=== PATIENT | female | born 1970 | race Caucasian/White ===

== ENCOUNTER 2019-09-26 12:41 | Outpatient (CLI) | payer BC, SELFPAY ==
--- NOTE | ~2019-09-26 | XR_ITS ---
EXAMINATION: XR ankle RT min 3V, XR foot RT min 3V DATE: 09/26/2019 13:06 INDICATION: Right foot and ankle pain TECHNIQUE: 1. Standing anteroposterior, mortise, additional oblique and lateral view of the right ankle were ob tained. 2. Standing dorsoplantar, two oblique and lateral views of the right foot were obtained. COMPARISON: None. FINDINGS: Alignment of the right foot and ankle is normal. No fracture or osteochondral lesion. Minimal to mild osteoarthritis at the tarsal metatarsal and first metatarsophalangeal joints. Tiny Achilles and plan tar calcaneal spurs. No ankle joint effusion. The soft tissues are unremarkable. IMPRESSION: 1. Minimal to mild degenerative skeletal changes. No acute osseous abnormality. Reviewed, dictated and finalized at location A. IMPRESSION: 1. Minimal to mild degenerative skeletal changes. No acute osseous abnormality.
--- NOTE | ~2019-09-26 | XR_ITS ---
EXAMINATION: XR ankle LT min 3V, XR foot LT min 3V DATE: 09/26/2019 13:06 INDICATION: Left foot and ankle pain TECHNIQUE: 1. Standing anteroposterior, mortise, additional oblique and lateral view of the left ankle were obt ained. 2. Standing dorsoplantar, two oblique and lateral views of the left foot were obtained. COMPARISON: None. FINDINGS: Alignment of the foot and ankle is normal. No fracture or osteochondral lesion. Minimal to mild osteo arthritis involving the talonavicular, tarsometatarsal and first metatarsophalangeal joints. Tiny Ach illes and plantar calcaneal spurs. No ankle joint effusion. The soft tissues are unremarkable. IMPRESSION: 1. Minimal to mild degenerative changes in the left foot. No acute osseous abnormality. Reviewed, dictated and finalized at location A. IMPRESSION: 1. Minimal to mild degenerative changes in the left foot. No acute osseous abno rmality.
== END 2019-09-26 12:42 | disposition home or self-care (01) ==
LOC: ANHIMG 12:44
PROVIDERS: PCP Family Medicine; Visit Provider Podiatrist Foot & Ankle Surgery
DX: M79.672 Pain in left foot (principal); M79.671 Pain in right foot; M19.072 Primary osteoarthritis, left ankle and foot; M19.071 Primary osteoarthritis, right ankle and foot
CPT/HCPCS: 73610; 73630

== ENCOUNTER 2020-01-31 10:31 | Outpatient (CLI) | payer BC, SELFPAY ==
--- NOTE | ~2020-01-31 | XR_ITS ---
EXAMINATION: XR knee LT 3V EXAM DATE: 01/31/2020 11:08 INDICATION: Initial encounter following injury, with pain of the left knee. TECHNIQUE: Three projections of the left knee. There are no prior studies for comparison. FINDINGS: No evidence osteochondral defect or joint body in the left knee joint. No sizable joint effusion. There are no acute fractures or dislocations identified. There is no subcutaneous gas. Th e soft tissue is unremarkable. There are no radiopaque foreign bodies. IMPRESSION: 1. Unremarkable XR knee LT 3V exam. Reviewed, dictated and finalized at location B.
--- NOTE | ~2020-01-31 | XR_ITS ---
EXAMINATION: XR lumbar spine 2-3V EXAM DATE: 01/31/2020 11:08 INDICATION: Initial encounter following injury, with pain of the low back. TECHNIQUE: Lumber spine frontal, lateral, lateral L5-S1 projections for interpretation. There is no prior study for comparison. FINDINGS: The vertebral bodies are aligned in the AP dimension. There is mild loss of the L5-S1 disc height. The vertebral body and disc heights are otherwise well maintained. There are no acute fractu res identified. Mild lumbar facet arthropathy. Sacrum, sacroiliac joints, sacral arcuate lines are in tact. Paraspinal soft tissue is unremarkable. IMPRESSION: 1. Mild lumbar spondylosis. Reviewed, dictated and finalized at location B. IMPRESSION: 1. Mild lumbar spondylosis.
--- NOTE | ~2020-01-31 | XR_ITS ---
EXAMINATION: XR hip LT min 2V EXAM DATE: 01/31/2020 11:08 INDICATION: Initial encounter following injury, with pain of the left hip. TECHNIQUE: Left hip frontal, 'frog leg' projections for interpretation. There is no prior study for comparison. FINDINGS: Smooth left hip femoral head contour, no radiographic evidence of avascular necrosis. Ther e is mild primary osteoarthritis. There are no acute fractures or dislocations identified. There is no subcutaneous gas. The soft tissue is unremarkable. There are no radiopaque foreign bodies. IMPRESSION: 1. XR hip LT min 2V exam without acute osseous findings. Reviewed, dictated and finalized at location B.
== END 2020-01-31 10:32 | disposition home or self-care (01) ==
PROVIDERS: PCP Family Medicine; Visit Provider Physician Assistant
DX: M25.559 Pain in unspecified hip (principal); M47.896 Other spondylosis, lumbar region; M25.552 Pain in left hip; M25.562 Pain in left knee
CPT/HCPCS: 72100; 73502; 73562

== ENCOUNTER 2020-06-04 12:18 | Outpatient (CLI) | payer BC, MEDICAID, SELFPAY ==
--- NOTE | ~2020-06-04 | XR_ITS ---
EXAMINATION: XR chest 2V DATE: 06/04/2020 12:41 INDICATION: Personal history of other specified conditions. TECHNIQUE: Frontal and lateral views of the chest were obtained. COMPARISON: Chest 2 views 08/14/16, CT abdomen and pelvis 05/16/2009 FINDINGS: The chest demonstrates clear lungs without pneumonia, pleural effusion, or pneumothorax. Th e heart size is normal. IMPRESSION: 1. No acute cardiopulmonary disease. Reviewed, dictated and finalized at location A. 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
== END 2020-06-04 12:19 | disposition home or self-care (01) ==
PROVIDERS: PCP Family Medicine; Visit Provider Physician Assistant
DX: Z87.898 Personal history of other specified conditions (principal)
CPT/HCPCS: 71046

== ENCOUNTER → 2020-07-16 06:56 | Outpatient (CLI) | payer MEDICAID, SELFPAY ==
[2020-07-16 22:47] LABS: SARS-CoV-2 RNA PCR Negative
== END ==
PROVIDERS: PCP Family Medicine; Visit Provider Physician Assistant
DX: R05 Cough (principal); Z20.822 Contact with and (suspected) exposure to COVID-19
CPT/HCPCS: C9803; U0003; U0005

== ENCOUNTER 2020-09-08 13:33 | Emergency (ER) | payer BC, SELFPAY ==
--- NOTE | ~2020-09-08 | US_ITS ---
EXAMINATION: US venous doppler UE RT DATE: 09/08/2020 15:13 INDICATION: Erythema and swelling at the right upper limb TECHNIQUE: Grayscale images without and with compression and Doppler images of the right upper extrem ity veins were obtained. COMPARISON: None. FINDINGS: The right internal jugular vein, subclavian vein, axillary vein, brachial vein, basilic vein, cephali c vein, radial vein, and ulnar vein are patent. IMPRESSION: 1. Patent right upper extremity veins. No evidence of venous thrombosis. Reviewed, dictated and finalized at location A.
[2020-09-08 13:50] VITALS: BP 219/94; PULSE 78; RESP 18; TEMP 36.2; O2SAT 98
--- NOTE | 2020-09-08 14:02 | PC.NURSE ---
Arrives ambulatory steady gait from triage, c/o R forearm pain/tenderness/erythema, denies falls or trauma, states yesterday Diatomaceous Earth spilled on her living room floor and made contact with her skin, denies allergies. Denies hx blod clots. Pt tearful and anxious
--- NOTE | 2020-09-08 14:51 | ED.GENADULT ---
HPI - General Adult General Chief complaint: Extremity Injury, Upper Stated complaint: swollen right arm Time Seen by Provider: 09/08/20 14:05 Source: patient Mode of arrival: ambulatory Limitations: no limitations History of Present Illness HPI narrative: Patient presents for evaluation of right forearm pain, redness and swelling. She states she had a panic attack two night ago. Thereafter she developed a rash in right forearm. She states she has had a rash in the past with previous panic attacks. Since that time, the area has become more erythematous and painful. She states she spilled a cleaning product on the floor around the time of symptom onset believes the affected area of her arm may have come in contact with the cleaning product. She denies fever, chills, nausea, vomiting. She is diabetic. She states her blood sugars have been running in the 150s. On arrival in the emergency department her blood pressure was elevated. She states she ran out of her losartan few days ago. She plan to pick it up but she cannot do so as of yet. She denies any chest pain or shortness of breath. In terms of pain in the right forearm she states that it is so bad (she) wants to cry . She is right hand dominant. No personal hx of VTE. She does not smoke. No additional complaints or concerns. Related Data Allergies Allergy/AdvReac Type Severity Reaction Status Date / Time codeine Allergy Intermediate HIVES Verified 09/08/20 14:04 clarithromycin AdvReac Intermediate DIARRHEA Verified 09/08/20 14:04 ciprofloxacin AdvReac Unknown JOINT PAIN Verified 09/08/20 14:04 Review of Systems Review of Systems: Narrative: CONSTITUTIONAL: Denies fever, chills, or sweats. EYES: Denies visual changes, redness, or discharge. ENT: Denies rhinorrhea, congestion, sore throat, or otalgia. CARDIOVASCULAR: Denies chest pain, palpitations, or edema. RESPIRATORY: Denies cough or dyspnea. GASTROINTESTINAL: Denies abdominal pain, nausea, vomiting, or diarrhea. GENITOURINARY: Denies dysuria or hematuria. SKIN: Reports redness to right forearm. Denies itching. MUSCULOSKELETAL: Reports pain in right forearm. Denies back pain and joint pain. NEUROLOGIC: Denies headache, numbness, dizziness, or weakness. PSYCHIATRIC: Denies anxiety or depression. [facility] Past Medical History Medical History Anxiety Bilateral knee pain Deviated septum Diabetes Effusion of right knee joint HLD (hyperlipidemia) Hypertension Hypothyroidism Left knee DJD Left knee pain Medial meniscus tear Normal colonoscopy (~2014) Right knee DJD Surgical History Surgical History H/O elbow surgery (~2016) H/O shoulder surgery (~2009) History of appendectomy (~2001) History of thyroidectomy (~2003) Family History Family History Grandparent Diabetes mellitus Family history of mental disorder Depression Family history of malignant neoplasm of ovary Mother Family history of hypercholesterolemia Family history of mental disorder Depression Hypertension Cerebrovascular accident Family history of emphysema Other Arthritis Asthma Lung disease Social History Social History Smoking status: Never smoker Tobacco type: smokeless tobacco Second hand tobacco smoke exposure: No Alcohol intake: never Gender identity (if verbalized by the patient): Female Exam Narrative: Exam Narrative: GENERAL: Well-appearing, well-nourished, and in no acute distress. HEAD: Normocephalic, atraumatic. EYES: PERRLA and EOMI. ENT: Nares clear, no rhinorrhea or epistaxis. Mucous membranes moist. Oropharynx without tonsillar hypertrophy exudate or other lesions. Bilateral TMs pearly franco nonbulging NECK: Supple. No adenopathy or masses. No carotid bruits
[2020-09-08 15:30] VITALS: BP 180/102; PULSE 59; RESP 20; O2SAT 98
[2020-09-08] MEDS: cloNIDine HCL 0.1 MG TABLET PO (15:31)
[2020-09-08] MEDS: HYDROcodone/acetaminophen (*CRX) 5-325 MG TABLET 2 TAB PO (15:34)
[2020-09-08 15:48] LABS: Basophils Percent Auto 0.3 % (0.2-1.2); Eosinophils Absolute Auto 0.3 K/mm3 (0-0.3); Eosinophils Percent Auto 3.7 % (0-4.4); Hematocrit 45.9 % (37.0-47.0); Hemoglobin 15.1 g/dL (12.0-15.0); Immature Granulocyte Absolute 0.02 K/mm3 (0.00-0.031); Immature Granulocyte Percent A 0.3 % (0-0.5); Lymphocytes Absolute Auto 1.16 K/mm3 (0.9-3.2); Lymphocytes Percent Auto 15.3 % (18.3-44.2); Mean Corpuscular HGB Conc 32.9 g/dl (32-36); Mean Corpuscular Hemoglobin 29.3 pg (26-34); Mean Corpuscular Volume 89.1 fl (80-100); Monocytes Absolute Auto 0.4 K/mm3 (0.1-0.6); Monocytes Percent Auto 5.3 % (2.6-8.5); Neutrophils Absolute Auto 5.7 K/mm3 (1.3-6.7); Neutrophils Percent Auto 75.1 % (45.5-73.1); Platelet Count Result 369 k/mm3 (150-375); Red Blood Count 5.15 M/mm3 (4.2-5.4); White Blood Count 7.6 K/mm3 (4.5-10.0)
[2020-09-08 16:01] LABS: Alanine Aminotransferase 24 U/L (4-35); Alkaline Phosphatase 110 U/L (38-126); Anion Gap 4 mmol/L (8-16); Aspartate Amino Transferase 34 U/L (14-36); Bilirubin,Total 0.2 mg/dL (0.2-1.3); Blood Urea Nitrogen 14 mg/dL (7-17); Calcium 8.9 mg/dL (8.4-10.2); Carbon Dioxide 31 mmol/L (22-30); Chloride 103 mmol/L (98-107); Estimated CRCL calculation 81 ml/min; Estimated Glomerular Filt Rate > 60; Glucose 149 mg/dL (65-105); Potassium 3.6 mmol/L (3.4-5.0); Sodium 138 mmol/L (137-145)
[2020-09-08 16:47] LABS: INR 0.9
[2020-09-08 16:48] LABS: Partial Thromboplastin Time 27.5 SECONDS (22.3-36.8)
[2020-09-08 16:56] VITALS: BP 115/65; PULSE 52; RESP 17; O2SAT 94
[2020-09-08 17:25] LABS: Creatine Kinase 41 U/L (30-135)
[2020-09-08 18:23] VITALS: BP 111/59; PULSE 50; RESP 17; O2SAT 98
== END 2020-09-08 18:39 | disposition home or self-care (01) ==
PROVIDERS: Emergency Provider Nurse Practitioner; PCP Family Medicine
DX: L03.113 Cellulitis of right upper limb (principal); E11.9 Type 2 diabetes mellitus without complications; E78.5 Hyperlipidemia, unspecified; I10 Essential (primary) hypertension; E89.0 Postprocedural hypothyroidism; M17.0 Bilateral primary osteoarthritis of knee; F17.220 Nicotine dependence, chewing tobacco, uncomplicated
CPT/HCPCS: 36415; 80053; 82550; 85025; 85610; 85730; 93971; 96365; 99284; A9270; J0690

== ENCOUNTER 2020-09-16 10:22 | Outpatient (CLI) | payer BC, SELFPAY ==
--- NOTE | ~2020-09-16 | MR_ITS ---
EXAMINATION: MR knee LT wo con DATE: 09/16/2020 11:39 INDICATION: Left knee pain TECHNIQUE: Magnetic resonance imaging (MRI) of the left knee was performed without intravenous contra st. Sequences included coronal PD-weighted FSE, coronal PD-weighted FS FSE, sagittal T2-weighted FSE , sagittal PD-weighted FS FSE and axial PD weighted fat saturated FSE. COMPARISON: None. FINDINGS: Medial compartment: Medial meniscus is normal. Articular cartilage is normal. Lateral compartment: Lateral meniscus is normal. Mild chondral surface regularity at the central aspect. Lateral tibial pl [place]. Patellofemoral compartment: Articular cartilage is normal. Ligaments and tendons: Anterior and posterior cruciate ligaments are normal. The medial collateral ligament and fibular freddy ateral ligament complex are normal. The extensor mechanism is normal. The visualized medial and later al hamstring tendons as well as the iliotibial band are normal. Fluid: Physiologic amount of fluid in the joint space. No loose osteochondral bodies identified. Small Ambrose 's cyst with small amount of fluid tracking cephalad along the deep margin of the distal semimembrano afshin muscle belly. Osseous/other: Normal marrow signal. No fracture or abnormal marrow replacing process. IMPRESSION: 1. Shallow chondral surface irregularity at the central aspect of the lateral tibial plateau. 2. Small likely ruptured Ambrose's cyst with small amount of fluid tracking cephalad along the distal s emimembranosus muscle belly. Reviewed, dictated and finalized at location A. IMPRESSION: 1. Shallow chondral surface irregularity at the central aspect of the lateral t ibial plateau. 2. Small likely ruptured Ambrose's cyst with small amount of fluid tracking cepha lad along the distal semimembranosus muscle belly.
== END 2020-09-16 10:23 | disposition home or self-care (01) ==
PROVIDERS: PCP Family Medicine; Visit Provider Orthopaedic Surgery
DX: M25.562 Pain in left knee (principal)
CPT/HCPCS: 73721

== ENCOUNTER 2020-12-23 21:23 | Emergency (ER) | payer OTHER, BC, SELFPAY ==
[2020-12-23 21:31] VITALS: BP 180/86; PULSE 74; RESP 18; TEMP 36.9; O2SAT 100
--- NOTE | 2020-12-23 23:59 | PC.NURSE ---
splint to ankle removed by erp. replaced with new orthoglass splint by ert
--- NOTE | 2020-12-24 | ED.LOWEXIN ---
HPI - Extremity Injury (Lower) General Chief Complaint: Extremity Injury, Lower Stated Complaint: pain from previous ankle fx Time Seen by Provider: 12/23/20 23:14 History of Present Illness HPI Narrative: Patient is a 50-year-old female who presents ER with pain in her left ankle. Had suffered a fall while at work just before December 14. She was seen at an urgent care and diagnosed with a chip fracture to her patella and a medial malleolus fracture on the left side. She was placed in a short leg posterior splint and a knee immobilizer. She has been using a walker at home. She was given no pain medication. No improvement with ibuprofen. No additional trauma. No new numbness or tingling. Related Data Allergies Allergy/AdvReac Type Severity Reaction Status Date / Time codeine Allergy Intermediate HIVES Verified 12/23/20 21:46 clarithromycin AdvReac Intermediate DIARRHEA Verified 12/23/20 21:46 ciprofloxacin AdvReac Unknown JOINT PAIN Verified 12/23/20 21:46 Review of Systems Constitutional: Constitutional: Denies chills and Denies fever(s) Musculoskeletal: Musculoskeletal: Denies back pain, Reports arthralgias, Denies joint swelling and Denies muscle cramps Neurologic: Denies focal weakness and Denies numbness PMFSH Past Medical History Medical History Anxiety Bilateral knee pain Deviated septum Diabetes Effusion of right knee joint HLD (hyperlipidemia) Hypertension Hypothyroidism Left knee DJD Left knee pain Medial meniscus tear Normal colonoscopy (~2014) Right knee DJD Surgical History Surgical History H/O elbow surgery (~2016) H/O shoulder surgery (~2009) History of appendectomy (~2001) History of thyroidectomy (~2003) Family History Family History Grandparent Diabetes mellitus Family history of mental disorder Depression Family history of malignant neoplasm of ovary Mother Family history of hypercholesterolemia Family history of mental disorder Depression Hypertension Cerebrovascular accident Family history of emphysema Other Arthritis Asthma Lung disease Social History Social History Tobacco type: smokeless tobacco Second hand tobacco smoke exposure: No Alcohol intake: never Gender identity (if verbalized by the patient): Female Exam Narrative: GENERAL: Well-appearing, well-nourished, and in no acute distress. HEAD: Normocephalic, atraumatic. HEART: Regular rate and rhythm. Normal peripheral pulses. EXTREMITIES: Normal range of motion of the right lower extremity. Left lower extremity immobilized. Short leg posterior splint removed and no breakdown of the skin. Mild tenderness over the medial malleolus. No bruising or swelling. NEURO: Alert and oriented x3. PSYCH: Normal mood and affect. Course Course Emergency Course: Patient resplinted. Discharge home. Small amount of [place] for home. Vital Signs Vital signs: Vital Signs Temperature 98.4 F 12/23/20 21:31 Pulse Rate 74 12/23/20 21:31 Respiratory Rate 18 12/23/20 21:31 Blood Pressure 180/86 H 12/23/20 21:31 Pulse Oximetry 100 12/23/20 21:31 Temperature 98.4 F 12/23/20 21:31 Pulse Rate 74 12/23/20 21:31 Respiratory Rate 18 12/23/20 21:31 Blood Pressure 180/86 H 12/23/20 21:31 Pulse Oximetry 100 12/23/20 21:31 Procedures Orthopedic Splinting/Casting Injury #1: Splinting/Casting Date: 12/24/20 Splinting/Casting Time: 00:04 Side: left Lower Extremity Injury Location: ankle Lower Extremity Immobilizer: posterior splint Splint: customized in ED Pre-Procedure Neuro Vascular Exam: normal Post-Procedure Neuro Vascular Exam: normal Discharge Plan Discharge Clinical Impression: Ankle fractur
== END 2020-12-24 00:26 | disposition home or self-care (01) ==
PROVIDERS: Emergency Provider Emergency Medicine; PCP Family Medicine
DX: S82.892A Other fracture of left lower leg, initial encounter for closed fracture (principal); E11.9 Type 2 diabetes mellitus without complications; E78.5 Hyperlipidemia, unspecified; I10 Essential (primary) hypertension; M17.0 Bilateral primary osteoarthritis of knee; E89.0 Postprocedural hypothyroidism; F17.220 Nicotine dependence, chewing tobacco, uncomplicated; F41.9 Anxiety disorder, unspecified
CPT/HCPCS: 29515; 99282

== ENCOUNTER 2021-01-10 09:19 | Outpatient (CLI) | payer OTHER, SELFPAY ==
--- NOTE | ~2021-01-10 | MR_ITS ---
EXAMINATION: MR knee LT wo con DATE: 01/10/2021 11:20 INDICATION: Persistent left knee pain, swelling and instability post fall one month prior TECHNIQUE: Magnetic resonance imaging (MRI) of the left knee was performed without intravenous contra st. Sequences included coronal PD-weighted FSE, coronal PD-weighted FS FSE, sagittal T2-weighted FSE , sagittal PD-weighted FS FSE and axial PD weighted fat saturated FSE. COMPARISON: None. FINDINGS: Medial compartment: Medial meniscus is normal. Articular cartilage is normal. Lateral compartment: Lateral meniscus is normal. Partial-thickness chondral fissure extending across the central to medial aspect of the lateral tibial plateau with tiny focus of subarticular edema along the shoulder the in tercondylar eminence. Normal cartilage along the weightbearing lateral femoral condyle. Patellofemoral compartment: Articular cartilage is normal. Ligaments and tendons: Anterior and posterior cruciate ligaments are normal. The medial collateral ligament and fibular freddy ateral ligament complex are normal. The extensor mechanism is normal. The visualized medial and later al hamstring tendons as well as the iliotibial band are normal. Fluid: Physiologic amount of fluid in the joint space. No loose osteochondral bodies identified. Osseous/other: Normal marrow signal. No fracture or abnormal marrow replacing process. IMPRESSION: 1. Small region of moderate to high-grade chondromalacia at the lateral tibial plateau. Reviewed, dictated and finalized at location A.
== END 2021-01-10 09:20 | disposition home or self-care (01) ==
PROVIDERS: PCP Family Medicine; Visit Provider Orthopaedic Surgery
DX: M25.562 Pain in left knee (principal); M94.262 Chondromalacia, left knee
CPT/HCPCS: 73721

== ENCOUNTER → 2021-03-07 02:39 | Outpatient (CLI) | payer BC, SELFPAY ==
[2021-03-07 17:01] LABS: SARS-CoV-2 RNA PCR Negative
== END ==
PROVIDERS: PCP Family Medicine; Visit Provider Physician Assistant
DX: R05.9 Cough, unspecified (principal); Z20.822 Contact with and (suspected) exposure to COVID-19
CPT/HCPCS: C9803; U0003; U0005

== ENCOUNTER 2021-03-13 16:33 | Emergency (ER) | payer BC, SELFPAY ==
[2021-03-13] VITALS (10 sets, daily range): BP systolic 181–209; BP diastolic 81–102; PULSE 50–75; RESP 12–29; TEMP 36.1; O2SAT 94–100
--- NOTE | ~2021-03-13 | CT_ITS ---
EXAMINATION: CT brain wo con DATE: 03/13/2021 17:54 INDICATION: Headache, dizziness TECHNIQUE: Computed tomography (CT) of the head was performed without intravenous contrast. The mA wa s adjusted according to patient size. Iterative reconstruction technique was employed. Exam dose: 60 5.33 mGy-cm total exam DLP. COMPARISON: 09/24/2016 CT brain FINDINGS: No intracranial mass lesion or hemorrhage or cerebrovascular accident. No midline shift or mass effect. Normal ventricular size. No subdural or epidural hematoma. No fracture or bone destruction of the cranial vault. The mastoid air cells and included paranasal sinuses are unremarkable. IMPRESSION: No significant abnormality Reviewed, dictated and finalized at Location A. Reviewed, dictated and finalized at location A. IMPRESSION: No significant abnormality
--- NOTE | 2021-03-13 16:39 | ECG_ITS ---
Measurements Intervals Ona Rate: 71 P: 3 NV: 118 QRS: 8 QRSD: 89 T: -26 QT: 397 QTc: 431 Interpretive Statements SINUS RHYTHM WITH SHORT NV INTERVAL VENTRICULAR PREMATURE COMPLEXES DELAYED PRECORDIAL R/S TRANSITION BORDERLINE T WAVE ABNORMALITY- DIFFUSE LEADS BASELINE ARTIFACT- III BORDERLINE ECG Electronically Signed On 03-13-2021 20:22:56 CDT by Nick Smith D.O.
[2021-03-13 17:11] LABS: Basophils Absolute Auto 0.1 K/mm3 (0.0-0.1); Basophils Percent Auto 0.9 % (0.2-1.2); Eosinophils Percent Auto 0.7 % (0-4.4); Hematocrit 46.9 % (37.0-47.0); Hemoglobin 15.1 g/dL (12.0-15.0); Immature Granulocyte Absolute 0.02 K/mm3 (0.00-0.031); Immature Granulocyte Percent A 0.3 % (0-0.5); Lymphocytes Absolute Auto 1.53 K/mm3 (0.9-3.2); Lymphocytes Percent Auto 26.2 % (18.3-44.2); Mean Corpuscular HGB Conc 32.2 g/dl (32-36); Mean Corpuscular Hemoglobin 29.5 pg (26-34); Mean Corpuscular Volume 91.6 fl (80-100); Mean Platelet Volume 9.4 fl (7.4-10.4); Monocytes Absolute Auto 0.4 K/mm3 (0.1-0.6); Monocytes Percent Auto 7.5 % (2.6-8.5); Neutrophils Absolute Auto 3.8 K/mm3 (1.3-6.7); Neutrophils Percent Auto 64.4 % (45.5-73.1); Platelet Count Result 338 k/mm3 (150-375); Red Blood Count 5.12 M/mm3 (4.2-5.4); Red Cell Distribution Width 13.3 % (11.5-14.5); White Blood Count 5.9 K/mm3 (4.5-10.0)
[2021-03-13] MEDS: SODIUM CHLORIDE 0.9% IV 1,000 ML 999 ML IV CONT ×2 (17:44→19:18)
[2021-03-13] MEDS: ONDANSETRON INJ 4 MG/2 ML VIAL IV PUSH (17:44)
[2021-03-13 17:45] LABS: Anion Gap 7 mmol/L (8-16); Blood Urea Nitrogen 9 mg/dL (7-17); Calcium 9.5 mg/dL (8.4-10.2); Carbon Dioxide 31 mmol/L (22-30); Chloride 103 mmol/L (98-107); Estimated CRCL calculation 85 ml/min; Estimated Glomerular Filt Rate > 60; Glucose 217 mg/dL (65-110); Potassium 3.7 mmol/L (3.4-5.0); Sodium 141 mmol/L (137-145)
--- NOTE | 2021-03-13 17:47 | ED.DIZZY ---
HPI - Dizziness General Chief Complaint: Dizziness Stated Complaint: headache Time Seen by Provider: 03/13/21 17:15 Source: patient History of Present Illness HPI Narrative: Patient presents with dizziness. Patient reports intermittent dizziness over the past 3 days associated primarily when standing up and moving quickly. She describes sensation of spinning as well as sensation of she feels like she is going to pass out. She also reports she has had left-sided jaw and ear pain over this time. She was seen by her primary care doctor and was told she has an ear infection and started headaches. She reports she blew her nose yesterday and this morning woke up with blood around her eyes and she was concerned Dr. Primary care doctor is referred to the ER for evaluation. She denies any active dizziness right now while laying down. She denies any focal numbness or weakness. She reports her symptoms have also been associate with a headache that is achy, constant, no radiation, worsened by everything . Patient is also reporting a lot of pressure in her sinuses over the past 3 days she denies fevers does report congestion denies cough. She also reports mild upset stomach but denies any vomiting or diarrhea Related Data Allergies Allergy/AdvReac Type Severity Reaction Status Date / Time codeine Allergy Intermediate HIVES Verified 02/27/21 13:22 clarithromycin AdvReac Intermediate DIARRHEA Verified 02/27/21 13:22 ciprofloxacin AdvReac Unknown JOINT PAIN Verified 02/27/21 13:22 Review of Systems Review of Systems: CONSTITUTIONAL: Denies fever, chills, or sweats. EYES: Denies visual changes, redness, or discharge. ENT: Denies sore throat, or otalgia. CARDIOVASCULAR: Denies chest pain, palpitations, or edema. RESPIRATORY: Denies cough or dyspnea. GASTROINTESTINAL: Denies abdominal pain, vomiting, or diarrhea. GENITOURINARY: Denies dysuria or hematuria. SKIN: Denies rash or itching. MUSCULOSKELETAL: Denies back pain, joint pain, or myalgia. NEUROLOGIC: Denies numbness, dizziness, or weakness. PSYCHIATRIC: Denies anxiety or depression. All systems reviewed & are unremarkable except as noted in HPI and below PMFSH Past Medical History Medical History Anxiety Bilateral knee pain Deviated septum Diabetes Effusion of right knee joint HLD (hyperlipidemia) Hypertension Hypothyroidism Left knee DJD Left knee pain Medial meniscus tear Normal colonoscopy (~2014) Right knee DJD Surgical History Surgical History H/O elbow surgery (~2017) H/O shoulder surgery (~2009) History of appendectomy (~2001) History of thyroidectomy (~2003) Family History Family History Grandparent Diabetes mellitus Family history of mental disorder Depression Family history of malignant neoplasm of ovary Mother Family history of hypercholesterolemia Family history of mental disorder Depression Hypertension Cerebrovascular accident Family history of emphysema Other Arthritis Asthma Lung disease Social History Social History Second hand tobacco smoke exposure: No Alcohol intake: never Substance use: never Gender identity (if verbalized by the patient): Female Exam Narrative: GENERAL: Well-appearing, well-nourished, and in no acute distress. HEAD: Normocephalic, atraumatic. EYES: PERRLA and EOMI. diffuse conjunctival injection, left eye with subconjunctival hemorrhage ENT: Nares clear, no rhinorrhea or epistaxis. Mucous membranes moist. Diffusely poor dentition with tenderness and swelling in the left lower molar NECK: Supple. No masses. No JVD CHEST: Clear to auscultation. No respiratory distress. No wheezes rales or rhonchi HEART: Regular rate and rhythm. No murmur heard. Normal peripheral pulses. ABDOMEN: Soft,
--- NOTE | 2021-03-13 17:55 | PC.NURSE ---
Pt to ct
--- NOTE | 2021-03-13 19:01 | PC.NURSE ---
PT WITH C/O CHEST TIGHTNESS. NO ACUTE DISTRESS NOTED. PT TEXTING ON PHONE AT THIS TIME. DR YEN MADE AWARE AND NO NEW ORDERS.
== END 2021-03-13 20:46 | disposition home or self-care (01) ==
PROVIDERS: Emergency Medicine; Emergency Provider Emergency Medicine; PCP Family Medicine
DX: R42 Dizziness and giddiness (principal); K04.7 Periapical abscess without sinus; R51.9 Headache, unspecified; J32.9 Chronic sinusitis, unspecified; E11.9 Type 2 diabetes mellitus without complications; E78.5 Hyperlipidemia, unspecified; I10 Essential (primary) hypertension; M17.0 Bilateral primary osteoarthritis of knee; E89.0 Postprocedural hypothyroidism; I49.3 Ventricular premature depolarization; R94.31 Abnormal electrocardiogram [ECG] [EKG]
CPT/HCPCS: 36415; 70450; 80048; 81025; 85025; 93005; 96361; 96365; 96375; 99284; J0131; J2405; J7030

== ENCOUNTER → 2021-04-04 00:48 | Outpatient (CLI) | payer BC, SELFPAY ==
[2021-04-04 17:10] LABS: SARS-CoV-2 RNA PCR Negative
== END ==
PROVIDERS: PCP Family Medicine; Visit Provider Family Medicine
DX: R68.89 Other general symptoms and signs (principal); Z20.822 Contact with and (suspected) exposure to COVID-19
CPT/HCPCS: C9803; U0003; U0005

== ENCOUNTER 2021-05-20 10:32 | Outpatient (CLI) | payer BC, SELFPAY ==
[2021-05-20 10:27] LABS: Hematocrit 43.7 % (37.0-47.0); Hemoglobin 14.2 g/dL (12.0-15.0); Mean Corpuscular HGB Conc 32.5 g/dl (32-36); Mean Corpuscular Hemoglobin 30.1 pg (26-34); Mean Corpuscular Volume 92.6 fl (80-100); Mean Platelet Volume 9.4 fl (7.4-10.4); Platelet Count Result 287 k/mm3 (150-375); Red Blood Count 4.72 M/mm3 (4.2-5.4); Red Cell Distribution Width 13.3 % (11.5-14.5); White Blood Count 4.2 K/mm3 (4.5-10.0)
[2021-05-20 10:36] LABS: Alanine Aminotransferase 54 U/L (4-35); Alkaline Phosphatase 97 U/L (38-126); Anion Gap 9 mmol/L (8-16); Aspartate Amino Transferase 38 U/L (14-36); Bilirubin,Total 0.7 mg/dL (0.2-1.3); Blood Urea Nitrogen 16 mg/dL (7-17); Calcium 8.8 mg/dL (8.4-10.2); Carbon Dioxide 30 mmol/L (22-30); Chloride 101 mmol/L (98-107); Estimated Glomerular Filt Rate > 60; Glucose 167 mg/dL (65-110); Potassium 3.8 mmol/L (3.4-5.0); Sodium 140 mmol/L (137-145)
[2021-05-20 10:38] LABS: Hemoglobin A1C 9.1 % (<5.7)
[2021-05-20 11:32] LABS: Free T4 Free Thyroxine 1.42 ng/mL (0.78-2.19)
== END 2021-05-20 10:33 | disposition home or self-care (01) ==
PROVIDERS: PCP Family Medicine; Visit Provider Physician Assistant
DX: D64.9 Anemia, unspecified (principal); I10 Essential (primary) hypertension; E11.9 Type 2 diabetes mellitus without complications; E03.9 Hypothyroidism, unspecified
CPT/HCPCS: 36415; 80053; 83036; 84439; 84443; 85027

== ENCOUNTER 2021-09-12 12:40 | Outpatient (CLI) | payer BC, SELFPAY ==
[2021-09-12 13:12] LABS: Hemoglobin A1C 6.8 % (<5.7)
[2021-09-12 13:13] LABS: Alanine Aminotransferase 28 U/L (4-35); Albumin Level 3.8 g/dL (3.5-5.1); Alkaline Phosphatase 89 U/L (38-126); Anion Gap 3 mmol/L (8-16); Aspartate Amino Transferase 26 U/L (14-36); Bilirubin,Total 0.3 mg/dL (0.2-1.3); Blood Urea Nitrogen 15 mg/dL (7-17); Calcium 8.3 mg/dL (8.4-10.2); Carbon Dioxide 32 mmol/L (22-30); Chloride 101 mmol/L (98-107); Estimated Glomerular Filt Rate > 60; Glucose 126 mg/dL (65-110); Potassium 3.9 mmol/L (3.4-5.0); Sodium 136 mmol/L (137-145)
[2021-09-12 14:03] LABS: Free T4 Free Thyroxine 0.84 ng/mL (0.78-2.19)
== END 2021-09-12 12:41 | disposition home or self-care (01) ==
LOC: ANHLAB 12:42
PROVIDERS: PCP Family Medicine; Visit Provider Physician Assistant
DX: E03.9 Hypothyroidism, unspecified (principal); E11.9 Type 2 diabetes mellitus without complications; I10 Essential (primary) hypertension; R53.83 Other fatigue; Z13.1 Encounter for screening for diabetes mellitus
CPT/HCPCS: 36415; 80053; 83036; 84439; 84443

== ENCOUNTER 2022-04-20 19:12 | Emergency (ER) | payer OTHER, BC, SELFPAY ==
--- NOTE | ~2022-04-20 | XR_ITS ---
EXAM: XR shoulder LT min 2V DATE: 04/20/2022 22:03 HISTORY: FALL, LT SHOULDER PAIN . COMPARISON: None available. FINDINGS: Normal mineralization. No fracture or dislocation. No lytic or blastic lesion. Moderate AC joint hypertrophy. No erosion or periosteal change. Soft tissues within normal limits. IMPRESSION: No acute osseous finding in the left shoulder. Reviewed, dictated and finalized at location K. 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
--- NOTE | ~2022-04-20 | XR_ITS ---
EXAMINATION: XR chest 1V portable DATE: 04/21/2022 04:17 INDICATION: Left lateral chest pain. Fall. TECHNIQUE: A single frontal view of the chest was obtained. COMPARISON: Chest 2 views 06/04/2020 FINDINGS: There is no pneumonia, pleural effusion, or pneumothorax. The heart size is normal. IMPRESSION: 1. No acute cardiopulmonary disease. Reviewed, dictated and finalized at location A. 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
[2022-04-20 20:03] VITALS: BP 180/81; PULSE 66; RESP 18; TEMP 36.2; O2SAT 100
[2022-04-21 01:26] VITALS: BP 205/98; PULSE 58; RESP 20; TEMP 36.3; O2SAT 98
--- NOTE | 2022-04-21 01:26 | PC.NURSE ---
pt noted to be having snack from the vending machine while in waiting room
[2022-04-21] MEDS: ACETAMINOPHEN 500 MG TABLET 1000 MG PO (02:37)
[2022-04-21] MEDS: IBUPROFEN 400 MG TABLET 800 MG PO (02:38)
--- NOTE | 2022-04-21 02:43 | PC.NURSE ---
pt ambulating independently to and from bathroom without increased pain
--- NOTE | 2022-04-21 04:22 | ED.GENADULT ---
HPI - General Adult General Chief complaint: Back Pain/Injury Stated complaint: Fall at Work Time Seen by Provider: 04/21/22 02:01 History of Present Illness HPI narrative: this is a 51-year-old female presenting with left shoulder pain and left rib pain after fall at work. 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 She is now complaining of left shoulder and left rib pain. She denies chest pain, difficulty breathing. She denies numbness tingling weakness to any extremity. She did strike her head but she denies loss of consciousness, use of blood thinners, persistent vomiting. He has not taken anything for pain control. Related Data Home Medications Medication Instructions Recorded Confirmed glipizide 5 mg tablet 5 mg PO QAM 09/12/21 09/12/21 Allergies Allergy/AdvReac Type Severity Reaction Status Date / Time codeine Allergy Intermediate HIVES Verified 09/12/21 12:07 clarithromycin AdvReac Intermediate DIARRHEA Verified 09/12/21 12:07 ciprofloxacin AdvReac Unknown JOINT PAIN Verified 09/12/21 12:07 Review of Systems Review of Systems: CONSTITUTIONAL: Denies night sweats. EYES: No eye pain ENT: Denies rhinorrhea CARDIOVASCULAR: Denies palpitations RESPIRATORY: Denies hemoptysis GASTROINTESTINAL: Denies hematemesis GENITOURINARY: Denies hematuria. SKIN: Denies rash MUSCULOSKELETAL: Denies myalgia. NEUROLOGIC: Denies weakness. PSYCHIATRIC: Denies delusions PMFSH Past Medical History Medical History Anxiety Bilateral knee pain Deviated septum Diabetes Effusion of right knee joint HLD (hyperlipidemia) Hypertension Hypothyroidism Left knee DJD Left knee pain Medial meniscus tear Normal colonoscopy (~2014) Right knee DJD Surgical History Surgical History H/O elbow surgery (~2016) H/O shoulder surgery (~2009) History of appendectomy (~2001) History of thyroidectomy (~2003) Family History Family History Grandparent Diabetes mellitus Family history of mental disorder Depression Family history of malignant neoplasm of ovary Mother Family history of hypercholesterolemia Family history of mental disorder Depression Hypertension Cerebrovascular accident Family history of emphysema Other Arthritis Asthma Lung disease Social History Social History Second hand tobacco smoke exposure: No Alcohol intake: never Substance use: never Gender identity (if verbalized by the patient): Female Exam Narrative: APPEARANCE: No apparent distress. Head: atraumatic. EYES: EOMI, NOSE: Atraumatic NECK: Trachea midline RESPIRATORY: No increased rate of breathing , lung sounds are clear bilaterally and the patient is not hypoxic. CARDIOVASCULAR: RRR, ABDOMINAL: Non-distended MUSCULOSKELETAl: No obvious deformities, focal exam of the left shoulder and rib cage revealed No overlying skin changes or bruising. Patient has pain with active/passive range of motion above 90? of abduction, Cap refills less than 2 seconds. Sensation light touch is intact. [employer] strength is intact. Tenderness over the ribcage in the left posterior ribcage around T8 through T10. No crepitus NEURO: Alert. Moving 4/4 extremities SKIN:: Warm, dry. Normal color PSYCHIATRIC: Normal affect Course Vital Signs Vital signs: Vital Signs Temperature 97.1 F L 04/20/22 20:03 Pulse Rate 66 04/20/22 20:03 Respiratory Rate 18 04/20/22 20:03 Blood Pressure 180/81 H 04/20/22 20:03 Pulse Oximetry 100 04/20/22 20:03 Oxygen Delivery Room Air 04/20/22 20:03 Temperature 97.3 F L 04/21/22 01:26 Pulse Rate 58 L 04/21/22 01:26 Respiratory Rate 20 04/21/22 01:26 Blood Pressure 205/98 H 04/21/22 01:26 Pulse Oximetry 98 04/21/22 0
== END 2022-04-21 04:41 | disposition home or self-care (01) ==
PROVIDERS: Emergency Provider Emergency Medicine; PCP Family Medicine
DX: S49.92XA Unspecified injury of left shoulder and upper arm, initial encounter (principal); R07.81 Pleurodynia; F41.9 Anxiety disorder, unspecified; I10 Essential (primary) hypertension; E11.9 Type 2 diabetes mellitus without complications; E78.5 Hyperlipidemia, unspecified; E89.0 Postprocedural hypothyroidism; M17.0 Bilateral primary osteoarthritis of knee; Z79.84 Long term (current) use of oral hypoglycemic drugs; W18.09XA Striking against other object with subsequent fall, initial encounter
CPT/HCPCS: 71045; 73030; 99284; A9270

== ENCOUNTER 2023-09-29 15:01 | Outpatient (CLI) | payer MEDICAID, SELFPAY ==
--- NOTE | ~2023-09-29 | US_ITS ---
EXAMINATION: US pelvic complete w TV DATE: 09/29/2023 15:53 INDICATION: Right-sided pelvic pain TECHNIQUE: Multiple transabdominal and endovaginal sonographic images of the pelvis were obtained. COMPARISON: 07/05/2017 FINDINGS: The uterus measures 6.4 x 2.4 x 2.9 cm. The endometrial complex measures <2 mm in thickness. Heterog eneous echogenicity to the myometrium at the anterior fundus likely related to a degenerated uterine fibroid which is better appreciated this location on the prior ultrasound There are a few 3-4 mm anec hoic nabothian cysts at the cervix. The right ovary measures 2.0 x 2.2 x 1.2 cm. The left ovary measu res 1.2 x 0.8 x 0.9 cm. Mass or flow identified at both ovaries on color Doppler. There is no free fl uid in the pelvis. IMPRESSION: 1. Small region of heterogeneous echogenicity at the anterior uterine fundus likely representing dege neration of a previously more well-defined uterine fibroid seen at this location on study from 018. Reviewed, dictated and finalized at location A. IMPRESSION: 1. Small region of heterogeneous echogenicity at the anterior uterine fundus li maryellen representing degeneration of a previously more well-defined uterine fibroi d seen at this location on study from 07/05/2017.
== END 2023-09-29 15:02 | disposition home or self-care (01) ==
LOC: ANHIMG 15:02
PROVIDERS: PCP Family Medicine; Visit Provider Obstetrics & Gynecology
DX: N85.8 Other specified noninflammatory disorders of uterus (principal)
CPT/HCPCS: 76830; 76856

== ENCOUNTER 2024-01-31 15:19 | Outpatient (CLI) | payer MEDICAID, SELFPAY ==
[2024-01-31 15:49] LABS: Alanine Aminotransferase 34 U/L (6-35); Alkaline Phosphatase 109 U/L (38-126); Anion Gap 6 mmol/L (4-12); Aspartate Amino Transferase 28 U/L (14-36); Bilirubin,Total 0.3 mg/dL (0.2-1.3); Blood Urea Nitrogen 20 mg/dL (7-17); Calcium 9.1 mg/dL (8.4-10.2); Carbon Dioxide 32 mmol/L (22-30); Chloride 97 mmol/L (98-107); Cholesterol 231 mg/dL (0-200); Estimated Glomerular Filt Rate > 60; Glucose 131 mg/dL (65-110); HDL Direct 66 mg/dL; Potassium 3.9 mmol/L (3.4-5.0); Sodium 135 mmol/L (137-145); Triglycerides 382 mg/dL (<150)
[2024-01-31 15:51] LABS: Hemoglobin A1C 7.4 % (<5.7)
[2024-01-31 16:01] LABS: LDL Cholesterol Direct 105 mg/dL
[2024-01-31 16:21] LABS: Creatinine Urine 88.3 mg/dL
[2024-01-31 16:22] LABS: MALB Creatinine Ratio < 6.8 mg/g (0-30); Microalbumin Urine Random < 6.0 mg/L (0-16.7)
[2024-01-31 16:30] LABS: Free T4 Free Thyroxine 1.12 ng/mL (0.78-2.19)
== END 2024-01-31 15:20 | disposition home or self-care (01) ==
LOC: ANHLAB 15:20
PROVIDERS: PCP Family Medicine; Visit Provider Student in an Organized Health Care Education/Training Program
DX: E03.9 Hypothyroidism, unspecified (principal); E11.9 Type 2 diabetes mellitus without complications; E78.5 Hyperlipidemia, unspecified; I10 Essential (primary) hypertension
CPT/HCPCS: 36415; 80053; 80061; 82043; 83036; 84439; 84443

== ENCOUNTER 2024-02-07 08:40 | Observation (INO) | payer MEDICAID, SELFPAY ==
[2024-02-07] VITALS (11 sets, daily range): BP systolic 136–159; BP diastolic 71–74; PULSE 60–84; RESP 16–18; TEMP 36.1–37; O2SAT 97–100
--- NOTE | ~2024-02-07 | CT_ITS ---
EXAMINATION: CT abdomen pelvis w con DATE: 02/07/2024 10:07 INDICATION: Abdominal pain. Vomiting. TECHNIQUE: Computed tomography (CT) of the abdomen and pelvis was performed with 100 mL Omnipaque 350 intravenous contrast. Automated exposure control and iterative reconstruction technique were employe d. The dose-length product was 1265.09 mGy-cm. COMPARISON: CT abdomen and pelvis 05/16/2009 FINDINGS: The visualized portions of the lung bases are clear without pneumonia or pleural effusion. The heart size is normal. No pericardial effusion. The liver, gallbladder, spleen, pancreas, adrenal glands, and kidneys are normal. The appendix is not visualized. There is wall thickening of the colon from the hepatic flexure to the sigmoid colon, consistent with colitis. There are no dilated loops o f bowel. There are no pathologically enlarged lymph nodes. There is no free intraperitoneal fluid. Th ere is severe lower lumbar spondylosis. IMPRESSION: 1. Colitis. Reviewed, dictated and finalized at location A. IMPRESSION: 1. Colitis.
[2024-02-07 09:25] LABS: Basophils Percent Auto 0.2 % (0.2-1.2); Hematocrit 43.1 % (37.0-47.0); Hemoglobin 14.5 g/dL (12.0-15.0); Immature Granulocyte Absolute 0.01 K/mm3 (0.00-0.031); Immature Granulocyte Percent A 0.2 % (0-0.5); Lymphocytes Absolute Auto 0.58 K/mm3 (0.9-3.2); Lymphocytes Percent Auto 11.5 % (18.3-44.2); Mean Corpuscular HGB Conc 33.6 g/dl (32-36); Mean Corpuscular Hemoglobin 29.9 pg (26-34); Mean Corpuscular Volume 88.9 fl (80-100); Mean Platelet Volume 9.2 fl (7.4-10.4); Monocytes Absolute Auto 0.2 K/mm3 (0.1-0.6); Neutrophils Absolute Auto 4.3 K/mm3 (1.3-6.7); Neutrophils Percent Auto 84.1 % (45.5-73.1); Platelet Count Result 237 k/mm3 (150-375); Red Blood Count 4.85 M/mm3 (4.2-5.4); Red Cell Distribution Width 13.4 % (11.5-14.5); White Blood Count 5.1 K/mm3 (4.5-10.0)
[2024-02-07 09:32] LABS: Add Urine Microscopic? YES; Appearance Urine Clear (Clear); Bacteria Urine None Seen /hpf; Bilirubin Urine Negative (Negative); Blood Urine Negative (Negative); Color Urine Yellow (Yellow); Glucose Urine UA 3+ mg/dL (Negative); Ketones Urine 2+ mg/dL (Negative); Leukocyte Esterase Ur Negative LEU/UL (Negative); Nitrate Urine Negative (Negative); Non Pathogenic Casts 0-2; Protein Urine Trace mg/dL (Negative); RBC Urine 0-2 /hpf (0-2); Specific Grav Ur 1.028 (1.001-1.035); Squamous Epithelial Cell Urine None Seen /hpf (Few); Urobilinogen Urine 0.2 mg/dL (<2.0); WBC Urine 0-5 /hpf (0-3)
[2024-02-07 09:38] LABS: Alanine Aminotransferase 38 U/L (6-35); Albumin Level 4.4 g/dL (3.5-5.1); Alkaline Phosphatase 85 U/L (38-126); Anion Gap 10 mmol/L (4-12); Aspartate Amino Transferase 40 U/L (14-36); Bilirubin,Total 0.5 mg/dL (0.2-1.3); Blood Urea Nitrogen 11 mg/dL (7-17); Calcium 9.3 mg/dL (8.4-10.2); Carbon Dioxide 30 mmol/L (22-30); Chloride 94 mmol/L (98-107); Estimated CRCL calculation 78 ml/min; Estimated Glomerular Filt Rate > 60; Glucose 153 mg/dL (65-110); Lipase 74 U/L (23-300); Potassium 2.8 mmol/L (3.4-5.0); Sodium 134 mmol/L (137-145)
--- NOTE | 2024-02-07 09:40 | ED.NAVMDI ---
HPI - Nausea/Vomiting/Diarrhea General Chief complaint: Nausea/Vomiting/Diarrhea Stated complaint: dry heaves, diarrhea, headache Time Seen by Provider: 02/07/24 09:05 Source: patient Mode of arrival: ambulatory Limitations: no limitations History of Present Illness HPI Narrative: This is a 53 year old female that presents to the ER for nausea, vomiting and diarrhea. Ongoing since yesterday morning. Reports right sided abdominal pain. She has not been able to keep much down and feels very dehydrated. Denies dysuria or hematuria. Related Data Home Medications Medication Instructions Recorded Confirmed canagliflozin 100 mg tablet 100 mg PO DAILY 02/07/24 02/07/24 (Invokana) losartan 50 mg tablet 50 mg PO DAILY 02/07/24 02/07/24 Allergies Allergy/AdvReac Type Severity Reaction Status Date / Time codeine Allergy Intermediate HIVES Verified 02/07/24 14:25 clarithromycin AdvReac Intermediate DIARRHEA Verified 02/07/24 14:25 ciprofloxacin AdvReac Unknown JOINT PAIN Verified 02/07/24 14:25 Review of Systems Review of Systems: CONSTITUTIONAL: Denies fever GASTROINTESTINAL: Reports abdominal pain, nausea, vomiting, and diarrhea. GENITOURINARY: Denies dysuria or hematuria. All systems reviewed & are unremarkable except as noted in HPI and below PMFSH Past Medical History Medical History (Updated 02/07/24 @ 14:49 by Karla Ozuna PA-C) Anxiety Degenerative joint disease Hyperlipidemia Hypertension Hypothyroidism Kidney stones Normal colonoscopy (2014) Type 2 diabetes mellitus Surgical History Surgical History (Updated 02/07/24 @ 14:49 by Karla Ozuna PA-C) H/O elbow surgery (~2017) H/O shoulder surgery (~2009) History of appendectomy (2001) History of thyroidectomy (2003) Family History Family History Grandparent Diabetes mellitus Family history of mental disorder Depression Family history of malignant neoplasm of ovary Mother Family history of hypercholesterolemia Family history of mental disorder Depression Hypertension Cerebrovascular accident Family history of emphysema Other Arthritis Asthma Lung disease Social History Social History (Updated 02/07/24 @ 14:50 by Karla Ozuna PA-C) Social History: Surrogate medical decision maker: Angelica Cleveland, spouse. Code status: Full code. Smoking status: Never smoker Second hand tobacco smoke exposure: No Alcohol intake: never Substance use: never Substance use type: does not use Do You Feel Safe in your Home?: Yes Lack of Transportation: No Lack of Food: Never True Current Housing: I Have Housing Concerned About Future Housing: No Difficulty Paying Gas/Electric Bills: No Difficulty Paying for Meds: No Currently Unemployed: No Education: Don't Know Difficulty w/ Childcare or Family Care: No Additional living arrangements comments: Lives with spouse in [place]. Additional occupation/education comments: [employer]. Spiritual care concerns: No Exam Narrative: GENERAL: Well-appearing, well-nourished, and in no acute distress. HEAD: Normocephalic, atraumatic. EYES: EOMI. ENT: Nares clear, no rhinorrhea or epistaxis. Mucous membranes dry. Oropharynx without tonsillar hypertrophy exudate or other lesions CHEST: Clear to auscultation. No respiratory distress. No wheezes rales or rhonchi HEART: Regular rate and rhythm. No murmur heard. Normal peripheral pulses. ABDOMEN: Soft, nondistended, normal active bowel sounds. Tender to palpation throughout the right side of the abdomen, without guarding EXTREMITIES: Normal range of motion. No edema. SKIN: Warm, dry, no rash. NEURO: No focal deficits. Alert and oriented x3. PSYCH: Normal mood and affect Course Course Emergency Course: Patient updated on workup and recommendation for admission Consultations Consultation #1: Spoke with hospitalist about patient a
[2024-02-07] MEDS: ONDANSETRON INJ 4 MG/2 ML VIAL IV PUSH ×3 (10:26→15:21)
[2024-02-07] MEDS: SODIUM CHLORIDE 0.9% IV 1,000 ML 999 ML IV CONT (10:27)
[2024-02-07] MEDS: POTASSIUM CHLORIDE INJ 40 MEQ in SODIUM CHLORIDE 0.9% IV 500 ML 130 MEQ IVPB ×2 (10:27→20:18)
[2024-02-07] MEDS: PANTOPRAZOLE SODIUM IV 40 MG VIAL IV PUSH (10:27)
[2024-02-07 10:58] LABS: Magnesium 2.1 mg/dL (1.6-2.3)
--- NOTE | 2024-02-07 13:20 | ECG_ITS ---
Test Date: 2024-02-07 14:03:34 Measurements Intervals [place] Rate: 72 P: 9 NC: 133 QRS: 17 QRSD: 97 T: 37 QT: 400 QTc: 439 Interpretive Statements SINUS RHYTHM NONSPECIFIC ST & T-WAVE ABNORMALITY- INF/LAT LEADS BORDERLINE ECG No previous ECG available for comparison Electronically Signed On 02-07-2024 14:53:11 CDT by Nick Smith D.O.
--- NOTE | 2024-02-07 13:40 | PM.IMHP ---
H&P: HPI History of Present Illness Date/Time: 02/07/24 13:40 Chief Complaint: Abdominal pain, nausea, vomiting, diarrhea. Narrative: This is a 53-year-old female with hypertension, hyperlipidemia, type 2 diabetes mellitus, gastroesophageal reflux disease, and hypothyroidism who presented to the emergency department via private vehicle for evaluation of abdominal pain, nausea, vomiting, and diarrhea. Her symptoms started about 03:00 on Wednesday morning and she thought perhaps she had food poisoning however they have persisted. She also reports right-sided abdominal cramping which has been pretty consistent but is manageable. She has not noticed any blood or mucus in the stool. She has no known sick contacts and denies recent travel and antibiotic use. No fever, chills, sweats, nausea, or vomiting. She has no history of inflammatory bowel disease. In the ED: She was afebrile on arrival with stable vital signs. Labs were significant for sodium of 134, chloride 94, potassium 2.8, AST 40, ALT 38. Urine was positive for 3+ glucose and 2+ ketones. CT scan of the abdomen pelvis showed evidence of colitis. She was given 40 mEq potassium chloride, 1 L normal saline, metronidazole 500 mg, and ceftriaxone 1 g. She is being admitted in this setting for further treatment. Review of Systems Review of Systems: 12 systems were reviewed and are negative except for as per HPI. [facility] Past Medical History Medical History Anxiety Degenerative joint disease Hyperlipidemia Hypertension Hypothyroidism Kidney stones Normal colonoscopy (2014) Type 2 diabetes mellitus Surgical History Surgical History H/O elbow surgery (~2017) H/O shoulder surgery (~2009) History of appendectomy (2001) History of thyroidectomy (2003) Family History Family History Grandparent Diabetes mellitus Family history of mental disorder Depression Family history of malignant neoplasm of ovary Mother Family history of hypercholesterolemia Family history of mental disorder Depression Hypertension Cerebrovascular accident Family history of emphysema Other Arthritis Asthma Lung disease Social History Social History Social History: Surrogate medical decision maker: Angelica Cleveland, spouse. Code status: Full code. Smoking status: Never smoker Second hand tobacco smoke exposure: No Alcohol intake: never Substance use: never Substance use type: does not use Do You Feel Safe in your Home?: Yes Lack of Transportation: No Lack of Food: Never True Current Housing: I Have Housing Concerned About Future Housing: No Difficulty Paying Gas/Electric Bills: No Difficulty Paying for Meds: No Currently Unemployed: No Education: Don't Know Difficulty w/ Childcare or Family Care: No Additional living arrangements comments: Lives with spouse in [place]. Additional occupation/education comments: [employer]. Spiritual care concerns: No Meds Home Medications and Allergies Home Medications Medication Instructions Recorded Confirmed Type fluticasone propionate 50 1 spray intranasal Q12H #16 grams 05/19/21 02/07/24 Rx mcg/actuation nasal spray,suspension cetirizine 10 mg tablet 10 mg PO DAILY #90 tabs 01/04/23 02/07/24 Rx cholecalciferol (vitamin D3) 1,250 1,250 mcg PO WEEKLY 30 days #5 caps 01/24/24 02/07/24 Rx mcg (50,000 unit) capsule levothyroxine 100 mcg tablet 100 mcg PO DAILY #30 tabs 01/24/24 02/07/24 Rx pantoprazole 40 mg tablet,delayed 40 mg PO QAM #30 tabs 01/24/24 02/07/24 Rx release semaglutide 14 mg tablet (Rybelsus) 14 mg PO DAILY #30 tabs 01/24/24 02/07/24 Rx sertraline 50 mg tablet 50 mg PO DAILY #30 tabs 01/24/24 02/07/24 Rx rosuvastatin 20 mg tablet 20 mg PO DA
[2024-02-07] MEDS: metroNIDAZOLE 500 MG/ISO 100ML 500 MG/100 ML BAG 100 MG IVPB ×2 (13:59→21:09)
--- NOTE | 2024-02-07 14:24 | ADMGEN ---
This patient, Kelly Cleveland, was admitted to [facility] Surg Room 311-01. Patient/family oriented to hospital policies and general routines including ID bracelet, bed and alarms, visiting hours, pain management, procedures, bathroom and other care routines, personal items, smoking policy, room service/diet, and visiting hours. Information on how to activate the Rapid Response Team has been discussed. Patient/Family are encouraged to report perceived risks to care and to ask questions if they do not understand what they are told or what they should do.
[2024-02-07 14:30] LABS: BEDSIDEPREGUCG Negative (Negative)
[2024-02-07] MEDS: ACETAMINOPHEN 325 MG TABLET 650 MG PO ×2 (15:21→21:09)
[2024-02-07 16:32] LABS: Glucose Point of Care 284 mg/dl (65-105)
[2024-02-07] MEDS: SODIUM CHLORIDE 0.9% IV 1,000 ML 100 ML IV CONT (17:04)
[2024-02-07] MEDS: INSULIN ASPART (*BKC) 100 UNITS/ML SUB-Q (17:05)
[2024-02-07 17:41] LABS: Toxigenic C. Diff NEGATIVE (NEGATIVE)
[2024-02-07 18:19] LABS: Potassium 2.8 mmol/L (3.4-5.0)
[2024-02-07] MEDS: FLUTICASONE PROPIONATE 0.05% NA SPR 16 GM BTL (*BKC) 1 SPRAY NASAL (18:49)
[2024-02-07 19:28] LABS: Glucose Point of Care 217 mg/dl (65-105)
[2024-02-07] MEDS: POTASSIUM CHLORIDE 20 MEQ ER TABLET 40 MEQ PO (20:20)
[2024-02-07 23:58] LABS: Glucose Point of Care 135 mg/dl (65-105)
[2024-02-08] VITALS (9 sets, daily range): BP systolic 107–152; BP diastolic 58–94; PULSE 62–79; RESP 18–26; TEMP 35.8–36.9; O2SAT 96–100
[2024-02-08] MEDS: SODIUM CHLORIDE 0.9% IV 1,000 ML 100 ML IV CONT ×3 (02:01→17:00)
[2024-02-08 02:04] LABS: Potassium 4.1 mmol/L (3.4-5.0)
[2024-02-08] MEDS: ACETAMINOPHEN 325 MG TABLET 650 MG PO ×2 (03:40→20:48)
[2024-02-08] MEDS: ONDANSETRON INJ 4 MG/2 ML VIAL IV PUSH (03:43)
[2024-02-08] MEDS: LEVOTHYROXINE SODIUM 100 MCG TABLET PO (05:01)
[2024-02-08] MEDS: metroNIDAZOLE 500 MG/ISO 100ML 500 MG/100 ML BAG 100 MG IVPB (05:01)
[2024-02-08] MEDS: FLUTICASONE PROPIONATE 0.05% NA SPR 16 GM BTL (*BKC) 1 SPRAY NASAL (05:05)
[2024-02-08 06:29] LABS: Glucose Point of Care 149 mg/dl (65-105)
[2024-02-08 07:24] LABS: Hematocrit 38.5 % (37.0-47.0); Hemoglobin 12.6 g/dL (12.0-15.0); Mean Corpuscular HGB Conc 32.7 g/dl (32-36); Mean Corpuscular Hemoglobin 29.1 pg (26-34); Mean Corpuscular Volume 88.9 fl (80-100); Mean Platelet Volume 9.5 fl (7.4-10.4); Platelet Count Result 212 k/mm3 (150-375); Red Blood Count 4.33 M/mm3 (4.2-5.4); Red Cell Distribution Width 13.9 % (11.5-14.5); White Blood Count 2.8 K/mm3 (4.5-10.0)
[2024-02-08 07:35] LABS: Alanine Aminotransferase 40 U/L (6-35); Albumin Level 3.4 g/dL (3.5-5.1); Alkaline Phosphatase 70 U/L (38-126); Anion Gap 7 mmol/L (4-12); Aspartate Amino Transferase 42 U/L (14-36); Bilirubin,Total 0.3 mg/dL (0.2-1.3); Blood Urea Nitrogen 4 mg/dL (7-17); Carbon Dioxide 23 mmol/L (22-30); Chloride 106 mmol/L (98-107); Estimated CRCL calculation 131 ml/min; Estimated Glomerular Filt Rate > 60; Glucose 139 mg/dL (65-110); Magnesium 1.8 mg/dL (1.6-2.3); Potassium 3.1 mmol/L (3.4-5.0); Sodium 136 mmol/L (137-145)
[2024-02-08] MEDS: ENOXAPARIN 40 MG/0.4 ML SYRINGE SUB-Q (08:57)
[2024-02-08] MEDS: ROSUVASTATIN 20 MG TABLET PO (08:58)
[2024-02-08] MEDS: LOSARTAN POTASSIUM 50 MG TABLET PO (08:58)
[2024-02-08] MEDS: SERTRALINE HCL 50 MG TABLET PO (08:58)
[2024-02-08] MEDS: PANTOPRAZOLE 40 MG TABLET PO (08:58)
[2024-02-08] MEDS: LORATADINE 10 MG TABLET PO (08:58)
[2024-02-08] MEDS: EMPAGLIFLOZIN 10 MG TABLET PO (09:51)
--- NOTE | 2024-02-08 10:01 | PM.IMPN ---
Progress Note: A&P Assessment and Plan (1) Colitis: Code(s): K52.9 - Noninfective gastroenteritis and colitis, unspecified Status: Acute Assessment and Plan: 02/08/24: Abdomen CT scan showing colitis Patient started on Flagyl and Rocephin will switch to Flagyl and Azithromycin C diff negative Stool culture pending (2) Dehydration: Code(s): E86.0 - Dehydration Status: Acute Assessment and Plan: 02/08/24: Secondary to colitis Continue hydration (3) Hypokalemia: Code(s): E87.6 - Hypokalemia Status: Acute Assessment and Plan: 02/08/24: Secondary to colitis with associated nausea, vomiting, diarrhea Potassium 3.1 Will give 40 mEq of potassium today Continue to trend (4) Type 2 diabetes mellitus: Code(s): E11.9 - Type 2 diabetes mellitus without complications Status: Chronic Assessment and Plan: 02/08/24: Blood sugars ranging 135-149 Hgb A1C 7.4 01/31/2024 Accu checks AC/HS Moderate dose SSI ordered Continue Jardiance Hold Semaglutide hypoglycemic protocol in place Currently on full liquid diet will advance to Diabetic diet (5) Hypertension: Qualifiers: Hypertension type: essential hypertension Qualified Code(s): I10 - Essential (primary) hypertension Code(s): I10 - Essential (primary) hypertension Status: Chronic Assessment and Plan: 02/08/24: Blood pressures ranging 138/74 to 142/77 Continue losartan (6) Hyperlipidemia: Code(s): E78.5 - Hyperlipidemia, unspecified Status: Chronic Assessment and Plan: 02/08/24: Continue rosuvastatin (7) Hypothyroidism: Qualifiers: Hypothyroidism type: unspecified Qualified Code(s): E03.9 - Hypothyroidism, unspecified Code(s): E03.9 - Hypothyroidism, unspecified Status: Chronic Assessment and Plan: 02/08/24: Continue Synthroid Time Spent With Patient Time with patient: Greater than 35 minutes Subjective Date/time seen: 02/08/24 10:01 Interval history: Interval history: This is a 53-year-old female who presented to the hospital on 02/07/2024 with complaints of abdominal pain, nausea, vomiting, diarrhea. Workup in the hospital included an abdomen pelvis CT which showed colitis. Initial labs showed a normal white blood cell count of 5.1, sodium 134, chloride 94, potassium 2.8, AST 40, ALT 38, lipase was normal at 74. UA was obtained which showed 3+ urine glucose, 2+ urine ketones, otherwise negative. C diff was collected and was negative. Stool culture is pending. EKG showed sinus rhythm with a rate of 72, QTC 439. Patient was started on Rocephin and Flagyl, was given 1 L of normal saline, given nausea medication, and replaced potassium while in the ER. Subjective: Patient denies any fever, chills, nausea, vomiting, chest pain, shortness a breath. Patient endorses headache and left sided abdominal pain. Patient states that she thinks that she ate some bad food a few days ago that started her symptoms. Labs and imaging reviewed. Review of Systems Review of Systems: All systems reviewed & are unremarkable except as noted in HPI and below Constitutional: Constitutional: Reports as per HPI and Reports no additional constitutional complaints Eyes: Eyes: Reports as per HPI and Reports no additional eye complaints ENT: Reports system reviewed and no additional complaints, except as documented and Reports as per HPI Cardiovascular: Cardiovascular: Reports as per HPI and Reports no additional cardiovascular complaints Respiratory: Respiratory: Reports as per HPI and Reports no additional respiratory complaints Gastrointestinal: Gastrointestinal: Reports as per HPI and Reports no additional gastrointestinal complaints Genitourinary: Genitourinary: Reports no additional female genitourinary complaints and Reports as per HPI Musculoskeletal: Musculoskeletal: Reports no additional musculoskeletal comp
[2024-02-08] MEDS: POTASSIUM CHLORIDE 20 MEQ ER TABLET 40 MEQ PO (10:37)
[2024-02-08 11:53] LABS: Glucose Point of Care 152 mg/dl (65-105)
[2024-02-08] MEDS: KETOROLAC 30 MG/ML VIAL (*BKC) IV PUSH (13:39)
[2024-02-08] MEDS: AZITHROMYCIN 250 MG TABLET 500 MG PO (13:40)
[2024-02-08] MEDS: metroNIDAZOLE 500 MG TABLET PO ×2 (13:40→20:48)
[2024-02-08 16:56] LABS: Glucose Point of Care 252 mg/dl (65-105)
[2024-02-08] MEDS: ERGOCALCIFEROL 50,000 UNITS CAPSULE 50000 UNITS PO (17:02)
[2024-02-08] MEDS: KETOROLAC 10 MG TABLET PO (17:02)
[2024-02-08] MEDS: INSULIN ASPART (*BKC) 100 UNITS/ML SUB-Q (17:05)
[2024-02-08 20:44] LABS: Glucose Point of Care 107 mg/dl (65-105)
[2024-02-09] VITALS (8 sets, daily range): BP systolic 139–168; BP diastolic 64–89; PULSE 65–747; RESP 12–20; TEMP 36.1–36.8; O2SAT 98–100; BMI 38.2
[2024-02-09] MEDS: KETOROLAC 10 MG TABLET PO ×2 (03:02→19:41)
[2024-02-09] MEDS: SODIUM CHLORIDE 0.9% IV 1,000 ML 100 ML IV CONT (03:02)
[2024-02-09] MEDS: metroNIDAZOLE 500 MG TABLET PO ×3 (06:07→21:25)
[2024-02-09] MEDS: LEVOTHYROXINE SODIUM 100 MCG TABLET PO (06:07)
[2024-02-09] MEDS: HYDROcodone/acetaminophen (*CRX) 5-325 MG TABLET 1 TAB PO (06:40)
[2024-02-09 08:09] LABS: Glucose Point of Care 157 mg/dl (65-105)
[2024-02-09] MEDS: SERTRALINE HCL 50 MG TABLET PO (09:01)
[2024-02-09] MEDS: EMPAGLIFLOZIN 10 MG TABLET PO (09:01)
[2024-02-09] MEDS: AZITHROMYCIN 250 MG TABLET 500 MG PO (09:01)
[2024-02-09] MEDS: ROSUVASTATIN 20 MG TABLET PO (09:02)
[2024-02-09] MEDS: LOSARTAN POTASSIUM 50 MG TABLET PO (09:02)
[2024-02-09] MEDS: PANTOPRAZOLE 40 MG TABLET PO (09:02)
[2024-02-09] MEDS: ENOXAPARIN 40 MG/0.4 ML SYRINGE SUB-Q (09:02)
[2024-02-09] MEDS: LORATADINE 10 MG TABLET PO (09:02)
[2024-02-09 11:40] LABS: Glucose Point of Care 145 mg/dl (65-105)
[2024-02-09] MEDS: ONDANSETRON INJ 4 MG/2 ML VIAL IV PUSH (14:16)
[2024-02-09] MEDS: FLUTICASONE PROPIONATE 0.05% NA SPR 16 GM BTL (*BKC) 1 SPRAY NASAL (16:45)
[2024-02-09] MEDS: ACETAMINOPHEN 325 MG TABLET 650 MG PO (16:45)
[2024-02-09 17:06] LABS: Glucose Point of Care 157 mg/dl (65-105)
[2024-02-09 17:10] LABS: Basophils Percent Auto 0.3 % (0.2-1.2); Hematocrit 36.8 % (37.0-47.0); Hemoglobin 12.4 g/dL (12.0-15.0); Immature Granulocyte Absolute 0.04 K/mm3 (0.00-0.031); Immature Granulocyte Percent A 1.3 % (0-0.5); Lymphocytes Absolute Auto 0.77 K/mm3 (0.9-3.2); Lymphocytes Percent Auto 25.1 % (18.3-44.2); Mean Corpuscular HGB Conc 33.7 g/dl (32-36); Mean Corpuscular Hemoglobin 29.7 pg (26-34); Mean Platelet Volume 9.5 fl (7.4-10.4); Monocytes Absolute Auto 0.2 K/mm3 (0.1-0.6); Monocytes Percent Auto 5.2 % (2.6-8.5); Neutrophils Absolute Auto 2.1 K/mm3 (1.3-6.7); Neutrophils Percent Auto 68.1 % (45.5-73.1); Platelet Count Result 220 k/mm3 (150-375); Red Blood Count 4.18 M/mm3 (4.2-5.4); White Blood Count 3.1 K/mm3 (4.5-10.0)
[2024-02-09 17:21] LABS: Alanine Aminotransferase 44 U/L (6-35); Albumin Level 3.4 g/dL (3.5-5.1); Alkaline Phosphatase 80 U/L (38-126); Anion Gap 7 mmol/L (4-12); Aspartate Amino Transferase 44 U/L (14-36); Bilirubin,Total 0.3 mg/dL (0.2-1.3); Blood Urea Nitrogen 6 mg/dL (7-17); Calcium 8.6 mg/dL (8.4-10.2); Carbon Dioxide 27 mmol/L (22-30); Chloride 100 mmol/L (98-107); Estimated CRCL calculation 108 ml/min; Estimated Glomerular Filt Rate > 60; Glucose 146 mg/dL (65-110); Sodium 134 mmol/L (137-145)
[2024-02-09] MEDS: POTASSIUM CHLORIDE 20 MEQ ER TABLET 40 MEQ PO ×2 (17:51→21:25)
[2024-02-09 21:01] LABS: Glucose Point of Care 199 mg/dl (65-105)
[2024-02-10] VITALS (10 sets, daily range): BP systolic 123–177; BP diastolic 62–100; PULSE 56–74; RESP 12–18; TEMP 35.7–36.9; O2SAT 97–100
[2024-02-10] MEDS: LABETALOL HCL INJ 100 MG/20 ML VIAL 20 MG IV PUSH (01:10)
[2024-02-10] MEDS: hydrALAZINE HCL 20 MG/ML VIAL 10 MG IV PUSH (05:48)
[2024-02-10] MEDS: LEVOTHYROXINE SODIUM 100 MCG TABLET PO (05:49)
[2024-02-10] MEDS: metroNIDAZOLE 500 MG TABLET PO ×3 (05:49→19:59)
[2024-02-10 07:12] LABS: Basophils Percent Auto 0.6 % (0.2-1.2); Eosinophils Percent Auto 0.3 % (0-4.4); Hematocrit 38.6 % (37.0-47.0); Hemoglobin 13.1 g/dL (12.0-15.0); Immature Granulocyte Absolute 0.04 K/mm3 (0.00-0.031); Immature Granulocyte Percent A 1.3 % (0-0.5); Lymphocytes Absolute Auto 1.09 K/mm3 (0.9-3.2); Lymphocytes Percent Auto 34.7 % (18.3-44.2); Mean Corpuscular HGB Conc 33.9 g/dl (32-36); Mean Corpuscular Hemoglobin 30.1 pg (26-34); Mean Corpuscular Volume 88.7 fl (80-100); Mean Platelet Volume 9.5 fl (7.4-10.4); Monocytes Absolute Auto 0.3 K/mm3 (0.1-0.6); Monocytes Percent Auto 8.3 % (2.6-8.5); Neutrophils Absolute Auto 1.7 K/mm3 (1.3-6.7); Neutrophils Percent Auto 54.8 % (45.5-73.1); Platelet Count Result 228 k/mm3 (150-375); Red Blood Count 4.35 M/mm3 (4.2-5.4); Red Cell Distribution Width 14.2 % (11.5-14.5); White Blood Count 3.1 K/mm3 (4.5-10.0)
[2024-02-10 07:23] LABS: Alanine Aminotransferase 47 U/L (6-35); Albumin Level 3.5 g/dL (3.5-5.1); Alkaline Phosphatase 73 U/L (38-126); Anion Gap 6 mmol/L (4-12); Aspartate Amino Transferase 42 U/L (14-36); Bilirubin,Total 0.3 mg/dL (0.2-1.3); Blood Urea Nitrogen 9 mg/dL (7-17); Calcium 8.8 mg/dL (8.4-10.2); Carbon Dioxide 27 mmol/L (22-30); Chloride 104 mmol/L (98-107); Estimated CRCL calculation 111 ml/min; Estimated Glomerular Filt Rate > 60; Glucose 131 mg/dL (65-110); Magnesium 1.7 mg/dL (1.6-2.3); Phosphorus 3.3 mg/dL (2.5-4.5); Potassium 3.5 mmol/L (3.4-5.0); Sodium 137 mmol/L (137-145)
[2024-02-10 08:17] LABS: Atypical Lymphocytes Present; Platelet Estimate Adequate (Adequate); Schistocytes None Seen
[2024-02-10 08:24] LABS: Glucose Point of Care 130 mg/dl (65-105)
[2024-02-10] MEDS: LOSARTAN POTASSIUM 50 MG TABLET PO (08:40)
[2024-02-10] MEDS: ROSUVASTATIN 20 MG TABLET PO (08:40)
[2024-02-10] MEDS: PANTOPRAZOLE 40 MG TABLET PO (08:40)
[2024-02-10] MEDS: ACETAMINOPHEN 325 MG TABLET 650 MG PO ×2 (08:40→21:12)
[2024-02-10] MEDS: AZITHROMYCIN 250 MG TABLET 500 MG PO (08:41)
[2024-02-10] MEDS: EMPAGLIFLOZIN 10 MG TABLET PO (08:41)
[2024-02-10] MEDS: LORATADINE 10 MG TABLET PO (08:41)
[2024-02-10] MEDS: ENOXAPARIN 40 MG/0.4 ML SYRINGE SUB-Q (08:44)
[2024-02-10 11:42] LABS: Glucose Point of Care 226 mg/dl (65-105)
[2024-02-10] MEDS: INSULIN ASPART (*BKC) 100 UNITS/ML SUB-Q (13:02)
--- NOTE | 2024-02-10 14:34 | PM.DS ---
DS: Admitting Diagnosis Discharge Date 02/10/24 DS: Summary Time Spent with Patient Time attestation: Total time spent providing and/or coordinating discharge services: DS: Data Data Completed and Pending Labs on day of discharge: Labs from last 24 hours 02/10/24 02/10/24 02/10/24 11:26 07:34 06:34 WBC 3.1 L RBC 4.35 Hgb 13.1 Hct 38.6 MCV 88.7 MCH 30.1 MCHC 33.9 RDW 14.2 Plt Count 228 MPV 9.5 Immature Gran % (Auto) 1.3 H Neut % (Auto) 54.8 Lymph % (Auto) 34.7 Steele % (Auto) 8.3 Eos % (Auto) 0.3 Baso % (Auto) 0.6 Lymph # (Auto) 1.09 Steele # (Auto) 0.3 Eos # (Auto) 0.0 Baso # (Auto) 0.0 Abs Immat Gran (auto) 0.04 H Absolute Neuts (auto) 1.7 Absolute Nucleated RBC 0.000 Nucleated RBC % 0.0 Atypical Lymphocytes Present Platelet Estimate Adequate Schistocytes None seen Sodium 137 Potassium 3.5 Chloride 104 Carbon Dioxide 27 Anion Gap 6 BUN 9 Creatinine 0.50 L Estim Creat Clear Calc 111 Estimated GFR > 60 Glucose 131 H POC Capillary Glucose 226 H 130 H Calcium 8.8 Phosphorus 3.3 Magnesium 1.7 Total Bilirubin 0.3 AST 42 H ALT 47 H Alkaline Phosphatase 73 Total Protein 7.0 Albumin 3.5 02/09/24 02/09/24 02/09/24 20:31 16:58 16:52 WBC 3.1 L RBC 4.18 L Hgb 12.4 Hct 36.8 L MCV 88.0 MCH 29.7 MCHC 33.7 RDW 14.0 Plt Count 220 MPV 9.5 Immature Gran % (Auto) 1.3 H Neut % (Auto) 68.1 Lymph % (Auto) 25.1 Steele % (Auto) 5.2 Eos % (Auto) 0.0 Baso % (Auto) 0.3 Lymph # (Auto) 0.77 L Steele # (Auto) 0.2 Eos # (Auto) 0.0 Baso # (Auto) 0.0 Abs Immat Gran (auto) 0.04 H Absolute Neuts (auto) 2.1 Absolute Nucleated RBC 0.000 Nucleated RBC % 0.0 Atypical Lymphocytes Platelet Estimate Schistocytes Sodium 134 L Potassium 3.0 L Chloride 100 Carbon Dioxide 27 Anion Gap 7 BUN 6 L Creatinine 0.50 L Estim Creat Clear Calc 108 Estimated GFR > 60 Glucose 146 H POC Capillary Glucose 199 H 157 H Calcium 8.6 Phosphorus Magnesium Total Bilirubin 0.3 AST 44 H ALT 44 H Alkaline Phosphatase 80 Total Protein 7.0 Albumin 3.4 L Discharge Plan Discharge Attending physician on discharge: Raya Avalos Consulting providers: Alesha Mcintosh Discharging Clinician: Alesha Mcintosh Anticipated Discharge Date/Time: 02/09/24 16:25 Patient Disposition: Home, Self-Care Activity: as tolerated Diet: as tolerated Discharge Instructions: Initial your antibiotics as directed even if your feeling better Follow-up with your primary care physician in 1 week Your stool cultures have come back negative Patient Instructions: Antibiotic Form, Metronidazole (By mouth), Azithromycin (By mouth), Colitis (ED) Patient Language: Taiwanese Stand Alone Forms: General Discharge Information Follow-up/Referrals: Chelsie Rush MD [Primary Care Provider] - 1 Week Discharge Medications: New azithromycin [Zithromax] 250 mg Tablet 500 mg PO DAILY Qty: 4 0RF metronidazole 500 mg Tablet 500 mg PO Q8HR Qty: 10 0RF Continued levothyroxine 100 mcg tablet 100 mcg PO DAILY Qty: 30 3RF Rybelsus 14 mg tablet 14 mg PO DAILY Qty: 30 0RF sertraline 50 mg tablet 50 mg PO DAILY Qty: 30 0RF pantoprazole 40 mg tablet,delayed release (DR/EC) 40 mg PO QAM Qty: 30 0RF cholecalciferol (vitamin D3) 1,250 mcg (50,000 unit) capsule 1,250 mcg PO WEEKLY 30 Days Qty: 5 0RF losartan 50 mg tablet 50 mg PO DAILY Rx Instructions: TAKE 1 TABLET BY MOUTH DAILY Invokana 100 mg tablet 100 mg PO DAILY Rx Instructions: TAKE 1 TABLET BY MOUTH DAILY fluticasone propionate 50 mcg/actuation spray,suspension 1 spray intranasal Q12H Qty: 16 0RF Rx Instructions: administer into each nostr
[2024-02-10 16:39] LABS: HIV 1/2 Ab P24 Ag Result Negative (Negative)
--- NOTE | 2024-02-10 16:56 | P.PNIM_ITS ---
Progress Note: A&P Assessment and Plan (1) Colitis: Code(s): K52.9 - Noninfective gastroenteritis and colitis, unspecified Status: Acute Assessment and Plan: 02/08/24: * Abdomen CT scan showing colitis * Patient started on Flagyl and Rocephin will switch to Flagyl and Azithromycin * C diff negative * Stool culture pending 02/09/24: * Continue Flagyl on azithromycin * Stool culture still pending 02/10/24: * No change to current treatment plan * Stool culture is still pending for salmonella (2) Dehydration: Code(s): E86.0 - Dehydration Status: Acute Assessment and Plan: 02/08/24: * Secondary to colitis * Continue hydration 02/09/24: * No change to current treatment plan (3) Hypokalemia: Code(s): E87.6 - Hypokalemia Status: Acute Assessment and Plan: 02/08/24: * Secondary to colitis with associated nausea, vomiting, diarrhea * Potassium 3.1 * Will give 40 mEq of potassium today * Continue to trend 02/09/24: * Potassium 3.0 * Will give 40 mEq of potassium now and then 40 mEq of potassium around 9:00 p.m. * Continue to trend 02/10/24: * Potassium 3.5 today * No need for replacement * Continue to trend (4) Type 2 diabetes mellitus: Code(s): E11.9 - Type 2 diabetes mellitus without complications Status: Chronic Assessment and Plan: 02/08/24: * Blood sugars ranging 135-149 * Hgb A1C 7.4 01/31/2024 * Accu checks AC/HS * Moderate dose SSI ordered * Continue Jardiance * Hold Semaglutide * hypoglycemic protocol in place * Currently on full liquid diet will advance to Diabetic diet 02/09/24: * No change to current treatment (5) Hypertension: Qualifiers: Hypertension type: essential hypertension Qualified Code(s): I10 - Essential (primary) hypertension Code(s): I10 - Essential (primary) hypertension Status: Chronic Assessment and Plan: 02/08/24: * Blood pressures ranging 138/74 to 142/77 * Continue losartan 02/09/24: * No change to current treatment plan 02/10/24: * Patient had episode of high blood pressure reading x2 overnight requiring IV hydralazine and labetalol to bring her blood pressure back down. Both times she reports that she wakes up drenched in sweat and blood pressure was elevated both times. * Will increase losartan to 75 mg daily * Will also check [facility] tonight to assess for sleep apnea (6) Hyperlipidemia: Code(s): E78.5 - Hyperlipidemia, unspecified Status: Chronic Assessment and Plan: 02/08/24: * Continue rosuvastatin 02/09/24: * No change to current treatment plan (7) Hypothyroidism: Qualifiers: Hypothyroidism type: unspecified Qualified Code(s): E03.9 - Hypothyroidism, unspecified Code(s): E03.9 - Hypothyroidism, unspecified Status: Chronic Assessment and Plan: 02/08/24: * Continue Synthroid 02/09/24: * No change to current treatment plan (8) Thrush, oral: Code(s): B37.0 - Candidal stomatitis Status: Acute Assessment and Plan: 02/10/24: * Start nystatin (9) Otitis media: Code(s): H66.90 - Otitis media, unspecified, unspecified ear Status: Acute Assessment and Plan: 02/10/24: * Left otitis media on exam * Start cefdinir 300 mg b.i.d. x7 days * Patient started on probiotic Time Spent With Patient Time with patient: 25 - 35 minutes Subjective
--- NOTE | 2024-02-10 16:56 | PM.IMPN ---
Progress Note: A&P Assessment and Plan (1) Colitis: Code(s): K52.9 - Noninfective gastroenteritis and colitis, unspecified Status: Acute Assessment and Plan: 02/08/24: Abdomen CT scan showing colitis Patient started on Flagyl and Rocephin will switch to Flagyl and Azithromycin C diff negative Stool culture pending 02/09/24: Continue Flagyl on azithromycin Stool culture still pending 02/10/24: No change to current treatment plan Stool culture is still pending for salmonella (2) Dehydration: Code(s): E86.0 - Dehydration Status: Acute Assessment and Plan: 02/08/24: Secondary to colitis Continue hydration 02/09/24: No change to current treatment plan (3) Hypokalemia: Code(s): E87.6 - Hypokalemia Status: Acute Assessment and Plan: 02/08/24: Secondary to colitis with associated nausea, vomiting, diarrhea Potassium 3.1 Will give 40 mEq of potassium today Continue to trend 02/09/24: Potassium 3.0 Will give 40 mEq of potassium now and then 40 mEq of potassium around 9:00 p.m. Continue to trend 02/10/24: Potassium 3.5 today No need for replacement Continue to trend (4) Type 2 diabetes mellitus: Code(s): E11.9 - Type 2 diabetes mellitus without complications Status: Chronic Assessment and Plan: 02/08/24: Blood sugars ranging 135-149 Hgb A1C 7.4 01/31/2024 Accu checks AC/HS Moderate dose SSI ordered Continue Jardiance Hold Semaglutide hypoglycemic protocol in place Currently on full liquid diet will advance to Diabetic diet 02/09/24: No change to current treatment (5) Hypertension: Qualifiers: Hypertension type: essential hypertension Qualified Code(s): I10 - Essential (primary) hypertension Code(s): I10 - Essential (primary) hypertension Status: Chronic Assessment and Plan: 02/08/24: Blood pressures ranging 138/74 to 142/77 Continue losartan 02/09/24: No change to current treatment plan 02/10/24: Patient had episode of high blood pressure reading x2 overnight requiring IV hydralazine and labetalol to bring her blood pressure back down. Both times she reports that she wakes up drenched in sweat and blood pressure was elevated both times. Will increase losartan to 75 mg daily Will also check [facility] tonight to assess for sleep apnea (6) Hyperlipidemia: Code(s): E78.5 - Hyperlipidemia, unspecified Status: Chronic Assessment and Plan: 02/08/24: Continue rosuvastatin 02/09/24: No change to current treatment plan (7) Hypothyroidism: Qualifiers: Hypothyroidism type: unspecified Qualified Code(s): E03.9 - Hypothyroidism, unspecified Code(s): E03.9 - Hypothyroidism, unspecified Status: Chronic Assessment and Plan: 02/08/24: Continue Synthroid 02/09/24: No change to current treatment plan (8) Thrush, oral: Code(s): B37.0 - Candidal stomatitis Status: Acute Assessment and Plan: 02/10/24: Start nystatin (9) Otitis media: Code(s): H66.90 - Otitis media, unspecified, unspecified ear Status: Acute Assessment and Plan: 02/10/24: Left otitis media on exam Start cefdinir 300 mg b.i.d. x7 days Patient started on probiotic Time Spent With Patient Time with patient: 25 - 35 minutes Subjective Date/time seen: 02/10/24 16:56 Interval history: Interval history: This is a 53-year-old female who presented to the hospital on 02/07/2024 with complaints of abdominal pain, nausea, vomiting, diarrhea. Workup in the hospital included an abdomen pelvis CT which showed colitis. Initial labs showed a normal white blood cell count of 5.1, sodium 134, chloride 94, potassium 2.8, AST 40, ALT 38, lipase was normal at 74. UA was obtained which showed 3+ urine glucose, 2+ urine ketones, otherwise negative. C diff was collected and was negative. Stool culture is pending. EKG showed
[2024-02-10 17:09] LABS: Glucose Point of Care 132 mg/dl (65-105)
[2024-02-10] MEDS: FLUTICASONE PROPIONATE 0.05% NA SPR 16 GM BTL (*BKC) 1 SPRAY NASAL (17:10)
[2024-02-10] MEDS: SACCHAROMYCES BOULARDII 250 MG CAPSULE PO (17:10)
--- NOTE | 2024-02-10 17:10 | P.PNIM_ITS ---
Progress Note: A&P Assessment and Plan (1) Colitis: Code(s): K52.9 - Noninfective gastroenteritis and colitis, unspecified Status: Acute Assessment and Plan: 02/08/24: * Abdomen CT scan showing colitis * Patient started on Flagyl and Rocephin will switch to Flagyl and Azithromycin * C diff negative * Stool culture pending 02/09/24: * Continue Flagyl on azithromycin * Stool culture still pending (2) Dehydration: Code(s): E86.0 - Dehydration Status: Acute Assessment and Plan: 02/08/24: * Secondary to colitis * Continue hydration 02/09/24: * No change to current treatment plan (3) Hypokalemia: Code(s): E87.6 - Hypokalemia Status: Acute Assessment and Plan: 02/08/24: * Secondary to colitis with associated nausea, vomiting, diarrhea * Potassium 3.1 * Will give 40 mEq of potassium today * Continue to trend 02/09/24: * Potassium 3.0 * Will give 40 mEq of potassium now and then 40 mEq of potassium around 9:00 p.m. * Continue to trend (4) Type 2 diabetes mellitus: Code(s): E11.9 - Type 2 diabetes mellitus without complications Status: Chronic Assessment and Plan: 02/08/24: * Blood sugars ranging 135-149 * Hgb A1C 7.4 01/31/2024 * Accu checks AC/HS * Moderate dose SSI ordered * Continue Jardiance * Hold Semaglutide * hypoglycemic protocol in place * Currently on full liquid diet will advance to Diabetic diet 02/09/24: * No change to current treatment (5) Hypertension: Qualifiers: Hypertension type: essential hypertension Qualified Code(s): I10 - Essential (primary) hypertension Code(s): I10 - Essential (primary) hypertension Status: Chronic Assessment and Plan: 02/08/24: * Blood pressures ranging 138/74 to 142/77 * Continue losartan 02/09/24: * No change to current treatment plan (6) Hyperlipidemia: Code(s): E78.5 - Hyperlipidemia, unspecified Status: Chronic Assessment and Plan: 02/08/24: * Continue rosuvastatin 02/09/24: * No change to current treatment plan (7) Hypothyroidism: Qualifiers: Hypothyroidism type: unspecified Qualified Code(s): E03.9 - Hypothyroidism, unspecified Code(s): E03.9 - Hypothyroidism, unspecified Status: Chronic Assessment and Plan: 02/08/24: * Continue Synthroid 02/09/24: * No change to current treatment plan Time Spent With Patient Time with patient: 25 - 35 minutes Subjective Date/time seen: 02/09/24 17:10 Interval history: Interval history: This is a 53-year-old female who presented to the hospital on 02/07/2024 with complaints of abdominal pain, nausea, vomiting, diarrhea. Workup in the hospital included an abdomen pelvis CT which showed colitis. Initial labs showed a normal white blood cell count of 5.1, sodium 134, chloride 94, potassium 2.8, AST 40, ALT 38, lipase was normal at 74. UA was obtained which showed 3+ urine glucose, 2+ urine ketones, otherwise negative. C diff was collected and was negative. Stool culture is pending. EKG showed sinus rhythm with a rate of 72, QTC 439. Patient was started on Rocephin and Flagyl, was given 1 L of normal saline, given nausea medication, and replaced potassium while in the ER. Subjective: Patient still reporting multiple bouts loose stool. No other new complaints today. Labs reviewed Review of Systems Review of Systems: 12 syst
--- NOTE | 2024-02-10 17:10 | PM.IMPN ---
Progress Note: A&P Assessment and Plan (1) Colitis: Code(s): K52.9 - Noninfective gastroenteritis and colitis, unspecified Status: Acute Assessment and Plan: 02/08/24: Abdomen CT scan showing colitis Patient started on Flagyl and Rocephin will switch to Flagyl and Azithromycin C diff negative Stool culture pending 02/09/24: Continue Flagyl on azithromycin Stool culture still pending (2) Dehydration: Code(s): E86.0 - Dehydration Status: Acute Assessment and Plan: 02/08/24: Secondary to colitis Continue hydration 02/09/24: No change to current treatment plan (3) Hypokalemia: Code(s): E87.6 - Hypokalemia Status: Acute Assessment and Plan: 02/08/24: Secondary to colitis with associated nausea, vomiting, diarrhea Potassium 3.1 Will give 40 mEq of potassium today Continue to trend 02/09/24: Potassium 3.0 Will give 40 mEq of potassium now and then 40 mEq of potassium around 9:00 p.m. Continue to trend (4) Type 2 diabetes mellitus: Code(s): E11.9 - Type 2 diabetes mellitus without complications Status: Chronic Assessment and Plan: 02/08/24: Blood sugars ranging 135-149 Hgb A1C 7.4 01/31/2024 Accu checks AC/HS Moderate dose SSI ordered Continue Jardiance Hold Semaglutide hypoglycemic protocol in place Currently on full liquid diet will advance to Diabetic diet 02/09/24: No change to current treatment (5) Hypertension: Qualifiers: Hypertension type: essential hypertension Qualified Code(s): I10 - Essential (primary) hypertension Code(s): I10 - Essential (primary) hypertension Status: Chronic Assessment and Plan: 02/08/24: Blood pressures ranging 138/74 to 142/77 Continue losartan 02/09/24: No change to current treatment plan (6) Hyperlipidemia: Code(s): E78.5 - Hyperlipidemia, unspecified Status: Chronic Assessment and Plan: 02/08/24: Continue rosuvastatin 02/09/24: No change to current treatment plan (7) Hypothyroidism: Qualifiers: Hypothyroidism type: unspecified Qualified Code(s): E03.9 - Hypothyroidism, unspecified Code(s): E03.9 - Hypothyroidism, unspecified Status: Chronic Assessment and Plan: 02/08/24: Continue Synthroid 02/09/24: No change to current treatment plan Time Spent With Patient Time with patient: 25 - 35 minutes Subjective Date/time seen: 02/09/24 17:10 Interval history: Interval history: This is a 53-year-old female who presented to the hospital on 02/07/2024 with complaints of abdominal pain, nausea, vomiting, diarrhea. Workup in the hospital included an abdomen pelvis CT which showed colitis. Initial labs showed a normal white blood cell count of 5.1, sodium 134, chloride 94, potassium 2.8, AST 40, ALT 38, lipase was normal at 74. UA was obtained which showed 3+ urine glucose, 2+ urine ketones, otherwise negative. C diff was collected and was negative. Stool culture is pending. EKG showed sinus rhythm with a rate of 72, QTC 439. Patient was started on Rocephin and Flagyl, was given 1 L of normal saline, given nausea medication, and replaced potassium while in the ER. Subjective: Patient still reporting multiple bouts loose stool. No other new complaints today. Labs reviewed Review of Systems Review of Systems: 12 systems were reviewed and are negative except for as per HPI. All systems reviewed & are unremarkable except as noted in HPI and below Constitutional: Constitutional: Reports as per HPI and Reports no additional constitutional complaints Eyes: Eyes: Reports as per HPI and Reports no additional eye complaints ENT: Reports system reviewed and no additional complaints, except as documented and Reports as per HPI Cardiovascular: Cardiovascular: Reports as per HPI and Reports no additional cardiovascular complaints Respiratory: Respiratory: Reports as per HPI and Re
--- NOTE | 2024-02-10 18:16 | PC.NURSE ---
pt refused evening cozaar stating her blood pressure was not too elevated and she didn't want to bottom out her pressure. RN educated on why pt was prescribed by the hospitalist. pt still refusing. provider notified.
[2024-02-10] MEDS: NYSTATIN 100,000 UNITS/ML SUSP 5 ML ORAL.SUSP PO (19:59)
[2024-02-10] MEDS: CEFDINIR 300 MG CAPSULE PO (19:59)
[2024-02-10] MEDS: HYDROcodone/acetaminophen (*CRX) 5-325 MG TABLET 1 TAB PO (19:59)
[2024-02-10] MEDS: LOSARTAN POTASSIUM 25 MG TABLET PO (20:14)
[2024-02-10 20:35] LABS: Glucose Point of Care 148 mg/dl (65-105)
[2024-02-11 04:00] VITALS: BP 159/78; PULSE 64; RESP 14; TEMP 36.1; O2SAT 95
[2024-02-11] MEDS: metroNIDAZOLE 500 MG TABLET PO ×2 (05:26→13:19)
[2024-02-11] MEDS: ACETAMINOPHEN 325 MG TABLET 650 MG PO ×2 (05:26→15:14)
[2024-02-11] MEDS: LEVOTHYROXINE SODIUM 100 MCG TABLET PO (05:26)
[2024-02-11] MEDS: FLUTICASONE PROPIONATE 0.05% NA SPR 16 GM BTL (*BKC) 1 SPRAY NASAL (05:26)
[2024-02-11 06:38] LABS: Eosinophils Absolute Auto 0.1 K/mm3 (0-0.3); Eosinophils Percent Auto 2.5 % (0-4.4); Hematocrit 39.2 % (37.0-47.0); Immature Granulocyte Absolute 0.03 K/mm3 (0.00-0.031); Immature Granulocyte Percent A 0.8 % (0-0.5); Lymphocytes Absolute Auto 1.56 K/mm3 (0.9-3.2); Lymphocytes Percent Auto 39.5 % (18.3-44.2); Mean Corpuscular HGB Conc 33.2 g/dl (32-36); Mean Corpuscular Hemoglobin 29.6 pg (26-34); Mean Corpuscular Volume 89.3 fl (80-100); Mean Platelet Volume 9.6 fl (7.4-10.4); Monocytes Absolute Auto 0.4 K/mm3 (0.1-0.6); Monocytes Percent Auto 9.1 % (2.6-8.5); Neutrophils Absolute Auto 1.9 K/mm3 (1.3-6.7); Neutrophils Percent Auto 47.1 % (45.5-73.1); Platelet Count Result 287 k/mm3 (150-375); Red Blood Count 4.39 M/mm3 (4.2-5.4); Red Cell Distribution Width 14.2 % (11.5-14.5)
[2024-02-11 06:56] LABS: Alanine Aminotransferase 56 U/L (6-35); Albumin Level 3.6 g/dL (3.5-5.1); Alkaline Phosphatase 72 U/L (38-126); Anion Gap 7 mmol/L (4-12); Aspartate Amino Transferase 57 U/L (14-36); Bilirubin,Total 0.3 mg/dL (0.2-1.3); Blood Urea Nitrogen 14 mg/dL (7-17); Calcium 8.9 mg/dL (8.4-10.2); Carbon Dioxide 30 mmol/L (22-30); Chloride 101 mmol/L (98-107); Estimated CRCL calculation 93 ml/min; Estimated Glomerular Filt Rate > 60; Glucose 125 mg/dL (65-110); Potassium 3.3 mmol/L (3.4-5.0); Sodium 138 mmol/L (137-145)
[2024-02-11 07:34] LABS: Platelet Estimate Adequate (Adequate); Schistocytes None Seen
[2024-02-11 08:00] VITALS: BP 144/67; PULSE 57; RESP 16; TEMP 36.3; O2SAT 97
[2024-02-11 08:08] LABS: Glucose Point of Care 128 mg/dl (65-105)
[2024-02-11] MEDS: ROSUVASTATIN 20 MG TABLET PO (08:10)
[2024-02-11] MEDS: EMPAGLIFLOZIN 10 MG TABLET PO (08:10)
[2024-02-11] MEDS: SACCHAROMYCES BOULARDII 250 MG CAPSULE PO ×3 (08:10→16:10)
[2024-02-11] MEDS: LOSARTAN POTASSIUM 25 MG TABLET 75 MG PO (08:10)
[2024-02-11] MEDS: LORATADINE 10 MG TABLET PO (08:10)
[2024-02-11] MEDS: ENOXAPARIN 40 MG/0.4 ML SYRINGE SUB-Q (08:10)
[2024-02-11] MEDS: CEFDINIR 300 MG CAPSULE PO (08:10)
[2024-02-11] MEDS: PANTOPRAZOLE 40 MG TABLET PO (08:10)
[2024-02-11] MEDS: SERTRALINE HCL 50 MG TABLET PO (08:10)
[2024-02-11] MEDS: NYSTATIN 100,000 UNITS/ML SUSP 5 ML ORAL.SUSP PO ×3 (08:16→16:10)
[2024-02-11] MEDS: AZITHROMYCIN 250 MG TABLET 500 MG PO (08:16)
[2024-02-11 11:37] LABS: Glucose Point of Care 232 mg/dl (65-105)
[2024-02-11 12:00] VITALS: BP 120/53; PULSE 61; RESP 16; TEMP 36.2; O2SAT 98
[2024-02-11] MEDS: INSULIN ASPART (*BKC) 100 UNITS/ML SUB-Q (12:08)
--- NOTE | 2024-02-11 13:02 | PM.DS ---
DS: Admitting Diagnosis Discharge Date 02/11/24 Admitting Diagnosis Colitis Dehydration Hypokalemia Type 2 diabetes mellitus Hypertension Hyperlipidemia Hypothyroidism DS: Discharge Diagnosis Discharge Diagnosis (1) Colitis: Code(s): K52.9 - Noninfective gastroenteritis and colitis, unspecified Status: Acute (2) Dehydration: Code(s): E86.0 - Dehydration Status: Acute (3) Hypokalemia: Code(s): E87.6 - Hypokalemia Status: Acute (4) Type 2 diabetes mellitus: Code(s): E11.9 - Type 2 diabetes mellitus without complications Status: Chronic (5) Hypertension: Qualifiers: Hypertension type: essential hypertension Qualified Code(s): I10 - Essential (primary) hypertension Code(s): I10 - Essential (primary) hypertension Status: Chronic (6) Hyperlipidemia: Code(s): E78.5 - Hyperlipidemia, unspecified Status: Chronic (7) Hypothyroidism: Qualifiers: Hypothyroidism type: unspecified Qualified Code(s): E03.9 - Hypothyroidism, unspecified Code(s): E03.9 - Hypothyroidism, unspecified Status: Chronic (8) Thrush, oral: Code(s): B37.0 - Candidal stomatitis Status: Acute (9) Otitis media: Code(s): H66.90 - Otitis media, unspecified, unspecified ear Status: Acute DS: Summary Hospital Course Reason for hospitalization: Colitis Dehydration Hypokalemia Type 2 diabetes mellitus Hypertension Hyperlipidemia Hypothyroidism Hospital Course: This is a 53-year-old female who presented to the hospital on 02/07/2024 with complaints of abdominal pain, nausea, vomiting, diarrhea. Workup in the hospital included an abdomen pelvis CT which showed colitis. Initial labs showed a normal white blood cell count of 5.1, sodium 134, chloride 94, potassium 2.8, AST 40, ALT 38, lipase was normal at 74. UA was obtained which showed 3+ urine glucose, 2+ urine ketones, otherwise negative. C diff was collected and was negative. Stool culture is pending. EKG showed sinus rhythm with a rate of 72, QTC 439. Patient was started on Rocephin and Flagyl, was given 1 L of normal saline, given nausea medication, and replaced potassium while in the ER. Patient finished a course of azithromycin and will finish Flagyl for the colitis. She was also put on cefdinir and a probiotic for otitis media. She also was found to have thrush and was started on nystatin swish and spit. Patient's diarrhea has subsided. Her potassium has been stable. She is stable for discharge at this time. She will need to finish the rest of her antibiotics and then follow up with her primary care physician in 1 week. Final diagnosis: Colitis, thrush, otitis media, electrolyte imbalance Status at Discharge Cognitive/behavioral status at discharge: Alert oriented x4 Functional status at discharge: independent ambulation Overall status at discharge: patient is progressing back to baseline Time Spent with Patient Time attestation: Total time spent providing and/or coordinating discharge services: Time spent: Greater than 30 minutes Exam Narrative: General: In no acute distress Cardiac: Normal S1 and S2. RRR, No murmur, gallops or friction rubs, peripheral pulses intact. Respiratory: Lungs clear to auscultation, no adventitious lung sounds, currently on room air Gastrointestinal: soft, non-distended, tenderness noted and right upper quadrant,hyperactive bowel sounds. Diarrhea subsided Neuro: Alert and oriented x4 DS: Data Data Completed and Pending Completed studies during hospitalization: Abdomen pelvis CT Pending studies at discharge: None Labs on day of discharge: Labs from last 24 hours 02/11/24 02/11/24 02/11/24 11:20 07:30 06:01 WBC 4.0 L RBC 4.39 Hgb 13.0 Hct 39.2 MCV 89.3 MCH 29.6 MCHC 33.2 RDW 14.2 Plt Count 287 MPV 9.6 Immature Gran % (Auto) 0.8 H Neut % (Auto) 47.1 Lymph % (A
[2024-02-11 14:00] VITALS: BP 104/53; PULSE 59; RESP 16; TEMP 35.8; O2SAT 97
[2024-02-11 16:00] VITALS: BP 154/82; PULSE 66; RESP 16; TEMP 36.1; O2SAT 99
[2024-02-11] MEDS: INFLUENZA TRIVALENT VACCINE 45 MCG/0.5 ML SYRINGE IM (18:31)
[2024-02-12 07:44] LABS: Glucose Point of Care 183 mg/dl (65-105)
== END 2024-02-11 18:41 | disposition home or self-care (01) ==
LOC: ANHED 09:25 → ANH3MEDSUR 14:27
PROVIDERS: Nurse Practitioner Acute Care; Physician Assistant; Admitting Provider General Practice; Emergency Provider Physician Assistant; PCP Family Medicine; Visit Provider Family Medicine
DX: K52.9 Noninfective gastroenteritis and colitis, unspecified (principal); E86.0 Dehydration; E87.6 Hypokalemia; B37.0 Candidal stomatitis; H66.92 Otitis media, unspecified, left ear; E87.8 Other disorders of electrolyte and fluid balance, not elsewhere classified; I10 Essential (primary) hypertension; E78.5 Hyperlipidemia, unspecified; E11.9 Type 2 diabetes mellitus without complications; E03.9 Hypothyroidism, unspecified; F41.9 Anxiety disorder, unspecified; K21.9 Gastro-esophageal reflux disease without esophagitis; Z79.84 Long term (current) use of oral hypoglycemic drugs; Z23 Encounter for immunization; Z11.4 Encounter for screening for human immunodeficiency virus [HIV]
CPT/HCPCS: 36415; 74177; 80053; 81001; 81025; 82948; 83690; 83735; 84100; 84132; 85025; 85027; 86703; 87045; 87077; 87186; 87427; 87449; 87493; 90471; 90656; 93005; 94762; 96361; 96365; 96366; 96367; 96372; 96374; 96375; 96376; 99285; A9270; G0008; G0378; G0379; G0432; J0360; J0696; J1650; J1815; J1836; J1885; J2405; J2470; J3480; J7030; J7040; Q9967

== ENCOUNTER 2024-02-23 19:32 | Emergency (ER) | payer MEDICAID, SELFPAY ==
[2024-02-23] VITALS (10 sets, daily range): BP systolic 128–150; BP diastolic 69–84; PULSE 61–64; RESP 14–18; TEMP 36–36.9; O2SAT 95–98
--- NOTE | ~2024-02-23 | CT_ITS ---
EXAMINATION: CT brain wo con DATE: 02/23/2024 20:28 INDICATION: Headache. TECHNIQUE: Computed tomography (CT) of the head was performed without intravenous contrast. The mA wa s adjusted according to patient size. Iterative reconstruction technique was employed. The dose-lengt h product was 529.67 mGy-cm. COMPARISON: Head CT 03/13/2021 FINDINGS: There are scattered areas of low attenuation in the cerebral white matter. There is no intr acranial hemorrhage, acute infarction, or abnormal intracranial mass lesion. The ventricles are bruno l in size. The orbits are normal. The paranasal sinuses are clear. The mastoid air cells are normal. IMPRESSION: 1. Worsened mild nonspecific cerebral white matter disease, which likely represents chronic small ves ebony ischemic disease. Reviewed, dictated and finalized at location A. IMPRESSION: 1. Worsened mild nonspecific cerebral white matter disease, which likely repres ents chronic small vessel ischemic disease.
--- NOTE | ~2024-02-23 | XR_ITS ---
EXAMINATION: XR knee LT min 4V DATE: 02/23/2024 20:14 INDICATION: Left knee injury. TECHNIQUE: 4 views of left knee were obtained. COMPARISON: None. FINDINGS: Alignment is normal. No fracture. Joint spaces are normal. There is an enthesophyte at the proximal attachment of medial collateral ligament. No knee joint effusion. IMPRESSION: 1. No fracture. Reviewed, dictated and finalized at location A. IMPRESSION: 1. No fracture.
--- NOTE | ~2024-02-23 | XR_ITS ---
EXAMINATION: XR tibia fibula LT 2V DATE: 02/23/2024 20:14 INDICATION: Left lower leg injury and pain. TECHNIQUE: 2 views of left tibia and fibula were obtained. COMPARISON: None. FINDINGS: Alignment is normal. No fracture. Joint spaces are normal. IMPRESSION: 1. No fracture. Reviewed, dictated and finalized at location A. IMPRESSION: 1. No fracture.
--- NOTE | ~2024-02-23 | CT_ITS ---
EXAMINATION: CT cervical spine wo con DATE: 02/23/2024 20:28 INDICATION: Neck injury. TECHNIQUE: Computed tomography (CT) of the cervical spine was performed without intravenous contrast. Automated exposure control and iterative reconstruction technique were employed. The dose-length pro duct was 370.96 mGy-cm. COMPARISON: None FINDINGS: There is 7 degrees dextrocurvature of cervical spine. There is kyphosis of cervical spine. Vertebral body heights are normal. There is mildly decreased disc height at C2-3 and C3-C4, moderatel y decreased disc height at C4-C5, and mildly decreased disc height at C5-C6. The following disc level s are specifically discussed: C2-C3: There is no uncovertebral joint osteoarthritis. There is no facet joint osteoarthritis. There is no neural foraminal stenosis. There is no central canal stenosis. C3-C4: There is no uncovertebral joint osteoarthritis. There is no facet joint osteoarthritis. There is no neural foraminal stenosis. There is no central canal stenosis. C4-C5: There is mild right and severe left uncovertebral joint osteoarthritis. There is mild bilatera l facet joint osteoarthritis. There is no neural foraminal stenosis. There is mild central canal sten osis. C5-C6: There is mild bilateral uncovertebral joint osteoarthritis. There is no facet joint osteoarthr itis. There is no neural foraminal stenosis. There is no central canal stenosis. C6-C7: There is no uncovertebral joint osteoarthritis. There is mild bilateral facet joint osteoarthr itis. There is no neural foraminal stenosis. There is no central canal stenosis. C7-T1: There is no uncovertebral joint osteoarthritis. There is mild bilateral facet joint osteoarthr itis. There is no neural foraminal stenosis. There is no central canal stenosis. IMPRESSION: 1. No fracture. 2. Moderate cervical spondylosis. Reviewed, dictated and finalized at location A.
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
[2024-02-23] MEDS: LORazepam (*CRX) 0.5 MG TABLET PO (20:32)
[2024-02-23] MEDS: KETOROLAC 30 MG/ML VIAL (*BKC) 15 MG IM (21:42)
== END 2024-02-23 21:58 | disposition home or self-care (01) ==
PROVIDERS: Emergency Provider Emergency Medicine; PCP Student in an Organized Health Care Education/Training Program
DX: S19.9XXA Unspecified injury of neck, initial encounter (principal); S80.12XA Contusion of left lower leg, initial encounter; E11.9 Type 2 diabetes mellitus without complications; E78.5 Hyperlipidemia, unspecified; E89.0 Postprocedural hypothyroidism; M19.90 Unspecified osteoarthritis, unspecified site; Z87.442 Personal history of urinary calculi; Z79.84 Long term (current) use of oral hypoglycemic drugs; Z79.899 Other long term (current) drug therapy; Y04.8XXA Assault by other bodily force, initial encounter
CPT/HCPCS: 70450; 72125; 73564; 73590; 96372; 99284; A9270; J1885

== ENCOUNTER 2024-04-04 15:53 | Outpatient (CLI) | payer MEDICAID, SELFPAY ==
[2024-04-04 16:29] LABS: Basophils Percent Auto 0.5 % (0.2-1.2); Eosinophils Absolute Auto 0.2 K/mm3 (0-0.3); Eosinophils Percent Auto 2.7 % (0-4.4); Hemoglobin 14.9 g/dL (12.0-15.0); Immature Granulocyte Absolute 0.02 K/mm3 (0.00-0.031); Immature Granulocyte Percent A 0.3 % (0-0.5); Lymphocytes Absolute Auto 1.38 K/mm3 (0.9-3.2); Lymphocytes Percent Auto 21.9 % (18.3-44.2); Mean Corpuscular HGB Conc 32.4 g/dl (32-36); Mean Corpuscular Hemoglobin 29.5 pg (26-34); Mean Corpuscular Volume 91.1 fl (80-100); Mean Platelet Volume 8.7 fl (7.4-10.4); Monocytes Absolute Auto 0.4 K/mm3 (0.1-0.6); Monocytes Percent Auto 6.7 % (2.6-8.5); Neutrophils Absolute Auto 4.3 K/mm3 (1.3-6.7); Neutrophils Percent Auto 67.9 % (45.5-73.1); Platelet Count Result 312 k/mm3 (150-375); Red Blood Count 5.05 M/mm3 (4.2-5.4); Red Cell Distribution Width 13.8 % (11.5-14.5); White Blood Count 6.3 K/mm3 (4.5-10.0)
[2024-04-04 16:54] LABS: Erythrocyte Sedimentation Rate 21 mm/hr (0-20)
[2024-04-04 17:13] LABS: Alanine Aminotransferase 50 U/L (6-35); Albumin Level 4.4 g/dL (3.5-5.1); Alkaline Phosphatase 114 U/L (38-126); Anion Gap 4 mmol/L (4-12); Aspartate Amino Transferase 35 U/L (14-36); Bilirubin,Total 0.6 mg/dL (0.2-1.3); Blood Urea Nitrogen 16 mg/dL (7-17); Calcium 10.2 mg/dL (8.4-10.2); Carbon Dioxide 33 mmol/L (22-30); Chloride 100 mmol/L (98-107); Estimated Glomerular Filt Rate > 60; Glucose 115 mg/dL (65-110); Potassium 4.1 mmol/L (3.4-5.0); Sodium 137 mmol/L (137-145)
== END 2024-04-04 15:54 | disposition home or self-care (01) ==
PROVIDERS: PCP Family Medicine; Visit Provider Student in an Organized Health Care Education/Training Program
DX: E86.0 Dehydration (principal); K52.9 Noninfective gastroenteritis and colitis, unspecified; R21 Rash and other nonspecific skin eruption
CPT/HCPCS: 36415; 80053; 85025; 85652

== ENCOUNTER 2024-04-17 15:03 | Outpatient (CLI) | payer MEDICAID, SELFPAY ==
[2024-04-17 16:11] LABS: Anion Gap 3 mmol/L (4-12); Blood Urea Nitrogen 25 mg/dL (7-17); Calcium 8.7 mg/dL (8.4-10.2); Carbon Dioxide 32 mmol/L (22-30); Chloride 102 mmol/L (98-107); Estimated Glomerular Filt Rate > 60; Glucose 98 mg/dL (65-110); Potassium 3.7 mmol/L (3.4-5.0); Sodium 137 mmol/L (137-145)
[2024-04-17 17:38] LABS: Hepatitis B Surface Antigen Negative (Negative)
[2024-04-17 17:43] LABS: HAV RESULT Negative (Negative); Hepatitis B Core IgM Result Negative (Negative)
[2024-04-17 17:55] LABS: Hepatitis C Virus Antibody Negative (Negative)
== END 2024-04-17 15:04 | disposition home or self-care (01) ==
LOC: ANHLAB 15:04
PROVIDERS: PCP Family Medicine; Visit Provider Student in an Organized Health Care Education/Training Program
DX: R74.8 Abnormal levels of other serum enzymes (principal); N28.9 Disorder of kidney and ureter, unspecified; R53.83 Other fatigue; R21 Rash and other nonspecific skin eruption
CPT/HCPCS: 36415; 80048; 80074; 86038; 86039

== ENCOUNTER 2024-05-03 16:49 | Emergency (ER) | payer MEDICAID, SELFPAY ==
--- NOTE | ~2024-05-03 | CT_ITS ---
EXAMINATION: CT brain wo con DATE: 05/03/2024 20:42 INDICATION: Fall. TECHNIQUE: Computed tomography (CT) of the head was performed without intravenous contrast. The mA wa s adjusted according to patient size. Iterative reconstruction technique was employed. The dose-lengt h product was 529.67 mGy-cm. COMPARISON: Head CT 02/23/2024 FINDINGS: There are scattered areas of low attenuation in the cerebral white matter. There is no intr acranial hemorrhage, acute infarction, or abnormal intracranial mass lesion. The ventricles are bruno l in size. The paranasal sinuses are clear. The orbits are normal. The mastoid air cells are normal. IMPRESSION: 1. Stable mild nonspecific cerebral white matter disease, which likely represents chronic small vesse l ischemic disease. Reviewed, dictated and finalized at location A. UATE RN IMPRESSION: 1. Stable mild nonspecific cerebral white matter disease, which likely represen ts chronic small vessel ischemic disease.
--- NOTE | ~2024-05-03 | CT_ITS ---
EXAMINATION: CT cervical spine wo con DATE: 05/03/2024 20:42 INDICATION: Neck injury. Fall. TECHNIQUE: Computed tomography (CT) of the cervical spine was performed without intravenous contrast. Automated exposure control and iterative reconstruction technique were employed. The dose-length pro duct was 362.57 mGy-cm. COMPARISON: CT cervical spine 02/23/2024 FINDINGS: There is 7 degrees dextrocurvature of cervical spine. There is kyphosis of cervical spine. Vertebral body heights are normal. There is mildly decreased disc height at C2-3 and C3-C4, moderately decreased disc height at C4-C5, and mildly decreased disc height at C5-C6. The following disc levels are specifically discussed: C2-C3: There is no uncovertebral joint osteoarthritis. There is no facet joint osteoarthritis. There is no neural foraminal stenosis. There is no central canal stenosis. C3-C4: There is no uncovertebral joint osteoarthritis. There is no facet joint osteoarthritis. There is no neural foraminal stenosis. There is no central canal stenosis. C4-C5: There is mild right and severe left uncovertebral joint osteoarthritis. There is mild bilatera l facet joint osteoarthritis. There is no neural foraminal stenosis. There is mild central canal sten osis. C5-C6: There is mild bilateral uncovertebral joint osteoarthritis. There is no facet joint osteoarthritis. There is no neural foraminal stenosis. There is no central canal stenosis. C6-C7: There is no uncovertebral joint osteoarthritis. There is mild bilateral facet joint osteoarthr itis. There is no neural foraminal stenosis. There is no central canal stenosis. C7-T1: There is no uncovertebral joint osteoarthritis. There is mild bilateral facet joint osteoarthritis. There is no neural foraminal stenosis. There is no central canal stenosis. 1. No fracture. 2. Moderate cervical spondylosis. Reviewed, dictated and finalized at location A. E EXAMINER
--- NOTE | ~2024-05-03 | CT_ITS ---
EXAMINATION: CT lumbar spine wo con DATE: 05/03/2024 20:42 INDICATION: Low back injury. Fall. TECHNIQUE: Computed tomography (CT) of the lumbar spine was performed without intravenous contrast. A utomated exposure control and iterative reconstruction technique were employed. The dose-length produ ct was 1130.36 mGy-cm. COMPARISON: None FINDINGS: There is 4 degrees levocurvature of lumbar spine. Vertebral body heights are normal. There is severely decreased disc height at L5-S1. The following disc levels are specifically discussed: L1-L2: The disc does not extend beyond the endplate margin. There is mild bilateral facet joint osteo arthritis. There is no neural foraminal stenosis. There is no central canal stenosis. L2-L3: The disc does not extend beyond the endplate margin. There is mild bilateral facet joint osteo arthritis. There is no neural foraminal stenosis. There is no central canal stenosis. L3-L4: The disc does not extend beyond the endplate margin. There is mild bilateral facet joint osteo arthritis. There is no neural foraminal stenosis. There is no central canal stenosis. L4-L5: The disc is bulging. There is mild bilateral facet joint osteoarthritis. There is mild bilater al neural foraminal stenosis. There is mild central canal stenosis. L5-S1: The disc is bulging. There is mild bilateral facet joint osteoarthritis. There is moderate rig ht and mild left neural foraminal stenosis. There is mild central canal stenosis. IMPRESSION: 1. No fracture. 2. Severe lower lumbar spondylosis. Reviewed, dictated and finalized at location A. Y LEVEL RECEPTIONIST
--- NOTE | ~2024-05-03 | XR_ITS ---
EXAMINATION: XR hip LT 2V w AP pelvis DATE: 05/03/2024 20:46 INDICATION: Left hip pain. Fall. TECHNIQUE: An anteroposterior view of the pelvis and 2 views of left hip were obtained. COMPARISON: Left hip radiographs 01/31/2020 FINDINGS: Alignment is normal. No fracture. There is mild osteoarthritis of the hips. There is severe lower lumbar spondylosis. IMPRESSION: 1. No fracture. 2. Mild osteoarthritis of the hips. Reviewed, dictated and finalized at location A. MOTIVE SPECIALTY TECHNICIAN
[2024-05-03 16:59] VITALS: BP 145/55; PULSE 58; RESP 16; TEMP 36.6; O2SAT 100
--- NOTE | 2024-05-03 20:08 | ED_ITS ---
HPI - Fall General Chief Complaint: Fall Stated Complaint: fall down 7 stairs, hip and head pain Time Seen by Provider: 05/03/24 19:43 Source: patient History of Present Illness HPI Narrative: 53 YEARS OLD WHITE FEMALE SLIPPED AND FELL LANDED FLAT ON HER BACK, STRUCK THE BACK OF HEAD ON THE GROUND, NO LOSS OF CONSCIOUSNESS, COMPLAINING OF NECK PAIN, LOWER BACK PAIN, LEFT HIP PAIN. PATIENT CAME TO THE ED BY PRIVATE CAR. C- COLLAR PLACED ON ARRIVAL TO THE ED. Related Data Home Medications ?Medication ?Instructions ?Recorded ?Confirmed ?Last Taken ?Type losartan 50 mg tablet 50 mg PO DAILY 02/07/24 04/04/24 Unknown History Allergies Allergy/AdvReac Type Severity Reaction Status Date / Time codeine Allergy Intermediate HIVES Verified 04/04/24 14:35 clarithromycin AdvReac Intermediate DIARRHEA Verified 04/04/24 14:35 ciprofloxacin AdvReac Unknown JOINT PAIN Verified 04/04/24 14:35 Review of Systems Review of Systems: All systems reviewed & are unremarkable except as noted in HPI and below PMFSH Past Medical History Medical History Kidney stones Degenerative joint disease Hyperlipidemia Type 2 diabetes mellitus Anxiety Hypertension Hypothyroidism Normal colonoscopy (2014) Surgical History Surgical History H/O elbow surgery (~2017) H/O shoulder surgery (~2009) History of thyroidectomy (2003) History of appendectomy (2001) Family History Family History Grandparent Diabetes mellitus Family history of mental disorder Depression Family history of malignant neoplasm of ovary Mother Family history of hypercholesterolemia Family history of mental disorder Depression Hypertension Cerebrovascular accident Family history of emphysema Other Arthritis Asthma Lung disease Social History Social History Social History: Surrogate medical decision maker: Angelica Cleveland, spouse. Code status: Full code. Smoking status: Never smoker Second hand tobacco smoke exposure: No Alcohol intake: never Substance use: never Substance use type: does not use Do You Feel Safe in your Home?: Yes Lack of Transportation: No Lack of Food: Never True Current Housing: I Have Housing Concerned About Future Housing: No Difficulty Paying Gas/Electric Bills: No Difficulty Paying for Meds: No Currently Unemployed: No Education: Don't Know Difficulty w/ Childcare or Family Care: No Additional living arrangements comments: Lives with spouse in [place]. Additional occupation/education comments: [employer]. Spiritual care concerns: No Exam Narrative: GENERAL APPEARANCE: WELL-DEVELOPED, WELL-NOURISHED SKIN: NORMAL COLOR HEAD: NORMOCEPHALIC, NONTRAUMATIC EYES: CLEAR CONJUNCTIVA ENT: OROPHARYNX NORMAL, EARS NORMAL, NOSE NORMAL NECK: DIFFUSE TENDERNESS POSTERIORLY, C-COLLAR ON CHEST AND RESPIRATORY: AIRWAY PATENT, NO RESPIRATORY DISTRESS, NO ACCESSORY M USCLE USE HEART: REGULAR RATE/RHYTHM ABDOMEN: SOFT, NONTENDER, NO ORGANOMEGALY, QUIET BOWEL SOUNDS VASCULAR: NORMAL PERIPHERAL PULSES, NORMAL CAPILLARY REFILL. MUSCULOSKELETAL: SLIGHT DIFFUSE TENDERNESS LEFT HIP, SLIGHT LIMITED RANGE OF MOTION OTHERWISE NO BRUISES, NO SWELLING OR DEFORMITY NEUROLOGIC: ALERT AND ORIENTED ?3, BULLET CHARGING MACHINE OPERATOR IS NORMAL TESTED, NO GROSS MOTOR DEFICIT Course Vital Signs Vital signs: Vital Signs Temperature 36.6 C 05/03/24 16:59 Pulse Rate 58 L 05/03/24 16:59 Respiratory Rate 16 05/03/24 16:59 Blood Pressure 145/55 H 05/03/24 16:59 Pulse Oximetry 100 05/03/24 16:59 Oxygen Delivery Room Air 05/03/24 16:59 Temperature 36.6 C 05/03/24 16:59 Pulse Rate 58 L 05/03/24 16:59 Respiratory Rate 16 05/03/24 16:59 Blood Pressure 145/55 H 05/03/24 16:59 Pulse Oximetry 100 05/03/24 16:59 Oxygen Delivery Room Air 05/03/24 16:59 MDM - Fall Imaging Data My impression: Impressions Head CT 05/03/24 20:48 IMPRESSION: 1. Stable mild nonspecific cerebral white matter disease, which likely represents chronic small vessel ischemic disease. Hip/Pelvis X-Ray 05/03/24 20:51 IMPRESSION: 1. No fracture. 2. Mild osteoarthritis of the hips. Lumbar Spine CT 05/03/24 20:52 IMPRESSION: 1. No fracture. 2. Severe lower lumbar spondylosis. Radiologist's impression: Impressions Head CT 05/03/24 20:48 IMPRESSION: 1. Stable mild nonspecific cerebral white matter disease, which likely represen ts chronic small vessel ischemic disease. Hip/Pelvis X-Ray 05/03/24 20:51 IMPRESSION: 1. No fracture. 2. Mild osteoarthritis of the hips. Lumbar Spine CT 05/03/24 20:52 IMPRESSION: 1. No fracture. 2. Severe lower lumbar spondylosis. CT CERVICAL SPINE SHOWED NO FRACTURE Critical Care Time Critical Care Time Critical Care Time: No Discharge Plan Discharge Clinical Impression: Fall, Contusion Patient Disposition: Home, Self-Care Condition: Stable Instructions: Fall Prevention for Older Adults (ED), Head Injury (ED), Contusion in Adults (ED) Additional Instructions: RETURN IF SYMPTOMS ARE WORSENING , CALL YOUR FAMILY PHYSICIAN FOR APPOINTMENT, TAKE TYLENOL, IBUPROFEN NEEDED FOR ACHES AND PAIN, CONTINUE HOME MEDICATIONS. Patient Language: Nigerien Prescriptions: No Action levothyroxine 100 mcg tablet 100 mcg PO DAILY Qty: 30 3RF sertraline 50 mg tablet 50 mg PO DAILY Qty: 30 0RF pantoprazole 40 mg tablet,delayed release (DR/EC) 40 mg PO QAM Qty: 30 0RF hydroxyzine HCl 25 mg tablet 25 mg PO TID PRN (Reason: itching) Qty: 60 0RF eszopiclone 2 mg tablet 2 mg PO ONCE Qty: 1 0RF Rx Instructions: Take tablet with you to sleep center for sleep study, if needed amoxicillin-pot clavulanate 875-125 mg tablet 1 tablet PO BID Qty: 20 0RF nystatin 100,000 unit/gram cream 1 applic topical DAILY Qty: 30 0RF losartan 50 mg tablet 50 mg PO DAILY Rx Instructions: TAKE 1 TABLET BY MOUTH DAILY atorvastatin 40 mg tablet 40 mg PO DAILY Qty: 90 1RF Invokana 100 mg tablet 100 mg PO DAILY Qty: 30 6RF Rx Instructions: TAKE 1 TABLET BY MOUTH DAILY Rybelsus 14 mg tablet 14 mg PO DAILY Qty: 30 0RF Follow-up/Referrals: Chelsie Rush MD [Primary Care Provider] -
[2024-05-03] MEDS: ONDANSETRON HCL ODT 4 MG TABLET PO (20:23)
[2024-05-03] MEDS: KETOROLAC (*BKC) 60 MG/2 ML VIAL IM (20:27)
--- OUTSIDE RECORDS SUMMARY | 2024-05-10 20:37 | XMS_ITS | Referral Summary ---
Author Organization [facility] Physician Office Building [address] [place] [id number] Care Team Providers Care Electrical Research Engineer Name Role Phone Quintin Luna MD Primary Care Provider [phone] Allergies Active Allergy Reactions Criticality Noted Date Comments Cephalexin Stomach upset Reaction: GI UPSET, Clarithromycin Diarrhea Low 07/02/2010 Codeine Hives Reaction: HIVES, Erythromycin Lactobionate Diarrhea Low 04/04/2008 Montelukast Hives Medium 08/15/2018 Medications levothyroxine (SYNTHROID, LEVOTHROID) 125 mcg tablet levothyroxine 125 mcg tablet TAKE ONE TABLET BY MOUTH ONCE DAILY Active cetirizine (ZyrTEC) 10 mg tablet Take 1 tablet (10 mg total) by mouth daily as needed Active atorvastatin (LIPITOR) 20 mg tablet Take 1 tablet (20 mg total) by mouth daily Active canagliflozin (INVOKANA) 100 mg tabletIndicati ons:type 2 diabetes mellitus Take 1 tablet (100 mg total) by mouth daily Active busPIRone (BUSPAR) 10 mg tabletIndicati ons:Generalize d Anxiety Disorder Take 1 tablet (10 mg total) by mouth daily Active escitalopram (LEXAPRO) 10 mg tablet Take 1 tablet (10 mg total) by mouth daily Active losartan (COZAAR) 50 mg tablet Take 1 tablet (50 mg total) by mouth daily Active Active Problems Problem Noted Date Diagnosed Date Dysfunction of both eustachian tubes 08/15/2018 Assessment & Plan (08/15/2018 12:19 PM CDT): Patient demonstrates signs and symptoms consistent with eustachian tube dysfunction, left greater than right. Examination revealed mild retraction in the left ear. There is bilateral tympanosclerosis on exam. Patient has significant secondhand smoke exposure. Patient is instructed to continue with Zyrtec 10 mg daily. I will add fluticasone nasal spray two sprays in each nostril daily. Patient was also instructed on performing nasal Valsalva maneuver several times a day to help equalize pressure is within the middle ear space. Laryngopharyngeal reflux (LPR) 08/15/2018 Assessment & Plan (08/15/2018 12:19 PM CDT): Patient also demonstrates signs and symptoms consistent with extra esophageal reflux. Patient will be placed on ranitidine 150 mg b.i.d.. Patient was provided with educational material regarding reflux precautions. Patient was instructed to refrain from eating a meal approximately 3 hours prior to bedtime. Patient was instructed to elevate the head of the bed by approximately 8 inches. Patient was to refrain from consuming spicy greasy fatty foods, dairy products, and excessive caffeine use. Patient was also advised to increase water consumption. Patient was also instructed on weight reduction and exercise regimen. Patient was also instructed on the importance of compliance with medications. Arthralgia of shoulder 08/04/2011 Social History Tobacco Use Types Packs/Day Years Used Date Smoking Tobacco: Never Smokeless Tobacco: Current Alcohol Use Standard Drinks/Week Comments Never 0 (1 standard drink = 0.6 oz pur e alcohol) AUDIT-C Answer Date Recorded Q1: How often do you have a drink containing alc ohol? Never 11/02/2022 Average Number of Drinks Not on file 023 Frequency of Binge Drinking Not on file 10/09 Personal Safety Answer Date Recorded Have you ever been in or are you currently in a harmful physical or emotional relationship or is someone making you feel afraid or unsafe? 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 Gender Identity Not on file Sexual Orientation Not on file Last Filed Vital Signs Vital Sign Reading Time Taken Comments Blood Pressure 123/65 11/02/2022 3:00 PM CDT Pulse 58 11/02/2022 3:00 PM CDT Temperature 36.3 ??C (97.3 ??F) 11/02/2022 2:30 PM CD T Respiratory Rate 16 11/02/2022 3:00 PM CDT Oxygen Saturation 100% 11/02/2022 3:00 PM CDT Inhaled Oxygen Concentration - - Weight 93.4 kg (205 lb 12.8 oz) 11/02/2022 9:12 AM CDT Height 154.9 cm (5' 1 ) 11/02/2022 9:12 AM CDT Body Mass Index 38.89 11/02/2022 9:12 AM CDT Plan of Treatment Not on file Procedures Procedure Name Priority Date/Time Associated Diagnosis Comments SCREENING MAMMOGRAM Routine 03/07/2013 1 0:28 AM CDT from Last 3 Months or Most Recently Relevant to Health Maintenance Results * Screening Mammogram (03/07/2013 10:28 AM CDT) Anatomical Region Laterality Modality Breast N/A Mammography 03/07/2013 10:2 8 AM CDT Narrative 03/08/2013 3:22 PM CDT MARGARET RIVAS M.D. FINAL REPORT ACC# ??Date Time ??Exam [id number] Mar 07, 2013 10:28:00 BMV [id number] Van Screening Mamm ?? Technologist(s): Madelaine Aleman; ; EXAMINATION: ??Mammogram Technique: Bilateral Full-Field Digital Screening Mammogram was performed. ??Views obtained: ??bilateral craniocaudal and bilateral mediolateral oblique. Computer Aided Detection was performed with Jostle.3 version 9.3. Mammogram Findings: This is a baseline study. The breasts are almost entirely fat. There is no suspicious abnormality in either breast. IMPRESSION: ??Annual screening mammography is recommended. OVERALL FINAL ASSESSMENT: BI-RADS CATEGORY 1: ??Negative. Requested By: MARIANN BURNETT ??Harsha Dictated By: ?? MARGARET RIVAS M.D. ??on Mar 08 2013 ??3:22P This document has been electronically signed by: MARGARET RIVAS M.D. on Mar 08 2013 ??3:22P Procedure Note Provider, MD Marie - 08/30/2016 MARGARET RIVAS M.D. FINAL REPORT ACC# Date Time Exam [id number] Mar 07, 2013 10:28:00 BMV [id number] Van Screening Mamm Technologist(s): Madelaine Aleman; ; EXAMINATION: Mammogram Technique: Bilateral Full-Field Digital Screening Mammogram was performed. Views obtained: bilateral craniocaudal and bilateral mediolateral oblique. Computer Aided Detection was performed with Jostle.3 version 9.3. Mammogram Findings: This is a baseline study. The breasts are almost entirely fat. There is no suspicious abnormality in either breast. IMPRESSION: Annual screening mammography is recommended. OVERALL FINAL ASSESSMENT: BI-RADS CATEGORY 1: Negative. Requested By: MARIANN BURNETT M.D. Dictated By: MARGARET RIVAS M.D. on Mar 08 2013 3:22P This document has been electronically signed by: MARGARET RIVAS M.D. on Mar 08 2013 3:22P Historical Provider MD GARCIA MAMMO PROCEDURES Suzi l Result from Last 3 Months or Most Recently Relevant to Health Maintenance Insurance [facility] PLAN [place] [id number] [facility] Care Teams Electrical Research Engineer Relationship Specialty Start Date End Date Quintin Luna MD PCP - General Family Medicine 10/26/22
--- OUTSIDE RECORDS SUMMARY | 2024-05-10 20:37 | XMS_ITS | CONTINUITY OF CARE DOCUMENT ---
Author Name darvin boston Address Unknown Organization [facility] Address [address] [place] [address] [address] [place] [address] Phone [phone] Care Team Providers Care Stoneworking Belt Sander Name Role Phone ELIAZAR WHITE MD Unavailable [phone] INSURANCE PROVIDERS Payer name Policy type / Coverage type Audra red alliance party ID [employer] MEDICAID Medicaid [id number]
--- OUTSIDE RECORDS SUMMARY | 2024-05-10 20:37 | XMS_ITS | Data Portability ---
Author Organization [facility] Eliazar [facility] Address [address] [place] [address] Assessment No assessment recorded. Plan of Treatment Reminders Order Date Submit Date Provider Last Modified By Organization Details Last Modified Time Details Appointments None recorde d. Lab hepatit is C Ab, serum 2013 014 sieh [facility], [address], [address], [place], [address], 5 15:51:30 hepatit is B core Ab, total, serum 2013 014 [email or web address] [facility], [address], [address], [place], [address], 5 11:53:24 hepatit is B surface Ab, qualita tive, serum 2013 014 [email or web address] [facility], [address], [address], [place], [address], 5 11:53:24 TSH + free T4, serum 2013 014 [email or web address] [facility], [address], [address], [place], [address], 5 14:28:06 H pylori urea breath test, co2 infrare d 2014 015 HAYDER [facility], [address], [address], [place], [address], 5 17:14:37 lipid panel, serum 2014 015 [email or web address] [facility], [address], [address], [place], [address], 5 14:28:06 TSH + free T4, serum 2014 015 HAYDER [facility], [address], [address], [place], [address], 5 17:14:37 lipid panel, serum 2014 015 [email or web address] [facility], [address] [place] [address], [address], [place], [address], 5 10:45:33 glucose toleran ce test, 2-hour 2014 015 si [facility], [address] [facility], [address], [place], [address], 5 10:36:31 HbA1c (hemogl obin A1c), blood 2014 015 [email or web address] [facility], [address], [address], [place], [address], 5 10:45:33 TSH + free T4, serum 2014 015 [email or web address] [facility], [address] [facility], [address], [place], [address], 5 16:05:49 Referral gastroe nterolo gist referra l 2013 015 derick Saul MD, [address] [facility], [address], [place], [address], 5 22:19:08 gastroe nterolo gist referra l 2014 015 [email or web address] Not available 5 13:43:46 nutriti onist/d ietitia n referra l 2014 015 [email or web address] Not available 5 17:39:44 nutriti onist/d ietitia n referra l 2014 015 [email or web address] Not available 5 17:39:44 physica l therapy back referra l 2014 015 [email or web address] Not available 5 17:39:45 physica l therapy hip referra l 2014 015 [email or web address] Not available 5 17:39:44 physica l therapy knee referra l 2014 015 [email or web address] Not available 5 17:39:45 physica l therapy neck referra l 2014 015 [email or web address] Not available 5 17:39:45 nutriti onist/d ietitia n referra l 2014 015 [email or web address] Not available 5 09:09:[address]i st referra l 2014 015 [facility], [address] [place], [address], 5 19:05:20 Procedures None recorde d. Surgeries None recorde d. Imaging ultraso und, liver 2013 014 [facility] ([facility]), [address] [place], [address], 5 13:59:32 x-ray, knee 2014 015 [facility] ([facility]), [address] [place], [address], 5 14:22:16 x-ray, pelvis & hips 2014 015 [facility] ([facility]), [address] [place], [address], 5 14:27:47 x-ray, cervica l spine 2014 015 [facility] ([facility]), [address] [place], [address], 5 14:18:53 MAMMO, screeni ng, digital , bilater al 2014 015 [email or web address] Not available 5 16:03:03 Medication Orders metform in 500 mg tablet 2013 014 [facility] [address], [address], 5 11:38:11 Nexium 40 mg capsule ,delaye d release 2013 014 [facility] [address] In [facility], [address] [place] [address], [address], 5 11:38:11 levothy roxine 125 mcg tablet 2013 014 [facility] [address], [address], 4 16:53:31 omepraz ole 20 mg capsule ,delaye d release 2014 015 [facility] [address], [address], 5 11:49:43 Carafat e 1 gram tablet 2014 015 [facility] [address], [address], 5 11:49:43 lisinop ril 10 mg-hydr ochloro thiazid e 12.5 mg tablet 2014 015 [facility] [address] In [facility], [address] [place] [address], [address], 5 11:49:45 levothy roxine 125 mcg tablet 2014 015 [place] [id number] In [address], [address], 5 11:49:43 glycopy rrolate 1 mg tablet 2014 015 [place] [id number] In [address], [address], 5 16:23:55 omepraz ole 20 mg capsule ,delaye d release 2014 015 [facility] [address], [address], 5 16:23:55 tobramy liliana 0.3 % eye drops 2014 015 [facility] [address], [address], 5 11:38:11 levothy roxine 125 mcg tablet 2014 015 [facility] [address], [address], 5 16:23:54 Robaxin 500 mg tablet 2014 015 [facility] [address], [address], 5 11:06:40 gabapen tin 300 mg capsule 2014 015 [facility] [address] In [facility], [address] [place], [address], 5 11:06:40 Patient TargetsNo targets recorded. Patient Instructions Encounter Date Encounter Id Patient Instructions Last Modified By Organization Details Last Modified Time 04/03/2014 [id number] Take meds as prescribed ADA??diet/ exercise to loose wt nsuthan Not available 04/03/2014 16:46:19 09/27/2014 [id number] irritable bowel syndrome: care instructions jhsieh Not available 09/27/2014 11:49:43 gastroesophageal reflux disease (GERD): care instructions jhsieh Not available 09/27/2014 11:49:43 When You Want to Lose Weight: Care Instructions jhsieh Not available 09/27/2014 11:49:43 learning about h igh blood pressure strice Not available 10/04/2014 15:46:35 hypothyroidism: care instructions jhsieh Not available 09/27/2014 11:49:43 11/27/2014 [id number] irritable bowel syndrome: care instructions jhsieh Not available 11/27/2014 16:23:54 gastroesophageal reflux disease (GERD): care instructions jhsieh Not available 11/27/2014 16:23:54 learning about h igh blood sugar jhsieh Not available 11/27/2014 16:23:55 When You Want to Lose Weight: Care Instructions jhsieh Not available 11/27/2014 16:23:54 pinkeye: care instructions jhsieh Not available 11/27/2014 16:23:54 hypothyroidism: care instructions jhsieh Not available 11/27/2014 16:23:54 02/27/2015 [id number] When You Want to Lose Weight: Care Instructions dskaer Not available 02/27/2015 16:11:22 hypothyroidism: care instructions dskaer Not available 02/27/2015 16:11:22 Reason for Referral Referring Physician: Torie iqbal, Internal Medicine, Encounter Date: 04/17/2014 Referring Physician: Torie iqbal, Internal Medicine, Encounter Date: 09/27/2014 [employer] Tr[employer]/dietitian Refer ral for Hyperlipidemia Referring Physician: Torie Soliman, Internal Medicine, Encounter Date: 11/27/2014 [employer] Trimmer/dietitian Refer ral for Steatosis of liver Referring Physician: Torie Soliman Internal Medicine, Encounter Date: 11/27/2014 Physical Therapy Back Referr al for Multiple joint pain Referring Physician: Torie Soliman Internal Medicine, Encounter Date: 11/27/2014 Physical Therapy Hip Referra l for Multiple joint pain Referring Physician: Torie Soliman Internal Medicine, Encounter Date: 11/27/2014 Physical Therapy Knee Referr al for Multiple joint pain Referring Physician: Torie Soliman Internal Medicine, Encounter Date: 11/27/2014 Physical Therapy Neck Referr al for Multiple joint pain Referring Physician: Torie Soliman Internal Medicine, Encounter Date: 11/27/2014 Referring Physician: Torie iqbal Internal Medicine, Encounter Date: 02/27/2015 [employer] Trimmer/dietitian Refer ral for Obesity Referring Physician: Torie Soliman Internal Medicine, Encounter Date: 02/27/2015 Results Created Date Observation Date Name Description Value Unit Range Abnormal Flag Note LastModifiedBy Organization Detail LastModifiedTime 10/05/19 15 10/05/2014 TSH + free T4, serum TSH 4.300 uIU/m L 0.450- 4.500 Not Available [facility] ([facility]) [address] [place], [address], 10/05/2014 17:14:36 10/05/19 15 10/05/2014 TSH + free T4, serum T4,free(dire ct) 1.13 NG/dL 0.82-1 .77 Not Available [facility] ([facility]) [address] [place], [address], 10/05/2014 17:14:36 10/05/19 15 10/05/2014 lipid panel , serum cholesterol, total 216 mg/dL 100-19 9 high Not Available [facility] ([facility]) [address] [facility], [place], [address], 10/05/2014 17:14:37 10/05/19 15 10/05/2014 lipid panel , serum triglyceride s 209 mg/dL 0-149 high Not Available [facility] ([facility]) [address] [place], [address], 10/05/2014 17:14:37 10/05/19 15 10/05/2014 lipid panel , serum HDL cholesterol 45 mg/dL >39 ACCOR DING TO ATP-I II GUIDE LINES , HDL-C >59 MG/DL IS CONSI DERED A NEGAT DESHAUN RISK FACTO R FOR CHD. Not Available [facility] ([facility]) [address] [facility], [place], [address], 10/05/2014 17:14:37 10/05/19 15 10/05/2014 lipid panel , serum VLDL cholesterol ryan 42 mg/dL 5-40 high Not Available [facility] ([facility]) [address] [facility], [place], [address], 10/05/2014 17:14:37 10/05/19 15 10/05/2014 lipid panel , serum LDL cholesterol calc 129 mg/dL 0-99 high Not Available [facility] ([facility]) [address] [place], [address], 10/05/2014 17:14:37 10/05/19 15 10/05/2014 lipid panel , serum comment: BUTTON RIVETER Not Available [facility] ([facility]) [address] [facility], [place], [address], 10/05/2014 17:14:37 10/05/19 15 10/05/2014 lipid panel , serum LDL/HDL ratio 2.9 ratio _unit s 0.0-3. 2 LDL/H DL RATIO MEN WOMEN 1/2 AVG.R ISK 1.0 1.5 AVG.R ISK 3.6 3.2 2X AVG.R ISK 6.2 5.0 3X AVG.R ISK 8.0 6.1 Not Available [facility] ([facility]) [address] [facility], [place], [address], 10/05/2014 17:14:37 10/05/19 15 10/05/2014 H pylor i urea breat h test, co2 infra red H. pylori breath test NEGATI VE negati ve Not Available [facility] ([facility]) [address] [facility], [place], [address], 10/05/2014 17:14:37 02/19/2002/19/2015 lipid panel , serum cholesterol, total 223 mg/dL 100-19 9 above high normal EFF ECTIV E OCTOB ER 2014 THE REFER ENCE INTER DAMIR FOR RIANNA STERO L, TOTAL WILL BE CLARKE ING TO: 0 - 19 YEARS 100 - 169 >19 YEARS 100 - 199 Not Available [facility] ([facility]) [address] [facility], [place], [address], 02/19/2015 07:18:42 02/19/2002/19/2015 lipid panel , serum triglyceride s 192 mg/dL 0-149 above high normal EFF ECTIV E OCTOB ER 2014 THE REFER ENCE INTER DAMIR FOR TRIGL YCERI OANH WILL BE CLARKE ING TO: 0 - 9 YEARS 0 - 74 10 - 19 YEARS 0 - 89 >19 YEARS 0 - 149 Not Available [facility] ([facility]) [address] [facility], [place], [address], 02/19/2015 07:18:42 02/19/2002/19/2015 lipid panel , serum HDL cholesterol 56 mg/dL >39 ACCOR DING TO ATP-I II GUIDE LINES , HDL-C >59 MG/DL IS CONSI DERED A NEGAT DESHAUN RISK FACTO R FOR CHD. Not Available [facility] ([facility]) [address] [facility], [place], [address], 02/19/2015 07:18:42 02/19/2002/19/2015 lipid panel , serum VLDL cholesterol ryan 38 mg/dL 5-40 Not Available [facility] ([facility]) [address] [facility], [place], [address], 02/19/2015 07:18:42 02/19/20 15 02/19/2015 lipid panel , serum LDL cholesterol calc 129 mg/dL 0-99 above high normal EFF ECTIV E OCTOB ER 2014 THE REFER ENCE INTER DAMIR FOR LDL RIANNA STERO L CALC WILL BE CLARKE ING TO: 0 - 19 YEARS 0 - 109 >19 YEARS 0 - 99 Not Available [facility] ([facility]) [address] [facility], [place], [address], 02/19/2015 07:18:42 02/19/20 15 02/19/2015 lipid panel , serum comment: BUTTON RIVETER Not Available [facility] ([facility]) [address] [facility], [place], [address], 02/19/2015 07:18:42 02/19/20 15 02/19/2015 lipid panel , serum LDL/HDL ratio 2.3 ratio _unit s 0.0-3. 2 LDL/H DL RATIO MEN WOMEN 1/2 AVG.R ISK 1.0 1.5 AVG.R ISK 3.6 3.2 2X AVG.R ISK 6.2 5.0 3X AVG.R ISK 8.0 6.1 Not Available [facility] ([facility]) [address] [facility], [place], [address], 02/19/2015 07:18:42 04/08/20 14 04/08/2014 imagi ng/di agnos tic resul t No observ ation record ed. [facility] [address] [place], [address], 04/09/2014 15:56:26 06/22/19 15 06/22/2014 ultra sound , liver No observ ation record ed. jhsieh Not Available 2014 15:47:27 12/07/19 15 12/06/2014 x-ray , pelvi s & hips No observ ation record ed. [facility] (Im[facility]) [address] [place], [address], 02/27/2015 10:55:03 12/07/19 15 12/06/2014 x-ray , knee No observ ation record ed. [facility] ([facility]) [address] [place], [address], 02/27/2015 10:55:03 12/07/19 15 12/06/2014 x-ray , cervi ryan spine No observ ation record ed. [facility] ([facility]) [address] [place], [address], 02/27/2015 10:55:03 04/11/20 15 04/10/2015 imagi ng/di agnos tic resul t No observ ation record ed. [facility] (Imaging) [address] [place], [address], 04/12/2015 15:20:51 06/14/19 18 06/14/2017 XR, hand, 3 or more view No observ ation record ed. [facility] ([facility]) [address] [place], [address], 06/15/2017 13:07:16 Result Notes None recorded. Problems Name Problem SNOMED Code Status Onset Date Resolution Date Notes Provider Name and Address Organization Details Recorded Time Diabetes mellitus 42362420 Active Torie Soliman MD Attn: Shamar valencia,[address] [facility] [address], [place], [address], [facility] 5 10:57:30 Essential hypertensio n 94932292 Active Torie Soliman MD Attn: Shamar valencia,[address] [facility], [place], [address], [facility] 5 11:49:42 Hypothyroid ism 80534009 Active Torie Soliman MD Attn: Shamar valencia,[address] [facility], [place], [address], [place] [facility] 5 11:06:40 Hyperlipide abimbola 29713582 Active Torie Soliman MD Attn: Shamar valencia,[address] [facility], [place], [address], [place] [facility] 5 16:23:54 Gastroesoph ageal reflux disease 224096889 Active Torie Soliman MD Attn: Kaytenisha valencia,[address] [facility], [place], [address], [place] [facility] 5 16:23:54 Steatosis of liver 942555296 Active Torie Soliman MD Attn: Kaytenisha valencia,[address] [facility], [place], [address], [place] [facility] 5 11:06:40 Acute conjunctivi tis 71071079 Active Torie Soliman MD Attn: Kaytenisha valencia,[address] [facility], [place], [place], [address] [place] [address], [place] [facility] 5 16:23:54 Hyperglycem ia 59179171 Active Torie Soliman MD Attn: Kaytenisha valencia,[address] [facility], [place], [address], [place] [facility] 5 16:23:54 Multiple joint pain 70923969 Active Torie Soliman MD Attn: Kaytenisha valencia,[address] [facility], [place], [address], [place] [facility] 5 16:23:54 Irritable bowel syndrome 53656982 Active Torie Soliman MD Attn: Shamar annie,[address] [facility], [place], [address], [place] [facility] 5 16:23:54 Abnormal liver function 88279328 Active Torie Soliman MD Attn: Shamar annie,[address] [place], [address], [place] [facility] 4 16:11:51 Obesity 651079500 Active Torie Soliman MD Attn: Shamar valencia,[address], [place], [address], [facility] 5 11:06:40 Chronic neck pain 1134085809414 Active Torie Soliman MD Attn: Shamar valencia,[address], [place], [address], [facility] 5 11:06:40 Problem Notes None recorded. Procedures Surgical History Date Name Laterality Status Provider Name and Address Organization Details Recorded Time Appendectomy completed Natalee Pretty MA [facility] 04/03/2014 16:17:03 Eye Surgery completed Natalee Pretty MA [facility] 04/03/2014 16:17:03 Imaging Results Imaging Date Name Status LastModified by Organiz ation Details LastModified Time 04/08/2014 imaging/diagn ostic result completed [facility] [address] [place], [address], 04/09/2014 15:56:26 06/22/2014 ultrasound, liver completed [facility] Information not available 11/27/2014 15:47:27 12/06/2014 x-ray, pelvis & hips completed [facility] ([facility]) [address] [place], [address], 02/27/2015 10:55:03 12/06/2014 x-ray, knee completed [facility] ([facility]) [address] [place], [address], 02/27/2015 10:55:03 12/06/2014 x-ray, cervical spine completed [facility] ([facility]) [address] [place], [address], 02/27/2015 10:55:03 04/10/2015 imaging/diagn ostic result completed [facility] (Im[facility]) [address] [place], [address], 04/12/2015 15:20:51 06/14/2017 XR, hand, 3 or more view completed [facility] ([facility]) [address], [place], [address], 06/15/2017 13:07:16 Procedure Notes None recorded. Medical Equipment None Reported. Allergies Allergen ID Allergen Name Allergen Category Reaction Reaction Severity Criticality Documentation Date Start Date Code Code System Note Provider Name and Address Organization Details Recorded Time 1721 codeine medicatio n Not available Not available Not available 03/30/2014 2670 RxNorm Nancy Sena RN null, [facility] 4 10:32:38 1722 Singulair medicatio n Not available Not available Not available 03/30/2014 83742 9 RxWero Sena RN null, [facility] 4 10:32:38 Medications Name Sig Start Date Stop Date Status Note LastModified by Organization Details LastModified Time glycopyrrol ate 1 mg tablet Take 1 tablet 2 times daily by mouth active Not Available Not Available No t Available cyclobenzap rine 10 mg tablet active Not Available Not Available Not Available methocarbam ol 500 mg tablet Take 2 tablets 3 times a day by oral route as needed for 30 days. active Not Available Not Available No t Available metformin 500 mg tablet Take 1 tablet twice a day by oral route. active Not Available Not Available No t Available hydrocodone 5 mg-acetamin ophen 325 mg tablet active Not Available Not Available No t Available sucralfate 1 gram tablet Take 1 tablet twice a day by oral route for 30 days. active Not Available Not Available No t Available ondansetron HCl 4 mg tablet active Not Available Not Available Not Available prednisone 20 mg tablet active Not Available Not Available Not Available Nexium 40 mg capsule,del ayed release Take 1 capsule every day by oral route. 2013 active Not Available Not Available Not Avai lable tramadol 50 mg tablet active Not Available Not Available No t Available meloxicam 7.5 mg tablet active Not Available Not Available Not Available dicyclomine 20 mg tablet active Not Available Not Available Not Available cephalexin 500 mg capsule active Not Available Not Available Not Available simvastatin 20 mg tablet active Not Available Not Available Not Available diphenhydra mine 25 mg capsule active Not Available Not Available Not Available levothyroxi ne 125 mcg tablet TAKE ONE TABLET BY MOUTH ONCE DAILY 2015 active Not Available Not Available Not Avai lable tobramycin 0.3 % eye drops INSTILL 1 DROP INTO AFFECTED EYE(S) BY OPHTHALMI C ROUTE EVERY 4 HOURS active Not Available Not Available No t Available levothyroxi ne 150 mcg tablet active Not Available Not Available Not Available Mapap (acetaminop hen) 325 mg tablet active Not Available Not Available Not Available gabapentin 300 mg capsule Take 1 capsule 3 times a day by oral route for 30 days. active Not Available Not Available No t Available omeprazole 20 mg capsule,del ayed release Take 1 tablet twice a day by mouth with meals active Not Available Not Available No t Available lisinopril 10 mg-hydrochl orothiazide 12.5 mg tablet Take 1 tablet every day by oral route for 30 days. active Not Available Not Available No t Available ibuprofen 600 mg tablet active Not Available Not Available Not Available fluticasone propionate 50 mcg/actuati on nasal spray,suspe nsion USE TWO SPRAYS IN EACH NOSTRIL ONCE DAILY active Not Available Not Available No t Available glycopyrrol ate 2 mg tablet active Not Available Not Available Not Available naproxen 500 mg tablet active Not Available Not Available Not Available amoxicillin 875 mg-potassiu m clavulanate 125 mg tablet active Not Available Not Available Not Available Ventolin HFA 90 mcg/actuati on aerosol inhaler 2 puffs QID PRN active Not Available Not Available No t Available Bactrim DS 800 mg-160 mg tablet Take 1 tablet every 12 hours by oral route for 7 days. 04/18 completed Not Available Not Available Not Available Vitals Date Recorded Respiratory rate Oxygen saturation Oxygen saturation in Arterial blood by Pulse oximetry Body weight Heart rate Body mass index (BMI) Body height Body temperature Systolic blood pressure Diastolic blood pressure Provider Name and Address Organization Details Last Updated DateTime 4 98 /min 96 % 96 % 26173.4 3585 g 70 /min 40 kg/m2 152.4 cm 97.9 [degF] 146 mm[Hg] 90 mm[Hg] Renea Raman [place] [facility] 4 14:52:17 Date Recorded Oxygen saturation Oxygen saturation in Arterial blood by Pulse oximetry Body weight Heart rate Body mass index (BMI) Body height Body temperature Systolic blood pressure Diastolic blood pressure Provider Name and Address Organization Details Last Updated DateTime 5 100 % 100 % 55402.7 95716 g 74 /min 38 kg/m2 152.4 cm 97.7 [degF] 150 mm[Hg] 84 mm[Hg] Santosh Lake MA [facility] 5 10:44:26 Date Recorded Body weight Oxygen saturation Oxygen saturation in Arterial blood by Pulse oximetry Body height Body mass index (BMI) Body temperature Heart rate Systolic blood pressure Diastolic blood pressure Provider Name and Address Organization Details Last Updated DateTime 5 43802.9 52476 g 100 % 100 % 152.4 cm 38.4 kg/m2 97.7 [degF] 83 /min 160 mm[Hg] 80 mm[Hg] Santosh Lake MA [facility] 5 15:35:39 Date Recorded Systolic blood pressure Diastolic blood pressure Provider Name and Address Organization Details Last Updated DateTime 11/27/2014 120 mm[Hg] 80 mm[Hg] Torie Soliman MD Attn: Accounting,[address] [place], [address], [facility] 11/27/2014 15:54:03 Date Recorded Body weight Oxygen saturation Oxygen saturation in Arterial blood by Pulse oximetry Body height Body temperature Heart rate Body mass index (BMI) Systolic blood pressure Diastolic blood pressure Provider Name and Address Organization Details Last Updated DateTime 5 65242.7 12506 g 100 % 100 % 152.4 cm 97.6 [degF] 78 /min 38 kg/m2 162 mm[Hg] 90 mm[Hg] Santosh Lake MA [facility] 5 10:15:40 Date Recorded Systolic blood pressure Diastolic blood pressure Provider Name and Address Organization Details Last Updated DateTime 02/27/2015 130 mm[Hg] 80 mm[Hg] Torie Soliman MD Attn: Accounting,[address] [place], [address], [facility] 02/27/2015 11:07:17 Date Recorded Respiratory rate Oxygen saturation Oxygen saturation in Arterial blood by Pulse oximetry Body weight Heart rate Body mass index (BMI) Body height Body temperature Systolic blood pressure Diastolic blood pressure Provider Name and Address Organization Details Last Updated DateTime 4 12 /min 100 % 100 % 82565.3 69862 g 86 /min 40.2 kg/m2 152.4 cm 97.7 [degF] 148 mm[Hg] 100 mm[Hg] Natalee Pretty MA [facility] 4 16:17:03 Social History Question Answer Notes LastModified by Organizat ion Details LastModified Time Tobacco Smoking Status Never Smoker Natalee Pretty MA null, [facility] 04/03/2014 16:17:03 What Is Your Level Of Alcohol Consumption? None [email or web address] Information not available 04/03/2014 Marital Status Single cspiller Informatio n not available 04/17/2014 Sex: Unknown Functional Status None recorded. Mental Status None recorded. Family History Relationship Description Onset Age of this Age Resolved Age Notes LastModified by Organization Details LastModified Time Mother Cerebrovascu lar accident 48 cspiller Not available 01/2014 14:52:17 Mother Chronic obstructive pulmonary disease 62 cspiller Not available 2013 14:52:17 Mother Hypercholest erolemia cspiller Not available 2013 14:52:17 Mother Hypertensive disorder cspiller Not available 2013 14:52:17 Mother Malignant tumor of ovary cspiller Not available 2013 14:52:17 Medical History Condition Response Coronary Artery Disease N Other N Atrial Fibrillation N High Blood Pressure N Kidney or Bladder Problems N Thyroid Problems Y GI Problems N Depression N COPD N Blood Clots N Skin Problems N Anemia N Heart Attack ([place]) N Anxiety Disorder N Diabetes N Muscle, Joint, or Bone Problems N Seizures/Epilepsy N Acid Reflux (GERD) Y Cancer N Stroke N Asthma N Allergies N High Cholesterol N Hepatitis N Liver Disease N Headaches N Heart Failure N Osteoporosis N Gynecological HistoryNo gynecological history recorded. Obstetrics History GPAL:G 0 P 0 0 0 0 Past Encounters Encounter ID Performer Location Encounter Start Date Encounter Closed Date Diagnosis/Indication Diagnosis SNOMED-CT Code Diagnosis ICD10 Code [id number] [facility] (Adult Med) [address] [place] [address] 04/03/2014 16:00:33 04/03/2014 16:45:52 Diabetes mellitus 98093327 Essential hypertension 74449713 Hypothyroidism 69149632 Hyperlipidemia 56463552 Gastroesop hageal reflux disease [id number] [facility] [address] [place] [id number] 04/17/2014 14:26:56 04/17/2014 16:13:08 Irritable bowel syndrome 57810468 Abnormal l iver function 28329860 Obesity 840400887 Hypothyroidism 91018226 Diabetes mellitus 492678 09 [id number] [place] [facility] (Adult Med) [address] [place] [id number] 09/27/2014 10:22:11 09/27/2014 11:47:48 Steatosis of liver 529300652 Irritable bowel syndrome 25713742 Hypothyroidism 62356702 Obesity 396373221 Hyperlipidemia 93850418 Gastroesop hageal reflux disease 025004122 Essential hypertension 15418557 [id number] [facility] (Adult Med) [address] [place] [id number] 11/27/2014 15:18:29 11/27/2014 17:39:44 Acute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
--- OUTSIDE RECORDS SUMMARY | 2024-05-10 20:37 | XMS_ITS | Clinical Summary ---
Author Organization [facility] [address] [place] [address] Care Team Providers Care Mold Machine Operator Name Role Phone Quintin Luna MD Primary Care Provider [phone] Allergies Active Allergy Reactions Criticality Noted Date [...] compliance with medications. 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 Gender Identity Not on file Sexual Orientation Not on file Obstetrics History Last Filed Vital Signs Vital Sign Reading [...] 11/02/2022 9:12 AM CDT Plan of Treatment Health Maintenance Due Date Last Done Comments Cervical Cancer Screening 1970 Colon Cancer Screening-Colonoscopy 1970 Depression Screening 1970 Hepatitis C Screening 1970 DTaP/Tdap/Td Vaccine (1 - Tdap) 1981 Hepatitis B Screening 1988 Regular Well Visit/Exam 18-64 1988 Breast Cancer Screening-Mammogram 03/07/2014 03/07/2013 Covid-19 Vaccine ( season) 2024 02/11/2022, 03/26/2021, 07/19/2020, Additional history exists Influenza Vaccine (#1) 2024 , 03/03/2021, 04/24/2019 Zoster Vaccine Completed 04/17/2022, 02/11/2022 Pneumococcal vaccine <65 Aged Out No longer eligible based on patient's age to complete this topic Procedures Procedure Name Priority Date/Time Associated Diagnosis Comments SCREENING MAMMOGRAM Routine 03/07/2013 1 0:28 AM CDT from Last 3 Months or Most Recently Relevant to Health Maintenance Results * Screening Mammogram (03/07/2013 10:28 AM CDT) Anatomical Region Laterality Modality Breast N/A Mammography 03/07/2013 10:2 8 AM CDT Narrative 03/08/2013 3:22 PM CDT MARGARET RIVAS M.D. FINAL REPORT ACC# ??Date Time ??Exam [id number] Mar 07, 2013 10:28:00 BMV [id number] Van Screening Mamm ?? Technologist(s): Madelaine Aleman; ; EXAMINATION: ??Mammogram Technique: Bilateral Full-Field Digital Screening Mammogram was performed. ??Views obtained: ??bilateral craniocaudal and bilateral mediolateral oblique. Computer Aided Detection was performed with Built In 1.3 version 9.3. Mammogram Findings: This is a [...] M.D. FINAL REPORT ACC# Date Time Exam [id number] Mar 07, 2013 10:28:00 BMV [id number] Van Screening Mamm Technologist(s): Madelaine Aleman; ; EXAMINATION: Mammogram Technique: Bilateral Full-Field Digital Screening Mammogram was performed. Views obtained: bilateral craniocaudal and bilateral mediolateral oblique. Computer Aided Detection was performed with [place] InfoScout 1.3 version 9.3. Mammogram Findings: This is a [...] RIVAS M.D. on Mar 08 2013 3:22P us Historical Provider MD GARCIA MAMMO PROCEDURES Suzi l Result from Last 3 Months or Most Recently Relevant to Health Maintenance Insurance [id number] [place] [address] PLAN LUCHO VALENZUELA [id number] Care Teams Mold Machine Operator Relationship Specialty Start Date End Date Quintin Luna MD PCP - General Family Medicine 10/26/22
--- OUTSIDE RECORDS SUMMARY | 2024-05-10 20:37 | XMS_ITS | Encounter Summary ---
Author Organization [facility] Healthcare Address [address] [place] [address] Care Team Providers Care Body Joiner Name Role Phone Quintin Luna MD Primary Care Provider [phone] Reason for Visit * Auth/Cert (Routine) Specialty Diagnoses / Procedures Referred By Nicole t Referred To Contact Diagnoses POSTMENOPAUSAL BLEEDING Procedures AZ HYSTEROSCOPY BX ENDOMETRIUM&/POLYPC W/WO D&C DILATION AND CURETTAGE, HYSTEROSCOPY POSSIBLE MYOSURE, POSSIBLE POLYPECTOMY Referral ID Status Reason Start Date Expiration Date Visits Re quested Visits Authorized [id number] 1 1 Encounter Details Date Type Department Care Team (Late st Contact Info) Description 11/02/2022 1:05 PM CDT Anesthesia Event [facility] OR [address] [place] [address] Laith Polanco, [address] [place] [address] DE[place] [address] Jassi Rosa CRNA [facility] [place] [address] [place] [address] Anesthesia Record Procedure Summary Procedure Name Responsible Anesthesiologist Anesthesia Start Time Anesthesia Stop Time EXAM UNDER ANESTHESIA - repair of vaginal and cervical laceration (Vagina) Laith Polanco DO 11/02/22 1305 11/02/22 1339 Events Date Time Event Comment 11/02/2022 1305 In Room 1305 An Start 1305 An Start Data 1311 An Induction The patient was reevaluated immediately before moderate or deep sedation use and before anesthesia induction. 1311 Anesthesia Ready 1315 Proc Start 1330 Proc Fin 1331 an stop data 1334 Out of Room 1339 Handoff to RN I completed my handoff to the receiving nurse during which we: 1. Patient identified 2. Responsible provider identified 3. Pertinent medical history reviewed 4. Procedure type and surgical course discussed 5. Intraoperative anesthetic management and any significant issues discussed 6. Expectations and concerns for postop period discussed 7. Questions solicited from receiving nurse 8. Patient disposition at the time of handoff: No value filed. 1339 An Stop Meds Name Total midazolam 1 mg/mL 2 mg propofol 90 mg Lactated Ringer's (LR) infusion 300 mL * Agents Name N2O O2 N2O Air * Blood No blood administrations on file. Lines, Drains, and Airways Type Details Placement Removal Supraglottic Airway Placement Date: 11/02/22; Placement Time: 1036 (created via procedure documentation); Mask Ventilation: 0; Size: 4; Insertion Attempts: 1 11/02/22 1036 by Jassi Rosa CRNA Peripheral IV Placement Date: 11/02/22; Placement Time: 0945; Catheter Size: 20 G; Orientation: Left, Posterior; Location: Hand; Site Prep: Chlorhexidine; Technique: Anatomical landmarks; Patient Tolerance: Tolerated well; Removal Date: 11/02/22; Removal Time: 1530; Removal Reason: Discharge 11/02/22 0945 by Erna Pierre RN 11/02/22 1530 by Erna Pierre, YASMINE RETIRED Surgical Site 11/02/22; 0945; Perineum; 04/11/24 (Retired LDA, Removed/Completed by Microtask with LDA Utility); 1213 (Retired LDA, Removed/Completed by Microtask with LDA Utility) 11/02/22 0945 by Charito Gilman RN 04/11/24 1213 by Discharge Provider, Automatic documented in this encounter Social History Tobacco Use Types Packs/Day Years [...] on file 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 Gender Identity Not on file Sexual Orientation Not on file documented as of this encounter OR Notes * Anesthesia Postprocedure Evaluation - Laith Polanco DO - 11/02/2022 2:30 PM CDT Patient: Kelly Cleveland Procedure Summary Date: 11/02/22 Room / Location: [facility] OPERATING [facility]OM 03 / [facility] Anesthesia Start: 1305 Anesthesia Stop: 1339 Procedure: EXAM UNDER ANESTHESIA - repair of vaginal and cervical laceration (Vagina) Diagnosis: (Post operative bleeding) Surgeons: Gerardo Tan MD Responsible Provider: Laith Polanco DO Anesthesia Type: MAC ASA Status: 3 Anesthesia Type: MAC Last vitals BP 123/65 (BP Location: Right arm) Pulse 58 Temp 36.3 ??C (97.3 ??F) Resp 16 SpO2 100% Anesthesia Post Evaluation Patient participation: complete - patient participated Level of consciousness: fully awake Pain score: 3 Pain management: satisfactory to patient Airway patency: patent Evidence of recall: no Cardiovascular status: hemodynamically stable Respiratory status: room air and acceptable Hydration status: acceptable Pt is: normothermic Nausea/Vomiting status: none No notable events documented. * Anesthesia Preprocedure Evaluation - Laith Polanco DO - 11/02/2022 1:50 PM CDT Images from the original note were not included. Anesthesia Evaluation Kelly Cleveland is a 52 y.o. female Procedure(s): EXAM UNDER ANESTHESIA - repair of vaginal and cervical laceration * No Diagnosis Codes entered * Patient Active Problem List Diagnosis ??? Arthralgia of shoulder ??? Dysfunction of both eustachian tubes ??? Laryngopharyngeal reflux (LPR) Past Medical History: Diagnosis Date ??? Anxiety ??? Diabetes mellitus, type II (HCC) ??? High cholesterol ??? HTN (hypertension) Past Surgical History: Procedure Laterality Date ??? APPENDECTOMY ??? ELBOW ARTHROSCOPY ??? NASAL SEPTUM SURGERY ??? SHOULDER ARTHROSCOPY ??? THYROID SURGERY OB History No obstetric history on file. Allergies Allergen Reactions ??? Montelukast Hives ??? Cephalexin Stomach upset Reaction: GI UPSET, ??? Codeine Hives Reaction: HIVES, ??? Clarithromycin Diarrhea ??? Erythromycin Lactobionate Diarrhea Med List Status: Nurse Complete Set By: Erna Pierre RN at 11/02/2022 9:52 AM Taking? Last Dose Start Date End Date Provider albuterol HFA (VENTOLIN HFA) 90 mcg/actuation inhaler Not Taking -- -- Provider, MD Marie atorvastatin (LIPITOR) 20 mg tablet 11/01/2022 -- -- ProviderMarie MD busPIRone (BUSPAR) 10 mg tablet 11/01/2022 -- -- ProviderMarie MD canagliflozin (INVOKANA) 100 mg tablet 11/01/2022 -- -- ProviderMarie MD cetirizine (ZyrTEC) 10 mg tablet Unknown -- -- Provider, MD Marie dapagliflozin-metformin 10-1,000 mg tablet, IR & ER, biphasic 24hr Not Taking -- -- ProviderMarie MD escitalopram (LEXAPRO) 10 mg tablet 11/01/2022 -- -- ProviderMarie MD fluticasone (FLONASE) 50 mcg/actuation nasal spray Not Taking 08/15/18 -- Chirag Mondragon, DO Administer 1 spray into each nostril daily Patient not taking: Reported on 10/26/2022 levothyroxine (SYNTHROID, LEVOTHROID) 125 mcg tablet 11/02/2022 -- -- ProviderMarie MD losartan (COZAAR) 50 mg tablet 11/01/2022 -- -- ProviderMarie MD raNITIdine (ZANTAC) 150 mg tablet () Not Taking 08/15/18 08/15/19 Chirag Mondragon, DO Take 1 tablet (150 mg total) by mouth 2 (two) times a day Patient not taking: Reported on 10/26/2022 Current Facility-Administered Medications: ??? Lactated Ringer's (LR) infusion, 30 mL/hr, intravenous, Continuous, Last Rate: 30 mL/hr at 11/02/22 1305, Rate Verify at 11/02/22 1305 ??? lidocaine PF (XYLOCAINE) 10 mg/mL (1 %) preservative free injection 2-10 mg, 0.2-1 mL, other, Once PRN Social History Tobacco Use Smoking Status Never Smokeless Tobacco Current Alcohol Use: Not At Risk (11/02/2022) AUDIT-C ??? Frequency of Alcohol Consumption: Never ??? Average Number of Drinks: Not on file ??? Frequency of Binge Drinking: Not on file Substance and Sexual Activity Drug Use Never Family History Problem Relation Age of Onset ??? COPD Mother ??? Diabetes Father Vitals: 11/02/22 1255 11/02/22 1300 11/02/22 1335 BP: 142/72 140/82 164/76 Pulse: 65 73 70 Resp: 23 20 20 Temp: 36.2 ??C (97.2 ??F) SpO2: 96% 95% 97% PT: No results found for requested labs within last 30 days. INR: No results found for requested labs within last 30 days. APTT: No results found for requested labs within last 30 days. Hgb A1C: No results found for requested labs within last 30 days. CBC RBC: No results found for requested labs within last 30 days. RDW: No results found for requested labs within last 30 days. MCHC: No results found for requested labs within last 30 days. MCH: No results found for requested labs within last 30 days. MCV: No results found for requested labs within last 30 days. Hct: No results found for requested labs within last 30 days. Hgb: No results found for requested labs within last 30 days. WBC: No results found for requested labs within last 30 days. MPV: No results found for requested labs within last 30 days. Platelets: No results found for requested labs within last 30 days. RDW CV: No results found for requested labs within last 30 days. RDW Sd: No results found for requested labs within last 30 days. BMP Glucose: No results found for requested labs within last 30 days. Calcium: No results found for requested labs within last 30 days. Sodium: No results found for requested labs within last 30 days. Potassium: No results found for requested labs within last 30 days. CO2: No results found for requested labs within last 30 days. Chloride: No results found for requested labs within last 30 days. BUN: No results found for requested labs within last 30 days. Creatinine: 11/02/2022: 0.50 mg/dL (L) STOP-Bang Total Score: 6 DOS Physical Exam Medical history, medications, and allergies reviewed. Attestation: This PAT evaluation 11/02/2022. Airway Exam: Mallampati: III Cervical ROM: FROM TM distance: normal Cardiovascular Exam: Rate: regular Rhythm: regular Pulmonary Exam: LCTA, bilat EENT Exam: trachea midline Current state: Patient's current state is cooperative. Anesthesia Plan ASA 3 My patient is approved for the Anesthesia Controlled Medication protocol when under care of a RETAIL AND RESTAURANT ASSOCIATE Planned anesthesia: MAC Induction: Induction: intravenous. Postoperative Plan: Patient's planned disposition post procedure is Outpatient. Informed Consent: Discussed plan with RETAIL AND RESTAURANT ASSOCIATE. Anesthesia plan and risks discussed with patient. Consent and Attending signature: I and/or my designee have discussed the anesthesia plan, benefits, possible alternatives, parental presence at time of induction (if indicated), and clinically relevant risks that may include dental injury, unintentional awareness, and/or other complications. The patient and/or parent/legal guardian understand, and agree to proceed. All questions answered. documented in this encounter Plan of Treatment Not on file documented as of this encounter Visit Diagnoses Not on filedocumented in this encounter Administered Medications Inactive Administered Medications - up to 3 most recent administrations Medication Order MAR Action Action Date Dose Rate Site Lactated Ringer's (LR) infusion 30 mL/hr, intravenous, Continuous, Starting on Wed11/02/22 at 1000, Pre-Op, Rate/Dose Verify 11/02/2022 1:05 PM CDT 30 mL/hr Restarted 11/02/2022 10:26 AM CDT New Bag 11/02/2022 10:11 AM CDT 30 mL/hr 30 mL/hr midazolam (VERSED) 1 mg/mL injection intravenous, As needed, Starting on Wed11/02/22 at 1309, Anesthesia Intra-op Given 11/02/2022 1:09 PM CDT 2 mg propofoL (DIPRIVAN) 10 mg/mL IV intravenous, As needed, Starting on 11/02/22 at 1321, Anesthesia Intra-op Given 11/02/2022 1:22 PM CDT 20 mg Given 11/02/2022 1:14 PM CDT 30 mg Given 11/02/2022 1:08 PM CDT 40 mg documented in this encounter Care Teams Body Joiner Relationship Specialty Start Date End Date Quintin Luna MD PCP - General Family Medicine 10/26/22 documented as of this encounter
--- OUTSIDE RECORDS SUMMARY | 2024-05-10 20:38 | XMS_ITS | Encounter Summary ---
Author Organization [facility] Address [address] [place] [address] Care Team Providers Care Mule Rider Name Role Phone Unavailable Primary Care Provider Unavailabl e Encounter Details Date Type Department Care Team (Late st Contact Info) Description 07/19/2020 4:00 PM CLINICAL COUNSELOR Immunization [facility] COVID Vaccine [facility] - [address] [address] High priority for 2019 novel coronavirus vaccination (Primary Dx) Social History Tobacco Use Types Packs/Day Years Used Date Smoking Tobacco: Never Assessed Sex and Gender Information Value Date Recorded Sex Assigned at Not on file Gender Identity Not on file Sexual Orientation Not on file COVID-19 Exposure Response Date Recorded In the last month, have you been in contact with someone who was confirmed or suspected to have Coronavirus / COVID-19? No / Unsure 07/19/2020 4:10 PM CLINICAL COUNSELOR documented as of this encounter Plan of Treatment Not on file documented as of this encounter Visit Diagnoses Diagnosis High priority for 2019 novel coronavirus vaccination- Primary documented in this encounter
--- OUTSIDE RECORDS SUMMARY | 2024-05-10 20:38 | XMS_ITS | Encounter Summary ---
Author Organization [facility] Address [address] Workman: Epic Prelude ADT [place]RISTINE TIERNEY [address] Care Team Providers Care Mineral Wool Insulation Supervisor Name Role Phone Unavailable Primary Care Provider Unavailabl e Encounter Details Date Type Department Care Team (Latest Contact Info) Description 07/19/2020 Travel Social History Tobacco Use Types Packs/Day Years [...] COVID-19? 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
--- OUTSIDE RECORDS SUMMARY | 2024-05-10 20:38 | XMS_ITS | Encounter Summary ---
Author Organization [facility] Healthcare Address [address] [place] [address] Care Team Providers Care Marine Rigger Name Role Phone Quintin Luna MD Primary Care Provider [phone] Reason for Visit * Auth/Cert (Routine) Specialty Diagnoses / Procedures Referred By Nicole t Referred To Contact Diagnoses POSTMENOPAUSAL BLEEDING Procedures WI HYSTEROSCOPY BX ENDOMETRIUM&/POLYPC W/WO D&C DILATION AND CURETTAGE, HYSTEROSCOPY POSSIBLE MYOSURE, POSSIBLE POLYPECTOMY Referral ID Status Reason Start Date Expiration Date Visits Re quested Visits Authorized [id number] 1 1 Encounter Details Date Type Department Care Team (Late st Contact Info) Description 11/02/2022 10:50 AM CDT - 11/02/2022 12:05 PM CDT Surgery [facility] OR [address] [place] [id number] Gerardo Tan MD [address] [address] DILATION AND CURETTAGE, HYSTEROSCOPY, MYOSURE, POLYPECTOMY Surgery Details Date/Time Status Location OR Service Patient Class Case Class Case Type Trauma Case? 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 Gender Identity Not on file Sexual Orientation Not on file documented as of this encounter Last Filed Vital Signs Vital Sign Reading Time Taken Comments Blood Pressure 129/60 11/02/2022 12:05 PM CDT Pulse 70 11/02/2022 12:05 PM CDT Temperature 36.2 ??C (97.2 ??F) 11/02/2022 1 1:10 AM CDT Respiratory Rate 18 11/02/2022 12:0 5 PM CDT Oxygen Saturation 96% 11/02/2022 12: 05 PM CDT Inhaled Oxygen Concentration - - Weight 93.4 kg (205 lb 12.8 oz) 11/02/2022 9:12 AM CDT Height 154.9 cm (5' 1 ) 11/02/2022 9:12 AM CDT Body Mass Index 38.89 11/02/2022 9:12 AM CDT documented in this encounter Discharge Instructions * Discharge Instructions* Erna Pierre RN - 11/02/2022 3:03 PM CDT Remove packing 12 hours post op (1:35am). Expect small amount of bleeding and some cramping. If bleeding becomes excessive (saturating a pad within 1-2 hours for 2 continuous pads), call Dr. Jang's office at [phone] or go to the emergency room. Avoid anything in the vagina for 2 weeks including but not limited to tampons/intercourse. Utilize over the counter pain medications for pain. Heating pads can help with cramping. * Attachments The following attachments cannot be sent through Care Everywhere. * General Anesthesia (Discharge Care) (Fijian) * Dilation and Curettage (Discharge Care) (Fijian) documented in this encounter Medications at Time of Discharge atorvastatin (LIPITOR) 20 mg tablet Take 1 tablet (20 mg total) by mouth daily busPIRone (BUSPAR) 10 mg tabletIndication s:Generalized Anxiety Disorder Take 1 tablet (10 mg total) by mouth daily canagliflozin (INVOKANA) 100 mg tabletIndication s:type 2 diabetes mellitus Take 1 tablet (100 mg total) by mouth daily cetirizine (ZyrTEC) 10 mg tablet Take 1 tablet (10 mg total) by mouth daily as needed escitalopram (LEXAPRO) 10 mg tablet Take 1 tablet (10 mg total) by mouth daily levothyroxine (SYNTHROID, LEVOTHROID) 125 mcg tablet levothyroxine 125 mcg tablet TAKE ONE TABLET BY MOUTH ONCE DAILY losartan (COZAAR) 50 mg tablet Take 1 tablet (50 mg total) by mouth daily documented as of this encounter Discharge Disposition Disposition Code Departure Means Destination Comment s Discharge to home or self care Patient discharged to home, accompanied by sister. Transported by wheelchair by RN. All discharge instructions reviewed with patient. Patient verbalized understanding. All questions addressed. All belongings returned to patient. At time of discharge, patient is fully alert and oriented, has steady gait and is able to spontaneously void. documented in this encounter H&P Notes * Laith Polanco, - 11/02/2022 1:47 PM CDT I have reviewed the H&P, examined the patient, and endorse the findings as written. Plan of Care : Based on the above findings, I consider Omar Cleveland to be an acceptable risk for : Procedure(s): EXAM UNDER ANESTHESIA - repair of vaginal and cervical laceration Patient in PACU continuing to have bleeding. VS stable. PO intake of a few ice chips. We will proceed with MAC or advance to genas needed. Source Note - Laith Polanco DO - 11/02/2022 9:46 AM CDT Images from the original note were not included. Anesthesia Evaluation Omar Cleveland is a 52 y.o. female Procedure(s): DILATION AND CURETTAGE, HYSTEROSCOPY POSSIBLE MYOSURE, POSSIBLE POLYPECTOMY * No Diagnosis Codes entered * Patient [...] ??? Clarithromycin Diarrhea ??? Erythromycin Lactobionate Diarrhea Taking? Last Dose Start Date End Date Provider albuterol HFA (VENTOLIN HFA) 90 mcg/actuation inhaler Not Taking -- -- Provider, MD Marie atorvastatin (LIPITOR) 20 mg tablet -- -- -- Provider, MD Maire busPIRone (BUSPAR) 10 mg tablet -- -- -- Provider, MD Marie canagliflozin (INVOKANA) 100 mg tablet -- -- -- Provider, MD Marie cetirizine (ZyrTEC) 10 mg tablet -- -- -- ProviderMarie MD dapagliflozin-metformin 10-1,000 mg tablet, IR & ER, biphasic 24hr Not Taking -- -- ProviderMarie MD escitalopram (LEXAPRO) 10 mg tablet -- -- -- ProviderMarie MD fluticasone (FLONASE) 50 mcg/actuation nasal spray Not Taking 08/15/18 -- Chirag Mondragon DO Administer 1 spray into each nostril daily Patient not taking: Reported on 10/26/2022 levothyroxine (SYNTHROID, LEVOTHROID) 125 mcg tablet -- -- -- Provider, MD Marie losartan (COZAAR) 50 mg tablet -- -- -- Provider, Marie, raNITIdine (ZANTAC) 150 mg tablet () Not Taking 08/15/18 08/15/19 Chirag Mondragon, DO Take 1 tablet (150 mg total) by mouth 2 (two) times a day Patient not taking: Reported on 10/26/2022 Current Facility-Administered Medications: ??? acetaminophen (TYLENOL) tablet 975 mg, 975 mg, oral, Once ??? famotidine (PEPCID) tablet 20 mg, 20 mg, oral, Once ??? Lactated Ringer's (LR) infusion, 30 mL/hr, intravenous, Continuous ??? lidocaine PF (XYLOCAINE) 10 mg/mL (1 %) preservative free injection 2-10 mg, 0.2-1 mL, other, Once PRN Social History Tobacco Use Smoking Status Never Smokeless Tobacco Current Alcohol Use: Not At Risk (08/15/2018) AUDIT-C ??? Frequency of Alcohol Consumption: Never ??? Average Number of Drinks: Not on file ??? Frequency of Binge Drinking: Not on file Substance and Sexual Activity Drug Use Never Family History Problem Relation Age of Onset ??? COPD Mother ??? Diabetes Father Vitals: 11/02/22 0912 Pulse: 57 Resp: 16 Temp: 36.3 ??C (97.4 ??F) SpO2: 97% PT: No results found for requested [...] requested labs within last 30 days. Creatinine: No results found for requested labs within last 30 days. DOS Physical Exam Medical history, medications, and allergies reviewed. Attestation: This PAT evaluation 11/02/2022. Airway Exam: Mallampati: II Cardiovascular Exam: Rate: regular Rhythm: regular Pulmonary Exam: LCTA, bilat EENT Exam: trachea midline Dental Exam: Appears intact Skin Exam: Skin is warm and dry. Turgor is normal. Current state: Patient's current state is anxious. Anesthesia Plan ASA 3 Planned anesthesia: General Team communication plan: LMA Induction: Induction: intravenous. Postoperative Plan: Postoperative administration opioids intended. Patient's planned disposition post procedure is Outpatient. Informed Consent: Discussed plan with ORGANIC SECTION TECHNICAL LEAD. Anesthesia plan and risks discussed with patient. Consent and Attending signature: I and/or my designee have discussed the anesthesia plan, benefits, possible alternatives, parental presence at time of induction (if indicated), and clinically relevant risks that may include dental injury, unintentional awareness, and/or other complications. The patient and/or parent/legal guardian understand, and agree to proceed. All questions answered. * Gerardo Tan MD - 11/02/2022 12:32 PM CDT General H&P Subjective Patient is a 52 y.o. female with chief complaint of vaginal bleeding. HPI: 52 y/o s/p hysteroscopy with d and c having some bleeding. Called to bedside to assess. Patient comfortable. Nurse reports steady trickle of blood on pads when she changes them Past Medical History: Diagnosis Date Anxiety Diabetes mellitus, type II (HCC) High cholesterol HTN (hypertension) Past Surgical History: Procedure Laterality Date APPENDECTOMY ELBOW ARTHROSCOPY NASAL SEPTUM SURGERY SHOULDER ARTHROSCOPY THYROID SURGERY Medications Prior to Admission Medication Sig Dispense Refill Last Dose atorvastatin (LIPITOR) 20 mg tablet Take 1 tablet (20 mg total) by mouth daily 11/01/2022 busPIRone (BUSPAR) 10 mg tablet Take 1 tablet (10 mg total) by mouth daily 11/01/2022 canagliflozin (INVOKANA) 100 mg tablet Take 1 tablet (100 mg total) by mouth daily 11/01/2022 escitalopram (LEXAPRO) 10 mg tablet Take 1 tablet (10 mg total) by mouth daily 11/01/2022 levothyroxine (SYNTHROID, LEVOTHROID) 125 mcg tablet levothyroxine 125 mcg tablet TAKE ONE TABLET BY MOUTH ONCE DAILY 11/02/2022 losartan (COZAAR) 50 mg tablet Take 1 tablet (50 mg total) by mouth daily 11/01/2022 albuterol HFA (VENTOLIN HFA) 90 mcg/actuation inhaler Ventolin HFA 90 mcg/actuation aerosol inhaler(Patient not taking: Reported on 10/26/2022) Not Taking cetirizine (ZyrTEC) 10 mg tablet Take 1 tablet (10 mg total) by mouth daily as needed Unknown dapagliflozin-metformin 10-1,000 mg tablet, IR & ER, biphasic 24hr Take by mouth daily (Patientnot taking: Reported on 10/26/2022) Not Taking fluticasone (FLONASE) 50 mcg/actuation nasal spray Administer 1 spray into each nostril daily (Patient not taking: Reported on 10/26/2022) 1 Inhaler 2 Not Taking raNITIdine (ZANTAC) 150 mg tablet Take 1 tablet (150 mg total) by mouth 2 (two) times a day (Patient not taking: Reported on 10/26/2022) 60 tablet 2 Not Taking Allergies Allergen Reactions Montelukast Hives Cephalexin Stomach upset Reaction: GI UPSET, Codeine Hives Reaction: HIVES, Clarithromycin Diarrhea Erythromycin Lactobionate Diarrhea Social History Tobacco Use Smoking status: Never Smokeless tobacco: Current Substance and Sexual Activity Drug use: Never Sexual activity: Defer Alcohol Use: Not At Risk (11/02/2022) AUDIT-C Frequency of Alcohol Consumption: Never Average Number of Drinks: Not on file Frequency of Binge Drinking: Not on file Family History Problem Relation Age of Onset COPD Mother Diabetes Father Review of Systems Objective Vitals: Arrival Vitals [11/02/22 0912] Temp 36.3 ??C (97.4 ??F) Pulse 57 Resp 16 BP (!) 198/90 SpO2 97 % Temp src Temporal Heart Rate Source Patient Position BP Location FiO2 (%) 24hr Min/Max: Temp Min: 36.3 ??C (97.4 ??F) Max: 36.3 ??C (97.4 ??F) Pulse Min: 57 Max: 78 BP Min: 198/90 Max: 207/121 Resp Min: 16 Max: 16 SpO2 Min: 97 % Max: 97 % Most Recent : Vitals: 11/02/22 1143 BP: Pulse: 62 Resp: Temp: SpO2: No intake/output data recorded. I/O this shift: In: 700 [I.V.:700] Out: 3 [Blood:3] Physical Exam Genitourinary: Comments: Quarter size clots in vagina and moderate pool of blood on pad. Patient unable to tolerate packing. Lab/Radiology/Diagnostic Review: No recent results to review Assessment Active Problems: No Active Problems: There are no active problems currently on the Problem List. Please update the Problem List and refresh. Vaginal bleeding Plan Exam under sedation with possible suture to cervix or vagina. * Gerardo Tan MD - 11/02/2022 7:35 AM CDT General H&P Subjective Patient is a 52 y.o. female with chief complaint of postmenopausal bleeding. HPI: Patient reports just started having some bleeding all of sudden. She reports lasted for about 5-7 days like a real cycle. She reports that it has been over a year since her last cycle. Past Medical History: Diagnosis Date Anxiety Diabetes mellitus, type II (HCC) High cholesterol HTN (hypertension) Past Surgical History: Procedure Laterality Date APPENDECTOMY ELBOW ARTHROSCOPY NASAL SEPTUM SURGERY SHOULDER ARTHROSCOPY THYROID SURGERY No medications prior to admission. Allergies Allergen Reactions Montelukast Hives Cephalexin Stomach upset Reaction: GI UPSET, Codeine Hives Reaction: HIVES, Clarithromycin Diarrhea Erythromycin Lactobionate Diarrhea Social History Tobacco Use Smoking status: Never Smokeless tobacco: Current Substance and Sexual Activity Drug use: Never Sexual activity: Defer Alcohol Use: Not At Risk (08/15/2018) AUDIT-C Frequency of Alcohol Consumption: Never Average Number of Drinks: Not on file Frequency of Binge Drinking: Not on file Family History Problem Relation Age of Onset COPD Mother Diabetes Father Review of Systems All other systems reviewed and are negative. Objective Vitals: Arrival Vitals Temp Pulse Resp BP SpO2 Temp src Heart Rate Source Patient Position BP Location FiO2 (%) 24hr Min/Max: No data recorded Most Recent : There were no vitals filed for this visit. No intake/output data recorded. No intake/output data recorded. Physical Exam Constitutional: Appearance: She is obese. Cardiovascular: Rate and Rhythm: Normal rate and regular rhythm. Pulses: Normal pulses. Heart sounds: Normal heart sounds. Pulmonary: Effort: Pulmonary effort is normal. Abdominal: Palpations: Abdomen is soft. Genitourinary: Comments: Nullip cervix mobile uterus. Lab/Radiology/Diagnostic Review: No recent results to review Assessment Active Problems: No Active Problems: There are no active problems currently on the Problem List. Please update the Problem List and refresh. Postmenopausal bleeding Plan Hysterocopy with dilation and curettage. documented in this encounter Miscellaneous Notes * Op Note - Gerardo Tan MD - 11/02/2022 3:39 PM CDT Surgeon: Surgeon(s) and Role: Gerardo Tan MD - Primary Procedure and Anesthesia: Procedure(s) and Anesthesia Type: * EXAM UNDER ANESTHESIA - repair of vaginal and cervical laceration - General EBL 50 cc INDICATION: BLEEDING AFTER SURGERY PROCEDURE: The patient is taken to the operating room where MAC anesthesia is found to be adequate.She was then prepared and draped in the dorsal lithotomy position in [facility]. A speculum wasused to visualize the cervix and a laceration noted on the cervix approx. 1 cm. A figure of eight vicryl stitch placed without difficultly placed without difficulty for hemostasis. A second stitch was placed at the opening of vaginal approximately 1 cm laceration noted a single stitch placed without difficult. The instruments were removed. Patient tolerated procedure well. The sponge lap and needle counts were correct and the patient was taken back to recovery in stable condition. * Brief Op Note - Gerardo Tan MD - 11/02/2022 1:09 PM CDT Operative Progress Note Surgical Team: Surgeon(s) and Role: * Gerardo Tan MD - Primary Anesthesiologist: Laith Polanco DO ORGANIC SECTION TECHNICAL LEAD: Jassi Rosa CRNA [employer] Machine Assembler: Charito Gilman RN Scrub: Jasmin Dumont ST; Williams, Toni M., RN [employer] Machine Assembler Second: Sarahi Oseguera CRNFA DATE OF SURGERY : 11/02/2022 Preoperative Diagnosis: Vaginal bleeding Postoperative Diagnosis: same Procedure(s): Procedure(s): EXAM UNDER ANESTHESIA - repair of vaginal and cervical laceration Operative Findings: Cervical and vaginal laceration , atrophic vagina Estimated Blood Loss: 50 cc Intraoperative Fluids: 500 mls Specimens: No specimen collected in procedure Implants: Nothing was implanted during the procedure Blood/Blood Products Transfused: 500 mls Complications: None Condition on Discharge from the operating room was stable Gerardo Tan MD Date: 11/02/2022 Time: 1:34 PM No Resident involved on case * Op Note - Gerardo Tan MD - 11/02/2022 10:50 AM CDT Surgeon: Surgeon(s) and Role: Gerardo Tan MD - Primary Procedure and Anesthesia: Procedure(s) and Anesthesia Type: * DILATION AND CURETTAGE, HYSTEROSCOPY, MYOSURE, POLYPECTOMY - General EBL 5 cc INDICATION: Postmenopausal bleeding PROCEDURE: The patient is taken to the operating room where MAC anesthesia is found to be adequate.She was then prepared and draped in the dorsal lithotomy position in [facility]. A speculum wasused to visualize the cervix and a single toothed tenaculum was placed on the anterior lip. The cervix was dilated with Darryl dilators. The hysteroscope was then inserted with 0.9% saline for distension. The endometrium was visualized. Polyp and fibroid noted Myosure introduced and fibroid and polyp removed. A sharp currette was then used to collect specimen. The specimen was sent to pathology. The procedure was complete. The hysteroscope was removed and the tenaculum was removed. Tenaculum sites were hemostatic. The sponge lap and needle counts were correct and the patient was taken back to recovery in stable condition. * Brief Op Note - Gerardo Tan MD - 11/02/2022 10:50 AM CDT Operative Progress Note Surgical Team: Surgeon(s) and Role: * Gerardo Tan MD - Primary Anesthesiologist: Laith Polanco DO ORGANIC SECTION TECHNICAL LEAD: Jassi Rosa CRNA; Kymberly Wong CRNA Xerox Machine Assembler: Charito Gilman RN Scrub: Jasmin Dumont ST Xerox Machine Assembler Second: Sarahi Oseguera CRNFA DATE OF SURGERY : 11/02/2022 Preoperative Diagnosis: PMB Postoperative Diagnosis: same Procedure(s): Procedure(s) (LRB): DILATION AND CURETTAGE, HYSTEROSCOPY, MYOSURE, POLYPECTOMY (N/A) Operative Findings: fibroid Estimated Blood Loss: 3 mL Intraoperative Fluids: 500 mls Specimens: ID Type Source Tests Collected by Time A : endometrial curettings Tissue Endometrial curettings SURGICAL PATHOLOGY Gerardo Tan MD 11/02/2022 105 B : uterine polyp Tissue Polyp (s), Cervical / Endometrial SURGICAL PATHOLOGY Gerardo Tan MD 11/02/2022 105 Implants: Nothing was implanted during the procedure Blood/Blood Products Transfused: 0 mls Complications: None Condition on Discharge from the operating room was stable Gerardo Tan MD Date: 11/02/2022 Time: 11:05 AM No Resident involved on case * Pre-Procedure Instructions - Jamaica Guy RN - 10/26/2022 3:50 PM CDT Images from the original note were not included. [address] [address] Surgery Reminder Checklist: Please arrive to [facility] for scheduled surgery on 11/02/22 at 1100 AM. If the surgeon's office tells you to arrive at a different time after we have given you instructions, please follow their instructions. Please park in the first parking lot on the LEFT. Enter through the Main Entrance and check in at [facility] (to the left of the information desk). ONE - TWO WEEKS BEFORE YOUR PROCEDURE You may take TYLENOL (ACETAMINOPHEN) as needed for pain. PLEASE FOLLOW YOUR SURGEON'S GUIDELINES REGARDING IBUPROFEN, ALEVE, MULTIVITAMINS, HERBAL SUPPLEMENTS, FISH OIL AND VITAMIN E. YOU MAY BE REQUIRED TO HOLD THESE FOR ONE-TWO WEEKS BEFORE SURGERY. EVENING BEFORE YOUR PROCEDURE Shower with Antibacterial soap followed by Hibiclens soap the evening before your surgery. After showering, do not apply any lotions, colognes, oils, deodorant, powder, or make-up Antibacterial Soap Examples: Dial or Safeguard. Hibiclens soap may be purchased at any store or pharmacy that carries soap. Look in the pharmacy/wound care section. If you would like to come to [facility] we can give you a bottle forFREE. Hours: Wednesday - Wednesday 8 AM - 4:30PM. Go to the main entrance and ask the front end web designer for Hibiclens Soap. If you go to [facility], park underneath Entrance A drive thru and call [phone] and ask for the surgery soap. We will bring it out to your car. DO NOT eat anything after midnight (this includes gum, mints, hard candy, and chewable antacids). MORNING OF YOUR PROCEDURE May have clear liquids up until 1100 AM. (2 hours prior your surgery start time) This includes, Water, Apple Juice, Gatorade, Black Coffee or Sprite. (NO Dairy, Milk Products, Creamer, Red Gatorade or Starke Juice) Nothing by mouth the 2 hours prior to your procedure, NOT EVEN WATER. [place] your teeth morning of procedure. Use mouth wash if available. Do not swallow any liquids whencleansing your mouth. Shower with Antibacterial soap followed by Hibiclens soap. After showering, do not apply any lotions, colognes, oils, deodorant, powder, or make-up. Expect to remove wigs, dentures/partials, contact lenses, piercings, hearing aids, and prostheses before surgery. Do not wear jewelry to the hospital on the day of surgery. Bring glasses and hearing aids (with cases for both), inhalers, and CPAP/BiPAP machine day of surgery. If you will be admitted to the hospital after surgery, feel free to bring a toiletry bag. Medication Instructions: Pre-Surgery Instructions: Medication Instructions Busparone Take morning of surgery atorvastatin (LIPITOR) 20 mg tablet Take morning of surgery cetirizine (ZyrTEC) 10 mg tablet Take morning of surgery if needed Invokana HOLD morning of surgery losartan HOLD morning of surgery levothyroxine (SYNTHROID, LEVOTHROID) 125 mcg tablet Take morning of surgery Escitalopram Take morning of surgery VISITOR POLICY: Patients in outpatient/surgical settings may have 2 dedicated visitors; must be over the age of 14. The Coffee shop has limited choices. Please bring snacks and something to drink on day of surgery. GENERAL INSTRUCTIONS: Please call us with any new prescriptions so that we can give you instructions. DO NOT drink alcohol, smoke cigarettes/vapes/e-cigarettes during the 12 hours prior to your surgery. DO NOT use marijuana or take illicit/illegal drugs of any kind at least 24 hours prior to surgery. Arrange for a friend or family member to pick you up from the hospital, drive you home, and assist you if necessary. You will not be allowed to drive home. NO non-medical transport services (buses, taxis, etc.) allowed. A responsible adult must be with you for 24 hours after your procedure. Call your surgeon if you develop a rash, fever, cold, Urinary Tract Infection, or any other signs/symptoms of infection prior to surgery. Your surgery may need to be postponed. MORNING OF SURGERY PLEASE BRING: Photo ID and Insurance card. Any questions/concerns prior to the day of surgery, please call the Admission Testing Center at [phone]. Morning of surgery question/concerns, please call Outpatient Surgery at [phone]. Thank You for choosing [facility]'s Surgery department! documented in this encounter Plan of Treatment Not on file documented as of this encounter Procedures Procedure Name Priority Date/Time Associated Diagnosis Comments SURGICAL PATHOLOGY Routine 11/02/2022 10 :57 AM CDT Dysmenorrhea ABLATION UTERINE - MYOSURE 11/02/2022 10:24 AM CDT POSTMENOPAUSAL BLEEDING POCT CREATININE FOR CONTRAST EVALUATION Routine 11/02/2022 10:06 AM CDT POC BLOOD GAS AND CHEMISTRIES, VENOUS Routine 11/02/2022 9:56 AM CDT POCT HCG, URINE Routine 11/02/2022 9:41 AM CDT documented in this encounter Results * Surgical pathology (11/02/2022 10:57 AM CDT) Tissue (Endometrial curettings) 11/02/2022 10:57 AM CDT Tissue (Polyp (s), Cervical / Endometrial) 11/02/2022 10:57 AM CDT Narrative PATHOLOGY [facility] - 11/03/2022 3:33 PM CDT [facility] Department of Pathology [address] [place] [address] ?? Note to Patients: ??This report may contain a detailed description of human tissue sent by a health care provider to the laboratory for pathologic evaluation. ??The content of this report is essential for diagnosis and may provide important critical findings. ??This information may be unfamiliar to patients to review without a medical professional present. ?? It is advised that the patient review this report in the presence of a health care provider who can answer questions and explain the details. Final Report Patient Name: OMAR CLEVELAND : ??1970 (Age: 52) Gender: ??F Address: ??[address] [place] [address] ??[address] [facility] #: [id number] Service: Surgery Location: Patient Type: [facility] [facility] ? Taken: 11/02/2022 Received: 11/02/2022 Accessioned: 11/02/2022 Reported: 11/03/2022 Physician(s): Harsha Roberts M.D. Diagnosis: A. ??Uterus, endometrium, curettage ? - Fragments of inactive endometrium ? - Fragments of inflamed squamous epithelium with reactive epithelial changes ? - No evidence of endometrial hyperplasia or malignancy B. ??Uterus, labeled uterine polyp ? - Fragments of a benign endometrial polyp ? - No evidence of endometrial hyperplasia or malignancy Barron Hughes M.D., Ph.D. Report Electronically Reviewed and Signed Out By ??Barron Hughes M.D., Ph.D. 11/03/2022 15:33:15 Specimen(s) Received: A: endometrial curettings B: uterine polyp Microscopic Description: Microscopic examination substantiates the above cited diagnosis. Clinical History: The patient is a 52-year-old woman with postmenopausal bleeding. ??Operative procedure: Dilation and curettage with polypectomy. Gross Description Received in two formalin jars, each labeled with the patient's identifiers. A. ??Labeled endometrial curettings are multiple irregularly-shaped fragments of soft, purple-red tissue measuring 2.8 x 2.6 x 0.4 cm in aggregate. ??Filtered. ??Labeled A1. ??Jar 0. ?? B. ??Labeled uterine polyp are multiple irregular fragments of soft, pink tissue measuring 2.3 x 1.5 x 0.3 cm in aggregate. ??Filtered. ??Labeled B1. ??Jar 0. ? [id number]/11/02/2022 13:12 Kathy Zamora MS, PA (ASC Microscopic slide review and interpretation for this case was performed at [facility], Department of Surgical Pathology, [address] [facility] [address], [id number], ??[facility], [place] ??[address] ?? CLIA # [id number] Gerardo Tan MD LAB PATHOLOGY ORDERABLES Fi nal Result Performing Organization Address City/[facility]/ZIP Co de Phone Number PATHOLOGY [facility] * (ABNORMAL) POCT creatinine for contrast evaluation (11/02/2022 10:06 AM CDT) Pathologist [facility] Creatinine POC 0.50(L) 0.60 - 1.10 mg/dL BARBARA Comment:Testing performed by : [address] [address] Blood 11/02/2022 10:0 6 AM CDT 11/02/2022 10:06 AM CDT Gerardo Tan MD POINT OF CARE TEST ORDERABL ES Final Result Performing Organization Address [facility] de Phone Number [facility] [address] [facility] Department [place] [address] * POC Blood Gas and Chemistries, Venous - (11/02/2022 9:56 AM CDT) pH,teresa POC 7.36 7.32 - 7.43 BARBARA Comment:Testing performed by : [address] [address] pCO2, teresa POC 48 40 - 50 mmHg BARBARA Comment:Testing performed by : [address] [address] pO2,teresa POC 47 mmHg BARBARA Comment: Interpretive Data No reference range established. Current interpretive data was last revised 2019. Testing performed by: [address] [address] HCO3, teresa (Calc) POC 27 20 - 30 mmol/L BARBARA Comment:Testing performed by : [address] [address] Base excess, teresa POC 1 mmol/L BARBARA Comment: Interpretive Data No reference range established. Current interpretive data was last revised 2019. Testing performed by: [address] [address] Hemoglobin, teresa POC 15.0 11.9 - 15.5 g/dL BARBARA Comment:Testing performed by : [address] [address] Hematocrit, teresa POC 44.0 35.6 - 45.5 % BARBARA Comment:Testing performed by : [address] [address] Sodium, teresa POC 140 135 - 145 mmol/L BARBARA Comment:Testing performed by : [address] [address] Potassium, teresa POC 3.9 3.3 - 4.9 mmol/L BARBARA Comment: Interpretive Data This method is not able to assess for hemolysis, which may falsely increase potassium concentrations. If further testing is needed to evaluate this result, consider in-laboratory plasma potassium. Current Interpretive Data was last revised on 2022. Testing performed by: [address] [address] Glucose, teresa POC 153 70 - 199 mg/dL BARBARA Comment:Testing performed by : [address] [address] Ionized Calcium, teresa POC 4.90 4.45 - 5.25 mg/dL BARBARA Comment:Testing performed by : [address] [address] Blood 11/02/2022 9:56 AM CDT 11/02/2022 9:56 AM CDT us Gerardo Tan MD LAB POCT ORDERABLES - DEVIC E Final Result [place] [address] [facility] Department of Laboratories [place], [place] [id number] [phone] * POCT hCG, urine (11/02/2022 9:41 AM CDT) HCG, ur, POC Negative Lot Number [id number] QC Backgroud Clear Acceptable QC Control Line Acceptable Urine 11/02/2022 9:41 AM CDT Jaime Stone MD POINT OF CARE TEST ORDERABLES Final Result documented in this encounter Visit Diagnoses Not on filedocumented in this encounter Administered Medications Inactive Administered Medications - up to 3 most recent administrations Medication Order MAR Action Action Date Dose Rate Site acetaminophen (TYLENOL) tablet 975 mg 975 mg (rounded from 1,000 mg), oral, Once, On Wed11/02/22 at 1000, For 1 dose, Pre-Op, Indications: Pre-Emptive AnalgesiaIndications:Pre-Emptive Analgesia Given 11/02/2022 10:11 AM CDT 975 mg famotidine (PEPCID) tablet 20 mg 20 mg, oral, Once, On Wed11/02/22 at 1000, For 1 dose, Pre-Op, Indications: gastroesophageal reflux diseaseIndications:gastroesophagea l reflux disease Given 11/02/2022 10:11 AM CDT 20 mg fentaNYL (SUBLIMAZE) preservative free injection 50 mcg 50 mcg, intravenous, Once as needed, uncontrolled pain on PACU admission, Starting on Wed11/02/22 at 1124, For 1 dose, Phase I, Then proceed to PACU 1st line analgesic., Indications: PainIndications:Pain Given 11/02/2022 11:38 AM CDT 50 mcg hydrALAZINE (APRESOLINE) injection 5 mg 5 mg, intravenous, Administer over 2 Minutes, Every 15 min PRN, high blood pressure, Starting on Wed11/02/22 at 1124, Phase I, Max cumulative dose 20 mg. Dose if systolic BP greater than 180 AND heart rate less than 70. Given 11/02/2022 11:43 AM CDT 10 mg HYDROmorphone (DILAUDID) injection 0.4 mg 0.4 mg, intravenous, Administer over 2 Minutes, Every 10 min PRN, 2nd line for pain, Starting on Wed11/02/22 at 1124, Phase I, May administer 10 mintes after 2nd dose of 1st line analgesic agent for uncontrolled or increasing pain. Revert to 1st line dose if POSS of 3. Notify Anesthesiologist if total PACU dose reaches 2 mg and pain score 5/10 or more., Indications: PainIndications:Pain Given 11/02/2022 2:00 PM CDT 0.4 mg Given 11/02/2022 1:45 PM CDT 0.4 mg labetaloL (NORMODYNE,TRANDATE) injection 5 mg 5 mg, intravenous, at 30 mL/hr, Administer over 2 Minutes, Every 10 min PRN, high blood pressure, Starting on Wed11/02/22 at 1124, Phase I, Max cumulative dose 20 mg. Dose if systolic blood pressure greater than 180 AND HR greater than 70. Given 11/02/2022 11:27 AM CDT 5 mg 30 mL/hr Lactated Ringer's (LR) infusion 30 mL/hr, intravenous, Continuous, Starting on Wed11/02/22 at 1000, Pre-Op, Rate/Dose Verify 11/02/2022 1:05 PM CDT 30 mL/hr Restarted 11/02/2022 10:26 AM CDT New Bag 11/02/2022 10:11 AM CDT 30 mL/hr 30 mL/hr documented in this encounter Discontinued Medications Medication Sig Discontinue Reason Start Date End Da te albuterol HFA (VENTOLIN HFA) 90 mcg/actuation inhaler Ventolin HFA 90 mcg/actuation aerosol inhaler Stop Taking at Discharge 11/02/2022 dapagliflozin-metform in 10-1,000 mg tablet, IR & ER, biphasic 24hr Take by mouth daily Stop Taking at Discharge 11/02/2022 fluticasone (FLONASE) 50 mcg/actuation nasal spray Administer 1 spray into each nostril daily Stop Taking at Discharge 08/15/2018 11/02/2022 raNITIdine (ZANTAC) 150 mg tablet Take 1 tablet (150 mg total) by mouth 2 (two) times a day Stop Taking at Discharge 08/15/2018 11/02/2022 documented as of this encounter Historical Medications * This list may reflect changes made after this encounter. losartan (COZAAR) 50 mg tablet Take 1 tablet (50 mg total) by mouth daily escitalopram (LEXAPRO) 10 mg tablet Take 1 tablet (10 mg total) by mouth daily busPIRone (BUSPAR) 10 mg tabletIndications :Generalized Anxiety Disorder Take 1 tablet (10 mg total) by mouth daily canagliflozin (INVOKANA) 100 mg tabletIndications :type 2 diabetes mellitus Take 1 tablet (100 mg total) by mouth daily added in this encounter Active and Recently Administered Medications Times are shown in CDT. Scheduled Medication Order 10/31/2022 11/01/2022 11/02/2022 acetaminophen (TYLENOL) tablet 975 mg (COMPLETED) 975 mg (rounded from 1,000 mg), oral, Once, On Wed11/02/22 at 1000, For 1 dose, Pre-Op, Indications: Pre-Emptive Analgesia 1011 (Given - Provid er: Erna Pierre RN) famotidine (PEPCID) tablet 20 mg (COMPLETED) 20 mg, oral, Once, On Wed11/02/22 at 1000, For 1 dose, Pre-Op, Indications: gastroesophageal reflux disease 1011 (Given - Provid er: Erna Pierre RN) Continuous Medication Order 10/31/2022 11/01/2022 11/02/2022 Lactated Ringer's (LR) infusion 30 mL/hr, intravenous, Continuous, Starting on Wed11/02/22 at 1000, Pre-Op, 1011 (New Bag - Prov ider: Erna Pierre RN)1025 (Paused - Provider: Jassi Rosa CRNA - Comment: Switch to gravity)1026 (Restarted - Provider: Jassi Rosa CRNA)1102 (Anesthesia Volume Adjustment - Provider: Jassi Rosa CRNA)1228 (Due)1305 (Rate/Dose Verify - Provider: Jassi Rosa CRNA)1340 (Anesthesia Volume Adjustment - Provider: Jassi Rosa CRNA)1946 (Due: Stopped) PRN Medication Order 10/31/2022 11/01/2022 11/02/2022 estradioL (ESTRACE) 0.01 % (0.1 mg/gram) vaginal cream (CANCELED) As needed, Starting on Wed11/02/22 at 1328, Intra-Op 1328 (Given - Provid er: Gerardo Tan MD) fentaNYL (SUBLIMAZE) preservative free injection 50 mcg (COMPLETED) 50 mcg, intravenous, Once as needed, uncontrolled pain on PACU admission, Starting on Wed11/02/22 at 1124, For 1 dose, Phase I, Then proceed to PACU 1st line analgesic., Indications: Pain 1138 (Given - Provid er: Samantha Oliver RN) hydrALAZINE (APRESOLINE) injection 5 mg (CANCELED) 5 mg, intravenous, Administer over 2 Minutes, Every 15 min PRN, high blood pressure, Starting on Wed11/02/22 at 1124, Phase I, Max cumulative dose 20 mg. Dose if systolic BP greater than 180 AND heart rate less than 70. 1143 (Given - Provid er: Samantha Oliver RN - Comment: FLACO Polanco) HYDROmorphone (DILAUDID) injection 0.4 mg (CANCELED) 0.4 mg, intravenous, Administer over 2 Minutes, Every 10 min PRN, 2nd line for pain, Starting on Wed11/02/22 at 1124, Phase I, May administer 10 mintes after 2nd dose of 1st line analgesic agent for uncontrolled or increasing pain. Revert to 1st line dose if POSS of 3. Notify Anesthesiologist if total PACU dose reaches 2 mg and pain score 5/10 or more., Indications: Pain 1345 (Given - Provid er: Winsome Buck RN)1400 (Given - Provider: Winsome Buck RN) labetaloL (NORMODYNE,TRANDATE) injection 5 mg (CANCELED) 5 mg, intravenous, at 30 mL/hr, Administer over 2 Minutes, Every 10 min PRN, high blood pressure, Starting on Wed11/02/22 at 1124, Phase I, Max cumulative dose 20 mg. Dose if systolic blood pressure greater than 180 AND HR greater than 70. 1127 (Given - Provid er: Samantha Oliver RN) lidocaine PF (XYLOCAINE) 10 mg/mL (1 %) preservative free injection 2-10 mg 2-10 mg (0.2-1 mL), other, Once as needed, pain with IV placement, Starting on Wed11/02/22 at 0915, For 1 dose, Pre-Op, Administer volume needed to infiltrate IV site. silver nitrate applicator (CANCELED) As needed, Starting on Wed11/02/22 at 1329, Intra-Op 1329 (Given - Provid er: Gerardo Tan MD) documented in this encounter Orders Medications Ordered That Crow ht Not Have Been Administered Count Last Ordered Date First Ordered Date estradioL (ESTRACE) 0.01 % ( 0.1 mg/gram) vaginal cream 1 11/02/2022 HYDROmorphone (DILAUDID) injection 0.2 mg 1 11/02/2022 ketorolac (TORADOL) 30 mg/mL (1 mL) injection 30 mg 1 11/02/2022 lidocaine PF (XYLOCAINE) 10 mg/mL (1 %) preservative free injection 2-10 mg 1 11/02/2022 meperidine (DEMEROL) preserv ative free injection 12.5 mg 1 11/02/2022 metoclopramide (REGLAN) 5 mg /mL injection 10 mg 1 11/02/2022 naloxone (NARCAN) 0.4 mg/mL injection 0.04-0.4 mg 1 11/02/2022 ondansetron (ZOFRAN) injection 4 mg 1 11/02 silver nitrate applicator 1 11/02/2022 Discharge Count Last Ordered Date First Orde red Date DISCHARGE PATIENT 1 11/02/2022 documented in this encounter Care Teams [employer] Relationship Specialty Start Date End Date Quintin Luna MD PCP - General Family Medicine 10/26/22 documented as of this encounter
--- OUTSIDE RECORDS SUMMARY | 2024-05-10 20:38 | XMS_ITS | Encounter Summary ---
Author Organization [facility] Healthcare Address [address] [place] [address] Care Team Providers Care Paper Supervisor Name Role Phone Unavailable Primary Care Provider Unavailabl e Encounter Details Date Type Department Care Team (Latest Contact Info) Description 10/10/2015 10:47 AM CDT - 10/16/2015 1:45 PM CDT Hospital [place] [id number] [address] Right upper quadrant pain; Heart failure (CMS/HCC); Fatty (change of) liver, not elsewhere classified; Type 2 diabetes mellitus without complications (CMS/HCC); Essential (primary) hypertension; Acute sinusitis; Gastro-esophageal reflux disease with esophagitis; Obesity; Body mass index (BMI) of 39.0-39.9 in adult; Chewing tobacco nicotine dependence, uncomplicated; Allergy status to narcotic agent; Diverticulosis of intestine without perforation or abscess without bleeding; Ovarian cyst; Disease of stomach and duodenum; Postprocedural hypothyroidism; Other alf (current) drug therapy; Irritable bowel syndrome with diarrhea Social History Tobacco Use Types Packs/Day Years Used Date Smoking Tobacco: Never Comments Unknown Sex and Gender Information Value Date Recorded Sex Assigned at Not on file 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 COMPANION Gender Identity Not on file Sexual Orientation Not on file documented as of this encounter Last Filed Vital Signs Vital Sign Reading Time Taken Comments Blood Pressure 156/80 10/16/2015 11:49 AM CDT Pulse 70 10/16/2015 11:49 AM CDT Temperature - - Respiratory Rate - - Oxygen Saturation - - Inhaled Oxygen Concentration - - Weight 88.9 kg (195 lb 15.8 oz) 10/16/2015 5:13 AM CDT Height 152.4 cm (5') 10/10/2015 8:58 PM CDT Body Mass Index 38.28 10/10/2015 8:58 PM CDT documented in this encounter Discharge Summaries * Provider, MD Marie - 10/16/2015 12:00 AM CDT DISCHARGE SUMMARY Patient: OMAR CLEVELAND Account: [id number] Room No: 608-02 : 1970 Patient Type: IP Attend.: Elinor Pantoja M.D. Admit Date: 10/10/2015 Dict.: Christina Da Silva Disch. Date: 10/16/2015 The patient is a 45-year-old female presenting with right upper quadrant abdominal pain. She states the pain started about 2 years ago, but over the last 2 days prior to admission it became unbearable. She did have some nausea and also a large amount of belching present. She did have an ultrasound in the office where gallstones were found, but the patient did not want to follow up with a surgeon at the time. Surgery was consulted and patient was seen. She continued with the right upper quadrant pain with anorexia and nausea. The patient did have a gallbladder ultrasound which showed fatty infiltration of the liver and otherwise normal right upper quadrant ultrasound. She also had a chest x-ray that showed congestive heart failure. She had a HIDA scan that was normal. She also had a CT of the abdomen and pelvis which showed bilateral ovarian cysts, largest 2.6 cm on the left with endometrial thickening and fluid, no free pelvic fluid, small nonobstructing right upper pole renal calculus. Appendix was not identified. No right lower quadrant inflammatory change was seen. Mildly enlarged inguinal nodes, probably hyperplastic. Left __ 3 mm nodule. She is to follow up in 12 months for that. Patient did have a cardiac echo done. Ejection fraction was 58%. She had normal left ventricular size and normal Doppler with normal valvular structure and function. Patient also had an upper GI while in the hospital. That showed mildly severe esophagitis with no bleeding and biopsies were taken for H. pylori which came back negative. Patient's pain decreased over the course of the admission. Surgery was not performed. There was no reason for surgery. Patient was discharged home on a low carbohydrate diet. Rest that day and increase activity as tolerated. MEDICATION LIST: 1. Vitamin D 50,000 units one cap weekly on . 2. Xigduo 10/1,000 mg one p.o. daily. 3. Flonase 2 sprays nasally daily. 4. Levothyroxine 125 mcg one p.o. daily. 5. Lisinopril 5 mg one p.o. daily. 6. Loratadine 10 mg p.o. daily. 7. Protonix 20 mg one p.o. daily. 8. Zoloft 50 mg one tab p.o. daily. 9. Estroven 155 mg daily. 10. Tylenol 650 mg every 4 hours p.r.n. for pain. FINAL DIAGNOSES: 1. Abdominal pain. 2. Congestive heart failure. Electronically Authenticated and Edited by: JOSEPH Hammer On 10/22/2015 05:14 PM CDT Electronically Authenticated by: Elinor Valentine MD On 11/08/2015 08:17 AM CDT 1. 2. *-*-* 3. 4. 1. Elinor Pantoja M.D. Dictated by: Christina Da Silva /wa TD: 10/21/2015 12:09 documented in this encounter Consult Notes * Provider, MD Marie - 10/12/2015 12:00 AM CDT CONSULTATION REPORT Patient: OMAR CLEVELAND Account: [id number] Room No: 608-01 : 1970 Patient Type: IP Attend.: Elinor Pantoja M.D. Admit Date: 10/10/2015 Consult.: Juan Luis Rocha M.D. Disch. Date: Date of Consultation: 10/12/2015 Requesting Physician: Dr. Pantoja Reason for Consultation: Right upper quadrant abdominal pain. Omar is a 45-year-old woman who is currently admitted to the hospital because of right upper quadrant abdominal pain for possible gallbladder disease. She apparently had an ultrasound performed in an outside hospital that was suggestive of gallstones. However, after the patient was seen by the surgeon, Dr. Luke, a repeat ultrasound was performed and revealed no gallstones. I have now been asked to see the patient to evaluate for possible peptic ulcer disease. History of Present Illness: The patient states that she has had the pain for over 2 years. The pain is aggravated by gas. It is relieved by having a bowel movement. She denies nausea and vomiting. She actually had been started on Protonix 3 months ago by her primary care physician, but this has not really improved her symptoms. Past Medical History: Positive for obesity, diabetes, hypertension, and possible IBS. Past Surgical History: She has had appendectomy and thyroidectomy. Social History: She chews tobacco but does not smoke cigarettes. She denies use alcohol or illicit drug use. Family History: Positive for gallbladder cancer and ovarian cancer. Allergies: Codeine. Current Medications: 1. Dilaudid. 2. Oxycodone 5 mg/acetaminophen 325 mg q.4 hours p.r.n. 3. Dulcolax 10 mg daily. 4. Prochlorperazine 10 mg IV q.6 hours p.r.n. 5. Synthroid 125 mcg daily. 6. Flonase 2 puffs at bedtime. 7. Pantoprazole 40 mg IV q.12 hours. 8. Lisinopril 5 mg daily. 9. Zoloft 50 mg daily. Review of Systems: She denies loss of consciousness or seizures. She denies visual loss or hearing loss. She denies sore throat. She denies neck pain or stiffness. She denies cough or sputum production. She denies diarrhea or constipation. She denies polyuria or polydipsia. She denies joint aches, pains, or deformity. She denies being suicidal or homicidal. Physical Examination: General: She is obese. Her temperature is 97.6, blood pressure is 113/42. HEENT: Head is atraumatic. Eyes reveal no jaundice. Oral cavity reveals no tonsillar enlargement. Lungs: Clear. Cardiac: Revealed normal S1, S2. There is no S3, S4, gallop. Abdomen: Obese. There is no palpable organomegaly. Bowel sounds are present. Rectal: Deferred. Extremities: No calf tenderness or erythema. Neurological: No focal deficits. Laboratory Findings: Fingerstick is 96. Basic metabolic profile is normal. Creatinine 0.56. AST is 22, ALT 25, alkaline phosphatase 54. Albumin is 2.9. Lipase is 19. Amylase 50. Complete blood count is normal. Ultrasound of the gallbladder revealed fatty infiltration, but is otherwise normal. Impression: Right upper quadrant abdominal pain. The etiology is unclear. Ultrasound does not reveal significant gallstones. She could have peptic ulcer disease, although I find this less likely since she has been on PPI for several months with no improvement. She could have biliary dyskinesia. She could have chronic cholecystitis. Recommendations: 1. The patient will be scheduled for an EGD on Wednesday. 2. HIDA scan with gallbladder ejection fraction is recommended. 3. We will monitor liver function tests. These thoughts were discussed with the patient's spouse who was at the bedside. I also discussed the case with Dr. Jiang. Thank you for the opportunity to assist in the care of this patient. Electronically Authenticated by: Juan Luis Rocha MD On 10/14/2015 08:51 PM CDT Juan Luis Rocha M.D. OCO/ct TD: 10/12/2015 19:29 CC: Elinor Pantoja M.D. * Provider, MD Marie - 10/11/2015 12:00 AM CDT CONSULTATION REPORT Patient: OMAR CLEVELAND Account: [id number] Room No: 608-01 : 1970 Patient Type: SDS Attend.: Fernando Alcantara Admit Date: 10/10/2015 Consult.: Isaac Jiang M.D. Disch. Date: Date of Consultation: 10/11/2015 Requesting Physician: Dr. Pantoja Reason for Consultation: 1. Right upper quadrant abdominal pain with anorexia, nausea, vomiting. 2. History of altered bowel habit. 3. History of cholelithiasis with cholecystitis. Clinical Summary: Ms. Cleveland is a 45-year-old lady who has 2-1/2 year history of right upper quadrant abdominal pains, previously had ultrasound as well as HIDA scan, one time she was told that her ejection fraction was 60 percent and for that reason the surgeon opted not to do cholecystectomy. The patient has been having these episodes of right upper quadrant pain off and on, which are becoming more frequent and more severe and last longer. Now she is having more GI symptoms along with the pain. The pain gets worse when she eats any kind of food. Usually the pain affects her now 3 to 4 days a week. She has not noticed any significant weight loss. No history of fever or chills. The patient had another episode of severe pain yesterday for which she presented to emergency department and was admitted to the hospital. CT scan of the abdomen and pelvis did not reveal acute cholecystitis at present. Her laboratories were within normal limits. At the time of my evaluation today, patient feels a little bit better. She is a bit hungry. She vomited last night, but is not vomiting any more. She is having regular bowel movements now. She had a little bit loose bowel movement also this morning. Past Medical History: Significant for borderline obesity, diabetes, hypertension, thyroid disease, possible IBS and gallbladder problems. Past Surgical History: Significant for thyroidectomy for goiter. She also had history of appendectomy many years ago. Social History: Remarkable for chewing tobacco. She does not smoke cigarettes. No history of drug abuse or alcohol abuse. Family History: Significant for gallbladder cancer affecting her grandmother and ovarian cancer affecting her mother. No family history of colon cancer or inflammatory bowel disease. Allergies: The patient is allergic to codeine that causes her rashes. The patient possibly is allergic to cephalexin, but it causes only GI upset. Current Medications: 1. Lovenox. 2. Pepcid. 3. Lisinopril. 4. Levothyroxine. 5. Sertraline. 6. Dilaudid. 7. Zofran. Review of Systems: Only remarkable for GI symptoms. No history of fever or chills. No history of weight gain or weight loss. No history of heat or cold intolerance. No history of headache or dizziness or blurring of vision. No history of tinnitus or vertigo. No history of rhinorrhea, sinusitis, or sore throat. No history of neck pain or neck stiffness. No history of cough or sputum. No history of shortness of breath or chest pain or palpitations. No history of hemoptysis. No history of hematemesis, melena, or rectal bleeding. The patient does have a history of altered bowel habit. She had a colonoscopy done last year that was unremarkable other than some tiny polyps. No history of hematuria or dysuria. No history of polyuria, polydipsia, or polyphagia. No history of generalized weakness. No history of focal weakness or numbness. No history of muscle pain, joint pain, or joint swelling. No history of skin rash or skin lesions. No history of bleeding or easy bruisability. No history of immune problems. No history of mood disorders. No history of adenopathy. Physical Examination: General: The patient appears to be well nourished, well built, and does not appear to be in acute distress at present. She is awake, alert, oriented, cooperative, and comfortable. She is having low-grade temperature and her vital signs are stable. She is not tachycardic or tachypneic, septic or toxic. HEENT: Within normal limits. Eyes are anicteric. Eye movements are intact. Neck: Without any adenopathy or jugular venous distention. Lungs: Clear to auscultation. Heart: S1 and S2. Abdomen: Abdominal examination revealed that she has moderate tenderness in right upper quadrant. Tenderness to percussion is present in right upper quadrant. Reveles sign is positive. No guarding or rigidity is present. There are no signs of peritonitis. Bowel sounds are normoactive. No masses are palpable. No hernias are noted. CVA tenderness is positive on the right side and negative on the left side. Back and Extremities: Without any acute abnormalities. Neurovascular status is grossly intact. No evidence of clubbing, cyanosis, or edema. Laboratory and Diagnostic Studies: Laboratory analysis revealed that her white cell count is normal 6000, hemoglobin 13, hematocrit 41. Platelet count is normal. Chemistries are within normal limits with normal LFTs and BUN and creatinine. Calcium was a bit low at 8.1. Amylase and lipase within normal limits. Urinalysis is essentially within normal limits with 0 to 5 WBC and [address] scan of the abdomen and pelvis was done, which was reviewed. CT scan showed that the patient has bilateral ovarian cysts. The patient is noted to have small nonobstructing right upper pole renal calculus. Mildly enlarged inguinal nodes are also noted on CT scan. The radiologist did not comment, but on my review of the CT scan, I see a small density in the area of the gallbladder close to the neck of gallbladder concerning about possibility of calculus. No inflammatory changes are noted around the gallbladder. Assessment and Plan: Ms. Cleveland is a 45-year-old lady with significant history of right upper quadrant pain off and on for 2-1/2 years, with previous history of cholelithiasis and cholecystitis and biliary colic and possible gallbladder dysfunction, at this moment she has another episode and I am waiting for the ultrasound to be done. I would like to document that really that is the only problem. She has significant symptom between her biliary disease and irritable bowel syndrome symptoms. If the gallbladder ultrasound shows that she does have cholelithiasis with some thickening of the gallbladder wall, she may be a candidate for laparoscopic cholecystectomy. If the ultrasound is negative, then I would consider gastrointestinal evaluation on this patient for possible irritable bowel syndrome (IBS) and she may benefit from upper endoscopy to rule out possibility of peptic ulcer disease. Patient's rest of the medical problems, diabetes, hypertension, are being managed very well by the medical team, and I agree with their management. The patient is on appropriate deep venous thrombosis and gastrointestinal prophylaxis, and I agree with that. Thank you, Dr. Pantoja, for the opportunity to participate in the care of this very pleasant lady, and I will follow this patient closely with you. Electronically Authenticated by: Isaac Jiang MD On 10/14/2015 04:09 PM CDT Harsha Randolph/mariano TD: 10/11/2015 17:55 CC: Elinor Pantoja M.D. documented in this encounter Plan of Treatment Not on file documented as of this encounter Procedures Procedure Name Priority Date/Time Associated Diagnosis Comments BLOOD GLUCOSE, POC Routine 10/16/2015 12 :39 PM CDT BLOOD GLUCOSE, POC Routine 10/16/2015 8: 04 AM CDT DISCHARGE LABORATORY CUMULATIVE REPORT 10/16/2015 TRANSTHORACIC ECHO (TTE) COMPLETE W DOPPLER/CF WO CONTRAST 10/16/2015 12:00 AM CDT BLOOD B-TYPE NATRIURETIC PEPTIDE (BNP) Routine 10/15/2015 9:05 PM CDT BLOOD GLUCOSE, POC Routine 10/15/2015 7: 47 PM CDT BLOOD GLUCOSE, POC Routine 10/15/2015 5: 43 PM CDT NM HEPATOBILIARY IMAGING W PHARMACEUTICAL INTERVENTION Routine 10/15/2015 1:14 PM CDT BLOOD GLUCOSE, POC Routine 10/15/2015 12 :26 PM CDT BLOOD GLUCOSE, POC Routine 10/15/2015 8: 29 AM CDT BLOOD GLUCOSE, POC Routine 10/15/2015 6: 27 AM CDT BLOOD GLUCOSE, POC Routine 10/14/2015 9: 19 PM CDT BLOOD GLUCOSE, POC Routine 10/14/2015 5: 32 PM CDT BLOOD GLUCOSE, POC Routine 10/14/2015 2: 24 PM CDT BLOOD GLUCOSE, POC Routine 10/14/2015 5: 06 AM CDT UPPER GASTROINTESTINAL ENDOSCOPY REPORT 10/14/2015 NATA TEST MICROBIOLOGY Routine 10/14/2015 12:00 AM CDT BLOOD GLUCOSE, POC Routine 10/13/2015 8: 09 PM CDT BLOOD GLUCOSE, POC Routine 10/13/2015 5: 19 PM CDT BLOOD GLUCOSE, POC Routine 10/13/2015 12 :26 PM CDT BLOOD GLUCOSE, POC Routine 10/13/2015 8: 07 AM CDT CHEST RADIOGRAPHY, FRONTAL (AP), LATERAL Routine 10/13/2015 7:33 AM CDT BLOOD GLUCOSE, POC Routine 10/12/2015 9: 15 PM CDT BLOOD GLUCOSE, POC Routine 10/12/2015 5: 29 PM CDT BLOOD GLUCOSE, POC Routine 10/12/2015 12 :35 PM CDT GALLBLADDER SONOGRAPHY Routine 8:28 AM CDT BLOOD GLUCOSE, POC Routine 10/12/2015 5: 23 AM CDT BLOOD GLUCOSE, POC Routine 10/12/2015 12 :17 AM CDT BLOOD GLUCOSE, POC Routine 10/11/2015 5: 14 PM CDT BLOOD GLUCOSE, POC Routine 10/11/2015 12 :47 PM CDT BLOOD GLUCOSE, POC Routine 10/11/2015 6: 07 AM CDT PLASMA COMPREHENSIVE METABOLIC PANEL Routine 10/11/2015 5:11 AM CDT BLOOD CELL COUNT (CBC), MORPHOLOGIC EXAM Routine 10/11/2015 5:11 AM CDT BLOOD GLUCOSE, POC Routine 10/10/2015 9: 37 PM CDT BLOOD GLUCOSE, POC Routine 10/10/2015 8: 13 PM CDT PRE-PRELIMINARY CT SCAN REPORT Routine 10/10/2015 4:[address] ABDOMEN PELVIS W CONTRAST Routine 10/10/2015 4:05 PM CDT PLASMA LIPASE Routine 10/10/2015 12:10 PM CDT PLASMA COMPREHENSIVE METABOLIC PANEL Routine 10/10/2015 12:10 PM CDT PLASMA AMYLASE Routine 10/10/2015 12:10 PM CDT BLOOD CELL COUNT (CBC), MORPHOLOGIC EXAM Routine 10/10/2015 12:10 PM CDT URINALYSIS Routine 10/10/2015 6:10 AM CDT documented in this encounter Results * Blood glucose, POC (10/16/2015 12:39 PM CDT) Glucose, POC, bld 119 70 - 199 mg/dl HISTORICAL RESULTS Blood specimen (specimen) 10/16/2015 12:39 PM CDT Elinor Valentine MD LAB BLOOD ORDERABLES Final Result Performing Organization Address City/[facility] Co de Phone Number HISTORICAL RESULTS * Blood glucose, POC (10/16/2015 8:04 AM CDT) Glucose, POC, bld 107 70 - 199 mg/dl HISTORICAL RESULTS Blood specimen (specimen) 10/16/2015 8:04 AM CDT Elinor Valentine MD LAB BLOOD ORDERABLES Final Result HISTORICAL RESULTS * DISCHARGE LABORATORY CUMULATIVE REPORT (10/16/2015) Narrative 10/16/2015 Ordered by an unspecified provider. Historical Provider LAB BLOOD ORDERABLES Suzi l Result * Transthoracic Echo Complete W Doppler/CF WO Contrast (10/16/2015 12:00 AM CDT) Anatomical Region Laterality Modality Ultrasound Narrative 10/16/2015 12:00 AM CDT Ordered by an unspecified provider. Procedure Note Provider, Marie, - 07/03/2018 Ordered by an unspecified provider. Historical Provider CV ECHO PROCEDURES Final Result * Blood B-type natriuretic peptide (BNP) (10/15/2015 9:05 PM CDT) BNP 63 0 - 100 pg/ml HISTORICAL RESULTS Blood specimen (specimen) 10/15/2015 9:05 PM CDT Ebonie Valentine NP LAB BLOOD ORDERABLES Fin al Result Performing Organization Address [facility] de Phone Number HISTORICAL RESULTS * Blood glucose, POC (10/15/2015 7:47 PM CDT) Glucose, POC, bld 118 70 - 199 mg/dl HISTORICAL RESULTS Blood specimen (specimen) 10/15/2015 7:47 PM CDT Elinor Valentine MD LAB BLOOD ORDERABLES Final Result Performing Organization Address [facility] de Phone Number HISTORICAL RESULTS * Blood glucose, POC (10/15/2015 5:43 PM CDT) Glucose, POC, bld 139 70 - 199 mg/dl HISTORICAL RESULTS Blood specimen (specimen) 10/15/2015 5:43 PM CDT Elinor Valentine MD LAB BLOOD ORDERABLES Final Result Performing Organization Address [facility] de Phone Number HISTORICAL RESULTS * NM Hepatobiliary Scan W Rx (10/15/2015 1:14 PM CDT) Anatomical Region Laterality Modality Body N/A Nuclear Medicine 10/15/2015 1:14 PM CDT Narrative 10/15/2015 4:50 PM CDT DATE OF EXAM: ??[place] ??7 2015 ??1:14PM Acc#: ??[id number] ??ENM 0141 - NM Hepatobiliary w/ RX ?? DIAGNOSIS: ??GALLBLADDER PAIN CLINICAL HISTORY: ?? r/o biliary dyskinesia RESULT: \ EXAMINATION: ??HEPATOBILIARY SCINTIGRAPHY WITH SINCALIDE ADMINISTRATION HISTORY: Right-sided abdominal pain. RADIOPHARMACEUTICAL: ??7.2 millicuries technetium 99m Mebrofenin with 1.8 micrograms CCK. ?? COMPARISON: ??Correlation is made to abdominal sonogram dated 10/12/2015. FINDINGS: Sequential images of the abdomen were obtained for 60 minutes following administration of radiopharmaceutical. There is uniform radiotracer uptake in the liver and normal excretion to the gallbladder, bile ducts and duodenum. The gallbladder was first visualized 20 minutes through the examination. Following administration of CCK, sequential images of the abdomen were obtained for additional 60 minutes. There is prompt excretion of the radiopharmaceutical from the gallbladder. The calculated gallbladder ejection fraction is 94%. IMPRESSION: ?\ NORMAL CONTRACTILE RESPONSE OF GALLBLADDER TO SINCALIDE ADMINISTRATION. ?? MORTGAGE LOAN PROCESSING CLERK: ??DM2 TRANSCRIBE DATE/TIME: ??[place] ??7 2015 ??4:21P RADIOLOGIST: ??AYAKA GAINES M.D. ??READ ON: ??[place] ??7 2015 ??1:23P ORDERING DR: ELINOR PANTOJA M.D. THIS DOCUMENT HAS BEEN ELECTRONICALLY SIGNED BY: ??AYAKA GAINES M.D. ??ON: ??[place] ??7 2015 ??4:50P Attending: ??ARIES, ??ELINOR Requesting: ??ARIES, ??ELINOR Requesting Fax: ??[phone] Attending Fax: ??-- Attending ID: ??[id number] Requesting ID: ??[id number] Report To 1 ID: ??[id number] Report To 1 Name: ??ARIES, ??ELINOR Report To 1 FAX: ??[phone] Report To 2 ID: ?? Report To 2 Name: ??, ?? Report To 2 FAX: ??-- NextGen Order #: ?? Procedure Note Provider, MD Marie - 08/30/2016 DATE OF EXAM: Oct 15 2015 1:14PM Acc#: [id number] [facility] 0141 - NM Hepatobiliary w/ RX DIAGNOSIS: GALLBLADDER PAIN CLINICAL HISTORY: r/o biliary dyskinesia RESULT: \ EXAMINATION: HEPATOBILIARY SCINTIGRAPHY WITH SINCALIDE ADMINISTRATION HISTORY: Right-sided abdominal pain. RADIOPHARMACEUTICAL: 7.2 millicuries technetium 99m Mebrofenin with 1.8 micrograms CCK. COMPARISON: Correlation is made to abdominal sonogram dated 10/12/2015. FINDINGS: Sequential images of the abdomen were obtained for 60 minutes following administration of radiopharmaceutical. There is uniform radiotracer uptake in the liver and normal excretion to the gallbladder, bile ducts and duodenum. The gallbladder was first visualized 20 minutes through the examination. Following administration of CCK, sequential images of the abdomen were obtained for additional 60 minutes. There is prompt excretion of the radiopharmaceutical from the gallbladder. The calculated gallbladder ejection fraction is 94%. IMPRESSION: \ NORMAL CONTRACTILE RESPONSE OF GALLBLADDER TO SINCALIDE ADMINISTRATION. MORTGAGE LOAN PROCESSING CLERK: MONI TRANSCRIBE DATE/TIME: Oct 15 2015 4:21P RADIOLOGIST: AYAKA GAINES M.D. READ ON: Oct 15 2015 1:23P ORDERING DR: ELINOR PANTOJA M.D. THIS DOCUMENT HAS BEEN ELECTRONICALLY SIGNED BY: AYAKA GAINES M.D. ON: Oct 15 2015 4:50P Attending: ELINOR PANTOJA Requesting: ELINOR PANTOJA Requesting Attending Fax: -- Attending ID: [id number] Requesting ID: [id number] Report To 1 ID: [id number] Report To 1 Name: ELINOR PANTOJA Report To 1 FAX: [phone] Report To 2 ID: Report To 2 Name: , Report To 2 FAX: -- NextGen Order #: Historical Provider MD IMG NM PROCEDURES Final R esult * Blood glucose, POC (10/15/2015 12:26 PM CDT) Glucose, POC, bld 101 70 - 199 mg/dl HISTORICAL RESULTS Blood specimen (specimen) 10/15/2015 12:26 PM CDT Elinor Valentine MD LAB BLOOD ORDERABLES Final Result Performing Organization Address [facility] Phone Number HISTORICAL RESULTS * Blood glucose, POC (10/15/2015 8:29 AM CDT) Glucose, POC, bld 108 70 - 199 mg/dl HISTORICAL RESULTS Blood specimen (specimen) 10/15/2015 8:29 AM CDT Elinor Valentine MD LAB BLOOD ORDERABLES Final Result Performing Organization Address [facility] Phone Number HISTORICAL RESULTS * Blood glucose, POC (10/15/2015 6:27 AM CDT) Glucose, POC, bld 100 70 - 199 mg/dl HISTORICAL RESULTS Blood specimen (specimen) 10/15/2015 6:27 AM CDT Elinor Valentine MD LAB BLOOD ORDERABLES Final Result Performing Organization Address [facility] Phone Number HISTORICAL RESULTS * Blood glucose, POC (10/14/2015 9:19 PM CDT) Glucose, POC, bld 122 70 - 199 mg/dl HISTORICAL RESULTS Blood specimen (specimen) 10/14/2015 9:19 PM CDT us Elinor Valentine MD LAB BLOOD ORDERABLES Final Result Performing Organization Address [facility] Phone Number HISTORICAL RESULTS * Blood glucose, POC (10/14/2015 5:32 PM CDT) Glucose, POC, bld 168 70 - 199 mg/dl HISTORICAL RESULTS Blood specimen (specimen) 10/14/2015 5:32 PM CDT Elinor Valentine MD LAB BLOOD ORDERABLES Final Result Performing Organization Address [facility] de Phone Number HISTORICAL RESULTS * Blood glucose, POC (10/14/2015 2:24 PM CDT) Glucose, POC, bld 146 70 - 199 mg/dl HISTORICAL RESULTS Blood specimen (specimen) 10/14/2015 2:24 PM CDT Elinor Valentine MD LAB BLOOD ORDERABLES Final Result Performing Organization Address [facility] Phone Number HISTORICAL RESULTS * Blood glucose, POC (10/14/2015 5:06 AM CDT) Glucose, POC, bld 109 70 - 199 mg/dl HISTORICAL RESULTS Blood specimen (specimen) 10/14/2015 5:06 AM CDT Elinor Valentine MD LAB BLOOD ORDERABLES Final Result Performing Organization Address [facility] Phone Number HISTORICAL RESULTS * NATA Test Microbiology (10/14/2015 12:00 AM CDT) 10/14/2015 Narrative HISTORICAL RESULTS - 10/16/2015 4:09 PM CDT [facility] ?Patient Name: ?OMAR CLEVELAND ?Med. Rec#: ?? [id number] ?Pt. Acct.#: ??[id number] ?Birthdate: ?? 1970 ?Age / Sex: ?? 45Y / F ?Location: ?[facility] (608-02) ?Admit Date: ??10/10/2015 ?Discharge Date: ? 10/16/2015 ?Doctor: ?Elinor Pantoja M.D. ?Patient Type: ?[facility] Inpatient NATA Test ? Collected: 10/14/2015 16:15 Specimen: Tissue ?? Specimen Source: Stomach Status: Final ??Last Update: 10/15/2015 16:33 Clotest Result ?? Negative Result [facility] Historical Provider LAB MICROBIOLOGY - GENERA L ORDERABLES Final Result Performing Organization Address [facility] de Phone Number HISTORICAL RESULTS * UPPER GASTROINTESTINAL ENDOSCOPY REPORT (10/14/2015) Anatomical Region Laterality Modality Other Narrative 10/14/2015 Ordered by an unspecified provider. Historical Provider GI PROCEDURE ORDERABLES F inal Result * Blood glucose, POC (10/13/2015 8:09 PM CDT) Glucose, POC, bld 123 70 - 199 mg/dl HISTORICAL RESULTS Blood specimen (specimen) 10/13/2015 8:09 PM CDT Result [facility] Elinor Valentine MD LAB BLOOD ORDERABLES Final Result Performing Organization Address [facility] de Phone Number HISTORICAL RESULTS * Blood glucose, POC (10/13/2015 5:19 PM CDT) Glucose, POC, bld 106 70 - 199 mg/dl HISTORICAL RESULTS Blood specimen (specimen) 10/13/2015 5:19 PM CDT Result [facility] Elinor Valentine MD LAB BLOOD ORDERABLES Final Result Performing Organization Address [facility] de Phone Number HISTORICAL RESULTS * Blood glucose, POC (10/13/2015 12:26 PM CDT) Glucose, POC, bld 112 70 - 199 mg/dl HISTORICAL RESULTS Blood specimen (specimen) 10/13/2015 12:26 PM CDT Elinor Valentine MD LAB BLOOD ORDERABLES Final Result Performing Organization Address [facility] de Phone Number HISTORICAL RESULTS * Blood glucose, POC (10/13/2015 8:07 AM CDT) Glucose, POC, bld 133 70 - 199 mg/dl HISTORICAL RESULTS Blood specimen (specimen) 10/13/2015 8:07 AM CDT Elinor Valentine MD LAB BLOOD ORDERABLES Final Result Performing Organization Address [facility] de Phone Number HISTORICAL RESULTS * CHEST RADIOGRAPHY, FRONTAL (AP), LATERAL (10/13/2015 7:33 AM CDT) Anatomical Region Laterality Modality N/A Radiographic Jennifer ging 10/13/2015 7:33 AM CDT Narrative 10/13/2015 1:21 PM CDT DATE OF EXAM: ??[place] ??2015 ??7:33AM Acc#: ??[id number] ??EDX 0167 - XR Chest 2 Views ?? DIAGNOSIS: ??GALBLADDER PAIN CLINICAL HISTORY: ?? chest tightness RESULT: PORTABLE CHEST CLINICAL HISTORY: ??Chest pain and shortness of breath. TECHNIQUE: ??Frontal and lateral projection of the chest is submitted without prior. FINDINGS: Pulmonary bronchial vascular prominence with Lisa B lines are noted laterally. ?? The cardiac chambers are mildly enlarged. ?The bony thorax is intact. IMPRESSION: ?\ FINDINGS ARE COMPATIBLE WITH CONGESTIVE HEART FAILURE. ?? MORTGAGE LOAN PROCESSING CLERK: ??DH9 TRANSCRIBE DATE/TIME: ??[place] ??2015 ??1:19P RADIOLOGIST: ??KIRSTEN YAN M.D. ??READ ON: ??[place] ??2015 ??8:46A ORDERING DR: EBONIE RUIZ THIS DOCUMENT HAS BEEN ELECTRONICALLY SIGNED BY: ??FARRAH Mcleod, KIRSTEN ??ON: ??[place] ??2015 ??1:21P Attending: ??ARIES, ??ELINOR Requesting: ??ABENA, ??EBONIE Requesting Fax: ??[phone] Attending Fax: ??-- Attending ID: ??[id number] Requesting ID: ??[id number] Report To 1 ID: ??[id number] Report To 1 Name: ??ARIES, ??NASER Report To 1 FAX: ??[phone] Report To 2 ID: ?? Report To 2 Name: ??, ?? Report To 2 FAX: ??-- NextGen Order #: ?? Procedure Note Provider, MD Marie - 08/30/2016 DATE OF EXAM: Oct 13 2015 7:33AM Acc#: [id number] EDX 0167 - XR Chest 2 Views DIAGNOSIS: GALBLADDER PAIN CLINICAL HISTORY: chest tightness RESULT: PORTABLE CHEST CLINICAL HISTORY: Chest pain and shortness of breath. TECHNIQUE: Frontal and lateral projection of the chest is submitted without prior. FINDINGS: Pulmonary bronchial vascular prominence with Lisa B lines are noted laterally. The cardiac chambers are mildly enlarged. The bony thorax is intact. IMPRESSION: \ FINDINGS ARE COMPATIBLE WITH CONGESTIVE HEART FAILURE. MORTGAGE LOAN PROCESSING CLERK: MICHAEL TRANSCRIBE DATE/TIME: Oct 13 2015 1:19P RADIOLOGIST: KIRSTEN YAN M.D. READ ON: Oct 13 2015 8:46A ORDERING DR: EBONIE RUIZ THIS DOCUMENT HAS BEEN ELECTRONICALLY SIGNED BY: KIRSTEN YAN M.D. ON: Oct 13 2015 1:21P Attending: ELINOR PANTOJA Requesting: EBONIE VALENTINE Requesting Attending Fax: -- Attending ID: [id number] Requesting ID: [id number] Report To 1 ID: [id number] Report To 1 Name: ELINOR PANTOJA Report To 1 FAX: [phone] Report To 2 ID: Report To 2 Name: , Report To 2 FAX: -- NextGen Order #: Historical Provider MD IMG XR PROCEDURES Final R esult * Blood glucose, POC (10/12/2015 9:15 PM CDT) Glucose, POC, bld 111 70 - 199 mg/dl HISTORICAL RESULTS Blood specimen (specimen) 10/12/2015 9:15 PM CDT Elinor Valentine MD LAB BLOOD ORDERABLES Final Result Performing Organization Address [facility] de Phone Number HISTORICAL RESULTS * Blood glucose, POC (10/12/2015 5:29 PM CDT) Glucose, POC, bld 130 70 - 199 mg/dl HISTORICAL RESULTS Blood specimen (specimen) 10/12/2015 5:29 PM CDT Elinor Valentine MD LAB BLOOD ORDERABLES Final Result Performing Organization Address [facility] de Phone Number HISTORICAL RESULTS * Blood glucose, POC (10/12/2015 12:35 PM CDT) Glucose, POC, bld 90 70 - 199 mg/dl HISTORICAL RESULTS Blood specimen (specimen) 10/12/2015 12:35 PM CDT Elinor Valentine MD LAB BLOOD ORDERABLES Final Result Performing Organization Address [facility] de Phone Number HISTORICAL RESULTS * GALLBLADDER SONOGRAPHY (10/12/2015 8:28 AM CDT) Anatomical Region Laterality Modality N/A Ultrasound 10/12/2015 8:28 AM CDT Narrative 10/12/2015 12:02 PM CDT DATE OF EXAM: ??[place] ??2015 ??8:28AM Acc#: ??[id number] ??EUS 0036 - US Gallbladder ?? DIAGNOSIS: ??GALBLADDER PAIN CLINICAL HISTORY: ?? GALL STONES RESULT: GALLBLADDER ULTRASOUND CLINICAL HISTORY: ??Pain. PROCEDURE: ??Real time sonography of the right upper quadrant was performed. ??Static images submitted without prior for comparison. ?? FINDINGS: ??The liver is grossly normal with some beam attenuation suggesting fatty infiltration without mass. ??The intra and extrahepatic biliary ducts are normal appearing. ??The gallbladder is free from wall thickening, pericholecystic fluid, or cholelithiasis. ??The right kidney is normal measuring 11.7 cm in length. ??The common bile duct measures 4.6 mm. ?? IMPRESSION: ? FATTY INFILTRATION OF THE LIVER. ?? OTHERWISE NORMAL RIGHT UPPER QUADRANT ULTRASOUND. ?? MORTGAGE LOAN PROCESSING CLERK: ??DD2 TRANSCRIBE DATE/TIME: ??[place] ??2015 10:59A RADIOLOGIST: ??KIRSTEN YAN M.D. ??READ ON: ??[place] ??2015 ??9:23A ORDERING DR: FERNANDO ALCANTARA M.D. THIS DOCUMENT HAS BEEN ELECTRONICALLY SIGNED BY: ??KIRSTEN YAN M.D. ??ON: ??Oct ??2015 12:02P Attending: ??ARIES, ??ELINOR Requesting: ??MARICRUZ, ??FERNANDO Requesting Fax: ??-- Attending Fax: ??-- Attending ID: ??[id number] Requesting ID: ??[id number] Report To 1 ID: ??[id number] Report To 1 Name: ??ARIES, ??ELINOR Report To 1 FAX: ??[phone] Report To 2 ID: ?? Report To 2 Name: ??, ?? Report To 2 FAX: ??-- NextGen Order #: ?? Procedure Note Provider, MD Marie - 08/30/2016 DATE OF EXAM: Oct 12 2015 8:28AM Acc#: [id number] EUS 0036 - US Gallbladder DIAGNOSIS: GALBLADDER PAIN CLINICAL HISTORY: GALL STONES RESULT: GALLBLADDER ULTRASOUND CLINICAL HISTORY: Pain. PROCEDURE: Real time sonography of the right upper quadrant was performed. Static images submitted without prior for comparison. FINDINGS: The liver is grossly normal with some beam attenuation suggesting fatty infiltration without mass. The intra and extrahepatic biliary ducts are normal appearing. The gallbladder is free from wall thickening, pericholecystic fluid, or cholelithiasis. The right kidney is normal measuring 11.7 cm in length. The common bile duct measures 4.6 mm. IMPRESSION: FATTY INFILTRATION OF THE LIVER. OTHERWISE NORMAL RIGHT UPPER QUADRANT ULTRASOUND. MORTGAGE LOAN PROCESSING CLERK: ROSALBA TRANSCRIBE DATE/TIME: Oct 12 2015 10:59A RADIOLOGIST: KIRSTEN YAN M.D. READ ON: Oct 12 2015 9:23A ORDERING DR: FERNANDO ALCANTARA M.D. THIS DOCUMENT HAS BEEN ELECTRONICALLY SIGNED BY: KIRSTEN YAN M.D. ON: Oct 12 2015 12:02P Attending: ELINOR PANTOJA Requesting: FERNANDO ALCANTARA Requesting Fax: -- Attending Fax: -- Attending ID: [id number] Requesting ID: [id number] Report To 1 ID: [id number] Report To 1 Name: ELINOR PANTOJA Report To 1 FAX: [phone] Report To 2 ID: Report To 2 Name: , Report To 2 FAX: -- NextGen Order #: Historical Provider IMG US PROCEDURES Final R esult * Blood glucose, POC (10/12/2015 5:23 AM CDT) Glucose, POC, bld 96 70 - 199 mg/dl HISTORICAL RESULTS Blood specimen (specimen) 10/12/2015 5:23 AM CDT Fernando Alcantara MD LAB BLOOD ORDERABLES Final Resu lt Performing Organization Address [facility] Co de Phone Number HISTORICAL RESULTS * (ABNORMAL) Blood glucose, POC (10/12/2015 12:17 AM CDT) Glucose, POC, bld 202(H) 70 - 199 mg/dl HISTORICAL RESULTS Blood specimen (specimen) 10/12/2015 12:17 AM CDT Fernando Alcantara MD LAB BLOOD ORDERABLES Final Resu lt Performing Organization Address [facility] Co de Phone Number HISTORICAL RESULTS * Blood glucose, POC (10/11/2015 5:14 PM CDT) Glucose, POC, bld 112 70 - 199 mg/dl HISTORICAL RESULTS Blood specimen (specimen) 10/11/2015 5:14 PM CDT Fernando Alcantara MD LAB BLOOD ORDERABLES Final Resu lt Performing Organization Address [facility] Co de Phone Number HISTORICAL RESULTS * Blood glucose, POC (10/11/2015 12:47 PM CDT) Glucose, POC, bld 168 70 - 199 mg/dl HISTORICAL RESULTS Blood specimen (specimen) 10/11/2015 12:47 PM CDT Fernando Alcantara MD LAB BLOOD ORDERABLES Final Resu lt Performing Organization Address [facility] de Phone Number HISTORICAL RESULTS * Blood glucose, POC (10/11/2015 6:07 AM CDT) Glucose, POC, bld 99 70 - 199 mg/dl HISTORICAL RESULTS Blood specimen (specimen) 10/11/2015 6:07 AM CDT Elinor Valentine MD LAB BLOOD ORDERABLES Final Result Performing Organization Address [facility] de Phone Number HISTORICAL RESULTS * Blood cell count (CBC), morphologic exam (10/11/2015 5:11 AM CDT) WBC 7.3 3.8 - 9.8 K/cumm HISTORICAL RESULTS RBC 4.31 4.20 - 5.20 M/cumm HISTORICAL RESULTS Hgb 12.5 12.0 - 15.0 g/dl HISTORICAL RESULTS Hct 38.6 37.0 - 47.0 % HISTORICAL RESULTS MCV 89.6 82.0 - 96.0 fl HISTORICAL RESULTS MCH 29.0 27.0 - 32.0 pg HISTORICAL RESULTS MCHC 32.4 29.0 - 35.0 g/dl HISTORICAL RESULTS Platelets 273 150 - 450 K/cumm HISTORICAL RESULTS RDW 43.3 36.4 - 46.3 fl HISTORICAL RESULTS Rdw 13.3 11.5 - 14.5 % HISTORICAL RESULTS MPV 9.3 8.6 - 12.6 fl HISTORICAL RESULTS Neutrophils 74.6 42.0 - 85.0 % HISTORICAL RESULTS Neutrophils, abs 5.4 2.1 - 8.5 K/cumm HISTORICAL RESULTS Lymphocytes 19.0 16.0 - 52.0 % HISTORICAL RESULTS Lymphocytes, abs 1.4 0.8 - 5.2 K/cumm HISTORICAL RESULTS Monos 4.5 1.0 - 13.0 % HISTORICAL RESULTS Monocytes, absolute 0.3 0.0 - 1.3 K/cumm HISTORICAL RESULTS Eosinophils 1.5 0.0 - 7.0 % HISTORICAL RESULTS Eosinophils, abs 0.1 0.0 - 0.7 K/cumm HISTORICAL RESULTS Basophils 0.3 0.0 - 4.0 % HISTORICAL RESULTS Basophils, abs 0.0 0.0 - 0.4 K/cumm HISTORICAL RESULTS Young granulocytes, % 0.1 0.0 - 1.0 % HISTORICAL RESULTS Young granulocyte 0.01 0.00 - 0.10 K/cumm HISTORICAL RESULTS NRBC 0.0 0.0 - 0.2 #/100 WBC HISTORICAL RESULTS NRBC, abs 0.00 0.00 - 0.01 K/cumm HISTORICAL RESULTS Blood specimen (specimen) 10/11/2015 5:11 AM CDT Fernando Alcantara MD LAB BLOOD ORDERABLES Final Resu lt HISTORICAL RESULTS * (ABNORMAL) Plasma comprehensive metabolic panel (10/11/2015 5:11 AM CDT) Pathologist [facility] Globulin 2.7 2.0 - 4.3 g/dl HISTORICAL RESULTS BUN 8 8 - 24 mg/dl HISTORICAL RESULTS A. gap 9 8 - 16 mmol/L HISTORICAL RESULTS Glucose 128 70 - 199 mg/dl HISTORICAL RESULTS Sodium 136 135 - 145 mmol/L HISTORICAL RESULTS K, pl 3.9 3.5 - 5.1 mmol/L HISTORICAL RESULTS Chloride 106 100 - 114 mmol/L HISTORICAL RESULTS CO2 25 22 - 32 mmol/L HISTORICAL RESULTS Creatinine 0.56(L) 0.60 - 1.30 mg/dl HISTORICAL RESULTS AST 22 7 - 40 Units/L HISTORICAL RESULTS ALT 25 1 - 45 Units/L HISTORICAL RESULTS Alk phos 54 30 - 110 Units/L HISTORICAL RESULTS Calcium 7.7(L) 8.4 - 10.5 mg/dl HISTORICAL RESULTS Bilirubin 0.40 0.10 - 1.30 mg/dl HISTORICAL RESULTS Protein, pl 5.6(L) 6.0 - 8.3 g/dl HISTORICAL RESULTS Alb 2.9(L) 3.2 - 4.8 g/dl HISTORICAL RESULTS Plasma 10/11/2015 5:11 AM CDT Fernando Alcantara MD LAB BLOOD ORDERABLES Final Resu lt Performing Organization Address [facility] de Phone Number HISTORICAL RESULTS * Blood glucose, POC (10/10/2015 9:37 PM CDT) Glucose, POC, bld 125 70 - 199 mg/dl HISTORICAL RESULTS Blood specimen (specimen) 10/10/2015 9:37 PM CDT Fernando Alcantara MD LAB BLOOD ORDERABLES Final Resu lt Performing Organization Address [facility] de Phone Number HISTORICAL RESULTS * Blood glucose, POC (10/10/2015 8:13 PM CDT) Glucose, POC, bld 91 70 - 199 mg/dl HISTORICAL RESULTS Blood specimen (specimen) 10/10/2015 8:13 PM CDT Fernando Alcantara MD LAB BLOOD ORDERABLES Final Resu lt Performing Organization Address [facility] de Phone Number HISTORICAL RESULTS * PRE-PRELIMINARY CT SCAN REPORT (10/10/2015 4:05 PM CDT) Anatomical Region Laterality Modality N/A Computed Tomogra phy 10/10/2015 4:05 PM CDT Narrative 10/10/2015 4:24 PM CDT ED STAT IMAGING PRELIMINARY RESULT [facility] PATIENT: ?? HEPPNER ??CRISTOFER MR#: ?? [id number] : 1970 AGE / SEX: ?? 45Y / F Procedure: ECT 0074 - CT Abd/Pel W Exam Date: ?? [place] ??2 2016 ??4:05PM ?Loc: [id number] Acc#: ?? [id number] Pt_Class at Time of Procedure: E Current Pt Class and Location: ?? E ?ERD Requesting Location: ED Priority: ??STAT Reason: ?? Pain Order Comments: Ord Dr: ?? DESH ??MARICRUZ ??M.DRommel Preliminary Reading Doctor: ??MONSERRAT PEREZ M.D., RADIOLOGIST Completed on: ??[place] ??2 2015 ??4:24PM Call Results Info: Patient Waiting: Call Report to: Phone: Fax: Comments: ----- Please be advised this is only a preliminary report. If at time of image reporting a significant discrepancy or new finding is noted it will be communicated to the Emergency Department via the ED discrepancy pathway. READ ANY COMMENTS BELOW Findings: ? Abnormal Comments Line 1: ?2.6 cm L>R 1.6 cm ovarian cyst- fluid or thick [facility]- no free vcxce-etk-mwfzhlmrjcj R renal calculus- no hydro- appendix not seen-no RLQ inflamm change-mod colonic debris- mild enlarged inguinal nodes-3 mm LLL nodule -f/u 12 months if high risk o/w none Comments Line 2: Comments Line 3: Comments Line 4: Comments Line 5: Procedure Note Provider, MD Marie - 08/30/2016 ED STAT IMAGING PRELIMINARY RESULT [facility] PATIENT: OMAR CLEVELAND MR#: [id number] : 1970 AGE / SEX: 45Y / F Procedure:ECT 0074 - CT Abd/Pel W Exam Date: Oct 10 2015 4:05PM Loc:[id number] Acc#: [id number] Pt_Class at Time of Procedure: E Current Pt Class and Location: E ERD Requesting Location: ED Priority: STAT Reason: Pain Order Comments: Ord Dr: FERNANDO ALCANTARA M.D. Preliminary Reading Doctor: MONSERRAT PEREZ M.D., RADIOLOGIST Completed on: Oct 10 2015 4:24PM Call Results Info: Patient Waiting: Call Report to: Phone: Fax: Comments: ----- Please be advised this is only a preliminary report. If at time of imagereporting a significant discrepancy or new finding is noted it will becommunicated to the Emergency Department via the ED discrepancy pathway. READ ANY COMMENTS BELOW Findings: Abnormal Comments Line 1: 2.6 cm L>R 1.6 cm ovarian cyst- fluid or thickEMC- no free flevu-vmx-tnpgmvzsfae R renal calculus- no hydro- appendixnot seen-no RLQ inflamm change-mod colonic debris- mild enlarged inguinalnodes-3 mm LLL nodule -f/u 12 months if high risk o/w none Comments Line 2: Comments Line 3: Comments Line 4: Comments Line 5: us Historical Provider MD GARCIA CT PROCEDURES Final R esult * CT Abdomen Pelvis W Contrast (10/10/2015 4:05 PM CDT) Anatomical Region Laterality Modality Body N/A Computed Tomogra phy 10/10/2015 4:05 PM CDT Narrative 10/11/2015 5:31 PM CDT DATE OF EXAM: ??[place] ??2015 ??4:05PM Acc#: ??[id number] ??ECT 0074 - CT Abd/Pel W ?? DIAGNOSIS: ??GALBLADDER PAIN CLINICAL HISTORY: ?? Pain_Pain RESULT: \ CT OF ABDOMEN AND PELVIS WITH CONTRAST HISTORY Left upper quadrant pain. Postcontrast of abdomen and pelvis was obtained with 100 mL Optiray 350. ?? A 3 mm left posterobasal subpleural nodule is seen on image #3 series 4. ?? Per Fleischner criteria, no followup is need in low risk. Otherwise, a 12-month followup recommended in high risk patient. A minute 2 mm posterobasal subpleural semilunar opacity probably subpleural atelectasis. The liver, spleen, pancreas and gallbladder are unremarkable. No biliary distention is seen. There is no adrenal enlargement. No hydronephrosis is seen. A 3 mm non-obstructing right upper pole renal calculus is present. Mild retained gastric contents is noted. The appendix is not identified but no right lower quadrant inflammatory change is seen. Moderate colonic debris is present with a few diverticula. Scattered small bowel fluid is present but no distention is seen. Normal caliber aorta is present with patent SMA, celiac artery, SMV and portal and splenic vein. Mild urinary bladder distention is present. Central low attenuation uterine hypodensity with 12 mm AP diameter is seen, probably late cycle changes or small amount of fluid. A 2.6 cm and 1.6 cm right ovarian cyst is seen, but no free fluid is noted. No enlarged nodes are seen. Small portocaval node of 5 mm short axis is noted. Bilateral mildly enlarged inguinal nodes measure up to 1 cm in short axis. IMPRESSION: ?\ 1. ??BILATERAL OVARIAN CYSTS, LARGEST 2.6 CM ON LEFT WITH ENDOMETRIAL THICKENING AND FLUID. 2. ??NO FREE PELVIC FLUID. 3. ??SMALL NON-OBSTRUCTING RIGHT UPPER POLE RENAL CALCULUS. 4. ??APPENDIX NOT IDENTIFIED, BUT NO RIGHT LOWER QUADRANT INFLAMMATORY CHANGE IS SEEN. 5. ??MILD ENLARGED INGUINAL NODES, PROBABLY HYPERPLASTIC. 6. ??LEFT BASAL 3MM NODULE. 12 MONTHS FOLLOWUP RECOMMENDED IF HIGH RISK, OTHERWISE, NONE IF LOW RISK ?PER FLEISCHNER CRITERIA. ? MORTGAGE LOAN PROCESSING CLERK: ??DM2 TRANSCRIBE DATE/TIME: ??Oct ??2 2015 ??6:19P RADIOLOGIST: ??MONSERRAT PEREZ M.D. ??READ ON: ??[place] ??2 2016 ??4:26P ORDERING DR: FERNANDO ALCANTARA M.D. THIS DOCUMENT HAS BEEN ELECTRONICALLY SIGNED BY: ??CHRIS Mcleod, MONSERRAT ??ON: ??[place] ??3 2016 ??5:31P Attending: ??MARICRUZ, ??FERNANDO Requesting: ??MARICRUZ, ??FERNANDO Requesting Fax: ??-- Attending Fax: ??-- Attending ID: ??[id number] Requesting ID: ??[id number] Report To 1 ID: ??[id number] Report To 1 Name: ??DIANNMETenzin, ??ELINOR Report To 1 FAX: ??[phone] Report To 2 ID: ?? Report To 2 Name: ??, ?? Report To 2 FAX: ??-- NextGen Order #: ?? Procedure Note Provider, MD Marie - 08/30/2016 DATE OF EXAM: Oct 10 2015 4:05PM Acc#: [id number] ECT 0074 - CT Abd/Pel W DIAGNOSIS: GALBLADDER PAIN CLINICAL HISTORY: Pain_Pain RESULT: \ CT OF ABDOMEN AND PELVIS WITH CONTRAST HISTORY Left upper quadrant pain. Postcontrast of abdomen and pelvis was obtained with 100 mL Optiray 350. A 3 mm left posterobasal subpleural nodule is seen on image #3 series 4. Per Fleischner criteria, no followup is need in low risk. Otherwise, a 12-month followup recommended in high risk patient. A minute 2 mm posterobasal subpleural semilunar opacity probably subpleural atelectasis. The liver, spleen, pancreas and gallbladder are unremarkable. No biliary distention is seen. There is no adrenal enlargement. No hydronephrosis is seen. A 3 mm non-obstructing right upper pole renal calculus is present. Mild retained gastric contents is noted. The appendix is not identified but no right lower quadrant inflammatory change is seen. Moderate colonic debris is present with a few diverticula. Scattered small bowel fluid is present but no distention is seen. Normal caliber aorta is present with patent SMA, celiac artery, SMV and portal and splenic vein. Mild urinary bladder distention is present. Central low attenuation uterine hypodensity with 12 mm AP diameter is seen, probably late cycle changes or small amount of fluid. A 2.6 cm and 1.6 cm right ovarian cyst is seen, but no free fluid is noted. No enlarged nodes are seen. Small portocaval node of 5 mm short axis is noted. Bilateral mildly enlarged inguinal nodes measure up to 1 cm in short axis. IMPRESSION: \ 1. BILATERAL OVARIAN CYSTS, LARGEST 2.6 CM ON LEFT WITH ENDOMETRIAL THICKENING AND FLUID. 2. NO FREE PELVIC FLUID. 3. SMALL NON-OBSTRUCTING RIGHT UPPER POLE RENAL CALCULUS. 4. APPENDIX NOT IDENTIFIED, BUT NO RIGHT LOWER QUADRANT INFLAMMATORY CHANGE IS SEEN. 5. MILD ENLARGED INGUINAL NODES, PROBABLY HYPERPLASTIC. 6. LEFT BASAL 3MM NODULE. 12 MONTHS FOLLOWUP RECOMMENDED IF HIGH RISK, OTHERWISE, NONE IF LOW RISK PER FLEISCHNER CRITERIA. MORTGAGE LOAN PROCESSING CLERK: MONI TRANSCRIBE DATE/TIME: Oct 10 2015 6:19P RADIOLOGIST: MONSERRAT PEREZ M.D. READ ON: Oct 10 2015 4:26P ORDERING DR: FERNANDO ALCANTARA M.D. THIS DOCUMENT HAS BEEN ELECTRONICALLY SIGNED BY: MONSERRAT PEREZ M.D. ON: Oct 11 2015 5:31P Attending: FERNANDO ALCANTARA Requesting: FERNANDO ALCANTARA Requesting Fax: -- Attending Fax: -- Attending ID: [id number] Requesting ID: [id number] Report To 1 ID: [id number] Report To 1 Name: ELINOR PANTOJA Report To 1 FAX: [phone] Report To 2 ID: Report To 2 Name: , Report To 2 FAX: -- NextGen Order #: us Historical Provider MD GARCIA CT PROCEDURES Final R esult * Blood cell count (CBC), morphologic exam (10/10/2015 12:10 PM CDT) WBC 6.4 3.8 - 9.8 K/cumm HISTORICAL RESULTS RBC 4.54 4.20 - 5.20 M/cumm HISTORICAL RESULTS Hgb 13.2 12.0 - 15.0 g/dl HISTORICAL RESULTS Hct 40.9 37.0 - 47.0 % HISTORICAL RESULTS MCV 90.1 82.0 - 96.0 fl HISTORICAL RESULTS MCH 29.1 27.0 - 32.0 pg HISTORICAL RESULTS MCHC 32.3 29.0 - 35.0 g/dl HISTORICAL RESULTS Platelets 286 150 - 450 K/cumm HISTORICAL RESULTS RDW 43.7 36.4 - 46.3 fl HISTORICAL RESULTS Rdw 13.4 11.5 - 14.5 % HISTORICAL RESULTS MPV 9.4 8.6 - 12.6 fl HISTORICAL RESULTS Neutrophils 70.2 42.0 - 85.0 % HISTORICAL RESULTS Neutrophils, abs 4.5 2.1 - 8.5 K/cumm HISTORICAL RESULTS Lymphocytes 19.7 16.0 - 52.0 % HISTORICAL RESULTS Lymphocytes, abs 1.3 0.8 - 5.2 K/cumm HISTORICAL RESULTS Monos 6.4 1.0 - 13.0 % HISTORICAL RESULTS Monocytes, absolute 0.4 0.0 - 1.3 K/cumm HISTORICAL RESULTS Eosinophils 3.1 0.0 - 7.0 % HISTORICAL RESULTS Eosinophils, abs 0.2 0.0 - 0.7 K/cumm HISTORICAL RESULTS Basophils 0.3 0.0 - 4.0 % HISTORICAL RESULTS Basophils, abs 0.0 0.0 - 0.4 K/cumm HISTORICAL RESULTS Young granulocytes, % 0.3 0.0 - 1.0 % HISTORICAL RESULTS Young granulocyte 0.02 0.00 - 0.10 K/cumm HISTORICAL RESULTS NRBC 0.0 0.0 - 0.2 #/100 WBC HISTORICAL RESULTS NRBC, abs 0.00 0.00 - 0.01 K/cumm HISTORICAL RESULTS Blood specimen (specimen) 10/10/2015 12:10 PM CDT us Fernando Alcantara MD LAB BLOOD ORDERABLES Final Resu lt HISTORICAL RESULTS * (ABNORMAL) Plasma comprehensive metabolic panel (10/10/2015 12:10 PM CDT) BUN 10 8 - 24 mg/dl HISTORICAL RESULTS Glucose 150 70 - 199 mg/dl HISTORICAL RESULTS Sodium 136 135 - 145 mmol/L HISTORICAL RESULTS K, pl 3.6 3.5 - 5.1 mmol/L HISTORICAL RESULTS Chloride 105 100 - 114 mmol/L HISTORICAL RESULTS CO2 25 22 - 32 mmol/L HISTORICAL RESULTS Creatinine 0.66 0.60 - 1.30 mg/dl HISTORICAL RESULTS AST 21 7 - 40 Units/L HISTORICAL RESULTS ALT 26 1 - 45 Units/L HISTORICAL RESULTS Alk phos 65 30 - 110 Units/L HISTORICAL RESULTS Calcium 8.1(L) 8.4 - 10.5 mg/dl HISTORICAL RESULTS Bilirubin 0.40 0.10 - 1.30 mg/dl HISTORICAL RESULTS Protein, pl 6.1 6.0 - 8.3 g/dl HISTORICAL RESULTS Alb 3.2 3.2 - 4.8 g/dl HISTORICAL RESULTS Globulin 2.9 2.0 - 4.3 g/dl HISTORICAL RESULTS A. gap 10 8 - 16 mmol/L HISTORICAL RESULTS eGFR >90 90 - 200 ml/min/1.7 3 m2 HISTORICAL RESULTS Comment: If this individual is -Citizen Of [place], multiply result by 1.21 Repeated results of less than 60 is indicative of chronic kidney disease. MDRD formula has not been validated on individuals greater than 70 years old. Plasma 10/10/2015 12:1 0 PM CDT Fernando Alcantara MD LAB BLOOD ORDERABLES Final Resu lt HISTORICAL RESULTS * (ABNORMAL) Plasma lipase (10/10/2015 12:10 PM CDT) Lip 19(L) 20 - 50 Units/L HISTORICAL RESULTS Plasma 10/10/2015 12:1 0 PM CDT Fernando Alcantara MD LAB BLOOD ORDERABLES Final Resu lt HISTORICAL RESULTS * Plasma amylase (10/10/2015 12:10 PM CDT) Dania, pl 50 28 - 100 Units/L HISTORICAL RESULTS Plasma 10/10/2015 12:1 0 PM CDT us Fernando Alcantara MD LAB BLOOD ORDERABLES Final Resu lt Performing Organization Address [facility] de Phone Number HISTORICAL RESULTS * (ABNORMAL) Urinalysis (10/10/2015 6:10 AM CDT) Color, ur Yellow HISTORICAL RESULTS Clarity, ur Clear Clear HISTORIC AL RESULTS pH, ur 5.0 5 - 7 HISTORICAL RESULTS Specific gravity, ur 1.015 1.001 - 1.033 HISTORICAL RESULTS Protein, ur Negative Negative HISTORIC AL RESULTS Glucose, ur 3+(A) Negative HISTORIC AL RESULTS Ketones, ur Negative Negative HISTORIC AL RESULTS Bilirubin, ur Negative Negative HISTOR ICAL RESULTS U Blood Negative Negative HISTORICAL RESULTS Urobilinogen, quant, ur Normal 0.2 - 1.0 mg/dl HISTORICAL RESULTS Nitrites, ur Negative Negative HISTORI NAYELI RESULTS Leukocyte esterase, ur Negative Negative HISTORICAL RESULTS WBC, ur 0 - 5 0 - 5 /hpf HISTORICA L RESULTS RBC, ur 0 - 5 0 - 5 /hpf HISTORICA L RESULTS Epithelial cells, ur 2 - 5 /hpf HISTORICAL RESULTS Mucus Present HISTORICAL RESULTS Urine 10/10/2015 6:10 AM CDT Narrative HISTORICAL RESULTS - 10/10/2015 6:56 AM CDT Result negative for significant evidence of urinary tract infection. Urine Culture not indicated. ? Screening for urinary tract infection by urinalysis has an estimated false negative rate of 5%. ??This should be taken into account in patient management. ? Fernando Alcantara MD LAB BLOOD ORDERABLES Final Resu lt Performing Organization Address [facility] de Phone Number HISTORICAL RESULTS documented in this encounter Visit Diagnoses Diagnosis Right upper quadrant pain Abdominal pain, right upper quadrant Heart failure (HCC) Unspecified heart failure Fatty (change of) liver, not elsewhere classified Type 2 diabetes mellitus without complications (CMS/HCC) (HCC) Essential (primary) hypertension Unspecified essential hypertension Acute sinusitis Acute sinusitis, unspecified Gastro-esophageal reflux disease with esophagitis Reflux esophagitis Obesity Obesity, unspecified Body mass index (BMI) of 39.0-39.9 in adult Chewing tobacco nicotine dependence, uncomplicated Allergy status to narcotic agent Diverticulosis of intestine without perforation or abscess without bleeding Ovarian cyst Other and unspecified ovarian cyst Disease of stomach and duodenum Postprocedural hypothyroidism Postsurgical hypothyroidism Other oil heaterman (current) drug therapy Irritable bowel syndrome with diarrhea Irritable bowel syndrome documented in this encounter
--- OUTSIDE RECORDS SUMMARY | 2024-05-10 20:38 | XMS_ITS | Encounter Summary ---
Author Organization [facility] Facility Care Team Providers Care Museum Director Name Role Phone Unavailable Primary Care Provider Unavailabl e Encounter Details Date Type Department Care Team (Late st Contact Info) Description 03/07/2013 - 03/07/2013 11:59 PM CDT Hospital Encounter [facility] [address] [place] [address] Other screening mammogram Social History Tobacco Use Types Packs/Day Years Used Date Smoking Tobacco: Never Assessed Comments Unknown Sex and Gender Information Value Date Recorded Sex Assigned at Not on file 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 FINAL REPORT ACC# ??Date Time ??Exam [id number] Mar 07, 2013 10:28:00 BMV [id number] [facility] Screening Mamm ?? Technologist(s): Madelaine Aleman; ; EXAMINATION: ??Mammogram Technique: Bilateral Full-Field Digital Screening Mammogram was performed. ??Views obtained: ??bilateral craniocaudal and bilateral mediolateral oblique. Computer Aided Detection was performed with [employer] 1.3 version 9.3. Mammogram Findings: This is [...] Mar 08 2013 ??3:22P Procedure Note Provider, Marie, - 08/30/2016 MARGARET RIVAS M.D. FINAL REPORT ACC# Date Time Exam [id number] Mar 07, 2013 10:28:00 BMV [id number] [facility] Screening Mamm Technologist(s): Madelaine Aleman; ; EXAMINATION: Mammogram Technique: Bilateral Full-Field Digital Screening Mammogram was performed. Views obtained: bilateral craniocaudal and bilateral mediolateral oblique. Computer Aided Detection was performed with [employer] 1.3 version 9.3. Mammogram Findings: This is [...] MD GARCIA MAMMO PROCEDURES Suzi l Result documented in this encounter Visit Diagnoses Diagnosis Other screening mammogram documented in this encounter
--- OUTSIDE RECORDS SUMMARY | 2024-05-10 20:38 | XMS_ITS | Encounter Summary ---
Author Organization [facility] Healthcare Address [address] [place] [address] Care Team Providers Care Otolaryngology Surgeon Name Role Phone Quintin Luna MD Primary Care Provider [phone] Reason for Visit * Auth/Cert (Routine) Specialty Diagnoses / Procedures Referred By Nicole t Referred To Contact Diagnoses POSTMENOPAUSAL BLEEDING Procedures LA HYSTEROSCOPY BX ENDOMETRIUM&/POLYPC W/WO D&C DILATION AND CURETTAGE, HYSTEROSCOPY POSSIBLE MYOSURE, POSSIBLE POLYPECTOMY Referral ID Status Reason Start Date Expiration Date Visits Re quested Visits Authorized [id number] 1 1 Encounter Details Date Type Department Care Team (Late st Contact Info) Description 11/02/2022 10:26 AM CDT Anesthesia Event [facility] [place] [address] [place] [id number] Laith Polnaco DO [address] [place] [address] [place] [address] Jaime Stone MD [address] [place] [address] [place] [address] Anesthesia Record Procedure Summary Procedure Name Responsible Anesthesiologist Anesthesia Start Time Anesthesia Stop Time DILATION AND CURETTAGE, HYSTEROSCOPY, MYOSURE, POLYPECTOMY (Vagina) Laith Polanco DO 11/02/22 1026 11/02/22 1109 Events Date Time Event Comment 11/02/2022 0948 1024 In Room 1026 An Start 1026 An Start Data 1029 An Induction The patient was reevaluated immediately before moderate or deep sedation use and before anesthesia induction. 1032 An Intubation 1036 Anesthesia Ready 1037 Proc Start 1059 Proc Fin 1104 an stop data 1104 Out of Room 1108 Handoff to RN I completed my handoff [...] the time of handoff: No value filed. 1109 An Stop Meds Name Total midazolam 1 mg/mL 2 mg propofol 150 mg lidocaine (cardiac) syringe 2 % 3 mL fentaNYL 50 mcg/mL PF 100 mcg ondansetron PF 4 mg dexAMETHasone 4 mg/mL 4 mg glycopyrrolate 200 mcg ketorolac 15 mg Lactated Ringer's (LR) infusion 700 mL * Agents Name O2% N2O O2 N2O Air Sevoflurane Inspired Sevoflurane * Blood No blood administrations on file. 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 Gender Identity Not on file Sexual Orientation Not on file documented as of this encounter OR Notes * Anesthesia Postprocedure Evaluation - Laith Polanco DO - 11/02/2022 1:08 PM CDT Patient: Kelly Cleveland Procedure Summary Date: 11/02/22 Room / Location: [facility] OPER[facility]OM 03 / [facility] Anesthesia Start: 1026 Anesthesia Stop: 1109 Procedure: DILATION AND CURETTAGE, HYSTEROSCOPY, MYOSURE, POLYPECTOMY (Vagina) Diagnosis: (POSTMENOPAUSAL BLEEDING) Surgeons: Gerardo Tan MD Responsible Provider: Laith Polanco DO Anesthesia Type: general ASA Status: 3 Anesthesia Type: general Last vitals BP 140/82 Pulse 73 Temp 36.3 ??C (97.4 ??F) (Temporal) Resp 20 SpO2 95% Anesthesia Post Evaluation Patient location during evaluation: PACU Patient participation: complete - patient participated Level of consciousness: fully awake Pain score: 6 Pain management: satisfactory to patient Airway patency: patent and adequate Evidence of recall: no Cardiovascular status: blood pressure returned to baseline Respiratory status: acceptable and room air Hydration status: acceptable Pt is: normothermic Nausea/Vomiting status: none Comments: Pt with increased vaginal bleeding. Returning to OR No notable events documented. * Anesthesia Procedure Notes - Jassi Rosa CRNA - 11/02/2022 10:36 AM CDTAssociated Order(s): Airway Airway Patient location: OR Urgency: elective Indications for airway management: anesthesia Difficult airway: no Staff: Supervising provider: Laith Polanco DO Placed by: ACID TESTER: Jassi Rosa CRNA Emergent airway documentation: Risks and benefits discussed: yes Consent obtained: yes Consent given by: patient Airway prep: Preoxygenated: yes Patient position: sniffing Mask difficulty assessment: 0 - not attempted Spontaneous ventilation during airway: absent Sedation level during airway: deep Final airway details: Final airway type: supraglottic airway Final supraglottic airway: IGel SGA size: 4 Number of attempts: 1 * Anesthesia Preprocedure Evaluation - Laith Polanco DO - 11/02/2022 9:46 [...] 90 mcg/actuation inhaler Not Taking -- -- Marie Gandara MD atorvastatin (LIPITOR) 20 mg tablet -- -- -- Marie Gandara MD busPIRone (BUSPAR) 10 mg tablet -- -- -- Marie Gandara MD canagliflozin (INVOKANA) 100 mg tablet -- -- -- Marie Gandara MD cetirizine (ZyrTEC) 10 mg tablet -- -- -- Provider, MD Marie dapagliflozin-metformin 10-1,000 mg tablet, IR & ER, biphasic 24hr Not Taking -- -- Marie Gandara MD escitalopram (LEXAPRO) 10 mg tablet -- -- -- Marie Gandara MD fluticasone (FLONASE) 50 mcg/actuation nasal spray Not Taking 08/15/18 -- Chirag Mondragon, DO Administer 1 spray into each nostril daily Patient not taking: Reported on 10/26/2022 levothyroxine (SYNTHROID, LEVOTHROID) 125 mcg tablet -- -- -- Marie Gandara MD losartan (COZAAR) 50 mg tablet -- -- -- Marie Gandara MD raNITIdine (ZANTAC) 150 mg tablet () [...] is Outpatient. Informed Consent: Discussed plan with ACID TESTER. Anesthesia plan and risks discussed with patient. [...] Procedure Name Priority Date/Time Associated Diagnosis Comments LA AN PROCEDURE PLACEHOLDER Routine 11/02/2022 10:36 AM CDT LA AN ELECTIVE SUPRAGLOTTIC AIRWAY Routine 11/02/2022 10:36 AM CDT documented in this encounter Results * LA AN ELECTIVE SUPRAGLOTTIC AIRWAY, LA AN PROCEDURE PLACEHOLDER (11/02/2022 10:36 AM CDT) Narrative Jassi Rosa CRNA - 11/02/2022 10:36 AM CDT Jassi Rosa CRNA ? 11/02/2022 10:36 AM Airway Patient location: OR Urgency: elective Indications for airway management: anesthesia Difficult airway: no Staff: Supervising provider: Laith Polanco DO Placed by: ACID TESTER: Jassi Rosa CRNA Emergent airway documentation: Risks and benefits discussed: yes Consent obtained: yes Consent given by: patient Airway prep: Preoxygenated: yes Patient position: sniffing Mask difficulty assessment: 0 - not attempted Spontaneous ventilation during airway: absent Sedation level during airway: deep Final airway details: Final airway type: supraglottic airway Final supraglottic airway: IGel SGA size: 4 Number of attempts: 1 Laith Polanco DO ANESTHESIA ORDERABLES Final R esult documented in this encounter Visit Diagnoses Not on filedocumented in this encounter Administered Medications Inactive Administered Medications - up to 3 most recent administrations Medication Order MAR Action Action Date Dose Rate Site dexAMETHasone (DECADRON) 4 mg/mL injection intravenous, Administer over 2 Minutes, As needed, Starting on Wed11/02/22 at 1037, Anesthesia Intra-op Given 11/02/2022 10:37 AM CDT 4 mg fentaNYL (SUBLIMAZE) preservative free injection intravenous, As needed, Starting on Wed11/02/22 at 1029, Anesthesia Intra-op Given 11/02/2022 10:29 AM CDT 100 mcg glycopyrrolate (ROBINUL) injection intravenous, Administer over 1 Minutes, As needed, Starting on Wed11/02/22 at 1038, Anesthesia Intra-op Given 11/02/2022 10:42 AM CDT 100 mcg Given 11/02/2022 10:38 AM CDT 100 mcg ketorolac (TORADOL) 30 mg/mL (1 mL) injection intravenous, As needed, Starting on Wed11/02/22 at 1101, Anesthesia Intra-op Given 11/02/2022 11:01 AM CDT 15 mg Lactated Ringer's (LR) infusion 30 mL/hr, intravenous, Continuous, Starting on Wed11/02/22 at 1000, Pre-Op, Rate/Dose Verify 11/02/2022 1:05 PM CDT 30 mL/hr Restarted 11/02/2022 10:26 AM CDT New Bag 11/02/2022 10:11 AM CDT 30 mL/hr 30 mL/hr lidocaine (cardiac) (XYLOCAINE) preservative free injection intravenous, As needed, Starting on Wed11/02/22 at 1029, Anesthesia Intra-op, Indications: Ventricular ArrhythmiasIndications:Ventricular Arrhythmias Given 11/02/2022 10:29 AM CDT 3 mL midazolam (VERSED) 1 mg/mL injection intravenous, As needed, Starting on Wed11/02/22 at 1026, Anesthesia Intra-op Given 11/02/2022 10:26 AM CDT 2 mg ondansetron (ZOFRAN) injection intravenous, Administer over 2 Minutes, As needed, Starting on Wed11/02/22 at 1037, Anesthesia Intra-op Given 11/02/2022 10:37 AM CDT 4 mg propofoL (DIPRIVAN) 10 mg/mL IV intravenous, As needed, Starting on Wed11/02/22 at 1029, Anesthesia Intra-op Given 11/02/2022 10:29 AM CDT 150 mg documented in this encounter Care Teams Otolaryngology Surgeon Relationship Specialty Start Date End Date Quintin Luna MD PCP - General Family Medicine 10/26/22 documented as of this encounter
--- OUTSIDE RECORDS SUMMARY | 2024-05-10 20:38 | XMS_ITS | Clinical Summary ---
Author Organization [facility] [address] Address [facility] [place] [address] Care Team Providers Care Production Assembler Name Role Phone Unavailable Primary Care Provider Unavailabl e Immunizations Name Administration Dates Next Due (PFIZER)(12 YR UP) COVID-19 VACCINE - EMERGENCY USE AUTHORIZATION, MRNA, [id number](PF) 30 MCG/0.3 ML IM SUSP 07/19/2020,06/28/2020 Social History Tobacco Use Types Packs/Day Years Used Date Smoking Tobacco: Never Assessed Sex and Gender Information Value Date Recorded Sex Assigned at Not on file Gender Identity Not on file Sexual Orientation Not on file Plan of Treatment Health Maintenance Due Date Last Done Comments DTAP/TDAP/TD VACCINES (1 - Tdap) 1989 HEPATITIS B VACCINES (1 of 3 - 19+ 3-dose series) 1989 CERVICAL CANCER SCREENING 2000 BREAST CANCER SCREENING 2010 COLORECTAL SCREENING 2015 Colorectal Cancer Screening 2015 FIT-DNA Q 3 years 2015 FIT/FOBT Q 1 year 2015 Flex Sig/CT Colonography Q 5 years 2015 ZOSTER VACCINE (1 of 2) 2020 INFLUENZA VACCINE (#1) 2023 COVID-19 Vaccine ( - 2023-2 5 season) 2024 07/19/2020, 06/28/2020 PNEUMOCOCCAL VACCINE 0-64 YEARS Aged Out No longer eligible b ased on patient's age to complete this topic
--- OUTSIDE RECORDS SUMMARY | 2024-05-10 20:38 | XMS_ITS | Encounter Summary ---
Author Organization [facility] Address [address] [place] [address] Care Team Providers Care Refrigeration Technician Name Role Phone Unavailable Primary Care Provider Unavailabl e Encounter Details Date Type Department Care Team (Latest Contact Info) Description 09/16/1998 Outpatient Historical [facility] Carlyn Leon Toxic effect of venom(989.5) (Primary Dx) Social History Tobacco Use Types Packs/Day Years Used Date Smoking Tobacco: Never Assessed Sex and Gender Information Value Date Recorded Sex Assigned at Not on file Gender Identity Not on file Sexual Orientation Not on file documented as of this encounter Plan of Treatment Not on file documented as of this encounter Visit Diagnoses Diagnosis Toxic effect of venom(989.5)- Primary Toxic effect of venom documented in this encounter
--- OUTSIDE RECORDS SUMMARY | 2024-05-10 20:38 | XMS_ITS | Encounter Summary ---
Author Organization [facility] Address [address] [place] [address] Care Team Providers Care Asp Developer Name Role Phone Unavailable Primary Care Provider Unavailabl e Reason for Visit * Reason Comments Ear Problem Encounter Details Date Type Department Care Team (Latest Contact Info) Description 08/15/2018 11:20 AM CDT Procedure visit [facility] - [address] [place] [id number] Mirna Mujica Au.D. 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 - 08/15/2018 11:20 AM CDT Procedures The patient was seen today for tympanometry at the request of Dr. Mondragon. The patient reports a feeling of fluid in her ears. Tympanometry was performed and revealed: Right ear - Static Compliance: Hypocompliant (0.24mmhos) Middle Ear Pressure: Excessive negative (-129daPa) Ear Canal Volume: Normal Left ear - Static Compliance: Hypocompliant (0.21mmhos) Middle Ear Pressure: Excessive negative (-119daPa) Ear Canal Volume: Normal The patient was seen by Dr. Mondragon directly after tympanometry. documented in this encounter Plan of Treatment Not on file documented as of this encounter Visit Diagnoses Diagnosis Dysfunction of both eustachian tubes- Primary documented in this encounter
--- OUTSIDE RECORDS SUMMARY | 2024-05-10 20:38 | XMS_ITS | Encounter Summary ---
Author Organization [facility] Address 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
--- OUTSIDE RECORDS SUMMARY | 2024-05-10 20:38 | XMS_ITS | Encounter Summary ---
Author Organization [facility] Address [address] [place] [address] [address] [place] [address] Care Team Providers Care Rod Hanger Name Role Phone Unavailable Primary Care Provider Unavailabl e Reason for Visit * Reason Comments Ear Problem Encounter Details Date Type Department Care Team (Late st Contact Info) Description 08/15/2018 10:50 AM CDT Office Visit [facility] - [id number] [facility] [address] [place] [address] Chirag Mondragon, [address] [place] [address] Dysfunction of both eustachian tubes (Primary Dx); Laryngopharyngeal reflux (LPR) Social History Tobacco Use Types Packs/Day Years [...] on file 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 Gender Identity Not on file Sexual Orientation Not on file documented as of this encounter Last Filed Vital Signs Vital Sign Reading Time Taken Comments Blood Pressure 120/80 08/15/2018 10:57 AM CDT Pulse 73 08/15/2018 10:57 AM CDT Temperature - - Respiratory Rate 18 08/15/2018 10:57 AM CDT Oxygen Saturation 98% 08/15/2018 10:57 AM CDT Inhaled Oxygen Concentration - - Weight 95.3 kg (210 lb) 08/15/2018 10:57 AM CDT Height 152.4 cm (5') 08/15/2018 10:57 AM CDT Body Mass Index 41.01 08/15/2018 10:57 AM CDT documented in this encounter Ordered Prescriptions Prescription Sig Dispense Quantity Refills Last Filled Start Date End Date raNITIdine (ZANTAC) 150 mg tablet Take 1 tablet (150 mg total) by mouth 2 (two) times a day 60 tablet 2 08/15/2018 3 fluticasone (FLONASE) 50 mcg/actuation nasal spray Administer 1 spray into each nostril daily 1 Inhaler 2 08/15/2018 3 documented in this encounter Progress Notes * Chirag Mondragon, - 08/15/2018 10:50 AM CDT [facility] DATE OF VISIT: 08/15/2018 CHIEF COMPLAINT Chief Complaint Patient presents with ??? Ear Problem HPI Kelly Cleveland is a 48 y.o. female nonsmoker with a medical history of hypertension , hyperlipidemia, diabetes mellitus type 2, and obesity with possible fluid in her ears. Patient states that over the past month she has been experiencing fullness with pressure and occasional popping in her ears. The left ear seems to be worse than the right. Patient is unaware of any precipitating ev ent. She does admit to some nasal congestion with postnasal drainage. Patient denies any tobacco use however states that she is around secondhand smoke with her significant other. Patient also admitsto frequent reflux symptoms with heartburn and indigestion. Patient currently takes ranitidine 150 mg daily. Patient denies any prior otologic history. She has never undergone any otologic proceduresin the past. We performed a tympanometry today which demonstrated hypocompliance in both ears. MEDICAL HISTORY Past Medical History: Diagnosis Date ??? Diabetes mellitus, type II (CMS/HCC) ??? High cholesterol ??? HTN (hypertension) Social History Tobacco Use ??? Smoking status: Never Smoker ??? Smokeless tobacco: Current User Substance Use Topics ??? Alcohol use: Never Frequency: Never ??? Drug use: Never Family History Problem Relation Age of Onset ??? COPD Mother ??? Diabetes Father MEDICATIONS HOME MEDICATIONS : albuterol HFA (VENTOLIN HFA) 90 mcg/actuation inhaler atorvastatin (LIPITOR) 20 mg tablet cetirizine (ZyrTEC) 10 mg tablet dapagliflozin-metformin 10-1,000 mg tablet, IR & ER, biphasic 24hr levothyroxine (SYNTHROID, LEVOTHROID) 125 mcg tablet ALLERGIES Allergies Allergen Reactions ??? Montelukast Hives ??? Cephalexin Stomach upset Reaction: GI UPSET, ??? Codeine Hives Reaction: HIVES, ??? Clarithromycin Diarrhea ??? Erythromycin Lactobionate Diarrhea REVIEW OF SYSTEMS Review of Systems Constitutional: Negative for appetite change, chills, diaphoresis, fatigue, fever and unexpected weight change. HENT: Positive for hearing loss. Negative for congestion, dental problem, drooling, ear discharge, ear pain, facial swelling, mouth sores, nosebleeds, postnasal drip, rhinorrhea, sinus pressure, sneezing, sore throat, tinnitus, trouble swallowing and voice change. Eyes: Negative for itching and visual disturbance. Respiratory: Negative for apnea, cough, choking, shortness of breath, wheezing and stridor. Cardiovascular: Negative for chest pain. Gastrointestinal: Negative for diarrhea, nausea and vomiting. Endocrine: Negative for cold intolerance, heat intolerance, polydipsia, polyphagia and polyuria. Genitourinary: Negative for dysuria, hematuria and urgency. Musculoskeletal: Negative for arthralgias, gait problem, joint swelling, myalgias, neck pain and neck stiffness. Skin: Negative for color change, pallor, rash and wound. Allergic/Immunologic: Negative for environmental allergies, food allergies and immunocompromised state. Neurological: Negative for dizziness, tremors, seizures, syncope, facial asymmetry, speech difficulty, weakness, light-headedness, numbness and headaches. Hematological: Negative for adenopathy. Does not bruise/bleed easily. Psychiatric/Behavioral: Negative for agitation, behavioral problems, confusion, sleep disturbance and suicidal ideas. PHYSICAL EXAM Vitals BP 120/80 (BP Location: Left arm, Patient Position: Sitting) Pulse 73 Resp 18 Ht 152.4 cm (5') Wt 95.3 kg (210 lb) SpO2 98% BMI 41.01 kg/m?? Physical Exam Constitutional: She is oriented to person, place, and time. Vital signs are normal. She appears well-developed and well-nourished. She does not appear ill. HENT: Head: Normocephalic and atraumatic. Hair is normal. Right Ear: Hearing, external ear and ear canal normal. No drainage. Tympanic membrane is scarred. Tympanic membrane is not erythematous and not retracted. Tympanic membrane mobility is abnormal. No middle ear effusion. No decreased hearing is noted. Left Ear: Hearing, external ear and ear canal normal. No drainage. Tympanic membrane is scarred andretracted. Tympanic membrane is not erythematous. Tympanic membrane mobility is abnormal. No middleear effusion. No decreased hearing is noted. Nose: Nose normal. No mucosal edema or rhinorrhea. Mouth/Throat: Uvula is midline, oropharynx is clear and moist and mucous membranes are normal. No oral lesions. No trismus in the jaw. Normal dentition. No uvula swelling. No posterior oropharyngeal edema or posterior oropharyngeal erythema. Tonsils are 0 on the right. Tonsils are 0 on the left. Notonsillar exudate. Eyes: Conjunctivae, EOM and lids are normal. Neck: Trachea normal, normal range of motion, full passive range of motion without pain and phonation normal. Neck supple. No edema and normal range of motion present. No thyroid mass and no thyromegaly present. Cardiovascular: Normal rate. Pulmonary/Chest: Effort normal. Lymphadenopathy: Head (right side): No submental and no submandibular adenopathy present. Head (left side): No submental and no submandibular adenopathy present. She has no cervical adenopathy. Right cervical: No superficial cervical, no deep cervical and no posterior cervical adenopathy present. Left cervical: No superficial cervical, no deep cervical and no posterior cervical adenopathy present. Neurological: She is alert and oriented to person, place, and time. She has normal strength. No cranial nerve deficit. GCS eye subscore is 4. GCS verbal subscore is 5. GCS motor subscore is 6. Skin: Skin is warm, dry and intact. Psychiatric: She has a normal mood and affect. Her speech is normal and behavior is normal. Thoughtcontent normal. Nursing note and vitals reviewed. @DKPE@ LABS AND OTHER DIAGNOSTIC TESTS Lab Results Component Value Date HGB 12.5 10/11/2015 HCT 38.6 10/11/2015 MCV 89.6 10/11/2015 ASSESSMENT Diagnoses and all orders for this visit: Dysfunction of both eustachian tubes (Primary) Assessment & Plan: Patient demonstrates signs and symptoms consistent with eustachian tube dysfunction, left greater than right. Examination revealed mild retraction in the left ear. There is bilateral tympanosclerosison exam. Patient has significant secondhand smoke exposure. Patient is instructed to continue with Z yrtec 10 mg daily. I will add fluticasone nasal spray two sprays in each nostril daily. Patient wasalso instructed on performing nasal Valsalva maneuver several times a day to help equalize pressureis within the middle ear space. Laryngopharyngeal reflux (LPR) Assessment & Plan: Patient also demonstrates signs and symptoms consistent [...] on the importance of compliance with medications. PLAN/RECOMMENDATIONS Follow up in the office in prn. Chirag Mondragon DO documented in this encounter Miscellaneous Notes * Assessment & Plan Note - Chirag Mondragon DO - 08/15/2018 12:19 PM CDT Associated Problem(s): Laryngopharyngeal reflux (LPR) Patient also demonstrates signs and symptoms consistent [...] on the importance of compliance with medications. * Assessment & Plan Note - Chirag Mondragon DO - 08/15/2018 12:18 PM CDT Associated Problem(s): Dysfunction of both eustachian tubes Patient demonstrates signs and symptoms consistent with eustachian tube dysfunction, left greater than right. Examination revealed mild retraction in the left ear. There is bilateral tympanosclerosison exam. Patient has significant secondhand smoke exposure. Patient is instructed to continue with Z yrtec 10 mg daily. I will add fluticasone nasal spray two sprays in each nostril daily. Patient wasalso instructed on performing nasal Valsalva maneuver several times a day to help equalize pressureis within the middle ear space. * Addendum Note - Amira Leroy MA - 08/15/2018 10:50 AM CDTAddended by: AMIRA LEROY on: 08/15/2018 01:12 PM Modules accepted: Orders documented in this encounter Plan of Treatment Not on file documented as of this encounter Visit Diagnoses Diagnosis Dysfunction of both eustachian tubes- Primary Laryngopharyngeal reflux (LPR) documented in this encounter Historical Medications * This list may reflect changes made after this encounter. atorvastatin (LIPITOR) 20 mg tablet Take 1 tablet (20 mg total) by mouth daily cetirizine (ZyrTEC) 10 mg tablet Take 1 tablet (10 mg total) by mouth daily as needed levothyroxine (SYNTHROID, LEVOTHROID) 125 mcg tablet levothyroxine 125 mcg tablet TAKE ONE TABLET BY MOUTH ONCE DAILY dapagliflozin-me tformin 10-1,000 mg tablet, IR & ER, biphasic 24hr Take by mouth daily 3 albuterol HFA (VENTOLIN HFA) 90 mcg/actuation inhaler Ventolin HFA 90 mcg/actuation aerosol inhaler 3 added in this encounter
--- OUTSIDE RECORDS SUMMARY | 2024-05-10 20:38 | XMS_ITS | Encounter Summary ---
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 THIS IS AN ELECTRONICALLY VERIFIED REPORT 01/22/2017 3:51 PM: ??Shaq Poe D.O. ?? Shaq Poe D.O. [email or web address] 03:51 PM 03:51 PM SARAH [EOD] Narrative 01/22/2017 3:55 PM CDT EXAMINATION: ??3 views of the right elbow. HISTORY: ??Right elbow pain from injury at work on 10/31/16. COMPARISON: ??None available. TECHNIQUE: ??3 views of the right elbow. FINDINGS: ??No evidence of fracture or dislocation. ??No destructive osseous abnormalities. ??No radiopaque foreign bodies are present. ??No posterior fat pad sign is present to suggest an occult elbow fracture. Procedure Note Provider, MD Marie - 09/24/2020 EXAMINATION: 3 views of the right elbow. HISTORY: Right elbow pain from injury at work on 10/31/16. COMPARISON: None available. TECHNIQUE: 3 views of the right elbow. FINDINGS: No evidence of fracture or dislocation. No destructive osseous abnormalities. No radiopaque foreign bodies are present. No posteriorfat pad sign is present to suggest an occult elbow fracture. IMPRESSION: No acute osseous abnormalities. THIS IS AN ELECTRONICALLY VERIFIED REPORT 01/22/2017 3:51 PM: Shaq Poe D.O. Shaq Poe D.O. [email or web address] 03:51 PM 03:51 PM SARAH [EOD] us Brendan Bains MD IMG XR PROCEDURES Final Result documented in this encounter Visit Diagnoses Diagnosis Injury of right elbow documented in this encounter
--- OUTSIDE RECORDS SUMMARY | 2024-05-10 20:38 | XMS_ITS | Encounter Summary ---
Author Organization [facility] Healthcare Address [address] [place] [address] Care Team Providers Care Senior Software Development Manager Name Role Phone Unavailable Primary Care Provider Unavailabl e Encounter Details Date Type Department Care Team (Late st Contact Info) Description 08/24/2010 8:16 PM CDT - 08/24/2010 11:01 PM CDT Hospital Encounter [facility] Contusion of shoulder region; Contusion of chest wall; Neck sprain and strain; Pain in soft tissues of limb; Fall resulting in striking against other object; Place of occurrence, public building; Activities involving food preparation and clean up; Civilian activity done for income or pay Social History Tobacco Use Types Packs/Day Years Used Date Smoking Tobacco: Never Assessed Comments Unknown Sex and Gender Information Value Date Recorded Sex Assigned at Not on file 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
--- OUTSIDE RECORDS SUMMARY | 2024-05-10 20:38 | XMS_ITS | Encounter Summary ---
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
--- OUTSIDE RECORDS SUMMARY | 2024-05-10 20:38 | XMS_ITS | Encounter Summary ---
Author Organization [facility] Healthcare Address [address] [place] [address] Care Team Providers Care Senior Quality Analyst Name Role Phone Quintin Luna MD Primary Care Provider [phone] Reason for Visit * Auth/Cert (Routine) Specialty Diagnoses / Procedures Referred By Nicole t Referred To Contact Diagnoses POSTMENOPAUSAL BLEEDING Procedures [place] HYSTEROSCOPY BX ENDOMETRIUM&/POLYPC W/WO D&C DILATION AND CURETTAGE, HYSTEROSCOPY POSSIBLE MYOSURE, POSSIBLE POLYPECTOMY Referral ID Status Reason Start Date Expiration Date Visits Re quested Visits Authorized [id number] 1 1 Encounter Details Date Type Department Care Team (Late st Contact Info) Description 11/02/2022 1:09 PM CDT - 11/02/2022 2:29 PM CDT Surgery [facility] OR [address] [place] [id number] Gerardo Tan MD [address] [address] EXAM UNDER ANESTHESIA - repair of vaginal and cervical laceration Surgery Details Date/Time Status Location OR Service Patient Class Case Class Case Type Trauma Case? 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 Jang's office at [phone] or go to the emergency room. Avoid anything in the vagina for 2 weeks including but not limited to tampons/intercourse. Utilize over the counter pain medications for pain. Heating pads can help with cramping. * Attachments The following attachments cannot be sent through Care Everywhere. * General Anesthesia (Discharge Care) (Stateless) * Dilation and Curettage (Discharge Care) (Stateless) documented in this encounter Medications at Time [...] 90 mcg/actuation inhaler Not Taking -- -- ProviderMarie MD atorvastatin (LIPITOR) 20 mg tablet -- -- -- ProviderMarie MD busPIRone (BUSPAR) 10 mg tablet -- -- -- ProviderMarie MD canagliflozin (INVOKANA) 100 mg tablet -- -- -- ProviderMarie MD cetirizine (ZyrTEC) 10 mg tablet -- [...] 50 mg tablet -- -- -- Provider, MD Marie raNITIdine (ZANTAC) 150 mg tablet () Not [...] is Outpatient. Informed Consent: Discussed plan with MARRIAGE AND FAMILY COUNSELOR. Anesthesia plan and risks discussed with patient. [...] draped in the dorsal lithotomy position in [facility]. A speculum wasused to visualize the cervix [...] MD - Primary Anesthesiologist: Laith Polanco DO MARRIAGE AND FAMILY COUNSELOR: Jassi Rosa CRNA Aviation Electronic Warfare Operator: Charito Gilman RN Scrub: Jasmin Dumont ST; Williams, Toni M., RN Aviation Electronic Warfare Operator Second: Sarahi Oseguera CRNFA DATE OF SURGERY [...] draped in the dorsal lithotomy position in [facility]. A speculum wasused to visualize the cervix [...] MD - Primary Anesthesiologist: Laith Polanco DO MARRIAGE AND FAMILY COUNSELOR: Jassi Rosa CRNA; Kymberly Wong CRNA Aviation Electronic Warfare Operator: Charito Gilman RN Scrub: Jasmin Dumont ST Aviation Electronic Warfare Operator Second: Sarahi Oseguera CRNFA DATE OF SURGERY : 11/02/2022 Preoperative Diagnosis: PMB Postoperative Diagnosis: same Procedure(s): Procedure(s) (LRB): DILATION AND CURETTAGE, HYSTEROSCOPY, MYOSURE, POLYPECTOMY (N/A) Operative Findings: fibroid Estimated Blood Loss: 3 mL Intraoperative Fluids: 500 mls Specimens: ID Type Source Tests Collected by Time A : endometrial curettings Tissue Endometrial curettings SURGICAL PATHOLOGY Gerardo Tan MD 11/02/2022 1057 B : uterine polyp Tissue Polyp (s), Cervical / Endometrial SURGICAL PATHOLOGY Gerardo Tan MD 11/02/2022 1057 Implants: Nothing was implanted during the procedure Blood/Blood Products Transfused: 0 mls Complications: None Condition on Discharge from the operating room was stable Gerardo Tan MD Date: 11/02/2022 Time: 11:05 AM No Resident involved on case * Pre-Procedure Instructions - Jamaica Guy RN - 10/26/2022 3:50 PM CDT Images from the original note were not included. [address] [address] Surgery Reminder Checklist: Please arrive to [facility] for scheduled surgery [...] If you would like to come to [facility] we can give you a bottle forFREE. Hours: Wednesday - Wednesday 8 AM - 4:30PM. Go to the main entrance and ask the manager front for Hibiclens Soap. If you go to [facility], park underneath Entrance A drive thru and call [phone] and ask for the surgery soap. We [...] Dairy, Milk Products, Creamer, Red Gatorade or Yellow Medicine Juice) Nothing by mouth the 2 hours prior to your procedure, NOT EVEN WATER. [place] your teeth morning of procedure. Use mouth [...] please call the Admission Testing Center at [phone]. Morning of surgery question/concerns, please call Outpatient Surgery at [phone]. Thank You for choosing [facility]'s Surgery department! documented in this encounter Plan of Treatment Not on file documented as of this encounter Procedures Procedure Name Priority Date/Time Associated Diagnosis Comments EXAM UNDER ANESTHESIA - VAGINAL WITH REPAIR 11/02/2022 1:05 PM CDT Post operative bleeding SURGICAL PATHOLOGY Routine 11/02/2022 10 :57 AM CDT Dysmenorrhea POCT CREATININE FOR CONTRAST EVALUATION Routine 11/02/2022 10:06 AM CDT POC BLOOD GAS AND CHEMISTRIES, VENOUS Routine 11/02/2022 9:56 AM CDT POCT HCG, URINE Routine 11/02/2022 9:41 AM CDT documented in this encounter Results * Surgical pathology (11/02/2022 10:57 AM CDT) Tissue (Endometrial curettings) 11/02/2022 10:57 AM CDT Tissue (Polyp (s), Cervical / Endometrial) 11/02/2022 10:57 AM CDT Narrative PATHOLOGY [facility] - 11/03/2022 3:33 PM CDT [facility] Department of Pathology [address] [place] [address] ?? Note to Patients: ??This report may [...] : ??1970 (Age: 52) Gender: ??F Address: ??[address] [place], [place] ??[address] [facility] #: [id number] Service: Surgery Location: Patient Type: [facility] OUTPATIENT ? Taken: 11/02/2022 Received: 11/02/2022 Accessioned: [...] B1. ??Jar 0. ? mr2mhb/11/02/2022 13:12 Kathy Zamora, , PA (ASC Microscopic slide review and interpretation for this case was performed at [facility], Department of Surgical Pathology, [address] [facility] [place], [place] [id number], ??[facility], [place] ??[address] ?? CLIA # [id number] Gerardo Tan MD LAB PATHOLOGY ORDERABLES Fi nal Result Performing Organization Address City/[facility] Co de Phone Number PATHOLOGY [facility] * (ABNORMAL) POCT creatinine for contrast evaluation (11/02/2022 10:06 AM CDT) Creatinine POC 0.50(L) 0.60 - 1.10 mg/dL BARBARA Comment:Testing performed by : [address] [address] Blood 11/02/2022 10:0 6 AM CDT 11/02/2022 10:06 AM CDT Gerardo Tan MD POINT OF CARE TEST ORDERABL ES Final Result Performing Organization Address [facility] de Phone Number [facility] [address] [facility] [place] [address] * POC Blood Gas and Chemistries, Venous - (11/02/2022 9:56 AM CDT) pH,teresa POC 7.36 7.32 - 7.43 BARBARA Comment:Testing performed by : [address] [address] pCO2, teresa POC 48 40 - 50 mmHg BARBARA Comment:Testing performed by : [address] [address] pO2,teresa POC 47 mmHg BARBARA Comment: Interpretive Data No reference range established. Current interpretive data was last revised 2019. Testing performed by: [address] [address] HCO3, teresa (Calc) POC 27 20 - 30 mmol/L BARBARA Comment:Testing performed by : [address] [address] Base excess, teresa POC 1 mmol/L [facility]BARA Comment: Interpretive Data No reference range established. Current interpretive data was last revised 2019. Testing performed by: [address] [address] Hemoglobin, teresa POC 15.0 11.9 - 15.5 g/dL BARBARA Comment:Testing performed by : [address] [address] Hematocrit, teresa POC 44.0 35.6 - 45.5 % BARBARA Comment:Testing performed by : [address] [address] Sodium, teresa POC 140 135 - 145 mmol/L BARBARA Comment:Testing performed by : [address] [address] Potassium, teresa POC 3.9 3.3 - 4.9 mmol/L BARBARA Comment: Interpretive Data This method is not able to assess for hemolysis, which may falsely increase potassium concentrations. If further testing is needed to evaluate this result, consider in-laboratory plasma potassium. Current Interpretive Data was last revised on 2022. Testing performed by: [address] [address] Glucose, teresa POC 153 70 - 199 mg/dL BARBARA Comment:Testing performed by : [address] [address] Ionized Calcium, teresa POC 4.90 4.45 - 5.25 mg/dL BARBARA Comment:Testing performed by : [address] [address] Blood 11/02/2022 9:56 AM CDT 11/02/2022 9:56 AM CDT us Gerardo Tan MD LAB POCT ORDERABLES - DEVIC E Final Result [facility] [address] [facility] [place] [address] * POCT hCG, urine (11/02/2022 9:41 AM [...] Given 11/02/2022 10:11 AM CDT 975 mg estradioL (ESTRACE) 0.01 % (0.1 mg/gram) vaginal cream As needed, Starting on Wed11/02/22 at 1328, Intra-Op Given 11/02/2022 1:28 PM CDT 21 g famotidine (PEPCID) tablet 20 mg 20 mg, [...] 10:11 AM CDT 30 mL/hr 30 mL/hr silver nitrate applicator As needed, Starting on Wed11/02/22 at 1329, Intra-Op Given 11/02/2022 1:29 PM CDT 2 Sticks documented in this encounter Discontinued Medications Medication [...] Count Last Ordered Date First Ordered Date HYDROmorphone (DILAUDID) injection 0.2 mg 1 11/02/2022 [...] ondansetron (ZOFRAN) injection 4 mg 1 11/02 Discharge Count Last Ordered Date First Orde red Date DISCHARGE PATIENT 1 11/02/2022 documented in this encounter Care Teams Senior Quality Analyst Relationship Specialty Start Date End Date Quintin Luna MD PCP - General Family Medicine 10/26/22 documented as of this encounter
--- OUTSIDE RECORDS SUMMARY | 2024-05-10 20:38 | XMS_ITS | Encounter Summary ---
Author Organization [facility] Healthcare Address [address] [place] [address] Care Team Providers Care Belt Maker Helper Name Role Phone Quintin Luna MD Primary Care Provider [phone] Reason for Visit * Auth/Cert (Routine) Specialty Diagnoses / Procedures Referred By Nicole t Referred To Contact Diagnoses POSTMENOPAUSAL BLEEDING Procedures [place] HYSTEROSCOPY BX ENDOMETRIUM&/POLYPC W/WO D&C DILATION AND CURETTAGE, HYSTEROSCOPY POSSIBLE MYOSURE, POSSIBLE POLYPECTOMY Referral ID Status Reason Start Date Expiration Date Visits Re quested Visits Authorized [id number] 1 1 Encounter Details Date Type Department Care Team (Late st Contact Info) Description 11/02/2022 9:07 AM CDT - 11/02/2022 3:39 PM CDT Hospital Encounter [facility] OR [address] [place] [id number] Gerardo Tan MD [address] [address] Dysmenorrhea Discharge Disposition: Discharge to home or self care Social History Tobacco Use Types Packs/Day Years [...] on file 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 Jang's office at [phone] or go to the emergency room. Avoid anything in the vagina for 2 weeks including but not limited to tampons/intercourse. Utilize over the counter pain medications for pain. Heating pads can help with cramping. * Attachments The following attachments cannot be sent through Care Everywhere. * General Anesthesia (Discharge Care) (Togolese) * Dilation and Curettage (Discharge Care) (Togolese) documented in this encounter Medications at Time [...] in this encounter H&P Notes * Laith Polanco DO - 11/02/2022 1:47 PM CDT I have [...] is Outpatient. Informed Consent: Discussed plan with BURR BENCH HAND. Anesthesia plan and risks discussed with patient. [...] draped in the dorsal lithotomy position in [facility]. A speculum wasused to visualize the cervix [...] MD - Primary Anesthesiologist: Laith Polanco DO BURR BENCH HAND: Jassi Rosa CRNA Wash Oil Pump Operator: Charito Gilman RN Scrub: Jasmin Dumont ST; Nakul Tavares RN Wash Oil Pump Operator Second: Sarahi Oseguera CRNFA DATE OF [...] draped in the dorsal lithotomy position in [facility] [place]. A speculum wasused to visualize the cervix [...] MD - Primary Anesthesiologist: Laith Polanco DO BURR BENCH HAND: Jassi Rosa CRNA; Kymberly Wong CRNA Wash Oil Pump Operator: Charito Gilman RN Scrub: Jasmin Dumont ST Wash Oil Pump Operator Second: Sarahi Oseguera CRNFA DATE OF [...] from the original note were not included. [place] [address] Surgery Reminder Checklist: Please arrive to [facility] for scheduled surgery on [...] If you would like to come to [facility] we can give you a bottle forFREE. Hours: Wednesday - Wednesday 8 AM - 4:30PM. Go to the main entrance and ask the front line leader for Hibiclens Soap. If you go to [facility], park underneath Entrance A drive thru and call [phone] and ask for the surgery soap. We [...] Dairy, Milk Products, Creamer, Red Gatorade or [place] Juice) Nothing by mouth the 2 hours prior to your procedure, NOT EVEN WATER. [place] your teeth morning of procedure. Use mouth [...] please call the Admission Testing Center at [phone]. Morning of surgery question/concerns, please call Outpatient Surgery at [phone]. Thank You for choosing [facility]'s Surgery department! documented in this [...] Endometrial) 11/02/2022 10:57 AM CDT Narrative PATHOLOGY [facility] - 11/03/2022 3:33 PM CDT [facility] Department of Pathology [address] [place] [address] ?? Note to Patients: ??This report may [...] : ??1970 (Age: 52) Gender: ??F Address: ??[address] [place] [address] ??[address] Hospital #: [id number] Service: Surgery Location: Patient Type: E SDS OUTPATIENT ? Taken: 11/02/2022 Received: 11/02/2022 Accessioned: [...] interpretation for this case was performed at [facility], Department of Surgical Pathology, [address] [facility] [place], [place] [id number], ??[place], [place] ??[address] ?? CLIA # [id number] Gerardo Tan MD LAB PATHOLOGY ORDERABLES Fi nal Result PATHOLOGY [facility] * (ABNORMAL) POCT creatinine for contrast evaluation (11/02/2022 10:06 AM CDT) Creatinine POC 0.50(L) 0.60 - 1.10 mg/dL BARBARA BERTRAND Comment:Testing performed by : [address] [address] Blood 11/02/2022 10:0 6 AM CDT 11/02/2022 10:06 AM CDT Gerardo Tan MD POINT OF CARE TEST ORDERABL ES Final Result Performing Organization Address City/[facility] Co de Phone Number [facility] Department [place] [address] * POC Blood Gas and Chemistries, Venous - (11/02/2022 9:56 AM CDT) pH,teresa POC 7.36 7.32 - 7.43 BARBARA BERTRAND Comment:Testing performed by : [address] [address] pCO2, teresa POC 48 40 - 50 mmHg BARBARA Comment:Testing performed by : [address] [address] pO2,teresa POC 47 mmHg BARBARA Comment: Interpretive Data No reference range established. Current interpretive data was last revised 2019. Testing performed by: [address] [address] HCO3, teresa (Calc) POC 27 20 - 30 mmol/L BARBARA Comment:Testing performed by : [address] [address] Base excess, teresa POC 1 mmol/L BARBARA Comment: Interpretive Data No reference range established. Current interpretive data was last revised 2019. Testing performed by: [address] [address] Hemoglobin, teresa POC 15.0 11.9 - 15.5 g/dL BARBARA Comment:Testing performed by : [address] [address] Hematocrit, teresa POC 44.0 35.6 - 45.5 % BARBARA Comment:Testing performed by : [address] [address] Sodium, teresa POC 140 135 - 145 mmol/L BARBARA Comment:Testing performed by : [address] [address] Potassium, teresa POC 3.9 3.3 - 4.9 mmol/L [facility]BARA Comment: Interpretive Data This method is not able to assess for hemolysis, which may falsely increase potassium concentrations. If further testing is needed to evaluate this result, consider in-laboratory plasma potassium. Current Interpretive Data was last revised on 2022. Testing performed by: [address] [address] Glucose, teresa POC 153 70 - 199 mg/dL BARBARA Comment:Testing performed by : [address] [address] Ionized Calcium, teresa POC 4.90 4.45 - 5.25 mg/dL BARBARA Comment:Testing performed by : [address] [address] Blood 11/02/2022 9:56 AM CDT 11/02/2022 9:56 AM CDT us Gerardo Tan MD LAB POCT ORDERABLES - DEVIC E Final Result [facility] [address] [facility] Department [place] [address] * POCT hCG, urine (11/02/2022 9:41 AM CDT) HCG, ur, POC Negative Lot Number [id number] QC Backgroud Clear Acceptable QC Control Line Acceptable Urine 11/02/2022 9:41 AM CDT us Jaime Stone MD POINT OF CARE TEST ORDERABLES Final Result documented in this encounter Visit Diagnoses Diagnosis Dysmenorrhea documented in this encounter Administered Medications Inactive Administered [...] 11/02/2022 documented in this encounter Care Teams Belt Maker Helper Relationship Specialty Start Date End Date Quintin Luna MD PCP - General Family Medicine 10/26/22 documented as of this encounter
--- OUTSIDE RECORDS SUMMARY | 2024-05-10 20:38 | XMS_ITS | Encounter Summary ---
Author Organization [facility] Healthcare Address [address] [place] [address] Care Team Providers Care College Administrator Name Role Phone Quintin Luna MD Primary Care Provider [phone] Reason for Referral * Cardiology (Routine) - Closed Specialty Diagnoses / Procedures Referred By Contac t Referred To Contact Diagnoses Pre-op testing Procedures ECG 12 lead Jaime Stone MD [address] [place] [address] Phone: tel: fax: [address] [phone] Referral ID Status Reason Start Date Expiration Date Visits Re quested Visits Authorized [id number] Closed 10/27/2022 11/26/2023 1 1 Encounter Details Date Type Department Care Team (Late st Contact Info) Description 10/27/2022 Orders Only [facility] Pre Admit Testing [address] [place] [phone] Erna Acosta RN Pre-op testing (Primary Dx) Social History Tobacco Use Types [...] on file 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 RN 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 Gender Identity Not on file Sexual Orientation Not on file documented as of this encounter Plan of Treatment Not on file documented as of this encounter Results * ECG 12 lead (10/27/2022 3:06 PM CDT) Ventricular Rate EKG/Min 56 BPM [facility] Atrial Rate 56 BPM [facility] [place]-Interval (MSEC) 128 ms [facility] QRS-Interval (MSEC) 90 ms [facility] QT-Interval (MSEC) 468 ms [facility] QTc 451 ms [facility] P [place] 14 degrees [facility] R [place] 12 degrees [facility] T [place] 132 degrees [facility] Diagnosis Sinus bradycardia T wave abnormality, consider anterior ischemia Abnormal ECG When compared with ECG of 27-OCT-2022 15:05, No significant change was found [facility] 10/27/2022 3:06 PM CDT 10/28/2022 2:11 PM CDT us Jaime Stone MD ECG ORDERABLES Fi nal Result [facility] documented in this encounter Visit Diagnoses Diagnosis Pre-op testing- Primary Unspecified pre-operative examination documented in this encounter Care Teams College Administrator Relationship Specialty Start Date End Date Quintin Lnua MD PCP - General Family Medicine 10/26/22 documented as of this encounter
--- OUTSIDE RECORDS SUMMARY | 2024-05-10 20:38 | XMS_ITS | Encounter Summary ---
Author Organization [facility] Address [address] [place] [address] Care Team Providers Care Driver Education Instructor Name Role Phone Unavailable Primary Care Provider Unavailabl e Encounter Details Date Type Department Care Team (Latest Contact Info) Description 09/18/1998 Outpatient Historical [facility] Vinod Carlos MD [address] [address] Acute conjunctivitis, unspecified (Primary Dx) Social History Tobacco Use Types Packs/Day Years Used Date Smoking Tobacco: Never Assessed Sex and Gender Information Value Date Recorded Sex Assigned at Not on file Gender Identity Not on file Sexual Orientation Not on file documented as of this encounter Plan of Treatment Not on file documented as of this encounter Visit Diagnoses Diagnosis Acute conjunctivitis, unspecified- Primary documented in this encounter
== END 2024-05-03 22:01 | disposition home or self-care (01) ==
PROVIDERS: Emergency Provider Emergency Medicine; PCP Family Medicine
DX: T14.8XXA Other injury of unspecified body region, initial encounter (principal); M16.0 Bilateral primary osteoarthritis of hip; M47.816 Spondylosis without myelopathy or radiculopathy, lumbar region; M47.812 Spondylosis without myelopathy or radiculopathy, cervical region; R90.82 White matter disease, unspecified; W10.9XXA Fall (on) (from) unspecified stairs and steps, initial encounter
CPT/HCPCS: 70450; 72125; 72131; 73502; 96372; 99284; A9270; J1885

== ENCOUNTER 2024-05-05 08:01 | Outpatient (CLI) | payer MEDICAID, SELFPAY ==
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
--- NOTE | 2024-05-18 22:05 | WPDSLEEPSTUD ---
Sleep Study Date of Study: 05/05/24 Ordering Provider: Luc Kearney APRN Interpreting Physician: Deanna Figueroa MD Sleep Study Type: Split Polysomnogram Height: 1.52 m Weight: 87.09 kg Body Mass Index: 37.5 Neck Circumference (inches): 18 [place]: 14 Reason for Sleep Study Hypersomnolence Sleep History Kelly Cleveland is a 53-year-old woman who has difficulty staying asleep. She has restless sensations in her legs and she has night sweats. She occasionally awakens from sleep feeling short of breath. She occasionally awakens at night with heartburn, belching or coughing. She always snores loudly enough that others complain. She frequently has difficulty sleeping when she has a cold. She occasionally wakes up gasping for breath at night. She frequently has breathing problems at night observed by others. She frequently sweats excessively at night. She occasionally does her heart pounding or beating irregularly at night. She occasionally falls asleep during the day, occasionally falls asleep involuntarily, and rarely falls asleep while driving. She occasionally has loss of muscle tone with strong emotion. She occasionally has daytime difficulties due to excessive sleepiness. She rarely feels paralyzed on waking or falling asleep. She occasionally has vivid dreamlike scenes upon awakening or falling asleep. She never feels afraid to go to sleep. She rarely has nightmares. She rarely remembers her dreams. She constantly has racing thoughts. She constantly has feelings of sadness, depression, and anxiety. She constantly notices parts of her body jerking. She constantly kicks at night. She always has crawling and aching feelings in her legs. She frequently has leg pain during the night. She occasionally awakens with morning jaw pain, occasionally grinds her teeth during sleep. She occasionally is bothered by pain during the day and occasionally is awakened by pain at night. She occasionally wakes up feeling stiff in the morning with sore achy muscles and pain in the neck and spine. She has memory problems and concentration difficulties. She reports that she has no social life. Normal bedtime is 10:00 p.m., falling asleep within 1 hour, typically waking between 3 and 4 times during the night, returning to sleep within 10 minutes. Her normal wake time is 4:00 a.m.. On weekends, bedtime is 11:00 p.m., wake time is 8:00 a.m.. She does sleep longer on weekends. She does not take naps generally in the afternoon or evening. However a short nap lasting 10-15 minutes may be refreshing on occasion. She is usually drowsy for 3 hours or longer after waking. She feels better in the morning compared to other times of day. Habits: Tobacco: Never smoker Caffeine : 2 servings per day Alcohol: none Recreational substances: none [facility] Past Medical History Medical History Kidney stones Degenerative joint disease Hyperlipidemia Type 2 diabetes mellitus Anxiety Hypertension Hypothyroidism Normal colonoscopy (2014) Surgical History Surgical History H/O elbow surgery (~2016) H/O shoulder surgery (~2009) History of thyroidectomy (2003) History of appendectomy (2001) Family History Family History Grandparent Diabetes mellitus Family history of mental disorder Depression Family history of malignant neoplasm of ovary Mother Family history of hypercholesterolemia Family history of mental disorder Depression Hypertension Cerebrovascular accident Family history of emphysema Other Arthritis Asthma Lung disease Social History Social History Social History: Surrogate medical decision maker: Angelica Cleveland, spouse. Code status: Full code. Smoking status: Never smoker Second hand tobacco smoke exposure: No Alcohol intake: never Substance use: never Substance use type: does not use Do You Feel Safe in your Home?: Yes Lack of Transportation: No Lack of Food: Never True Current Housing: I Have Housing Concerned About Future Housing: No Difficulty Paying Gas/Electric Bills: No Difficulty Paying for Meds: No Currently Unemployed: No Education: Don't Know Difficulty w/ Childcare or Family Care: No Additional living arrangements comments: Lives with spouse in [place]. Additional occupation/education comments: [employer]. Spiritual care concerns: No Medications Home Medications ?Medication ?Instructions ?Recorded ?Confirmed ?Type levothyroxine 100 mcg tablet 100 mcg PO DAILY #30 tabs 01/24/24 04/04/24 Rx pantoprazole 40 mg tablet,delayed 40 mg PO QAM #30 tabs 01/24/24 04/04/24 Rx release sertraline 50 mg tablet 50 mg PO DAILY #30 tabs 01/24/24 04/04/24 Rx losartan 50 mg tablet 50 mg PO DAILY 02/07/24 04/04/24 History hydroxyzine HCl 25 mg tablet 25 mg PO TID PRN itching #60 tabs 03/08/24 04/04/24 Rx atorvastatin 40 mg tablet 40 mg PO DAILY #90 tabs 03/10/24 04/04/24 Rx eszopiclone 2 mg tablet 2 mg PO ONCE #1 tablet 03/27/24 04/04/24 Rx canagliflozin 100 mg tablet 100 mg PO DAILY #30 tabs 04/03/24 04/04/24 Rx (Invokana) amoxicillin 875 mg-potassium 1 tablet PO BID #20 tabs 04/04/24 04/04/24 Rx clavulanate 125 mg tablet nystatin 100,000 unit/gram topical 1 applic topical DAILY #30 grams 04/04/24 04/04/24 Rx cream semaglutide 14 mg tablet (Rybelsus) 14 mg PO DAILY #30 tabs 05/11/24 Rx Sleep Procedure A split night polysomnogram using the [employer] multi-channel system recorded the standard physiologic parameters including EEG, EOG, submentalis EMG, anterior tibialis EMG, EKG, body position, nasal and oral airflow using nasal pressure sensor and thermistor. Respiratory parameters of chest and abdominal movements were recorded with Respiratory Inductance Plethysmography belts. Oxygen saturation was recorded by pulse oximetry. Video monitoring was also performed. Sleep stages, periodic limb movements, and EEG arousals were scored in 30 second epochs according to the criteria of the AASM Scoring Manual. The Apnea-Hypopnea Index was calculated using CMS guidelines for definition of hypopnea while scoring respiratory events. After the baseline portion the patient met criteria for a titration with an AHI of 5.3 and desaturation to 87%. She used a small ResMed AirFit F20 fullface mask. At the beginning of the study she attempted to use the in 30 I but did not like the fit. Around 530 in the morning she did decide to use the and 30 I because the top of her nose was uncomfortable from the F20 mask. She was titrated from CPAP 5, to 7 cm, and the final pressure was 9 cm. Sleep Architecture Baseline During the diagnostic portion of the study, the total recording time was 229.2 minutes. The total sleep time was 171.0 minutes. Sleep latency was 21.2 minutes. REM latency was 97.0 minutes. Sleep Efficiency was 74.6%. The patient had 14 awakenings for an awakening index of 4.9. Wake after sleep onset time was 37.0 minutes. The patient spent 12.5 minutes, 7.3% of total sleep time in Stage N1. The patient spent 92.5 minutes, 54.1% in Stage N2. The patient spent 52.5 minutes, 30.7% in Stage N3. The patient spent 13.5 minutes, 7.9% in Stage REM sleep. Titration At 12:45:51 AM the patient was placed on PAP treatment and was titrated at pressures ranging from 5 cm to 9 cm. During the treatment portion of the study, the total recording time was 320.3 minutes. The total sleep time was 252.0 minutes. Sleep latency was 13.0 minutes. REM latency was 29.0 minutes. Sleep Efficiency was 78.7%. Wake after Sleep Onset time was 55.5 minutes. The patient spent 21.5 minutes, 8.5% of total sleep time in Stage N1. The patient spent 134.0 minutes, 53.2% in Stage N2. The patient spent 2.0 minutes, 0.8% in Stage N3. The patient spent 94.5 minutes, 37.5% in Stage REM. Respiratory Analysis Baseline During the diagnostic portion of the study, the patient had 17 hypopneas, no obstructive, mixed or central apneas for an overall Apnea Hypopnea Index of 5.3 events per hour. The REM Apnea Hypopnea Index was 31.1. The NREM Apnea Hypopnea Index was 4.2. The patient had a Central Apnea Hypopnea Index of 0. There were no Respiratory Effort Related Arousals. The Respiratory Disturbance Index is 7.0 events per hour. There was no evidence of Henrry-Velazco Respirations. Titration During the treatment portion of the study, the patient had 6 hypopneas, no obstructive apneas, 1 mixed apnea, and no central apneas for an overall Apnea Hypopnea Index of 1.7 events per hour. The REM Apnea Hypopnea Index was 0. The NREM Apnea Hypopnea Index was 2.7. The patient had a Central Apnea Hypopnea Index of 0. There were no Respiratory Effort Related Arousals. The Respiratory Disturbance Index is 4.3 events per hour. There was no evidence of Henrry-Velazco Respirations. Arousals Baseline During the diagnostic portion of the study, there were a total of 40 arousals for an arousal index of 14.0. There were 2 respiratory arousals for an index of 0.7. There were 10 periodic limb movement arousals for an index of 3.5. There were 2 isolated limb movement arousals for an index of 0.7. There were 26 spontaneous arousals for an index of 9.1. Titration During the treatment portion of the study, there were a total of 48 arousals for an index of 11.4. There were 2 respiratory arousals for an index of 0.5. There were 21 periodic limb movement arousals for an index of 5.0. There were 4 isolated limb movement arousals for an index of 1.0. There were 21 spontaneous arousals for an index of 5.0. Periodic Limb Movements Baseline During the diagnostic portion of the study, the patient had 2 isolated limb movements with an index of 0.7. The patient had 186 periodic limb movements with an index of 65.3. The patient had a total of 188 limb movements with a total limb movement index of 66.0. Titration During the treatment portion of the study, the patient had 4 isolated limb movements with an index of 1.0. The patient had 301 periodic limb movements with an index of 71.7. The patient had a total of 305 limb movements with a total limb movement index of 72.6. Oximetry Data Baseline During the diagnostic portion of the study, the patient had an average oxygen saturation of 93.9% in wake with a minimum oxygen saturation of 86% and a maximum oxygen saturation of 100%. The patient had an average oxygen saturation of 93.8% in sleep with a minimum oxygen saturation of 87% and a maximum oxygen saturation of 100%. The patient had 45 oxygen desaturations resulting in an Oxygen Desaturation Index of 16.1. The patient spent 0.9 minutes, 0.4% of total sleep time with an oxygen saturation less than 88%. Titration During the treatment portion of the study, the patient had an average oxygen saturation of 94.2% in wake with a minimum oxygen saturation of 89% and a maximum oxygen saturation of 98%. The patient had an average oxygen saturation of 92.5% in sleep with a minimum oxygen saturation of 86% and a maximum oxygen saturation of 96%. The patient had 45 oxygen desaturations resulting in an Oxygen Desaturation Index of 10.7. The patient spent 1.6 minutes, 0.5% total sleep time with an oxygen saturation less than 88%. Snoring Profile Snoring was continuous and mild, eliminated during the titration. Cardiac Profile Baseline During the diagnostic portion of the study, the EKG showed normal sinus rhythm. The average pulse rate was 55.1 bpm. The minimum pulse rate was 49 bpm. The maximum pulse rate was 76 bpm. No arrhythmias noted. Titration During the treatment portion of the study, the EKG showed normal sinus rhythm. The average pulse rate was 54.7 bpm. The minimum pulse rate was 45 bpm. The maximum pulse rate was 75 bpm. No arrhythmias noted. EEG Profile EEG was unremarkable, no evidence of seizures. Assessment and Plan Assessment and Plan (1) Obstructive sleep apnea: Code(s): G47.33 - Obstructive sleep apnea (adult) (pediatric) Status: Acute Assessment and Plan: This split night sleep study on 05/05/2024 shows mild obstructive sleep apnea, the apnea-hypopnea index using a 4% criteria is 5.3, and the apnea-hypopnea index using a 3% criteria is 7.4. She had desaturation to 87% and s continuous mild snoring. Patient met criteria for treatment with a medical comorbidity of hypertension. The optimal pressure during this study was CPAP 7 cm. Supine REM occurred at this pressure. The residual apnea-hypopnea index was 0.6. The patient used a small ResMed F20 fullface mask initially, switched to a small ResMed AirFit N30 I nasal mask. She needs to have a proper mask fitting as neither of these was completely comfortable. Mask comfort is essential, and this patient needs a mask refitting before starting use of positive airway treatment for obstructive sleep apnea. The patient should be prescribed this ResMed equipment and an appropriate mask with tubing, filters and reservoir. This should be used with all episodes of sleep. Compliance should be reviewed within 31-90 days of starting therapy for usage greater than 4 hours per night greater than 70% of the nights. The patient should be asked about symptoms such as excessive daytime sleepiness, quality of sleep, decreased nocturia, increased mental functioning such as memory, mood, and concentration. BMI is 37. Weight management is advised. Clinical data suggests that weight loss of 10% can reduce the severity of respiratory events and snoring and improve AHI by as much as 25%. (2) PLMD (periodic limb movement disorder): Code(s): G47.61 - Periodic limb movement disorder Status: Acute Assessment and Plan: The patient has a history of frequent kicking at night and constant uncomfortable feelings in her legs at night. During this study she had an elevated periodic limb movement index, 65 on the baseline and 71 on the treatment portion. She did not have arousals linked to the leg movements, however sleep was fragmented especially on the baseline. Ferritin level is indicated to exclude iron deficiency anemia as a contributing factor. Ferritin should be 75 ng/mL or greater. If ferritin is below this, iron supplementation should be given to achieve ferritin of 75 ng/mL. There are nonpharmacologic methods to treat limb movements including daily exercise, stretching calf muscles before bed, avoiding excessive amounts of caffeine and alcohol, vitamin B supplementation, magnesium lotion massaged into legs before bed, and use of a weighted blanket. Pharmacologic therapy is very effective for restless legs syndrome and limb movements during sleep and may include anerh-[id number] voltage-gated calcium channel ligands such as gabapentin which is preferable to dopaminergic agents which can have augmentation. Other treatments can include opioids and benzodiazepines. Data The data obtained during this sleep study is adequate for interpretation. Certification This sleep study has been reviewed by a board certified sleep medicine physician.
[2024-05-18 22:07] VITALS: BMI 37.5
== END 2024-05-06 06:24 | disposition home or self-care (01) ==
LOC: ANHCSM 08:01
PROVIDERS: PCP Family Medicine; Visit Provider Nurse Practitioner Family
DX: G47.33 Obstructive sleep apnea (adult) (pediatric) (principal)
CPT/HCPCS: 95811

== ENCOUNTER 2024-05-30 12:40 | Outpatient (CLI) | payer MEDICAID, SELFPAY ==
--- OUTSIDE RECORDS SUMMARY | 2024-06-01 18:18 | XMS_ITS | Encounter Summary ---
Author Organization [facility] Address 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
--- OUTSIDE RECORDS SUMMARY | 2024-06-01 18:18 | XMS_ITS | Encounter Summary ---
Author Organization [facility] Address 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
--- OUTSIDE RECORDS SUMMARY | 2024-06-01 18:18 | XMS_ITS | CONTINUITY OF CARE DOCUMENT ---
Author Name darvin boston Address Unknown Organization [facility] Address [address] [place] [address] [address] [place] [address] Phone [phone] Care Team Providers Care Migrant Leader Name Role Phone ELIAZAR WHITE MD Unavailable [phone] INSURANCE PROVIDERS Payer name Policy type / Coverage type Audra red alliance party ID [employer] MEDICAID Medicaid [id number]
--- OUTSIDE RECORDS SUMMARY | 2024-06-01 18:18 | XMS_ITS | Referral Summary ---
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 FINAL REPORT ACC# ??Date Time ??Exam [id number] Mar 07, 2013 10:28:00 BMV [id number] Van Screening Mamm ?? Technologist(s): Madelaine Aleman; ; EXAMINATION: ??Mammogram Technique: Bilateral Full-Field Digital Screening Mammogram was performed. ??Views obtained: ??bilateral craniocaudal and bilateral mediolateral oblique. Computer Aided Detection was performed with [employer].3 version 9.3. Mammogram Findings: This is a [...] M.D. FINAL REPORT ACC# Date Time Exam [id number] Mar 07, 2013 10:28:00 BMV [id number] Van Screening Mamm Technologist(s): Madelaine Aleman; ; EXAMINATION: Mammogram Technique: Bilateral Full-Field Digital Screening Mammogram was performed. Views obtained: bilateral craniocaudal and bilateral mediolateral oblique. Computer Aided Detection was performed with [employer].TV.3 version 9.3. Mammogram Findings: This is a [...] Most Recently Relevant to Health Maintenance Insurance [facility] PLAN LUCHO VALENZUELA [id number] [facility] Care Teams Clip Wrapper Relationship Specialty Start Date End Date Quintin Luna MD PCP - General Family Medicine 10/26/22
--- OUTSIDE RECORDS SUMMARY | 2024-06-01 18:18 | XMS_ITS | Clinical Summary ---
Author Organization 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 FINAL REPORT ACC# ??Date Time ??Exam [id number] Mar 07, 2013 10:28:00 BMV [id number] Van Screening Mamm ?? Technologist(s): Madelaine Aleman; ; EXAMINATION: ??Mammogram Technique: Bilateral Full-Field Digital Screening Mammogram was performed. ??Views obtained: ??bilateral craniocaudal and bilateral mediolateral oblique. Computer Aided Detection was performed with [employer] 1.3 version 9.3. Mammogram Findings: This is [...] M.D. FINAL REPORT ACC# Date Time Exam [id number] Mar 07, 2013 10:28:00 BMV [id number] Van Screening Mamm Technologist(s): Madelaine Aleman; ; EXAMINATION: Mammogram Technique: Bilateral Full-Field Digital Screening Mammogram was performed. Views obtained: bilateral craniocaudal and bilateral mediolateral oblique. Computer Aided Detection was performed with [employer] 1.3 version 9.3. Mammogram Findings: This is [...] Most Recently Relevant to Health Maintenance Insurance [id number] [place] [address] PLAN LUCHO VALENZUELA [id number] Care Teams Yard Warehouse Worker Relationship Specialty Start Date End Date Quintin Luna MD PCP - General Family Medicine 10/26/22
--- OUTSIDE RECORDS SUMMARY | 2024-06-01 18:18 | XMS_ITS | Clinical Summary ---
Author Organization [facility] [address] Address [facility] [place] [address] Care Team Providers Care Maintenance Truck Driver Name Role Phone Unavailable Primary Care Provider Unavailabl e Immunizations Immunization Administration Dates Next Due (PFIZER)(12 YR UP) COVID-19 VACCINE - EMERGENCY USE AUTHORIZATION, MRNA, [id number](PF) 30 MCG/0.3 ML IM SUSP 07/19/2020,06/28/2020 Social History Tobacco Use Types Packs/Day Years Used Date Smoking Tobacco: Never Assessed Comments Unknown Sex and Gender Information Value Date Recorded Sex Assigned at Not on file 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
== END 2024-05-30 12:41 | disposition home or self-care (01) ==
LOC: ANHAUDIO 12:40
PROVIDERS: PCP Family Medicine
DX: H90.3 Sensorineural hearing loss, bilateral (principal); H65.499 Other chronic nonsuppurative otitis media, unspecified ear; H92.02 Otalgia, left ear; J01.90 Acute sinusitis, unspecified
CPT/HCPCS: 92557; 92567

== ENCOUNTER 2024-06-13 16:49 | Outpatient (CLI) | payer MEDICAID, SELFPAY ==
--- OUTSIDE RECORDS SUMMARY | 2024-06-13 16:53 | XMS_ITS | Clinical Summary ---
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 FINAL REPORT ACC# ??Date Time ??Exam [id number] Mar 07, 2013 10:28:00 BMV [id number] Van Screening Mamm ?? Technologist(s): Madelaine Aleman; ; EXAMINATION: ??Mammogram Technique: Bilateral Full-Field Digital Screening Mammogram was performed. ??Views obtained: ??bilateral craniocaudal and bilateral mediolateral oblique. Computer Aided Detection was performed with [employer]anner 1.3 version 9.3. Mammogram Findings: This is [...] M.D. FINAL REPORT ACC# Date Time Exam [id number] Mar 07, 2013 10:28:00 BMV [id number] Van Screening Mamm Technologist(s): Madelaine Aleman; ; EXAMINATION: Mammogram Technique: Bilateral Full-Field Digital Screening Mammogram was performed. Views obtained: bilateral craniocaudal and bilateral mediolateral oblique. Computer Aided Detection was performed with [employer] 1.3 version 9.3. Mammogram Findings: This is [...] Most Recently Relevant to Health Maintenance Insurance [id number] [place] [address] PLAN LUCHO VALENZUELA [id number] Care Teams Special Needs Child Caregiver Relationship Specialty Start Date End Date Quintin Luna MD PCP - General Family Medicine 10/26/22
--- OUTSIDE RECORDS SUMMARY | 2024-06-13 16:53 | XMS_ITS | CONTINUITY OF CARE DOCUMENT ---
Author Name darvin boston Address Unknown Organization [facility] Address [address] [place] [address] [address] [place] [address] Phone [phone] Care Team Providers Care Hospitality Intern Name Role Phone ELIAZAR WHITE MD Unavailable [phone] INSURANCE PROVIDERS Payer name Policy type / Coverage type Audra red republican ID [employer] MEDICAID Medicaid [id number]
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
--- OUTSIDE RECORDS SUMMARY | 2024-06-13 16:53 | XMS_ITS | Clinical Summary ---
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
--- OUTSIDE RECORDS SUMMARY | 2024-06-13 16:53 | XMS_ITS | Referral Summary ---
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 FINAL REPORT ACC# ??Date Time ??Exam [id number] Mar 07, 2013 10:28:00 BMV [id number] Van Screening Mamm ?? Technologist(s): Madelaine Aleman; ; EXAMINATION: ??Mammogram Technique: Bilateral Full-Field Digital Screening Mammogram was performed. ??Views obtained: ??bilateral craniocaudal and bilateral mediolateral oblique. Computer Aided Detection was performed with [email or web address] version 9.3. Mammogram Findings: This is a [...] M.D. FINAL REPORT ACC# Date Time Exam [id number] Mar 07, 2013 10:28:00 BMV [id number] Van Screening Mamm Technologist(s): Madelaine Aleman; ; EXAMINATION: Mammogram Technique: Bilateral Full-Field Digital Screening Mammogram was performed. Views obtained: bilateral craniocaudal and bilateral mediolateral oblique. Computer Aided Detection was performed with [email or web address] version 9.3. Mammogram Findings: This is a [...] Most Recently Relevant to Health Maintenance Insurance [facility] LUCHO VALENZUELA [id number] [facility] Care Teams Package Line Operator Relationship Specialty Start Date End Date Quintin Luna MD PCP - General Family Medicine 10/26/22
--- OUTSIDE RECORDS SUMMARY | 2024-06-13 16:53 | XMS_ITS | Encounter Summary ---
Author Organization [facility] Address 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
--- OUTSIDE RECORDS SUMMARY | 2024-06-13 16:54 | XMS_ITS | Encounter Summary ---
Author Organization [facility] Address 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
[2024-06-13 17:32] LABS: Anion Gap 8 mmol/L (4-12); Blood Urea Nitrogen 17 mg/dL (7-17); Calcium 8.6 mg/dL (8.4-10.2); Carbon Dioxide 30 mmol/L (22-30); Chloride 102 mmol/L (98-107); Cholesterol 158 mg/dL (0-200); Estimated Glomerular Filt Rate > 60; Glucose 119 mg/dL (65-110); HDL Direct 79 mg/dL; Potassium 4.1 mmol/L (3.4-5.0); Sodium 140 mmol/L (137-145); Triglycerides 87 mg/dL (<150)
[2024-06-13 18:57] LABS: LDL Cholesterol Direct 63 mg/dL
[2024-06-13 20:00] LABS: Iron 55 ug/dL (37-170); Percent Iron Saturation 18 % (20-50)
[2024-06-13 21:29] LABS: Hemoglobin A1C 7.2 % (<5.7)
== END 2024-06-13 16:50 | disposition home or self-care (01) ==
PROVIDERS: PCP Family Medicine; Visit Provider Student in an Organized Health Care Education/Training Program
DX: R79.89 Other specified abnormal findings of blood chemistry (principal); E78.2 Mixed hyperlipidemia; E11.9 Type 2 diabetes mellitus without complications; R53.83 Other fatigue
CPT/HCPCS: 36415; 80048; 80061; 82728; 83036; 83540; 83550; 84443

== ENCOUNTER 2024-07-06 02:27 | Day surgery (SDC) | payer MEDICAID, SELFPAY ==
[2024-06-26 15:09] VITALS: BMI 37.0
--- OUTSIDE RECORDS SUMMARY | 2024-07-06 02:35 | XMS_ITS | Data Portability ---
Author Organization [facility], Main Office Address [address] [place] [address] Care Team Providers Care Edge Beader Name Role Phone AMEE RODRIGUEZ Parts Sales Advisor JOSE VELASQUEZ Parts Sales Advisor [phone] LUCILA KING Primary Care Provider LUCILA KING Referring Provider [phone] Assessment Encounter Date Assessment Date Assessment LastModified by Organization Details LastModified Time 07/04/2024 07/04/2024 The patient has what appears to be a nondisplaced fracture of the base of the 5th metatarsal left foot. She is in a cam walker boot I have advised her she can bear full weight putting most of her weight on her heel when she walks. She will wear the cam walker boot for the next 3-4 weeks it has been about a little over 2 weeks since her injury. She will take it easy this should heal uneventfully as long as she is careful with it. As far as the patient has left hip goes she has chronic inflammation over the greater trochanteric region noted on x-ray at the tendinous attachment over the greater trochanter and has strained the area as well. We talked about treatment here she was asking for a shot of cortisone and we proceeded. Under sterile conditions I injected the patient's left hip trochanteric bursa in the office with 4 cc of 0.5% bupivacaine and 20 mg of Kenalog. Patient tolerated procedure well. We will also start a course of ibuprofen 800 mg t.i.d. with food I will see her back in a couple of weeks to see how she is doing and get new x-rays of her foot to make sure everything looks good. She voiced understanding and agree with the above plan she will call for any further problems difficulties or questions. [email or web address] Not available 07/04/2024 16:38:17 Plan of Treatment Reminders Order Date Submit Date Provider Last Modified By Organization Details Last Modified Time Details Appointments Any 5 2024 02:15P LUCHO Meyers Not available Not available Not available Lab None recorded. Referral None recorded. Procedures injection /aspirati on joint/bur sa (PROC) 2024 025 [email or web address] 1 In-Office Order, Internal Use Only DO Not Attach Compendium DO Not Attach Compendium, Do Not Delete/merge, [id number] 07/04/2024 15:44:52 Surgeries None recorded. Imaging None recorded. Medication Orders ibuprofen 800 mg tablet 2024 025 [email or web address] [facility]/Pharmacy #[id number], [address] [place], [address], 07/04/2024 16:53:22 bupivacai ne HCl 0.5 % (5 mg/mL) injection solution 2024 025 [email or web address] [facility] [address], [address], 07/04/2024 16:53:22 Kenalog 10 mg/mL suspensio n for injection 2024 025 [email or web address] [facility] [address], [address], 07/04/2024 16:53:22 Patient TargetsNo targets recorded. Patient InstructionsNo instructions recorded. Reason for Referral None Reported. Results Created Date Observation Date Name Description Value Unit Range Abnormal Flag Note LastModifiedBy Organization Detail LastModifiedTime 06/29/1906/16/2024 XR, foot, 3 or more view No observ ation record ed. [email or web address] Not Available 06/11 14:47:37 06/29/1906/16/2024 XR, ankle , 3 or more view No observ ation record ed. [email or web address] Not Available 06/11 14:47:37 Result Notes None recorded. Problems Name Problem SNOMED Code Status Onset Date Resolution Date Notes Provider Name and Address Organization Details Recorded Time Bilateral plantar fasciitis 9799213034767 9108 Active 2019 Not Available [facility] 3 16:39:48 Backache 313748808 Active Not Available [facility] 3 16:39:48 Ankle pain 920431949 Active 2019 Not Available [facility] 3 16:39:48 Ankle pain 282901748 Active 2019 Not Available [facility] 3 16:39:48 Dyslipidem ia 910377277 Active Not Available [facility] 3 16:39:48 Arthritis 9779855 Active 2019 Not Available [facility] 3 16:39:48 Hypothyroi dism 30740131 Active Not Available [facility] 3 16:39:48 Foot pain 18303700 Active 2019 Not Available [facility] 3 16:39:48 Diabetes mellitus 13205624 Active 2019 Not Available [facility] 3 16:39:48 Kidney stone 99699370 Active Not Available [facility] 3 16:39:48 Pain of left ankle joint 4657572148124 9103 Active 2024 IVELISSE Markham, [employer] [facility] [employer] [facility] 5 15:26:02 Trochanter ic bursitis of left hip 2852207436288 03 Active 2024 Nilsa Hope, YRN L null, [employer] [facility] [employer] [facility] 5 15:41:48 Closed fracture of base of fifth metatarsal bone 734691982 Active 2024 LUCHO Delaney [address], [place], [address] , [employer] [facility] [employer] [facility] 5 16:38:48 Strain of tendon of muscle of hip 653148504 Active 2024 LUCHO Delaney [address], [place], [address] , [employer] [facility] [employer] [facility] 5 16:39:33 Notes:ear problems, thyroid disease Problem Notes None recorded. Procedures Surgical History None recorded. Imaging Results Imaging Date Name Status LastModified by Organiz ation Details LastModified Time 06/16/2024 XR, foot, 3 or more view completed Information not available 06/29/2024 14:47:37 06/16/2024 XR, ankle, 3 or more view completed Information not available 06/29/2024 14:47:37 Procedure Notes None recorded. Medical Equipment None Reported. Allergies Allergen ID Allergen Name Allergen Category Reaction Reaction Severity Criticality Documentation Date Start Date Code Code System Note Provider Name and Address Organization Details Recorded Time 15886 Victoza medicatio n Not available Not available Not available 07/08/2022 58811 3 RxNorm Not Available [facility] 3 16:41:32 69032 codeine medicatio n Not available Not available Not available 07/08/2022 2670 RxNorm hives Not Available [facility] 3 16:41:32 36961 Substance with sulfonami de structure and antibacte rial mechanism of action (substanc e) medicatio n Not available Not available Not available 07/08/2022 68643 8003 SNOMED Not Available [facility] 3 16:41:32 56307 Risperdal medicatio n Not available Not available Not available 07/08/2022 50667 8 RxNorm Not Available [facility] 3 16:41:32 68867 Geodon medicatio n Not available Not available Not available 07/08/2022 14119 4 RxNorm Not Available [facility] 3 16:41:32 Medications Name Sig Start Date Stop Date Status Note LastModified by Organization Details LastModified Time losartan 50 mg tablet TAKE 1 TABLET BY MOUTH DAILY active Not Available Not Available No t Available glycopyrrol ate 1 mg tablet 07/04 completed Not Available Not Available Not Available cyclobenzap rine 10 mg tablet TAKE 1 TABLET BY MOUTH THREE TIMES DAILY FOR 7 DAYS NEEDED 07/04 completed Not Available Not Available Not Available atorvastati n 40 mg tablet TAKE 1 TABLET BY MOUTH DAILY active Not Available Not Available No t Available nystatin 100,000 unit/mL oral suspension SHAKE LIQUID AND TAKE 5 ML BY MOUTH FOUR TIMES DAILY 07/04 completed Not Available Not Available Not Available atorvastati n 20 mg tablet TK 1 T PO QD 07/04 completed Not Available Not Available Not Available cetirizine 10 mg tablet TK 1 T PO QD 07/04 completed Not Available Not Available Not Available azithromyci n 250 mg tablet 07/04 completed Not Available Not Available Not Available ibuprofen 800 mg tablet Take 1 tablet 3 times a day by oral route. 2024 active Not Available Not Available Not Avai lable fluconazole 150 mg tablet TAKE 1 TABLET BY MOUTH EVERY 7 DAYS NEEDED FOR RASH 07/04 completed Not Available Not Available Not Available ondansetron HCl 4 mg tablet TAKE 1 TABLET BY MOUTH DAILY NEEDED FOR NAUSEA OR VOMITING active Not Available Not Available No t Available bupivacaine HCl 0.5 % (5 mg/mL) injection solution Take 4 mL by injection route. 2024 active Not Available Not Available Not Avai lable prednisone 20 mg tablet TK 2 TS PO QD FOR 5 DAYS 07/04 completed Not Available Not Available Not Available Debrox 6.5 % ear drops INSTILL 5-10 DROPS INTO THE AFFECTED LEFT EAR TWICE DAILY UNTIL SYMPTOMS RESOLVE 07/04 completed Not Available Not Available Not Available permethrin 5 % topical cream APPLY TOPICALLY TO THE AFFECTED AREA 1 TIME. LEAVE ON FOR 8 TO 14 HOURS BEFORE WASHING OFF. APPLY FROM TOES TO THE SCALP 07/04 completed Not Available Not Available Not Available clindamycin HCl 150 mg capsule TAKE 3 CAPSULES BY MOUTH THREE TIMES DAILY 07/04 completed Not Available Not Available Not Available metronidazo le 500 mg tablet TAKE 1 TABLET BY MOUTH EVERY 8 HOURS 07/04 completed Not Available Not Available Not Available ketorolac 10 mg tablet TAKE 1 TABLET BY MOUTH EVERY 6 HOURS NEEDED FOR PAIN 07/04 completed Not Available Not Available Not Available meloxicam 7.5 mg tablet 07/04 completed Not Available Not Available Not Available levothyroxi ne 100 mcg tablet TAKE 1 TABLET BY MOUTH DAILY 07/04 completed Not Available Not Available Not Available levothyroxi ne 88 mcg tablet TK ONE T PO D 07/04 completed Not Available Not Available Not Available amoxicillin 875 mg tablet TK 1 T PO BID FOR 10 DAYS 07/04 completed Not Available Not Available Not Available dicyclomine 20 mg tablet TK 1 T PO TID AND HS IF NEEDED 07/04 completed Not Available Not Available Not Available Kenalog 10 mg/mL suspension for injection Take 2 mL by injection route. 2024 active [facility]: 0003- [phone]- [phone] Not Available Not Available Not Available cephalexin 500 mg capsule TAKE 1 CAPSULE BY MOUTH TWICE DAILY 07/04 completed Not Available Not Available Not Available pantoprazol e 40 mg tablet,yaneth yed release TAKE 1 TABLET BY MOUTH EVERY MORNING active Not Available Not Available No t Available simvastatin 20 mg tablet 07/04 completed Not Available Not Available Not Available metformin 1,000 mg tablet TK 1 T PO BID WITH THE MORNING AND JARRED MEAL 07/04 completed Not Available Not Available Not Available levothyroxi ne 125 mcg tablet TK 1 T PO D 07/04 completed Not Available Not Available Not Available nystatin 100,000 unit/gram topical cream APPLY TOPICALLY TO THE AFFECTED AREA DAILY 07/04 completed Not Available Not Available Not Available buspirone 10 mg tablet TAKE 1 TABLET BY MOUTH TWICE DAILY NEEDED FOR ANXIETY OR STRESS active Not Available Not Available No t Available levothyroxi ne 150 mcg tablet 07/04 completed Not Available Not Available Not Available nicotine 21 mg/24 hr daily transdermal patch APPLY 1 PATCH DAILY BY TRANSDERM AL ROUTE 07/04 completed Not Available Not Available Not Available gabapentin 300 mg capsule TAKE 1 CAPSULE BY MOUTH EVERY DAY AT BEDTIME active Not Available Not Available No t Available omeprazole 20 mg capsule,del ayed release TAKE 1 CAPSULE BY MOUTH DAILY 07/04 completed Not Available Not Available Not Available hydroxyzine HCl 25 mg tablet TAKE 1 TABLET BY MOUTH THREE TIMES DAILY NEEDED FOR ITCHING 07/04 completed Not Available Not Available Not Available ergocalcife rol (vitamin D2) 1,250 mcg (50,000 unit) capsule TAKE 1 CAPSULE BY MOUTH 1 TIME A WEEK FOR 24 WEEKS 07/04 completed Not Available Not Available Not Available diazepam [address] 1 TABLET INTO VAGINA EVERY NIGHT AT BEDTIME 07/04 completed Not Available Not Available Not Available lisinopril 10 mg-hydrochl orothiazide 12.5 mg tablet 07/04 completed Not Available Not Available Not Available levofloxaci n 500 mg tablet TK 1 T PO D 07/04 completed Not Available Not Available Not Available cefdinir 300 mg capsule TAKE 1 CAPSULE BY MOUTH TWICE DAILY 07/04 completed Not Available Not Available Not Available fluticasone propionate 50 mcg/actuati on nasal spray,suspe nsion 07/04 completed Not Available Not Available Not Available clotrimazol e 1 % topical cream APPLY TO THE AFFECTED AREA TWICE DAILY FOR 14 DAYS. 07/04 completed Not Available Not Available Not Available sertraline 50 mg tablet TAKE 1 TABLET BY MOUTH EVERY DAY 07/04 completed Not Available Not Available Not Available naproxen 500 mg tablet TAKE 1 TABLET BY MOUTH TWICE DAILY WITH MEALS FOR 30 DAYS 07/04 completed Not Available Not Available Not Available progesteron e micronized 100 mg capsule TK ONE C PO DAILY 07/04 completed Not Available Not Available Not Available amoxicillin 875 mg-potassiu m clavulanate 125 mg tablet TAKE 1 TABLET BY MOUTH TWICE DAILY 07/04 completed Not Available Not Available Not Available amoxicillin 500 mg-potassiu m clavulanate 125 mg tablet TAKE 1 TABLET BY MOUTH EVERY 12 HOURS 07/04 completed Not Available Not Available Not Available Ventolin HFA 90 mcg/actuati on aerosol inhaler INL 1 INHALATIO N PO Q 4 H 07/04 completed Not Available Not Available Not Available neomycin-po lymyxin-hyd rocort 3.5 mg-10,000 unit/mL-1 % ear drops,susp SHAKE LIQUID AND INSTILL 2 DROPS IN BOTH EARS FOUR TIMES DAILY 07/04 completed Not Available Not Available Not Available escitalopra m 10 mg tablet TK 1 T PO D 07/04 completed Not Available Not Available Not Available cyclobenzap rine 5 mg tablet TAKE 1 TABLET BY MOUTH THREE TIMES DAILY FOR 7 DAYS NEEDED FOR PAIN. MAY CAUSE DROWSINES S 07/04 completed Not Available Not Available Not Available rosuvastati n 20 mg tablet TAKE 1 TABLET BY MOUTH DAILY 07/04 completed Not Available Not Available Not Available nitrofurant oin monohydrate /macrocryst als 100 mg capsule TK 1 C PO Q 12 H FOR 5 DAYS 07/04 completed Not Available Not Available Not Available eszopiclone 2 mg tablet TAKE TABLET WITH YOU TO SLEEP LINK FOR SLEEP STUDY 07/04 completed Not Available Not Available Not Available Invokana 100 mg tablet TAKE 1 TABLET BY MOUTH DAILY active Not Available Not Available No t Available Invokana 300 mg tablet TAKE 1 TABLET BY MOUTH DAILY 07/04 completed Not Available Not Available Not Available Victoza 3-Lane 0.6 mg/0.1 mL (18 mg/3 mL) subcutaneou s pen injector INJECT 0.6 MG UNDER THE SKIN ONCE A WEEK 07/04 completed Not Available Not Available Not Available Farxiga 10 mg tablet TK 1 T PO QD IN THE MORNING 07/04 completed Not Available Not Available Not Available Xigduo XR 10 mg-1,000 mg tablet,exte nded release TK 1 T PO QD IN THE MORNING WF 07/04 completed Not Available Not Available Not Available Rybelsus 14 mg tablet TAKE 1 TABLET BY MOUTH DAILY active Not Available Not Available No t Available Rybelsus 7 mg tablet TAKE 1 TABLET BY MOUTH EVERY MORNING WITH A GLASS OF WATER AND 30 MINUTES PRIOR TO ANY OTHER MEDICATIO N AND FOOD. 07/04 completed Not Available Not Available Not Available Tyrvaya 0.03 mg/spray nasal spray USE 1 SPRAY IN EACH NOSTRIL TWICE DAILY 12 HOURS APART 07/04 completed Not Available Not Available Not Available Vitals Date Recorded Body height Body mass index (BMI) Body weight Pain severity - 0-10 verbal numeric rating [Score] - Reported Provider Name and Address Organization Details Last Updated DateTime 07/04/2024 152.4 cm 37.1 kg/m2 36613.55 g 7 IVELISSE Markham [facility] 07/04/2024 15:15:25 Social History Question Answer Notes LastModified by Organizat ion Details LastModified Time Tobacco Smoking Status Unknown If Ever Smoked IVELISSE Markham [facility] 07/04/2024 15:25:12 What Is Your Level Of Alcohol Consumption? None [email or web address] Information not available 07/04/2024 What Was The Date Of Your Most Recent Tobacco Screening? 07/04/2024 [email or web address] Information not available 07/04/2024 Sex: Unknown Functional Status None recorded. Mental Status None recorded. Family History Relationship Description Onset Age of this Age Resolved Age Notes LastModified by Organization Details LastModified Time Mother History of malignant neoplasm [email or web address] Not available 2024 15:24:47 Maternal Grandmother Diabetes mellitus [email or web address] Not available 2024 15:24:55 Notes:stroke - mother, cance r - mother & grandmother, blood clots - mother Medical History Condition Response DIABETES, TYPE Y HYPERTENSION Y Gynecological HistoryNo gynecological history recorded. Obstetrics History GPAL:G 0 P 0 0 0 0 Past Encounters Encounter ID Performer Location Encounter Start Date Encounter Closed Date Diagnosis/Indication Diagnosis SNOMED-CT Code Diagnosis ICD10 Code Diagnosis Note [id number] LUCHO Delaney [facility] [address] [place] [address] 07/04/2024 15:03:06 07/04/2024 16:33:29 Pain of left ankle joint 2430354677 5667153 M25.572 Trochanter ic bursitis of left hip 3113666404 24524 M70.62 Closed fra cture of base of fifth metatarsal bone 657628115 S92.355A Strain of tendon of muscle of hip 561762325 S76.012A Health Concerns Section Related Observation LastModified by Organization Detai ls LastModified Time None Recorded Concern Status LastModified by Organization Details LastModified Time None Recorded Advance Directives Directive None Recorded Payers Encounter Date Sequence Insurance Name Policy Number Policy Tripp Covered Member ID Tripp Member ID Guarantor Name 07/04/2024 [place] Prasanth [place] [employer] [place] Notes Date Note Type Note Provider Name and Address Organization Details Recorded Time 07/04/2024 text/html The patient is a 54-year-old female who presents with an injury to her left foot on June 16 of this year. She states she was walking when she stepped in a hole twisted her foot and also strained her left hip laterally. She did not fall on the hip but has aching pain over the lateral trochanteric region since that injury as well. The pain in her left foot was localized to the lateral base of the 5th metatarsal she reported some mild swelling. She had x-rays performed which demonstrated what appears to be a healing nondisplaced fracture through the base of the 5th metatarsal subtle findings are noted consistent with a fracture. Radiologist states that the findings suggest subacute to chronic fracture but her injury occurred that day by her report. I reviewed the x-rays in detail today with the patient and I agree there is a fracture. It is hard to say whether this is subacute or acute but her history was suggested it is more acute. She states she was not having pain in the foot prior to the injury. Views of the ankle did not show any fracture lesion or mass mortise is well-maintained I have reviewed the x-ray and I also agree with the above findings. The patient also had hip x-rays done in the left hip a few days ago as she was continuing to have some pain these were done elsewhere these were reviewed today in detail with the patient I do not have the radiology report but I do not see any acute findings no fractures lesions or masses. She does have some mild reactive changes noted at the inferior border of the greater trochanter consistent with chronic tendinosis at the attachment. She has lot of tenderness there denies any weakness has no groin pain no anterior thigh pain and denies any weakness or radicular pain. She is able to bear full weight most of the pain with weight-bearing is in the foot she is in a cam walker boot currently. She comes in today for initial evaluation treatment of all the above findings. New past medical history sheet was reviewed and signed on the intake sheet of today's date drug allergies current medications family social history previous surgical history 10 point review of systems was reviewed and discussed in detail today with the patient. LUCHO Delaney [address] [facility], [facility] [address], [place], [address], [place] [employer] 07/04/2024 16:41:11 OBGyn Episode No OBEpisode recorded.
--- OUTSIDE RECORDS SUMMARY | 2024-07-06 02:35 | XMS_ITS | Clinical Summary ---
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 FINAL REPORT ACC# Date Time Exam [id number] Mar 07, 2013 10:28:00 BMV [id number] [place] Screening Mamm Technologist(s): Madelaine Aleman; ; EXAMINATION: Mammogram Technique: Bilateral Full-Field Digital Screening Mammogram was performed. Views obtained: bilateral craniocaudal and bilateral mediolateral oblique. Computer Aided Detection was performed with SpunLive 1.3 version 9.3. Mammogram Findings: This is [...] RIVAS M.D. on Mar 08 2013 3:22P Procedure Note Provider, MD Marie - 08/30/2016 MARGARET RIVAS M.D. FINAL REPORT ACC# Date Time Exam [id number] Mar 07, 2013 10:28:00 BMV [id number] [place] Screening Mamm Technologist(s): Madelaine Aleman; ; EXAMINATION: Mammogram Technique: Bilateral Full-Field Digital Screening Mammogram was performed. Views obtained: bilateral craniocaudal and bilateral mediolateral oblique. Computer Aided Detection was performed with VetDC [employer]ac 1.3 version 9.3. Mammogram Findings: This is [...] Most Recently Relevant to Health Maintenance Insurance PLAN LUCHO VALENZUELA [id number] PLAN [place] VAL[place] [id number] Care Teams Shoe Clerk Relationship Specialty Start Date End Date Quintin Luna MD PCP - General Family Medicine 10/26/22
--- OUTSIDE RECORDS SUMMARY | 2024-07-06 02:35 | XMS_ITS | Encounter Summary ---
[facility] Organization [facility] Address 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
--- OUTSIDE RECORDS SUMMARY | 2024-07-06 02:35 | XMS_ITS | Encounter Summary ---
Author Organization [facility] Address 

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
--- OUTSIDE RECORDS SUMMARY | 2024-07-06 02:35 | XMS_ITS | CONTINUITY OF CARE DOCUMENT ---
Author Name darvin boston Address Unknown Organization [facility] Address [address] [place] [address] [address] [place] [address] Phone [phone] Care Team Providers Care Scientific Software Engineer Name Role Phone ELIAZAR WHITE MD Unavailable [phone] INSURANCE PROVIDERS Payer name Policy type / Coverage type Audra red libertarian ID ACE MEDICAID Medicaid [id number]
--- OUTSIDE RECORDS SUMMARY | 2024-07-06 02:35 | XMS_ITS | Clinical Summary ---
Author Organization [facility] [address] Address [facility] [place] [address] Care Team Providers Care Mid Level Net Developer Name Role Phone Unavailable Primary Care Provider Unavailabl e Immunizations Immunization Administration Dates Next Due (PFIZER)(12 YR UP) COVID-19 VACCINE - EMERGENCY USE AUTHORIZATION, MRNA, [id number](PF) 30 MCG/0.3 ML IM SUSP 07/19/2020,06/28/2020 Social History Tobacco Use Types Packs/Day Years Used Date Smoking Tobacco: Never Assessed Comments Unknown Sex and Gender Information Value Date Recorded Sex Assigned at Not on file 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
--- OUTSIDE RECORDS SUMMARY | 2024-07-06 02:35 | XMS_ITS | Referral Summary ---
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 FINAL REPORT ACC# Date Time Exam [id number] Mar 07, 2013 10:28:00 BMV [id number] [place] Screening Mamm Technologist(s): Madelaine Aleman; ; EXAMINATION: Mammogram Technique: Bilateral Full-Field Digital Screening Mammogram was performed. Views obtained: bilateral craniocaudal and bilateral mediolateral oblique. Computer Aided Detection was performed with BurudaConcert.3 version 9.3. Mammogram Findings: This is a [...] M.D. FINAL REPORT ACC# Date Time Exam [id number] Mar 07, 2013 10:28:00 BMV [id number] [place] Screening Mamm Technologist(s): Madelaine Aleman; ; EXAMINATION: Mammogram Technique: Bilateral Full-Field Digital Screening Mammogram was performed. Views obtained: bilateral craniocaudal and bilateral mediolateral oblique. Computer Aided Detection was performed with BurudaConcert.3 version 9.3. Mammogram Findings: This is a [...] Most Recently Relevant to Health Maintenance Insurance [place] [employer] VALEN[employer] [facility] [place] [address] [employer] [facility] Care Teams Cupola Liner Relationship Specialty Start Date End Date Quintin Luna MD PCP - General Family Medicine 10/26/22
[2024-07-06 07:40] VITALS: BP 163/80; PULSE 60; RESP 16; TEMP 35.7; O2SAT 100; BMI 39.1
--- NOTE | 2024-07-06 07:57 | WPDANESEPPF ---
Anes - Initial Pre Proc Eval Procedure: Operation Date: 07/06/24 08:30 Proposed Procedures p Colonoscopy - Lucas Santos MD Date/Time: 07/06/24 07:57 Surgeon: Lucas Santos MD Pre Op Diagnosis: colitis Patient Data Age: 54 Gender: F Height: 1.52 m Weight: 86.2 kg Allergies Allergy/AdvReac Type Severity Reaction Status Date / Time codeine Allergy Intermediate HIVES Verified 07/06/24 07:55 clarithromycin AdvReac Intermediate DIARRHEA Verified 07/06/24 07:55 metformin AdvReac Mild Diarrhea Verified 07/06/24 07:55 ciprofloxacin AdvReac Unknown JOINT PAIN Verified 07/06/24 07:55 Home Medications ?Medication ?Instructions ?Recorded ?Confirmed ?Type sertraline 50 mg tablet 50 mg PO DAILY #30 tabs 01/24/24 06/26/24 Rx amoxicillin 500 mg-potassium 1 tablet PO Q12H acute otitis 05/30/24 06/26/24 Rx clavulanate 125 mg tablet media #20 tabs (Augmentin) gabapentin 300 mg capsule 300 mg PO QHS #30 caps 05/31/24 07/06/24 Rx atorvastatin 40 mg tablet 40 mg PO DAILY #90 tabs 06/08/24 07/06/24 Rx hydroxyzine HCl 25 mg tablet 25 mg PO TID PRN itching #270 tabs 06/08/24 06/26/24 Rx levothyroxine 100 mcg tablet 100 mcg PO DAILY #90 tabs 06/08/24 07/06/24 Rx losartan 50 mg tablet 50 mg PO DAILY #90 tabs 06/08/24 07/06/24 Rx semaglutide 14 mg tablet (Rybelsus) 14 mg PO DAILY #90 tabs 06/08/24 07/06/24 Rx buspirone 10 mg tablet 10 mg PO BID PRN stress/anxiety 06/13/24 07/06/24 Rx #60 tabs canagliflozin 300 mg tablet 300 mg PO DAILY #90 tabs 06/19/24 07/06/24 Rx (Invokana) Patient hx anesthesia problems: none Family hx anesthesia problems: none Results Review: All pre-operative results and documents have been reviewed as part of the pre-operative evaluation. [facility] Past Medical History Medical History EVETTE (obstructive sleep apnea) Kidney stones Degenerative joint disease Hyperlipidemia Type 2 diabetes mellitus Anxiety Hypertension Hypothyroidism Normal colonoscopy (2015) Surgical History Surgical History H/O elbow surgery (~2017) H/O shoulder surgery (~2009) History of thyroidectomy (2003) History of appendectomy (2001) Family History Family History Grandparent Diabetes mellitus Family history of mental disorder Depression Family history of malignant neoplasm of ovary Mother Family history of hypercholesterolemia Family history of mental disorder Depression Hypertension Cerebrovascular accident Family history of emphysema Other Arthritis Asthma Lung disease Social History Social History Social History: Surrogate medical decision maker: Angelica Cleveland, spouse. Code status: Full code. Smoking status: Former smoker Second hand tobacco smoke exposure: No Alcohol intake: never Substance use: never Substance use type: does not use Do You Feel Safe in your Home?: Yes Lack of Transportation: No Lack of Food: Never True Current Housing: I Have Housing Concerned About Future Housing: No Difficulty Paying Gas/Electric Bills: No Difficulty Paying for Meds: No Currently Unemployed: No Education: Don't Know Difficulty w/ Childcare or Family Care: No Living arrangements: with family Additional living arrangements comments: Lives with spouse in [place]. Additional occupation/education comments: [employer]. Spiritual care concerns: No Anes - Eval Final PreProcedure Day of Procedure 07/06/24 07:57 Patient weight: obese Lungs: normal air movement Airway: Mallampati scale class III Neurological: alert and oriented Last oral intake: >/= 8 hours ASA classification: III Emergent: no Anesthetic plan: proceed Anesthesia type and monitoring: general GIVS and standard monitoring Results Review: All pre-operative results and documents have been reviewed as part of the pre-operative evaluation. EVETTE on CPAP, HTN, Hyperlipidemia, DM. Informed Consent: The patient's anesthetic plan and its attendant risks and benefits were discussed with the patient/family/POA. Questions were solicited and answers provided to the satisfaction of the patient/family/POA.
[2024-07-06 08:05] LABS: BEDSIDEPREGUCG Negative (Negative)
[2024-07-06] MEDS: LACTATED RINGERS 1,000 ML 150 ML IV CONT (08:14)
[2024-07-06 08:17] LABS: Glucose Point of Care 96 mg/dl (65-105)
--- NOTE | 2024-07-06 08:28 | PM.IMHP ---
H&P: HPI History of Present Illness Date/Time: 07/06/24 08:28 Chief Complaint: Screening colonoscopy Narrative: This is the patient's first colonoscopy. There are no GI symptoms and there is no family history of colorectal cancer. Review of Systems Review of Systems: All systems reviewed & are unremarkable except as noted in HPI and below PMFSH Past Medical History Medical History EVETTE (obstructive sleep apnea) Kidney stones Degenerative joint disease Hyperlipidemia Type 2 diabetes mellitus Anxiety Hypertension Hypothyroidism Normal colonoscopy (2014) Surgical History Surgical History H/O elbow surgery (~2016) H/O shoulder surgery (~2009) History of thyroidectomy (2003) History of appendectomy (2001) Family History Family History Grandparent Diabetes mellitus Family history of mental disorder Depression Family history of malignant neoplasm of ovary Mother Family history of hypercholesterolemia Family history of mental disorder Depression Hypertension Cerebrovascular accident Family history of emphysema Other Arthritis Asthma Lung disease Social History Social History Social History: Surrogate medical decision maker: Angelica Cleveland, spouse. Code status: Full code. Smoking status: Former smoker Second hand tobacco smoke exposure: No Alcohol intake: never Substance use: never Substance use type: does not use Do You Feel Safe in your Home?: Yes Lack of Transportation: No Lack of Food: Never True Current Housing: I Have Housing Concerned About Future Housing: No Difficulty Paying Gas/Electric Bills: No Difficulty Paying for Meds: No Currently Unemployed: No Education: Don't Know Difficulty w/ Childcare or Family Care: No Living arrangements: with family Additional living arrangements comments: Lives with spouse in [place]. Additional occupation/education comments: [employer]. Spiritual care concerns: No Meds Home Medications and Allergies Home Medications ?Medication ?Instructions ?Recorded ?Confirmed ?Type sertraline 50 mg tablet 50 mg PO DAILY #30 tabs 01/24/24 06/26/24 Rx amoxicillin 500 mg-potassium 1 tablet PO Q12H acute otitis 05/30/24 06/26/24 Rx clavulanate 125 mg tablet media #20 tabs (Augmentin) gabapentin 300 mg capsule 300 mg PO QHS #30 caps 05/31/24 07/06/24 Rx atorvastatin 40 mg tablet 40 mg PO DAILY #90 tabs 06/08/24 07/06/24 Rx hydroxyzine HCl 25 mg tablet 25 mg PO TID PRN itching #270 tabs 06/08/24 06/26/24 Rx levothyroxine 100 mcg tablet 100 mcg PO DAILY #90 tabs 06/08/24 07/06/24 Rx losartan 50 mg tablet 50 mg PO DAILY #90 tabs 06/08/24 07/06/24 Rx semaglutide 14 mg tablet (Rybelsus) 14 mg PO DAILY #90 tabs 06/08/24 07/06/24 Rx buspirone 10 mg tablet 10 mg PO BID PRN stress/anxiety 06/13/24 07/06/24 Rx #60 tabs canagliflozin 300 mg tablet 300 mg PO DAILY #90 tabs 06/19/24 07/06/24 Rx (Invokana) Allergies Allergy/AdvReac Type Severity Reaction Status Date / Time codeine Allergy Intermediate HIVES Verified 07/06/24 07:55 clarithromycin AdvReac Intermediate DIARRHEA Verified 07/06/24 07:55 metformin AdvReac Mild Diarrhea Verified 07/06/24 07:55 ciprofloxacin AdvReac Unknown JOINT PAIN Verified 07/06/24 07:55 Vital Signs Vital Signs - 24 hr 07/06/24 07:40 Temperature 96.2 F L Pulse Rate 60 Respiratory Rate 16 Blood Pressure 163/80 H Pulse Oximetry 100 Oxygen Delivery Room Air Assessment and Plan Assessment and plan (1) Encounter for screening colonoscopy: Code(s): Z12.11 - Encounter for screening for malignant neoplasm of colon Status: Acute Assessment and Plan: The patient is deemed a good candidate for the procedure. Consent signed. Will proceed.
[2024-07-06 09:07] VITALS: BP 104/50; PULSE 59; RESP 22; O2SAT 99
[2024-07-06 09:17] VITALS: BP 99/54; PULSE 58; RESP 20; O2SAT 99
[2024-07-06 09:27] VITALS: BP 150/77; PULSE 57; RESP 20; O2SAT 100
== END 2024-07-06 09:38 | disposition home or self-care (01) ==
PROVIDERS: PCP Family Medicine; Referring Provider Nurse Practitioner Family; Visit Provider Internal Medicine Gastroenterology
PROC: 0DJD8ZZ Inspection of Lower Intestinal Tract, Via Natural or Artificial Opening Endoscopic (ICD-10-PCS; CPT 45378; principal; 2024-07-06 08:30)
DX: Z12.11 Encounter for screening for malignant neoplasm of colon (principal); E11.9 Type 2 diabetes mellitus without complications; Z87.891 Personal history of nicotine dependence
CPT/HCPCS: 45378; 82948; J2003; J2704; J7120

== ENCOUNTER 2024-07-26 16:07 | Outpatient (CLI) | payer MEDICAID, SELFPAY ==
[2024-07-26 17:04] LABS: Alanine Aminotransferase 32 U/L (6-35); Albumin Level 3.9 g/dL (3.5-5.1); Alkaline Phosphatase 101 U/L (38-126); Anion Gap 6 mmol/L (4-12); Aspartate Amino Transferase 26 U/L (14-36); Bilirubin,Total 0.3 mg/dL (0.2-1.3); Blood Urea Nitrogen 19 mg/dL (7-17); Calcium 8.5 mg/dL (8.4-10.2); Carbon Dioxide 29 mmol/L (22-30); Chloride 104 mmol/L (98-107); Cholesterol 138 mg/dL (0-200); Estimated Glomerular Filt Rate > 60; Glucose 174 mg/dL (65-110); HDL Direct 69 mg/dL; Potassium 3.4 mmol/L (3.4-5.0); Sodium 139 mmol/L (137-145); Triglycerides 167 mg/dL (<150)
--- OUTSIDE RECORDS SUMMARY | 2024-07-26 17:14 | XMS_ITS | CONTINUITY OF CARE DOCUMENT ---
Author Name darvin boston Address Unknown Organization [facility] Address [address] [place] [address] [address] [place] [address] Phone [phone] Care Team Providers Care In Class Special Education Teacher Name Role Phone ELIAZAR WHITE MD Unavailable [phone] INSURANCE PROVIDERS Payer name Policy type / Coverage type Audra red alliance party ID [employer] MEDICAID Medicaid [id number]
--- OUTSIDE RECORDS SUMMARY | 2024-07-26 17:14 | XMS_ITS | Encounter Summary ---
Author Organization [facility] Address 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
--- OUTSIDE RECORDS SUMMARY | 2024-07-26 17:14 | XMS_ITS | Clinical Summary ---
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 FINAL REPORT ACC# Date Time Exam [id number] Mar 07, 2013 10:28:00 BMV [id number] [place] Screening Mamm Technologist(s): Madelaine Aleman; ; EXAMINATION: Mammogram Technique: Bilateral Full-Field Digital Screening Mammogram was performed. Views obtained: bilateral craniocaudal and bilateral mediolateral oblique. Computer Aided Detection was performed with Myxer 1.3 version 9.3. Mammogram Findings: This is [...] M.D. FINAL REPORT ACC# Date Time Exam [id number] Mar 07, 2013 10:28:00 BMV [id number] [place] Screening Mamm Technologist(s): Madelaine Aleman; ; EXAMINATION: Mammogram Technique: Bilateral Full-Field Digital Screening Mammogram was performed. Views obtained: bilateral craniocaudal and bilateral mediolateral oblique. Computer Aided Detection was performed with Houzz dooub 1.3 version 9.3. Mammogram Findings: This is a baseline study. The breasts are almost entirely fat. There is no suspicious abnormality in either breast. IMPRESSION: Annual screening mammography is recommended. OVERALL FINAL ASSESSMENT: BI-RADS CATEGORY 1: Negative. Requested By: MARIANN BURNETT M.D. Dictated By: AMRGARET RIVAS M.D. on Mar 08 2013 3:22P This document has been electronically signed by: MARGARET RIVAS M.D. on Mar 08 2013 3:22P Historical Provider MD [facility]ED[facility] Suzi l Result from Last 3 Months or Most Recently Relevant to Health Maintenance Insurance [employer] [place] VAL[place] [id number] [employer] [place] [id number] Care Teams Produce Runner Relationship Specialty Start Date End Date Quintin Luna MD PCP - General Family Medicine 10/26/22
--- OUTSIDE RECORDS SUMMARY | 2024-07-26 17:14 | XMS_ITS | Encounter Summary ---
Author Organization [facility] Address 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
--- OUTSIDE RECORDS SUMMARY | 2024-07-26 17:14 | XMS_ITS | Data Portability ---
Author Organization [place] [facility], Main Office Address [address] [place] [address] Care Team Providers Care Scale Shooter Name Role Phone AMEE RODRIGUEZ Dictaphone Operator JOSE VELASQUEZ Dictaphone Operator [phone] LUCILA KING Primary Care Provider LUCILA KING Referring Provider [phone] Assessment Encounter Date Assessment Date Assessment LastModified [...] for any further problems difficulties or questions. Not available 07/04/2024 16:38:17 07/21/2024 07/21/2024 The patient has a healing fracture of the base of the 5th metatarsal left foot there is no evidence of displacement fracture line appears to be well-maintained in his healing. She is going to continue with the cam walker boot around the house she can wear regular shoes as long as she is comfortable she is having pain I have advised her to continue with the cam walker. 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 She is not to climb any ladders use a Pallet Rubio or do anything in terms of heavy lifting. If she starts having more pain she is advised to back off and stay out of work. We will give her a note for work with those restrictions I will see her back in 3 weeks for new x-rays left foot. For her hip we are going to start a course of physical therapy for that hip strain and trochanteric bursitis type pain. They can also work on her left ankle for range of motion and gentle strengthening she has some stiffness and tightness in the left hip laterally and also the left ankle. We will recheck everything when she returns in 3 weeks. She voiced understanding agree with the above plan she will call for any further problems difficulties or questions. Not available 07/21/2024 14:29:37 Plan of Treatment Reminders Order Date Submit Date Provider Last Modified By Organization Details Last Modified Time Details Appointments Any 5 2024 01:30P LUCHO Meyers Not available Not available Not available Lab None recorded. Referral physical therapist referral - 07/21/24 faxed chronometer assembler and adjuster for approval Injury Date 5Injured Body Part L HIP-L ANKLEWork er's Comp [phone] Family Helper RON Lee ter a lance p lease treat patient for left hip pain 2024 025 [facility] [place] [facility], [address], [place], [address], 07/21/2024 14:55:18 Procedures injection /aspirati on joint/bur sa (PROC) 2024 025 [email or web address] 1 In-Office Order, Internal Use Only DO Not Attach Compendium DO Not Attach Compendium, Do Not Delete/merge, [id number] 07/04/2024 15:44:52 Surgeries None recorded. Imaging XR, foot 2024 025 [email or web address] [facility] [place], [address], [place], [address], 07/21/2024 14:34:21 Medication Orders ibuprofen 800 mg tablet 2024 025 [email or web address] [id number], [address] [facility], [place], [address], 07/04/2024 16:53:22 bupivacai ne HCl 0.5 % (5 mg/mL) injection solution 2024 025 [email or web address] [facility] [address], [address], 07/04/2024 16:53:22 Kenalog 10 mg/mL suspensio n for injection 2024 025 [email or web address] [address], [address], 07/04/2024 16:53:22 Patient TargetsNo targets recorded. Patient InstructionsNo instructions recorded. Reason for Referral Physical Therapist Referral for Closed fracture of base of fifth metatarsal bone 07/21/24 faxed chronometer assembler and adjuster for approval Injury Date 06/16/2024Injured Body Part L HIP-L ANKLEWorker's Comp RON RIDDLELUISAdjuster Adjuster Please treat patient for left hip pain Referring Physician: Julio C Manley, Orthopedic Surgery, Encounter Date: 07/21/2024 Results Created Date Observation Date Name Description Value Unit Range Abnormal Flag Note LastModifiedBy Organization Detail LastModifiedTime 06/29/1906/16/2024 XR, foot, 3 or more view No observ ation record ed. [email or web address] Not Available 06/11 14:47:37 06/29/19 25 06/16/2024 XR, ankle , 3 or more view No observ ation record ed. [email or web address] Not Available 06/11 14:47:37 07/22/19 XR, foot No observ ation record ed. [email or web address] [facility] [place] [address] [facility], [place], [address], 07/21/2024 14:30:27 Result Notes None recorded. Problems Name Problem SNOMED Code Status Onset Date Resolution Date Notes Provider Name and Address Organization Details Recorded Time Bilateral plantar fasciitis 2342422350124 9108 Active 2019 Not Available [facility] 3 16:39:48 Backache 051759750 Active Not Available [facility] 3 16:39:48 Ankle pain 782779030 Active 2019 Not Available [facility] 3 16:39:48 Ankle pain 954951162 Active 2019 Not Available [facility] 3 16:39:48 Dyslipidem ia 827442236 Active Not Available [facility] 3 16:39:48 Arthritis 3159976 Active 2019 Not Available [facility] 3 16:39:48 Hypothyroi dism 21405839 Active Not Available [facility] 3 16:39:48 Foot pain 52890482 Active 2019 Not Available [facility] 3 16:39:48 Diabetes mellitus 68617541 Active 2019 Not Available [facility] 3 16:39:48 Kidney stone 03917739 Active Not Available [facility] 3 16:39:48 Pain of left ankle joint 6728365567915 9103 Active 2024 Stephy Howard, RMA null, [facility] 15:26:02 Trochanter ic bursitis of left hip 0783316469253 03 Active 2024 Nilsa Hope, ATC L null, [facility] 5 15:41:48 Closed fracture of base of fifth metatarsal bone 013461147 Active 2024 LUCHO Delaney [address], [place], [address] , [facility] 5 16:38:48 Strain of tendon of muscle of hip 088374324 Active 2024 LUCHO Delaney [address], [place], [address] , [facility] 16:39:33 Notes:ear problems, thyroid disease Problem Notes None recorded. Procedures Surgical History None recorded. Imaging Results Imaging Date Name Status LastModified by Organiz ation Details LastModified Time 06/16/2024 XR, foot, 3 or more view completed Information not available 06/29/2024 14:47:37 06/16/2024 XR, ankle, 3 or more view completed Information not available 06/29/2024 14:47:37 07/21/2024 XR, foot completed [email or web address] [facility] [place] [address], [place], [address], 07/21/2024 14:30:27 Procedure Notes None recorded. Medical Equipment None Reported. Allergies Allergen ID Allergen Name Allergen Category Reaction Reaction Severity Criticality Documentation Date Start Date Code Code System Note Provider Name and Address Organization Details Recorded Time 92609 Victoza medicatio n Not available Not available Not available 07/08/2022 84099 3 RxNorm Not Available [facility] 16:41:32 51582 codeine medicatio n Not available Not available Not available 07/08/2022 2670 RxNorm hives Not Available [facility] 16:41:32 47700 Substance with sulfonami de structure and antibacte rial mechanism of action (substanc e) medicatio n Not available Not available Not available 07/08/2022 44131 8003 SNOMED Not Available [facility] 3 16:41:32 39168 Risperdal medicatio n Not available Not available Not available 07/08/2022 02210 8 RxNorm Not Available [facility] 3 16:41:32 02002 Geodon medicatio n Not available Not available Not available 07/08/2022 65099 4 RxNorm Not Available [facility] 3 16:41:32 Medications Name Sig Start Date [...] 2 mL by injection route. [address] [facility]: [phone] Not Available Not Available [...] completed Not Available Not Available Not Available loratadine 10 mg tablet TAKE 1 TABLET BY MOUTH NIGHTLY FOR ALLERGIES active Not Available Not Available No t Available naproxen 500 mg tablet TAKE 1 [...] TAKE 1 TABLET BY MOUTH TWICE DAILY active Not Available Not Available No t Available Ventolin HFA 90 mcg/actuati on aerosol [...] tablet TAKE TABLET WITH YOU TO SLEEP CETNER FOR SLEEP STUDY 07/04 completed Not Available [...] completed Not Available Not Available Not Available Jardiance 25 mg tablet TAKE 1 TABLET BY MOUTH DAILY active Not Available Not Available No t Available Xigduo XR 10 mg-1,000 mg tablet,exte [...] completed Not Available Not Available Not Available Mounjaro 2.5 mg/0.5 mL subcutaneou s pen injector ADMINISTE R 2.5 MG UNDER THE SKIN WEEKLY FOR 4 WEEKS active Not Available Not Available No t Available Vitals Date Recorded Body height Body mass index (BMI) Body weight Pain severity - 0-10 verbal numeric rating [Score] - Reported Provider Name and Address Organization Details Last Updated DateTime 07/04/2024 152.4 cm 37.1 kg/m2 89917.55 g 7 IVELISSE Markham [place] [employer] [facility] 07/04/2024 15:15:25 Date Recorded Body height Body mass index (BMI) Body weight Provider Name and Address Organization Details Last Updated DateTime 07/21/2024 152.4 cm 37.1 kg/m2 96980.55 g Renae Batista CNA [employer] [facility] 07/21/2024 14:04:42 Social History Question Answer Notes LastModified by Organizat ion Details LastModified Time Tobacco Smoking Status Unknown If Ever Smoked IVELISSE Markham null [employer] [facility] 07/04/2024 15:25:12 What Is Your Level Of Alcohol Consumption? None [email or web address] Information not available 07/04/2024 What Was The Date Of Your Most Recent Tobacco Screening? 07/04/2024 [email or web address] Information not available 07/04/2024 Sex: Unknown Functional Status None recorded. Mental Status None recorded. Family History Relationship Description Onset Age of this Age Resolved Age Notes LastModified by Organization Details LastModified Time Mother History of malignant neoplasm [email or web address] Not available 2024 15:24:47 Maternal Grandmother Diabetes mellitus Not available 2024 15:24:55 Notes:stroke - mother, cance r - mother & grandmother, blood clots - mother Medical History Condition Response DIABETES, TYPE Y HYPERTENSION Y Gynecological HistoryNo gynecological history recorded. Obstetrics History GPAL:G 0 P 0 0 0 0 Past Encounters Encounter ID Performer Location Encounter Start Date Encounter Closed Date Diagnosis/Indication Diagnosis SNOMED-CT Code Diagnosis ICD10 Code Diagnosis Note [id number] LUCHO Delaney [facility] [place] [address] [place] [address] 07/04/2024 15:03:06 07/04/2024 16:33:29 Pain of left ankle joint 7120395091 3436197 M25.572 Trochanter ic bursitis of left hip 0241971421 34672 M70.62 Closed fra cture of base of fifth metatarsal bone 494968185 S92.355A Strain of tendon of muscle of hip 700550680 S76.012A [id number] LUCHO Delaney [facility] [place] [address] [place] [address] 07/21/2024 14:01:01 07/21/2024 14:34:21 Pain of left ankle joint 2836935618 3850157 M25.572 Trochanter ic bursitis of left hip 3991782817 60453 M70.62 Closed fra cture of base of fifth metatarsal bone 794886425 S92.355D Strain of tendon of muscle of hip 994550877 S76.012D Health Concerns Section Related Observation LastModified by Organization Detai ls LastModified Time None Recorded Concern Status LastModified by Organization Details LastModified Time None Recorded Advance Directives Directive None Recorded Payers Encounter Date Sequence Insurance Name Policy Number Policy Tripp Covered Member ID Tripp Member ID Guarantor Name 07/04/2024 MINAL [employer] Prasanth [place] [employer] L [place] 07/21/2024 MINAL [facility] [place] Notes Date Note Type Note Provider [...] today with the patient. LUCHO Delaney [address] [facility] [facility] [address], [place], [address], [facility] 07/04/2024 16:41:11 07/21/2024 text/html Patient returns she is now 5 weeks status post injury to her left hip where she strained had some pain over the lateral trochanteric region she also injured her left foot when she stepped in a hole and twisted it. She had a nondisplaced fracture through the base of the 5th metatarsal. There is a subtle lucent line indicative of a fracture. She has tenderness there and has been in a cam walker boot. She has been off work she would like to return where she could do standing duty only. States the pain is improving with time. We did a shot of cortisone into the left hip trochanteric bursa as well this is still feeling a bit tight and achy she is wondering what else we can do about that. She has been taking occasional ibuprofen but not on a regular basis she does not want it to interact with other medications that she is taking. She comes in today for recheck and new x-rays of her left foot. She also has some stiffness in her ankle from the injury. No significant pain with ambulation just feels tight and stiff because she has not been using it. LUCHO Delaney [address] [facility] [facility] [address], [place], [address], [place] [facility] [facility] 07/21/2024 14:32:34 OBGyn Episode No OBEpisode recorded.
--- OUTSIDE RECORDS SUMMARY | 2024-07-26 17:14 | XMS_ITS | Referral Summary ---
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 FINAL REPORT ACC# Date Time Exam [id number] Mar 07, 2013 10:28:00 BMV [id number] Sabin Screening Mamm Technologist(s): Madelaine Aleman; ; EXAMINATION: Mammogram Technique: Bilateral Full-Field Digital Screening Mammogram was performed. Views obtained: bilateral craniocaudal and bilateral mediolateral oblique. Computer Aided Detection was performed with Immunity Project.3 version 9.3. Mammogram Findings: This is a [...] M.D. FINAL REPORT ACC# Date Time Exam [id number] Mar 07, 2013 10:28:00 BMV [id number] Van Screening Mamm Technologist(s): Madelaine Aleman; ; EXAMINATION: Mammogram Technique: Bilateral Full-Field Digital Screening Mammogram was performed. Views obtained: bilateral craniocaudal and bilateral mediolateral oblique. Computer Aided Detection was performed with Immunity Project.3 version 9.3. Mammogram Findings: This is a [...] Most Recently Relevant to Health Maintenance Insurance [facility] LUCHO VALENZUELA [facility] [place] [address] [employer] [facility] PLAN Care Teams Manager Motor Relationship Specialty Start Date End Date Quintin Luna MD PCP - General Family Medicine 10/26/22
--- OUTSIDE RECORDS SUMMARY | 2024-07-26 17:14 | XMS_ITS | Clinical Summary ---
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 Gender Identity Not on file Sexual Orientation Not on file Plan of Treatment Health Maintenance Due Date Last Done Comments DTAP/TDAP/TD VACCINES (1 - Tdap) 1989 HEPATITIS B VACCINES (1 of 3 - 19+ 3-dose series) 1989 PAP SMEAR 2000 BREAST CANCER SCREENING 2010 COLORECTAL SCREENING 2015 Colorectal Cancer Screening 2015 FIT-DNA Q 3 years 2015 FIT/FOBT Q 1 year 2015 Flex Sig/CT Colonography Q 5 years 2015 ZOSTER VACCINE (1 of 2) 2020 INFLUENZA VACCINE (#1) 2023 COVID-19 Vaccine (3 - 2023-2 5 season) 2024 07/19/2020, 06/28/2020 PNEUMOCOCCAL VACCINE 0-49 YEARS Aged Out No longer eligible b ased on patient's age to complete this topic
[2024-07-26 17:15] LABS: LDL Cholesterol Direct 40 mg/dL
[2024-07-26 17:55] LABS: Free T4 Free Thyroxine 1.46 ng/dL (0.78-2.19); Vitamin D 25 Hydroxy 17.5 ng/mL
[2024-07-26 17:58] LABS: Creatinine Urine 53.1 mg/dL
[2024-07-26 18:37] LABS: MALB Creatinine Ratio < 11.3 mg/g (0-30); Microalbumin Urine Random < 6.0 mg/L (0-16.7)
== END 2024-07-26 16:08 | disposition home or self-care (01) ==
LOC: ANHLAB 16:12
PROVIDERS: PCP Family Medicine; Visit Provider Nurse Practitioner Family
DX: E78.5 Hyperlipidemia, unspecified (principal); E11.9 Type 2 diabetes mellitus without complications; E03.9 Hypothyroidism, unspecified; I10 Essential (primary) hypertension; E55.9 Vitamin D deficiency, unspecified
CPT/HCPCS: 36415; 80053; 80061; 82043; 82306; 84439; 84443